=== PATIENT | female | born 1940 | race Caucasian/White ===

== ENCOUNTER → 2018-06-12 12:51 | Outpatient (CLI) | payer MEDICARE, OTHER, SELFPAY ==
--- NOTE | 2018-06-12 12:54 | DI.RAD.S_ITS ---
PROCEDURE: XR KNEE RT 3V INDICATIONS: Knee pain (medial); suspect OA- do 1 weight bearing view TECHNIQUE: 3 views of the knee were acquired. COMPARISON: None. FINDINGS: Bones: No fractures or dislocations. No suspicious bony lesions. Scattered degenerative subchondral sclerosis and spurring. Soft tissues: Small joint effusion. No suspicious soft tissue calcifications. IMPRESSION: Mild right knee joint degeneration. Small joint effusion. Dictated by: Jeyson Mehta M.D. on 06/12/2018 at 15:18 Approved by: Jeyson Mehta M.D. on 06/12/2018 at 15:27
== END ==
PROVIDERS: Family Provider Physician Assistant; PCP Physician Assistant; Visit Provider Physician Assistant
DX: M25.561 Pain in right knee (principal); M17.11 Unilateral primary osteoarthritis, right knee; M25.461 Effusion, right knee
CPT/HCPCS: 73562

== ENCOUNTER → 2019-08-04 15:31 | Outpatient (CLI) | payer MEDICARE, OTHER, SELFPAY ==
[2019-08-06 09:08] LABS: COVID19 Sendout Not Detected (Not Detected)
== END ==
PROVIDERS: Family Provider Physician Assistant; PCP Physician Assistant; Visit Provider Physician Assistant
DX: R53.83 Other fatigue (principal)
CPT/HCPCS: 87635

== ENCOUNTER → 2020-03-05 15:19 | Outpatient (CLI) | payer MEDICARE, SELFPAY ==
[2020-03-05] MEDS: COVID-19 VACC #1, MRNA(MOD) 100 MCG/0.5 ML VIAL IM (15:34)
== END ==
PROVIDERS: Family Provider Physician Assistant; PCP Physician Assistant; Visit Provider Internal Medicine
DX: Z23 Encounter for immunization (principal)
CPT/HCPCS: 0011A; 91301

== ENCOUNTER → 2020-04-02 14:34 | Outpatient (CLI) | payer MEDICARE, SELFPAY ==
[2020-04-02] MEDS: COVID-19 VACC #2, MRNA(MOD) 100 MCG/0.5 ML VIAL IM (14:41)
== END ==
PROVIDERS: Family Provider Physician Assistant; PCP Physician Assistant; Visit Provider Internal Medicine
DX: Z23 Encounter for immunization (principal)
CPT/HCPCS: 0012A; 91301

== ENCOUNTER → 2021-01-04 09:05 | Outpatient (CLI) | payer MEDICARE, OTHER, SELFPAY ==
[2021-01-04 10:27] LABS: Add Manual Diff / Slide Review NO; Basophils Absolute Auto 100 /uL (0-100); Basophils Percent Auto 0.8 % (0-2); Eosinophils Absolute Auto 400 /uL (0-450); Eosinophils Percent Auto 4.6 % (2-4); Hemoglobin 13.6 g/dL (12.0-16.0); Lymphocytes Absolute Auto 2200 /uL (1100-4500); Lymphocytes Percent Auto 27.6 % (25-40); Mean Corpuscular HGB Conc 33.1 % (30-36); Mean Corpuscular Hemoglobin 29.3 PG (26-34); Mean Corpuscular Volume 88.4 fL (80-100); Monocytes Absolute Auto 600 /uL (0-900); Monocytes Percent Auto 7.2 % (3-14); Neutrophils Absolute Auto 4700 /uL (1500-7000); Neutrophils Percent Auto 59.8 % (50-75); Platelet Count 261 X10^3/uL (150-400); Red Blood Cell Count 4.63 X10^6/uL (4.0-5.2); Red Cell Distribution Width 14.5 % (11.6-14.8); White Blood Cell Count 7.9 X10^3/uL (4.5-11.0)
[2021-01-04 10:53] LABS: Alanine Aminotransferase 15 IU/L (<35); Albumin 4.3 g/dL (3.5-5.0); Albumin Globulin Ratio 1.3 (1.0-2.8); Alkaline Phosphatase 58 U/L (38-126); Aspartate Aminotransferase 27 IU/L (14-36); BUN Creatinine Ratio 14.9 (6-22); Bilirubin Total 0.9 mg/dL (0.2-1.3); Blood Urea Nitrogen 10 mg/dL (7-17); Calcium 9.9 mg/dL (8.4-10.2); Carbon Dioxide 33 mmol/L (22-32); Chloride 103 mmol/L (98-107); Cholesterol 187 mg/dL (140-199); Estimated Glomerular Filt Rate > 60.0 mL/min (>60); Globulin 3.2 g/dL (1.7-4.1); Glucose 110 mg/dL (80-110); HDL Cholesterol 44 mg/dL (40-60); HEMOLYSIS < 15 (0-50); LDL Cholesterol Calculated 113 mg/dL (<100); Potassium 5.1 mmol/L (3.4-5.1); Sodium 142 mmol/L (137-145); Total Protein 7.5 g/dL (6.3-8.2); Triglycerides 150 mg/dL (35-150)
[2021-01-04 11:11] LABS: TSH w/ Reflex to FT4 1.78 uIU/mL (0.47-4.68)
== END ==
PROVIDERS: Family Provider Physician Assistant; PCP Family Medicine; Referring Provider Family Medicine; Visit Provider Family Medicine
DX: E78.2 Mixed hyperlipidemia (principal); J45.909 Unspecified asthma, uncomplicated; R00.2 Palpitations
CPT/HCPCS: 36415; 80053; 80061; 84443; 85025

== ENCOUNTER → 2021-01-13 12:55 | Outpatient (CLI) | payer MEDICARE, OTHER, SELFPAY ==
--- NOTE | 2021-02-07 09:04 | P.HOLT.S_ITS ---
Coke Inspector Report Referral & Results Date Patient Seen: 01/13/21 Requesting provider: Rm Love Indication: Palpitations Duration of monitoring (days): 7 Diary information: There were 2 patient triggered events and 2 patient diary entries Both of these patient events were associated with sinus rhythm only Data: Minimum heart rate identified was 54 beats per minute at 04:29 on 01/16/2021 Maximum sinus heart rate was 130 beats per minute at 16:53 on 01/15/2021 Maximum overall heart rate was 190 beats per minute at 11:54 on 01/15/2021 during a run of SVT Approximately 2.4% of identified beats were supraventricular ectopic in origin which would classify them asonal Less than 1% of identified beats were ventricular ectopic in origin which would classify them as rare There were 4604 runs of SVT identified by the computer, the fastest being a 12 beat run at 190 beats per minute with the longest lasting 20.6 seconds at a rate of 101 beats per minute which would suggest possible atrial tachycardia as well Impression: 7 day clinical research monitor demonstrating occasional supraventricular ectopy including runs of SVT as above. None of the runs of SVT were extended induration. Patient events were associated with sinus rhythm only however which makes it difficult to determine whether not the supraventricular ectopy is symptomatic or not in this particular patient Clinical correlation suggested
== END ==
PROVIDERS: Family Provider Physician Assistant; PCP Family Medicine; Referring Provider Family Medicine; Visit Provider Family Medicine
DX: R00.2 Palpitations (principal)
CPT/HCPCS: 93242; 93244

== ENCOUNTER → 2021-03-01 11:11 | Outpatient (CLI) | payer MEDICARE, OTHER, SELFPAY ==
--- NOTE | 2021-03-01 11:13 | DI.RAD.S_ITS ---
PROCEDURE: XR DEXA AXIAL SKELETON INDICATIONS: mammogram screening, bone density screening COMPARISON: None. FINDINGS: This blank DEXA report has been sent in error by the PACS system. The correct and complete report will be forthcoming in 1-2 days. Thank you for your patience and understanding. Dictated by: Nakia Munoz MD, PhD on 03/01/2021 at 16:56 Approved by: Nakia Munoz MD, PhD on 03/01/2021 at 16:57
== END ==
PROVIDERS: Family Provider Physician Assistant; PCP Family Medicine; Referring Provider Family Medicine; Visit Provider Family Medicine
DX: Z78.0 Asymptomatic menopausal state; Z13.820 Encounter for screening for osteoporosis
CPT/HCPCS: 77080

== ENCOUNTER → 2021-03-02 15:27 | Outpatient (CLI) | payer MEDICARE, OTHER, SELFPAY ==
--- NOTE | 2021-03-02 15:28 | DI.MG.S_ITS ---
BILATERAL DIGITAL SCREENING MAMMOGRAM 3D/2D WITH CAD: 03/02/2021 CLINICAL: Routine screening. Family history of breast cancer. Comparison is made to exams dated: 05/26/2015 mammogram and 12/03/2009 mammogram - [facility]. There are scattered fibroglandular elements in both breasts. Current study was also evaluated with a Computer Aided Detection (CAD) system. No significant masses, calcifications, or other findings are seen in either breast. There has been no significant interval change. IMPRESSION: NEGATIVE There is no mammographic evidence of malignancy. A 1 year screening mammogram is recommended. This exam was interpreted at Station ID: [id number]. NOTE: For mammograms, a report in lay terms will be sent to the patient. Approximately 15% of breast malignancies will not be visualized mammographically. In the management of a palpable breast mass, a negative mammogram must not discourage biopsy of a clinically suspicious lesion. Electronically Signed By: Trevon moser/sb:03/03/2021 07:54:18 letter sent: Normal Exam ACR BI-RADS Category 1: Negative [id number]
== END ==
PROVIDERS: Family Provider Physician Assistant; PCP Family Medicine; Referring Provider Family Medicine; Visit Provider Family Medicine
DX: Z12.31 Encounter for screening mammogram for malignant neoplasm of breast (principal); Z80.3 Family history of malignant neoplasm of breast
CPT/HCPCS: 77063; 77067

== ENCOUNTER → 2021-03-03 11:17 | Outpatient (CLI) | payer MEDICARE, OTHER, SELFPAY ==
--- NOTE | 2021-03-03 11:20 | DI.RAD.S_ITS ---
PROCEDURE: XR SHOULDER RT MIN 2V INDICATIONS: right shoulder pain and decreased ROM TECHNIQUE: 3 views of the shoulder were acquired. COMPARISON: None. FINDINGS: Bones: No fractures or dislocations. No suspicious bony lesions. Visualized ribs appear intact. Glenohumeral joint degenerative change. Soft tissues: No suspicious soft tissue calcifications. IMPRESSION: Degenerative arthritis. No evidence acute bony abnormality of the right shoulder. If clinical suspicion and/or symptoms persist, further assessment with repeat plain films, or advanced imaging (e.g., CT, MRI, or bone scan) may be helpful for further assessment. Dictated by: Jose Stapleton M.D. on 03/03/2021 at 17:42 Approved by: Jose Stapleton M.D. on 03/03/2021 at 17:45
--- NOTE | 2021-03-03 11:20 | DI.RAD.S_ITS ---
PROCEDURE: XR HIP W PEL IF DONE LT 2V INDICATIONS: left hip pain TECHNIQUE: AP pelvis with lateral view(s) of the left hip(s). COMPARISON: None. FINDINGS: Bones: No acute fractures or dislocations. Pelvic ring appears intact. No suspicious bony lesions. Mild lower lumbar spondylosis. Soft tissues: The visualized bowel gas pattern is normal. No suspicious soft tissue calcifications. IMPRESSION: Left hip without acute radiographic abnormalities. Mild lower lumbar spondylosis. No significant degenerative changes of the left hip on radiographic evaluation. Dictated by: Juaquin Sargent M.D. on 03/03/2021 at 14:47 Approved by: Juqauin Sargent M.D. on 03/03/2021 at 14:49
== END ==
PROVIDERS: Family Provider Physician Assistant; PCP Family Medicine; Referring Provider Family Medicine; Visit Provider Family Medicine
DX: M19.011 Primary osteoarthritis, right shoulder (principal); M47.816 Spondylosis without myelopathy or radiculopathy, lumbar region; M25.511 Pain in right shoulder; M25.552 Pain in left hip
CPT/HCPCS: 73030; 73502

== ENCOUNTER 2021-05-02 16:40 | Emergency (ER) | payer MEDICARE, OTHER, SELFPAY ==
[2021-05-02] VITALS (12 sets, daily range): BP systolic 140–217; BP diastolic 74–100; PULSE 63–86; RESP 16–40; TEMP 36.9; O2SAT 94–98; BMI 23.8
--- NOTE | 2021-05-02 16:57 | DI.RAD.S_ITS ---
PROCEDURE: XR CHEST 2V INDICATIONS: cough TECHNIQUE: 2 views of the chest were acquired. COMPARISON: None. FINDINGS: Surgical changes and devices: None. Lungs and pleura: Lungs are clear. No pleural effusions or pneumothorax. Mediastinum: Mediastinal contours are normal. Heart size is normal. Bones and chest wall: No suspicious bony abnormalities. Soft tissues appear unremarkable. IMPRESSION: No acute finding. Dictated by: Jevon Zapata M.D. on 05/02/2021 at 17:36 Approved by: Jevon Zapata M.D. on 05/02/2021 at 17:36
--- NOTE | 2021-05-02 17:15 | ED_ITS ---
HPI - URI/Sore Throat <Sailaja Mckinney, [facility] - Last Filed: 05/02/21 20:01> General Chief Complaint: Upper Respiratory Symptoms Stated Complaint: Allergic Reaction, Trouble Breathing Time Seen by Provider: 05/02/21 16:52 Source: patient Mode of arrival: Ambulatory History of Present Illness HPI Narrative: This is a 80-year-old female who presents to the emergency department complaining of throat tightness for the last couple days, a productive cough, and feeling short of breath. Patient has a history of asthma, she states she has not used her inhaler at all this week, she was given a prescription of Augmentin 2 weeks ago for bronchitis, she states that she finished these antibiotics, it caused diarrhea but they did not have much of a change on her upper respiratory infection. She is vaccinated for COVID x3, denies any fever, runny nose, sinus tenderness, abdominal pain, vomiting, diarrhea, or dizziness. Patient states that she was recently switched from metoprolol to propanolol because she states metoprolol made her too sleepy, her quality of life was not optimal, she has been taking propanolol without adverse event. She states she finished her antibiotics 1 week ago, she has a productive cough with phlegm, and has been coughing frequently in the morning. Related Data Home Medications Medication Instructions Recorded Confirmed FOLIC ACID/VIT A/VIT B1/VIT 1 tab PO QDAY #0 08/15/10 04/22/21 (#MULTIVITAMIN) [CALCIUM] 1 cap PO QDAY #0 10/20/15 04/22/21 [PROBIOTIC FORMULA] 1 - 2 cap PO QDAY #0 10/20/15 04/22/21 ibuprofen 200 mg capsule 400 mg PO Q4-6H PRN 06/12/18 04/22/21 turmeric root extract 500 mg 500 mg PO DAILY 06/12/18 04/22/21 capsule Previous Rx's Medication Instructions Recorded amoxicillin 875 mg-potassium 1 tab PO BID #14 tab 04/22/21 clavulanate 125 mg tablet propranolol 10 mg tablet 10 mg PO BID #60 tab 04/22/21 albuterol sulfate 90 mcg/actuation 1 inh INHALATION QID PRN #6.7 g 05/02/21 aerosol inhaler dextromethorphan polistirex 30 10 ml PO Q12H PRN #89 ml 05/02/21 mg/5 mL oral susp ext.release 12hr (Robitussin ER) fluticasone propionate 50 1 spray INTRANASAL BID PRN #16 g 05/02/21 mcg/actuation nasal spray,suspension (Flonase Allergy Relief) methylprednisolone 4 mg tablets in See Rx Instructions .ROUTE 05/02/21 a dose pack (Medrol (Romario)) .COMPLEX #21 ea pantoprazole 20 mg tablet,delayed 20 mg PO DAILY 30 Days #30 tab 05/02/21 release (Protonix) Allergies Allergy/AdvReac Type Severity Reaction Status Date / Time No Known Drug Allergies Allergy Verified 05/02/21 16:59 Review of Systems <FADY Mendez - Last Filed: 05/02/21 20:01> Review of Systems Narrative: General: denies fever, chills, malaise, sweats, fatigue Head/Neck: denies headache, neck pain, dizziness Eyes: denies visual changes, eye pain Cardio: denies chest pain, palpitations, edema, endorses upper chest tightness Respiratory: denies dyspnea, endorses shortness of breath, productive cough, denies orthopnea GI: denies abdominal pain, nausea, vomiting, or diarrhea : denies dysuria, hematuria, urinary retention, frequency or incontinence MSK: denies joint pain, muscle weakness Skin: denies rash, itching, skin lesions or other Neuro: denies numbness, tingling Patient History <FADY Mendez - Last Filed: 05/02/21 20:01> Medical History Allergic rhinitis Hyperlipidemia SVT (supraventricular tachycardia) Surgical History Status post cholecystectomy Social History Smoking Status: Never smoker Smoking Status: Never smoker alcohol intake frequency: holidays/special occasions only Substance Use Type: does not use Exam <FADY Mendez - Last Filed: 05/02/21 20:01> Narrative Exam Narrative: Independently reviewed vitals signs and nursing notes. General: cooperative, comfortable, in no acute distress, well developed and well groomed Head: atraumatic, symmetrical facial expressions Neck: supple, atraumatic, without lymphadenopathy. Eyes: pupils equal round and reactive, EOMI, conjunctiva normal Nose: nares patent, no rhinorrhea Mouth/Throat: uvula midline, moist mucus membranes, tonsillar adenopathy Cardiovascular: regular rate and rhythm, no peripheral edema, warm extremities Respiratory: normal effort, able to speak in complete sentences, no audible wheezing, expiratory wheezes primarily on the right but also on the left, atelectasis auscultated on the lower left lobe, no stridor, or rales. No retractions or tachypnea. GI: abdomen soft, nontender to palpation, nondistended, no masses, no exquisite tenderness with exam, without guarding or rebound. MSK: moves all extremities, ambulatory w/steady gait, neurovascularly intact, no weakness Skin: brisk capillary refill, no rash, no erythema Neuro: normal speech and cognition, A&O x3, normal tone Psych: mental status is grossly normal, congruent mood, normal affect, pleasant and cooperative Initial Vital Signs Initial Vital Signs: Vital Signs Temperature 98.4 F 05/02/21 16:45 Pulse Rate 86 05/02/21 16:45 Respiratory Rate 19 05/02/21 16:45 Blood Pressure 140/85 05/02/21 16:45 Pulse Oximetry 95 05/02/21 16:45 <Leon Llanos DO - Last Filed: 05/03/21 07:10> Initial Vital Signs Initial Vital Signs: Vital Signs Temperature 98.4 F 05/02/21 16:45 Pulse Rate 86 05/02/21 16:45 Respiratory Rate 19 05/02/21 16:45 Blood Pressure 140/85 05/02/21 16:45 Pulse Oximetry 95 05/02/21 16:45 Course <FADY Mendez - Last Filed: 05/02/21 20:01> Orders Ordered: Discontinued Medications Albuterol (Albuterol 2.5 Mg/3 Ml Neb (Adult)) 2.5 mg INH NOW ONE Stop: 05/02/21 18:21 Last Admin: 05/02/21 18:35 Dose: 2.5 mg Documented by: PETRA Albuterol/Ipratropium (Albuterol/Ipratropium 3 Ml Ampul) 3 ml INH NOW ONE Stop: 05/02/21 17:15 Last Admin: 05/02/21 17:28 Dose: 3 ml Documented by: JFDILIP Dexamethasone (Dexamethasone 10 Mg/Ml Vial) 10 mg PO NOW ONE Stop: 05/02/21 17:15 Last Admin: 05/02/21 17:23 Dose: 10 mg Documented by: PEDRO Ketorolac Tromethamine (Ketorolac 10 Mg Tablet) 10 mg PO NOW ONE Stop: 05/02/21 18:00 Last Admin: 05/02/21 18:22 Dose: 10 mg Documented by: PEDRO Magnesium Oxide (Magnesium Oxide 400 Mg Tablet) 400 mg PO NOW ONE Stop: 05/02/21 18:01 Last Admin: 05/02/21 18:23 Dose: Not Given Documented by: PEDRO Pantoprazole Sodium (Pantoprazole Dr 20 Mg Tablet) 20 mg PO NOW ONE Stop: 05/02/21 18:00 Last Admin: 05/02/21 18:22 Dose: 20 mg Documented by: PEDRO Vital Signs Vital signs: Vital Signs - 8 hr 05/02/21 16:45 05/02/21 16:54 05/02/21 16:55 Temperature 98.4 F Pulse Rate 86 68 Respiratory Rate 19 23 Blood Pressure 140/85 217/100 H Pulse Oximetry 95 95 05/02/21 17:00 05/02/21 17:28 05/02/21 17:30 Temperature Pulse Rate 80 69 66 Respiratory Rate 30 H 16 40 H Blood Pressure 195/88 H Pulse Oximetry 94 98 97 05/02/21 18:00 05/02/21 18:30 05/02/21 18:36 Temperature Pulse Rate 63 65 69 Respiratory Rate 35 H 23 16 Blood Pressure Pulse Oximetry 97 95 96 05/02/21 19:00 05/02/21 19:08 05/02/21 19:15 Temperature Pulse Rate 63 68 66 Respiratory Rate 18 20 17 Blood Pressure 174/74 H 174/74 H Pulse Oximetry 95 96 96 <Leon Llanos DO - Last Filed: 05/03/21 07:10> Orders Ordered: Discontinued Medications Albuterol (Albuterol 2.5 Mg/3 Ml Neb (Adult)) 2.5 mg INH NOW ONE Stop: 05/02/21 18:21 Last Admin: 05/02/21 18:35 Dose: 2.5 mg Documented by: PETRA Albuterol/Ipratropium (Albuterol/Ipratropium 3 Ml Ampul) 3 ml INH NOW ONE Stop: 05/02/21 17:15 Last Admin: 05/02/21 17:28 Dose: 3 ml Documented by: PETRA Dexamethasone (Dexamethasone 10 Mg/Ml Vial) 10 mg PO NOW ONE Stop: 05/02/21 17:15 Last Admin: 05/02/21 17:23 Dose: 10 mg Documented by: PEDRO Ketorolac Tromethamine (Ketorolac 10 Mg Tablet) 10 mg PO NOW ONE Stop: 05/02/21 18:00 Last Admin: 05/02/21 18:22 Dose: 10 mg Documented by: PEDRO Magnesium Oxide (Magnesium Oxide 400 Mg Tablet) 400 mg PO NOW ONE Stop: 05/02/21 18:01 Last Admin: 05/02/21 18:23 Dose: Not Given Documented by: PEDRO Pantoprazole Sodium (Pantoprazole Dr 20 Mg Tablet) 20 mg PO NOW ONE Stop: 05/02/21 18:00 Last Admin: 05/02/21 18:22 Dose: 20 mg Documented by: PEDRO Vital Signs Vital signs: Vital Signs - 8 hr 05/02/21 16:45 05/02/21 16:54 05/02/21 16:55 Temperature 98.4 F Pulse Rate 86 68 Respiratory Rate 19 23 Blood Pressure 140/85 217/100 H Pulse Oximetry 95 95 05/02/21 17:00 05/02/21 17:28 05/02/21 17:30 Temperature Pulse Rate 80 69 66 Respiratory Rate 30 H 16 40 H Blood Pressure 195/88 H Pulse Oximetry 94 98 97 05/02/21 18:00 05/02/21 18:30 05/02/21 18:36 Temperature Pulse Rate 63 65 69 Respiratory Rate 35 H 23 16 Blood Pressure Pulse Oximetry 97 95 96 05/02/21 19:00 05/02/21 19:08 05/02/21 19:15 Temperature Pulse Rate 63 68 66 Respiratory Rate 18 20 17 Blood Pressure 174/74 H 174/74 H Pulse Oximetry 95 96 96 MDM - URI/Sore Throat <FADY Mendez - Last Filed: 05/02/21 20:01> Lab Data Labs: Lab Results 05/02/21 Range/Units 16:55 SARS-CoV-2 (PCR) Negative (Negative) Imaging Data Chest x-ray: Radiologist's Impression: PROCEDURE:? XR CHEST 2V ? INDICATIONS:? cough ? TECHNIQUE:? 2 views of the chest were acquired.? ? COMPARISON:? None. ? FINDINGS:? ? Surgical changes and devices:? None.? ? Lungs and pleura:? Lungs are clear.? No pleural effusions or pneumothorax.? ? Mediastinum:? Mediastinal contours are normal.? Heart size is normal.? ? Bones and chest wall:? No suspicious bony abnormalities.? Soft tissues appear unremarkable.? ? IMPRESSION:? No acute finding. ? ? Dictated by: Jevon Zapata M.D. on 05/02/2021 at 17:36 ? ? Approved by: Jevon Zapata M.D. on 05/02/2021 at 17:36 ? ECG Data Interpretation: EKG was reviewed by myself and Dr. Llanos which reveals normal sinus rhythm at [68] bpm with regular axis and intervals. No STEMI, ST segment changes, arrhythmia, or acute ischemic changes. MDM Narrative Medical decision making narrative: This 80-year-old female presents to the emergency department with a feeling of throat and upper chest tightness. She states she has at her history of hiatal hernia and heartburn, she is not currently taking any PPI or GI prophylaxis for this. She also has a history of asthma but has not been using her inhaler. She was given a prescription of Augmentin 2 weeks ago for bronchitis from Dr. Love her primary care provider. She completed these antibiotics, states that she had diarrhea while on them, but this has resolved. She states that her cough, congestion, and throat tightness has not improved and the symptoms came on later. She was recently switched from metoprolol to propanolol for quality of life symptoms. She states the metoprolol made her too tired, and the propanolol has been tolerable thus far. Patient denies any new medications over the last few days. On exam, patient had extra Niecy wheezes on the right upper and lower lobes, mild atelectasis auscultated in her lower left lobe. Chest x- ray does not show any patchy infiltrates or patchy opacities. Chest x-ray was read without any acute cardiopulmonary process. Patient is without stridor, her wheezes improved after a DuoNeb, she was given 10 mg of Decadron, she was given a 2nd nebulizer of albuterol for ongoing extra Arona wheezes on the left and right. This improved after her 2nd nebulizer enough for patient felt comfortable enough to go home. She states that she feels much better now. Patient was given a prescription for Protonix for GI prophylaxis as this could be a cause for her symptoms, a Medrol Dosepak, encouraged to use her propanolol as schedule, she was hypertensive during her exam today but was normotensive prior to her elevated blood pressures while I was talking with her. Patient is without orthostatic hypotension. She is tolerating p.o. without difficulty. No swallowing difficulty, no dysphagia or aphasia at this time. Recommend close follow-up with your nose and throat for her throat tightness sensation. Encourage close follow-up with her primary care provider for any outpatient testing or referrals. I have referred her to your nose and throat. She states understanding and will follow-up with her providers accordingly. Patient was given strict return precautions for any worsening shortness of breath, worsening tightness in her throat, or any other symptoms which are concerning. Patient is appropriate and amenable to discharge home. Vital signs are stable on repeat examination is unremarkable. Patient has been informed of results. Patient has been given strict return to ER precautions for any new or worsening symptoms. Patient understands to follow up closely with outpatient providers as instructed. Patient understands plan and agrees to discharge home. All questions and concerns answered at this time. <Leon Llanos, DO - Last Filed: 05/03/21 07:10> Lab Data Labs: Lab Results 05/02/21 Range/Units 16:55 SARS-CoV-2 (PCR) Negative (Negative) Discharge Plan Departure Patient Disposition: Home Clinical Impression: Asthma exacerbation Qualifiers: Asthma severity: mild Asthma persistence: intermittent Qualified Code(s): J45.21 - Mild intermittent asthma with (acute) exacerbation Upper respiratory infection Qualifiers: URI type: unspecified viral URI Qualified Code(s): J06.9 - Acute upper respiratory infection, unspecified Instructions: Asthma -- Adult Activity Restrictions/Additional Instructions: *You have been diagnosed with an upper respiratory infection with an asthma exacerbation. Please use your inhaler every 4 hours as needed, if you need to use it more often for shortness of breath, please come back to the emergency department. Please follow-up with Dr. Singh from [facility], please call make an appointment with him tomorrow. If he is unavailable this week, then call to make an appoint with Dr. Valenzuela with ear nose and throat, he is over in [place]. Please call Dr. Jiménez office and make an appointment for a follow-up from the emergency department to address your tightness in her throat, asthma exacerbation, and any other symptoms that you are having at that time. I have called in Flonase for use well, please use Flonase morning and night to help with any congestion he may have, you may use the Robitussin cough syrup for cough. Please use your albuterol inhaler for any shortness of breath CC abdominal pain *What to do: *Please continue to take your regular medications as directed. [x ] New medication prescriptions sent to your pharmacy: [ [facility]] [ ] New medication written as a paper prescription [ ] No new medications given *Please follow up with your primary care provider in 2-3 days, call for an appointment. Let them know you were seen in the Emergency Department and that we asked that you be seen for follow-up. We will electronically transmit a record of today's note if your PCP is in our system *If you do not have a primary care provider please contact [phone] to establish care with one of the [facility] primary care providers. *Return to Emergency Department if you should have any new, worsening or concerning symptoms, such as [fever greater than 101F, chills, worsening pain, persistent vomiting or other bothersome symptoms] Prescriptions: New methylprednisolone [Medrol (Romario)] 4 mg tablets,dose pack See Rx Instructions .ROUTE .COMPLEX Qty: 21 0RF Rx Instructions: orally per package directions albuterol sulfate 90 mcg/actuation HFA aerosol inhaler 1 inh inhalation QID PRN (Reason: shortness of breath or wheezing) Qty: 6.7 0RF pantoprazole [Protonix] 20 mg tablet,delayed release (DR/EC) 20 mg PO DAILY 30 Days Qty: 30 0RF dextromethorphan polistirex [Robitussin ER] 30 mg/5 mL suspension,extended rel 12 hr 10 ml PO Q12H PRN (Reason: cough) Qty: 89 0RF fluticasone propionate [Flonase Allergy Relief] 50 mcg/actuation spray,suspension 1 spray intranasal BID PRN (Reason: nasal congestion) Qty: 16 0RF Rx Instructions: administer into each nostril No Action FOLIC ACID/VIT A/VIT B1/VIT (#MULTIVITAMIN) 1 tab PO QDAY Qty: 0 0RF [CALCIUM] 1 cap PO QDAY Qty: 0 0RF [PROBIOTIC FORMULA] 1 - 2 cap PO QDAY Qty: 0 0RF ibuprofen 200 mg capsule 400 mg PO Q4-6H PRN0RF turmeric root extract 500 mg capsule 500 mg PO DAILY 0RF propranolol 10 mg tablet 10 mg PO BID Qty: 60 0RF amoxicillin-pot clavulanate 875-125 mg tablet 1 tab PO BID Qty: 14 0RF Referrals: Mika Valenzuela MD [Physician] - Alexandre Singh MD [Physician] - As soon as possible Rm Love MD [Primary Care Provider] - <Leon Llanos DO - Last Filed: 05/03/21 07:10> Cosign ED Attending Cosignature Attestation: Dr Llanos Co-Sign Statement: I was available for consultation during this patient's emergency department visit. This chart is signed by myself for administrative purposes only. I did not have direct contact with this patient during this visit. They were seen independently by the APC.
[2021-05-02 17:19] LABS: COVID19 -Nasal RAPID Negative (Negative)
[2021-05-02] MEDS: DEXAMETHASONE 10 MG/ML VIAL PO (17:23)
[2021-05-02] MEDS: ALBUTEROL/IPRATROPIUM 3 ML AMPUL INH (17:28)
[2021-05-02] MEDS: PANTOPRAZOLE DR 20 MG TABLET PO (18:22)
[2021-05-02] MEDS: KETOROLAC 10 MG TABLET PO (18:22)
[2021-05-02] MEDS: ALBUTEROL 2.5 MG/3 ML NEB (ADULT) INH (18:35)
== END 2021-05-02 19:16 | disposition home or self-care (01) ==
PROVIDERS: Emergency Provider Nurse Practitioner Critical Care Medicine; Family Provider Physician Assistant; PCP Family Medicine
DX: J45.21 Mild intermittent asthma with (acute) exacerbation (principal); J06.9 Acute upper respiratory infection, unspecified
CPT/HCPCS: 71046; 87635; 93005; 94640; 99284; C9803; J1100; J7613

== ENCOUNTER 2021-05-03 16:39 | Inpatient (IN) | payer MEDICARE, OTHER, SELFPAY ==
[2021-05-03] VITALS (7 sets, daily range): BP systolic 145–204; BP diastolic 65–94; PULSE 65–92; RESP 18–26; TEMP 37.2; O2SAT 96–97; BMI 23.9
--- NOTE | 2021-05-03 17:08 | DI.CT.S_ITS ---
PROCEDURE: CT SOFT TISSUE NECK W CON INDICATIONS: Muffled voice, sore throat TECHNIQUE: After the administration of intravenous contrast, 3.0 mm axial sections acquired from the sella to the aortic arch. Additional oblique axial 3.0 mm sections acquired through the pharynx. 3 mm thick coronal and sagittal reformats were generated. For radiation dose reduction, the following was used: automated exposure control. COMPARISON: None. FINDINGS: Image quality: Excellent. Lymph nodes: No enlarged lymph nodes seen throughout the neck. Vessels: Visualized vasculature appears patent. Neck spaces: There is irregularity with thickening along the left aspect of the epiglottis, as on series 7, image 19. No additional mucosal masses are seen. Fullness can be seen within the tongue base on both sides, which may be related to prominent lymphoid tissue. Extramucosal spaces appear unremarkable. Glands: The parotid and submandibular glands appear normal. Thyroid gland demonstrates irregularity. Calcification can be seen within the left thyroid. Miscellaneous: Visualized brain and orbits appear normal. Lung apices appear clear. Superficial soft tissues appear normal. Bones: No suspicious bony lesions. Visualized sinuses and mastoids appear unremarkable. Cervical spine degenerative changes are seen, with at least moderate disc space narrowing at C4-C5 and C5-C6. IMPRESSION: Irregularity with thickening can be seen along the left aspect of the epiglottis. If clinically appropriate, please consider ENT consultation. No enlarged lymph nodes are seen. There is fullness seen within both sides of the tongue base, which may simply be related to prominent lymphoid tissue. Incidental note is made of: Irregular thyroid Cervical spine degenerative change Dictated by: Sancho La M.D. on 05/03/2021 at 17:11 Approved by: Sancho La M.D. on 05/03/2021 at 17:15
--- NOTE | 2021-05-03 17:09 | ED.NEUROSD ---
HPI - Neuro Symptoms/Deficit General Chief Complaint: Neuro Symptoms/Deficit Stated Complaint: HARD TIME TALKING Time Seen by Provider: 05/03/21 16:55 Source: patient Mode of arrival: Ambulatory Limitations: no limitations History of Present Illness HPI Narrative: Patient is a 80-year-old female. She arrives to the emergency department for what she describes as a muffled voice. Symptoms have been going on since this morning. She was seen here in the emergency department yesterday for an upper respiratory infection/asthma exacerbation. She also recently completed a course of amoxicillin for an upper respiratory infection as well. She states that this morning she feels like that her throat is full in the back of her tongue is full in that she has a muffled voice. She is not having any problems breathing. Is still tolerating secretions. Reports no headache or vision changes or extremity weakness or numbness or tingling. Her states that how she is speaking now is not normal for her. Denies chest pain. No shortness of breath. No nausea or vomiting. No skin rashes. Has not tried anything for symptoms prior to arrival. She does states she is having sinus congestion and ear fullness. On Anticoagulants: No Related Data Home Medications Medication Instructions Recorded Confirmed FOLIC ACID/VIT A/VIT B1/VIT 1 tab PO QDAY #0 08/15/10 04/22/21 (#MULTIVITAMIN) [CALCIUM] 1 cap PO QDAY #0 10/20/15 04/22/21 [PROBIOTIC FORMULA] 1 - 2 cap PO QDAY #0 10/20/15 04/22/21 ibuprofen 200 mg capsule 400 mg PO Q4-6H PRN 06/12/18 04/22/21 turmeric root extract 500 mg 500 mg PO DAILY 06/12/18 04/22/21 capsule Previous Rx's Medication Instructions Recorded amoxicillin 875 mg-potassium 1 tab PO BID #14 tab 04/22/21 clavulanate 125 mg tablet propranolol 10 mg tablet 10 mg PO BID #60 tab 04/22/21 albuterol sulfate 90 mcg/actuation 1 inh INHALATION QID PRN #6.7 g 05/02/21 aerosol inhaler dextromethorphan polistirex 30 10 ml PO Q12H PRN #89 ml 05/02/21 mg/5 mL oral susp ext.release 12hr (Robitussin ER) fluticasone propionate 50 1 spray INTRANASAL BID PRN #16 g 05/02/21 mcg/actuation nasal spray,suspension (Flonase Allergy Relief) methylprednisolone 4 mg tablets in See Rx Instructions .ROUTE 05/02/21 a dose pack (Medrol (Romario)) .COMPLEX #21 ea pantoprazole 20 mg tablet,delayed 20 mg PO DAILY 30 Days #30 tab 05/02/21 release (Protonix) verapamil 80 mg tablet 80 mg PO BID #60 tab 05/03/21 Allergies Allergy/AdvReac Type Severity Reaction Status Date / Time No Known Drug Allergies Allergy Verified 05/02/21 16:59 Review of Systems Review of Systems ROS Unobtainable: All systems reviewed & are unremarkable except as noted in HPI and below Hematologic/Lymphatic On Anticoagulants: No Patient History Medical History Allergic rhinitis Hyperlipidemia SVT (supraventricular tachycardia) Surgical History Status post cholecystectomy Social History Smoking Status: Never smoker Smoking Status: Never smoker alcohol intake frequency: holidays/special occasions only Substance Use Type: does not use Exam Initial Vital Signs Initial Vital Signs: Vital Signs Temperature 99.0 F 05/03/21 16:44 Pulse Rate 92 H 05/03/21 16:44 Respiratory Rate 20 05/03/21 16:44 Blood Pressure 204/93 H 05/03/21 16:44 Pulse Oximetry 96 05/03/21 16:44 Const General: cooperative, comfortable and well developed [facility] Ears: hearing grossly normal bilaterally and TM's normal bilaterally Face and sinus: normal facial exam Mouth: oral mucosae normal, lip normal and moist mucous membranes Teeth and gingiva: dentition normal Throat: posterior oropharynx normal, uvula midline and no peritonsillar masses Eyes General: appearance normal, both eyes and all related structures Neck Lymphatic: No lymphadenopathy Chest Chest: normal inspection of the chest Resp Effort & Inspection: normal respiratory effort Auscultation: clear to auscultation bilaterally Cardio Rate: regular rate Rhythm: regular rhythm GI Inspection: normal to inspection Palpation: soft, No firm and No tender Skin General: no rashes or lesions noted Neuro General: patient alert, patient awake, patient oriented x3 and moves all extremities Cognition: normal cognition Speech: abnormal speech (Muffled speech) Motor: muscle tone normal throughout Sensory Exam: no sensory deficits noted Extrem General: normal to inspection and capillary refill normal Psych Appearance: grossly normal and well kempt Scores GCS Sammie coma scale eye opening: Spontaneous Sammie coma scale verbal response: Orientated Butler coma scale motor response: Obey commands Sammie coma scale total score: 15 Course Orders Ordered: ED Orders 05/03/21 17:00 CMP [Comprehensive Metabolic Panel] Stat Complete Blood Count AUTO DIFF Stat Partial Thromboplastin Time Stat Prothrombin Time INR Stat 05/03/21 17:08 CT soft tissue neck w con Stat 05/03/21 18:30 Consult to Physician Stat 05/03/21 18:31 Blood Culture Stat Vancomycin HCl (Vancomycin) 1,000 mg in 200 mls @ 200 mls/hr IV NOW ONE Stop: 05/03/21 19:28 Discontinued Medications Ceftriaxone Sodium 1,000 mg/ (Sodium Chloride) 100 mls @ 200 mls/hr IV NOW ONE Stop: 05/03/21 18:30 Methylprednisolone (Methylprednisolone 125 Mg/2 Ml Vial) 125 mg IV NOW ONE Stop: 05/03/21 18:30 Vital Signs Vital signs: Vital Signs - 8 hr 05/03/21 16:44 Temperature 99.0 F Pulse Rate 92 H Respiratory Rate 20 Blood Pressure 204/93 H Pulse Oximetry 96 MDM - Neuro Symptoms/Deficit Lab Data Attestation: I reviewed the patient's lab results. Result diagrams: 05/03/21 17:00 05/03/21 17:00 Labs: Lab Results 05/03/21 05/03/21 05/03/21 Range/Units 17:00 17:00 17:00 WBC 16.2 H (4.5-11.0) X10^3/uL RBC 4.60 (4.0-5.2) X10^6/uL Hgb 13.5 (12.0-16.0) g/dL Hct 40.4 (36-46) % MCV 87.7 (80-100) fL MCH 29.3 (26-34) PG MCHC 33.4 (30-36) % RDW 15.3 H (11.6-14.8) % Plt Count 266 (150-400) X10^3/uL Neut % (Auto) 84.4 H (50-75) % Lymph % (Auto) 10.1 L (25-40) % [place] % (Auto) 5.3 (3-14) % Eos % (Auto) 0.0 L (2-4) % Baso % (Auto) 0.2 (0-2) % Neut # (Auto) 50258 H (2532-6610) /uL Lymph # (Auto) 1600 (1216-8751) /uL [place] # (Auto) 900 (0-900) /uL Eos # (Auto) 0 (0-450) /uL Baso # (Auto) 0 (0-100) /uL PT 11.8 (10.1-12.7) SECONDS INR 1.0 (0.9-1.3) APTT 30 (26.4-36.2) SECONDS Sodium 139 (137-145) mmol/L Potassium 4.2 (3.4-5.1) mmol/L Chloride 105 (98-107) mmol/L Carbon Dioxide 22 (22-32) mmol/L BUN 13 (7-17) mg/dL Creatinine 0.57 (0.52-1.04) mg/dL Estimated GFR > 60.0 (>60) mL/min BUN/Creatinine Ratio 22.8 H (6-22) Glucose 167 H (80-110) mg/dL Calcium 9.7 (8.4-10.2) mg/dL Total Bilirubin 0.7 (0.2-1.3) mg/dL AST 36 (14-36) IU/L ALT 24 (<35) IU/L Alkaline Phosphatase 48 (38-126) U/L Total Protein 8.0 (6.3-8.2) g/dL Albumin 4.7 (3.5-5.0) g/dL Globulin 3.3 (1.7-4.1) g/dL Albumin/Globulin Ratio 1.4 (1.0-2.8) Imaging Data CT soft tissue neck: Radiologist's Impression: [address] [address] [address] Scan Report Signed Patient: Beena Vazquez MR#: [id number] : 1940 Acct:[id number] Age/Sex: 80 / F Date of Service: 05/03/21 Loc: ED Accession Number: [id number] ?? Procedure: CT soft tissue neck w con Ordering Provider: Leon Llanos D.O. PROCEDURE:? CT SOFT TISSUE NECK W CON ? INDICATIONS:? Muffled voice, sore throat ? TECHNIQUE:? After the administration of intravenous contrast, 3.0 mm axial sections acquired from the sella to the aortic arch.? Additional oblique axial 3.0 mm sections acquired through the pharynx.? 3 mm thick coronal and sagittal reformats were generated.? For radiation dose reduction, the following was used:? automated exposure control.? ? COMPARISON:? None. ? FINDINGS:? Image quality:? Excellent.? ? Lymph nodes:? No enlarged lymph nodes seen throughout the neck.? ? Vessels:? Visualized vasculature appears patent.? ? Neck spaces:? There is irregularity with thickening along the left aspect of the epiglottis, as on series 7, image 19. ? No additional mucosal masses are seen. ? Fullness can be seen within the tongue base on both sides, which may be related to prominent lymphoid tissue. ? Extramucosal spaces appear unremarkable.? ? Glands:? The parotid and submandibular glands appear normal.? Thyroid gland demonstrates irregularity.? Calcification can be seen within the left thyroid.? ? Miscellaneous:? Visualized brain and orbits appear normal.? Lung apices appear clear.? Superficial soft tissues appear normal. ? Bones:? No suspicious bony lesions.? Visualized sinuses and mastoids appear unremarkable. ?Cervical spine degenerative changes are seen, with at least moderate disc space narrowing at C4-C5 and C5-C6. ? ? IMPRESSION:? Irregularity with thickening can be seen along the left aspect of the epiglottis.? If clinically appropriate, please consider ENT consultation. ? No enlarged lymph nodes are seen. ? There is fullness seen within both sides of the tongue base, which may simply be related to prominent lymphoid tissue. ? ? ? Incidental note is made of: Irregular thyroid Cervical spine degenerative change ? ? ? Dictated by: Sancho La M.D. on 05/03/2021 at 17:11 ? ? Approved by: Sancho La M.D. on 05/03/2021 at 17:15?? MDM Narrative Medical decision making narrative: Patient does have a muffled voice however is tolerating secretions. No other neurologic symptoms noted. Is afebrile. Has a leukocytosis. CT scan concerning for epiglottitis. Discussed case with Dr. Aviles on-call for Ear Nose and Throat. Will start patient on antibiotics. Also given steroids. Blood cultures obtained. Patient does require admission to the hospital for further evaluation and treatment. Discussed the case with Dr Sutton with Internal Medicine who will admit for further evaluation. I did discuss the findings of the CT scan with the patient the need for admission. Both her and her expressed understanding and agreement. Discharge Plan Departure Patient Disposition: Admitted As Inpatient Clinical Impression: Acute epiglottitis
[2021-05-03 17:20] LABS: Add Manual Diff / Slide Review NO; Basophils Absolute Auto 0 /uL (0-100); Basophils Percent Auto 0.2 % (0-2); Eosinophils Absolute Auto 0 /uL (0-450); Hematocrit 40.4 % (36-46); Hemoglobin 13.5 g/dL (12.0-16.0); Lymphocytes Absolute Auto 1600 /uL (1100-4500); Lymphocytes Percent Auto 10.1 % (25-40); Mean Corpuscular HGB Conc 33.4 % (30-36); Mean Corpuscular Hemoglobin 29.3 PG (26-34); Mean Corpuscular Volume 87.7 fL (80-100); Monocytes Absolute Auto 900 /uL (0-900); Monocytes Percent Auto 5.3 % (3-14); Neutrophils Absolute Auto 13700 /uL (1500-7000); Neutrophils Percent Auto 84.4 % (50-75); Platelet Count 266 X10^3/uL (150-400); Red Cell Distribution Width 15.3 % (11.6-14.8); White Blood Cell Count 16.2 X10^3/uL (4.5-11.0)
[2021-05-03 17:33] LABS: Prothrombin Time 11.8 SECONDS (10.1-12.7)
[2021-05-03 17:36] LABS: PTT Partial Thromboplastin Tim 30 SECONDS (26.4-36.2)
[2021-05-03 17:50] LABS: Alanine Aminotransferase 24 IU/L (<35); Albumin 4.7 g/dL (3.5-5.0); Albumin Globulin Ratio 1.4 (1.0-2.8); Alkaline Phosphatase 48 U/L (38-126); Aspartate Aminotransferase 36 IU/L (14-36); BUN Creatinine Ratio 22.8 (6-22); Bilirubin Total 0.7 mg/dL (0.2-1.3); Blood Urea Nitrogen 13 mg/dL (7-17); Calcium 9.7 mg/dL (8.4-10.2); Carbon Dioxide 22 mmol/L (22-32); Chloride 105 mmol/L (98-107); Estimated Glomerular Filt Rate > 60.0 mL/min (>60); Globulin 3.3 g/dL (1.7-4.1); Glucose 167 mg/dL (80-110); HEMOLYSIS < 15 (0-50); Potassium 4.2 mmol/L (3.4-5.1); Sodium 139 mmol/L (137-145)
[2021-05-03] MEDS: methylPREDNISolone 125 MG/2 ML VIAL IV (18:59)
[2021-05-03] MEDS: cefTRIAXone 1,000 MG in SODIUM CHLORIDE 0.9% 100 ML 200 ML IV (19:05)
[2021-05-03] MEDS: VANCOMYCIN 1,000 MG/200 ML PIGGYBACK 200 MG IV (19:10)
--- NOTE | 2021-05-03 19:50 | PC.NURSE ---
resting quietly on stretcher waiting bed assignment
--- NOTE | 2021-05-03 20:19 | PC.NURSE ---
pt ambulatory to bathroom without assistance, MARINA noted when pt returned to room, pt's O2 sat @ 86% O2 placed back on pt, with o2 sat elevating to 98%, pt resp easier, with some intermittent tripoding
--- NOTE | 2021-05-03 21:55 | P.HP_ITS ---
History of Present Illness History of Present Illness Date Patient Seen: 05/03/21 Chief complaint: HARD TIME TALKING Narrative: The patient is a 80-year-old female with a history of hypertension, SVT , hyperlipidemia, allergic rhinitis, and asthma, who reports she was in her usual state of health until about a week ago. At that time she developed some swelling of her throat. She had associated tightness of her throat for the past few days, productive cough, and shortness of breath. The patient does have a known history of asthma and had not used her inhaler. She was given a pres cription 2 weeks prior to admission for bronchitis. She received those 2 weeks prior to this evaluation. She did develop diarrhea associated with that. She did not have any improvement of her upper respiratory symptoms. Patient has been vaccinated and received her booster for COVID. She had no fever or chills. She denies any nausea or vomiting. Diarrhea had subsided after discontinuation of the Augmentin. The patient is known to be hypertensive. He was switched to med from metoprolol to propanolol because it made her sleepy. She also was started on verapamil for both SVT and hypertension. The patient also had a productive cough with phlegm. She was discharged from the emergency room with what was felt to be upper respiratory infection. She did have a follow-up appointment with her primary care provider. They recommended that if she had progression of her symptoms that she return to the emergency department for further evaluation. She presented to the ED with complaints of a muffled voice. They seemed to be progressive. She also noted that she felt her throat was swollen better tongue was swollen and she had difficulty swallowing. In the emergency department [place] [address]. She underwent a CT of her neck which revealed the following: ?Irregularity with thickening can be seen along the left aspect of the epiglottis.? If clinically appropriate, please consider ENT consultation. ? No enlarged lymph nodes are seen. ? There is fullness seen within both sides of the tongue base, which may simply be related to prominent lymphoid tissue. ? The emergency department obtain consultation from Dr. Aviles with ENT. He recommended treatment with steroids, antibiotics to include ceftriaxone and vancomycin, patient to be admitted to the hospital for further observation. Currently she continues to note difficulty in speaking. Her voice is muscle. She feels like her tongue is thickened. She is on oxygen with her airway protected, patient is admitted to the hospital for treatment of acute epiglottit is Patient History Medical History Allergic rhinitis Hyperlipidemia SVT (supraventricular tachycardia) Surgical History Status post cholecystectomy Family & Social History Family History (Updated 05/03/21 @ 22:01 by Adilia Sutton MD) Brother Obstructive sleep apnea Brother Shellfish allergy Tobacco & Substance use: Smoking Status Never smoker alcohol intake frequency holiday/special occasion Substance Use Type does not use Meds Home Medications and Allergies Home Medications Medication Instructions Recorded Confirmed Type FOLIC ACID/VIT A/VIT B1/VIT 1 tab PO QDAY #0 08/15/10 04/22/21 History (#MULTIVITAMIN) [CALCIUM] 1 cap PO QDAY #0 10/20/15 05/03/21 History [PROBIOTIC FORMULA] 1 - 2 cap PO QDAY #0 10/20/15 05/03/21 History ibuprofen 200 mg capsule 400 mg PO Q4-6H PRN 06/12/18 04/22/21 History albuterol sulfate 90 mcg/actuation 1 inh INHALATION QID PRN #6.7 g 05/02/21 05/03/21 Rx aerosol inhaler fluticasone propionate 50 1 spray INTRANASAL BID PRN #16 g 05/02/21 Rx mcg/actuation nasal spray,suspension (Flonase Allergy Relief) pantoprazole 20 mg tablet,delayed 20 mg PO DAILY 30 Days #30 tab 05/02/21 05/03/21 Rx release (Protonix) verapamil 80 mg tablet 80 mg PO BID #60 tab 05/03/21 05/03/21 Rx Allergies Allergy/AdvReac Type Severity Reaction Status Date / Time No Known Drug Allergies Allergy Verified 05/02/21 16:59 Review of Systems Review of Systems Narrative: 10 point review of systems is negative except as above Exam Vital Signs (past 8 hours): - 05/03/21 16:44 05/03/21 19:50 05/03/21 20:51 Temperature 99.0 F Pulse Rate 92 H 68 71 Respiratory Rate 20 18 18 Blood Pressure 204/93 H 145/94 H 165/85 H Pulse Oximetry 96 97 97 Oxygen Delivery Method Nasal Cannula Oxygen Flow Rate 3 Narrative Exam Narrative: Pleasant female lying in bed somewhat anxious [facility] Other: HEENT: Normocephalic atraumatic, extraocular muscles are intact, oropharynx reveals moist mucous membranes, no evidence of airway obstruction in the oropharynx Neck: Supple, no adenopathy, no appreciable thyromegaly, no palpable masses are noted Resp Other: Lungs: Decreased breath sounds with scattered rhonchi bilaterally Cardio Other: Cardiac exam: Regular rate and rhythm normal S1-S2 GI Other: Abdomen: Soft nontender nondistended no appreciable hepatosplenomegaly Skin Other: No lesions noted Neuro Other: Neuro exam is nonfocal Extrem Other: Extremities no edema Psych Other: She has normal appearance, normal speech and movement, mood affect and attitude are appropriate, normal thought process and thought content. No hallucinations, no delusions Objective Labs Result Diagrams: 05/03/21 17:00 05/03/21 17:00 Labs: Laboratory Results - last 24 hr 05/03/21 05/03/21 05/03/21 17:00 17:00 17:00 WBC 16.2 H RBC 4.60 Hgb 13.5 Hct 40.4 MCV 87.7 MCH 29.3 MCHC 33.4 RDW 15.3 H Plt Count 266 Neut % (Auto) 84.4 H Lymph % (Auto) 10.1 L [place] % (Auto) 5.3 Eos % (Auto) 0.0 L Baso % (Auto) 0.2 Neut # (Auto) 88861 H Lymph # (Auto) 1600 [place] # (Auto) 900 Eos # (Auto) 0 Baso # (Auto) 0 PT 11.8 INR 1.0 APTT 30 Sodium 139 Potassium 4.2 Chloride 105 Carbon Dioxide 22 BUN 13 Creatinine 0.57 Estimated GFR > 60.0 BUN/Creatinine Ratio 22.8 H Glucose 167 H Calcium 9.7 Total Bilirubin 0.7 AST 36 ALT 24 Alkaline Phosphatase 48 Total Protein 8.0 Albumin 4.7 Globulin 3.3 Albumin/Globulin Ratio 1.4 Assessment & Plan Assessment & Plan narrative: 80-year-old female with a history of asthma, hypertension, SVT, GERD admitted to the hospital for acute epiglottitis * Patient progress since with several weeks of upper respiratory symptoms, most recently difficulty speaking, tongue swelling, and neck tightness * CT scan of the neck reveals irregularity and thickening of the left aspect of the epiglottitis, there are no enlarged lymph nodes, there is fullness seen on both sides of the tongue base * Patient started on IV antibiotics to include ceftriaxone 2 g a day, vancomycin 1 g, in addition to dexamethasone 4 mg IV q.6 hours * She will be kept NPO * Will start IV hydration., will check MRSA nasal swab, Procalcitonin * ENT consultation obtained from the emergency department, Dr. Aviles is aware, anesthesia is in house is also aware, and general surgery consultation with Dr. Abreu is been obtained from the emergency department in the event emergent airway is needed Hypertension * Patient was switch from metoprolol to propanolol * She is also supposed verapamil 80 mg twice daily * She has been unable to take any of her medications today * Will start IV labetalol, 10 mg q.4 hours for systolic blood pressure greater than 180 * Once the patient is able to swallow will resume her usual home medications * Will obtain speech evaluation in the morning Supraventricular tachycardia * Verapamil currently being held, will use IV labetalol for blood pressure, this should assist with heart rate control as well GERD * Start IV Protonix 40 mg daily Asthma * No acute exacerbation at this time * Will continue IV Decadron * Continue albuterol inhaler DVT prophylaxis * Lovenox 40 mg sq daily Patient will be admitted as an inpatient, to the ICU given concerns regarding airway protection and the need for close monitor I have utilized all available methods to review update confirm the patient's current medication She indicates her is her DPOA, she requests to be a full code and this will be noted in her record Time Spent With Patient Critical Care time: I spent a total of [] minutes of critical care time on this patient's care today; this time is exclusive of procedural time.
[2021-05-03] MEDS: LACTATED RINGERS 1,000 ML 100 ML IV (22:11)
[2021-05-03] MEDS: LABETALOL 20 MG/4 ML SYRINGE 10 MG IV (22:20)
--- NOTE | 2021-05-03 22:30 | PM.CN.EICU ---
History of Present Illness Consult details Chief complaint: HARD TIME TALKING :: This patient was seen via real time interactive two-way audiovisual telecommunication. Narrative: Patient is a 80F with a PMH of HTN, SVT, HLD, and mild asthma who presented to the ER today with 1 week of sore throat, mild cough and shortness of breath. Noted voice changes, painful/difficult swallowing over the past day or so. She was seen recently and prescribed antibiotics for bronchitis, after which she developed diarrhea. Seen in the ER yesterday and thought to have an URI. However, due to worsening voice changes and sense of swelling of her throat, tongue patient returned to the ER. Denies rash, itching elsewhere. No neck pain. Able to tolerate secretions. No fevers. No chest pain. Vaccinated/boosted for COVID. In the ER, underwent CT of neck which was notable for thickening along epiglottis and fullness within tongue base. ENT was consulted by the ER. Patient was given Vanc/Ceftriaxone and a dose of Methylpred. She was admitted to the ICU for airway monitoring. [facility] Medical History Allergic rhinitis Hyperlipidemia SVT (supraventricular tachycardia) Surgical History Status post cholecystectomy Family History (Updated 05/03/21 @ 22:01 by Adilia Sutton MD) Brother Obstructive sleep apnea Brother Shellfish allergy Social History household members: spouse Smoking Status: Never smoker alcohol intake: former Current Medications Current Medications Medications: Home Medications FOLIC ACID/VIT A/VIT B1/VIT (#MULTIVITAMIN) 1 tab PO QDAY #0 08/15/10 [History Confirmed 04/22/21] [CALCIUM] 1 cap PO QDAY #0 10/20/15 [History Confirmed 05/03/21] [PROBIOTIC FORMULA] 1 - 2 cap PO QDAY #0 10/20/15 [History Confirmed 05/03/21] ibuprofen 200 mg capsule 400 mg PO Q4-6H PRN 06/12/18 [History Confirmed 04/22/21] albuterol sulfate 90 mcg/actuation aerosol inhaler 1 inh INHALATION QID PRN #6.7 g 05/02/21 [Rx Confirmed 05/03/21] fluticasone propionate 50 mcg/actuation nasal spray,suspension (Flonase Allergy Relief) 1 spray INTRANASAL BID PRN #16 g 05/02/21 [Rx] pantoprazole 20 mg tablet,delayed release (Protonix) 20 mg PO DAILY 30 Days #30 tab 05/02/21 [Rx Confirmed 05/03/21] verapamil 80 mg tablet 80 mg PO BID #60 tab 05/03/21 [Rx Confirmed 05/03/21] Visit Medications (administered) Generic Name Dose Route Start Last Admin Trade Name Freq PRN Reason Stop Dose Admin Lactated Ringer's 1,000 mls @ 100 mls/hr 05/03/21 21:45 05/03/21 22:11 Lactated Ringers IV 100 mls/hr CONT BENJAMIN Administration Labetalol HCl 10 mg 05/03/21 21:50 05/03/21 22:20 Labetalol 20 Mg/4 Ml Syringe IV 10 mg Q4HR PRN Administration blood pressure over 180 systol Exam Vital Signs (past 8 hours): - 05/03/21 16:44 05/03/21 19:50 05/03/21 20:51 Temperature 99.0 F Pulse Rate 92 H 68 71 Respiratory Rate 20 18 18 Blood Pressure 204/93 H 145/94 H 165/85 H Pulse Oximetry 96 97 97 05/03/21 22:20 Temperature Pulse Rate 67 Respiratory Rate Blood Pressure 180/80 H Pulse Oximetry Oxygen Delivery Method Nasal Cannula Oxygen Flow Rate 3 Const Other: Awake, alert. Sitting in bed HENHI Other: Slight muffled voice, no stridor. Not drooling. Unable to perform further exam due to Tele-eval Neck Other: Supple Resp Other: Mild tachypnea when speaking but comfortable at rest. No stridor. Per RN, lungs are CTAB Cardio Other: RRR. No extremity edema. GI Other: Not distended Neuro Other: A&O x 4. Moves all extremities. Objective Labs Result Diagrams: 05/03/21 17:00 05/03/21 17:00 Labs: Laboratory Results - last 24 hr 05/03/21 05/03/21 05/03/21 17:00 17:00 17:00 WBC 16.2 H RBC 4.60 Hgb 13.5 Hct 40.4 MCV 87.7 MCH 29.3 MCHC 33.4 RDW 15.3 H Plt Count 266 Neut % (Auto) 84.4 H Lymph % (Auto) 10.1 L Sac % (Auto) 5.3 Eos % (Auto) 0.0 L Baso % (Auto) 0.2 Neut # (Auto) 02519 H Lymph # (Auto) 1600 Sac # (Auto) 900 Eos # (Auto) 0 Baso # (Auto) 0 PT 11.8 INR 1.0 APTT 30 Sodium 139 Potassium 4.2 Chloride 105 Carbon Dioxide 22 BUN 13 Creatinine 0.57 Estimated GFR > 60.0 BUN/Creatinine Ratio 22.8 H Glucose 167 H Calcium 9.7 Total Bilirubin 0.7 AST 36 ALT 24 Alkaline Phosphatase 48 Total Protein 8.0 Albumin 4.7 Globulin 3.3 Albumin/Globulin Ratio 1.4 Assessment & Plan Assessment & Plan narrative: 80F with a PMH of HLD, HTN, SVT admitted to ICU for airway monitoring in the setting of epiglottitis 1. Epiglottitis based on clinical picture, imaging. No e/o abscess on CT. - Vanc, Ceftriaxone (2g) - Follow up MRSA, blood cultures - narrow abx as able - Dexamethasone IV 4mg Q6H - Airway watch. Recommended that RT have airway equipment, including cric kit, bougie in room; Anesthesia, Surgery aware of patient and need for possible emergent airway - ENT consulted - NPO. Continue mIVF - Given cough, consider CXR to eval for pneumonia as this may change antibiotic course 2. HTN, History of SVT - PRN Labetalol, goal SBP < 180. Avoid hypotension. - Restart home meds when tolerating PO. - Cautious with nebulizers in the setting of SVT history. Unlikely that nebs will benefit epiglottitis - If SVT occurs, for acute reversal can attempt adenosine. If this fails, may need Metop v Dilt if hemodynamically stable Time Spent With Patient Critical Care time: I spent a total of [] minutes of critical care time on this patient's care today; this time is exclusive of procedural time.
[2021-05-03 23:07] LABS: Procalcitonin 0.04 ng/mL (<0.5)
[2021-05-04] VITALS (19 sets, daily range): BP systolic 117–171; BP diastolic 58–72; PULSE 60–91; RESP 15–32; TEMP 36.4–37.2; O2SAT 94–97
--- NOTE | 2021-05-04 02:40 | PC.NURSE ---
2100: Pt admitted from ED per stretcher for epiglottitis. Alert and oriented, Lungs clear and breathing regular and unlaboured, without wheezing or stridor. Monitor shows NSR, BP elevated at 216/90, MD aware and med ordered. Teleintensivist on video call observed the patient and explained the need for ICU care. Pt appears calm and relaxed, cooperative with care. Pt instructed to remain NPO and IV started - LR @ 100/hr. She denies pain at this time.
[2021-05-04 04:31] LABS: Add Manual Diff / Slide Review NO; Basophils Absolute Auto 0 /uL (0-100); Basophils Percent Auto 0.2 % (0-2); Eosinophils Absolute Auto 0 /uL (0-450); Hematocrit 36.7 % (36-46); Hemoglobin 12.3 g/dL (12.0-16.0); Lymphocytes Absolute Auto 1100 /uL (1100-4500); Lymphocytes Percent Auto 7.5 % (25-40); Mean Corpuscular HGB Conc 33.5 % (30-36); Mean Corpuscular Hemoglobin 29.2 PG (26-34); Mean Corpuscular Volume 87.3 fL (80-100); Monocytes Absolute Auto 200 /uL (0-900); Monocytes Percent Auto 1.6 % (3-14); Neutrophils Absolute Auto 13100 /uL (1500-7000); Neutrophils Percent Auto 90.7 % (50-75); Platelet Count 212 X10^3/uL (150-400); Red Cell Distribution Width 15.6 % (11.6-14.8); White Blood Cell Count 14.4 X10^3/uL (4.5-11.0)
[2021-05-04 04:37] LABS: BUN Creatinine Ratio 22.9 (6-22); Blood Urea Nitrogen 11 mg/dL (7-17); Calcium 8.9 mg/dL (8.4-10.2); Carbon Dioxide 26 mmol/L (22-32); Chloride 109 mmol/L (98-107); Estimated Glomerular Filt Rate > 60.0 mL/min (>60); Glucose 171 mg/dL (80-110); HEMOLYSIS < 15 (0-50); Potassium 4.2 mmol/L (3.4-5.1); Sodium 139 mmol/L (137-145)
[2021-05-04] MEDS: DEXAMETHASONE 4 MG/ML VIAL IV ×4 (05:50→17:35)
[2021-05-04] MEDS: VANCOMYCIN 1,000 MG/200 ML PIGGYBACK 200 MG IV ×2 (06:13→18:17)
[2021-05-04] MEDS: LACTATED RINGERS 1,000 ML 100 ML IV ×2 (08:36→19:47)
[2021-05-04] MEDS: PANTOPRAZOLE 40 MG VIAL IV (08:36)
[2021-05-04] MEDS: ENOXAPARIN 40 MG/0.4 ML SYRINGE SUBCUT (08:36)
--- NOTE | 2021-05-04 09:41 | PM.PN.EICU ---
Subjective Subjective :: This patient was seen via real time interactive two-way audiovisual telecommunication. patient imrpoved today, stated she still has difficulty speking, but is tolerating PO and is awake, and in o distress. Current Medications Current Medications Medications: Home Medications FOLIC ACID/VIT A/VIT B1/VIT (#MULTIVITAMIN) 1 tab PO QDAY #0 08/15/10 [History Confirmed 05/03/21] [CALCIUM] 1 cap PO QDAY #0 10/20/15 [History Confirmed 05/03/21] [PROBIOTIC FORMULA] 1 - 2 cap PO QDAY #0 10/20/15 [History Confirmed 05/03/21] ibuprofen 200 mg capsule 400 mg PO Q4-6H PRN 06/12/18 [History Confirmed 05/03/21] albuterol sulfate 90 mcg/actuation aerosol inhaler 1 inh INHALATION QID PRN #6.7 g 05/02/21 [Rx Confirmed 05/03/21] fluticasone propionate 50 mcg/actuation nasal spray,suspension (Flonase Allergy Relief) 1 spray INTRANASAL BID PRN #16 g 05/02/21 [Rx Confirmed 05/03/21] pantoprazole 20 mg tablet,delayed release (Protonix) 20 mg PO DAILY 30 Days #30 tab 05/02/21 [Rx Confirmed 05/03/21] verapamil 80 mg tablet 80 mg PO BID #60 tab 05/03/21 [Rx Confirmed 05/03/21] Visit Medications (administered) Generic Name Dose Route Start Last Admin Trade Name Freq PRN Reason Stop Dose Admin Dexamethasone 4 mg 05/04/21 00:00 05/04/21 05:50 Dexamethasone 4 Mg/Ml Vial IV 4 mg Q6HR BENJAMIN Administration Enoxaparin Sodium 40 mg 05/04/21 09:00 05/04/21 08:36 Enoxaparin 40 Mg/0.4 Ml Syringe SUBCUT 40 mg DAILY BENJAMIN Administration Lactated Ringer's 1,000 mls @ 100 mls/hr 05/03/21 21:45 05/04/21 08:36 Lactated Ringers IV 100 mls/hr CONT BENJAMIN Administration Vancomycin HCl 1,000 mg in 200 mls @ 200 mls/hr 05/04/21 07:00 05/04/21 08:45 Vancomycin IV Infused Q12H BENJAMIN Infusion Labetalol HCl 10 mg 05/03/21 21:50 05/03/21 22:20 Labetalol 20 Mg/4 Ml Syringe IV 10 mg Q4HR PRN Administration blood pressure over 180 systol Pantoprazole Sodium 40 mg 05/04/21 09:00 05/04/21 08:36 Pantoprazole 40 Mg Vial IV 40 mg DAILY BENJAMIN Administration Objective Labs Result Diagrams: 05/04/21 04:19 05/04/21 04:19 Labs: Laboratory Results - last 24 hr 05/03/21 05/03/21 05/03/21 17:00 17:00 17:00 WBC 16.2 H RBC 4.60 Hgb 13.5 Hct 40.4 MCV 87.7 MCH 29.3 MCHC 33.4 RDW 15.3 H Plt Count 266 Neut % (Auto) 84.4 H Lymph % (Auto) 10.1 L [place] % (Auto) 5.3 Eos % (Auto) 0.0 L Baso % (Auto) 0.2 Neut # (Auto) 47375 H Lymph # (Auto) 1600 [place] # (Auto) 900 Eos # (Auto) 0 Baso # (Auto) 0 PT 11.8 INR 1.0 APTT 30 Sodium 139 Potassium 4.2 Chloride 105 Carbon Dioxide 22 BUN 13 Creatinine 0.57 Estimated GFR > 60.0 BUN/Creatinine Ratio 22.8 H Glucose 167 H Calcium 9.7 Total Bilirubin 0.7 AST 36 ALT 24 Alkaline Phosphatase 48 Total Protein 8.0 Albumin 4.7 Globulin 3.3 Albumin/Globulin Ratio 1.4 Procalcitonin Nasal Screen MRSA (PCR) 05/03/21 05/03/21 05/04/21 17:00 21:20 04:19 WBC 14.4 H RBC 4.20 Hgb 12.3 Hct 36.7 MCV 87.3 MCH 29.2 MCHC 33.5 RDW 15.6 H Plt Count 212 Neut % (Auto) 90.7 H Lymph % (Auto) 7.5 L [place] % (Auto) 1.6 L Eos % (Auto) 0.0 L Baso % (Auto) 0.2 Neut # (Auto) 72384 H Lymph # (Auto) 1100 [place] # (Auto) 200 Eos # (Auto) 0 Baso # (Auto) 0 PT INR APTT Sodium Potassium Chloride Carbon Dioxide BUN Creatinine Estimated GFR BUN/Creatinine Ratio Glucose Calcium Total Bilirubin AST ALT Alkaline Phosphatase Total Protein Albumin Globulin Albumin/Globulin Ratio Procalcitonin 0.04 Nasal Screen MRSA (PCR) Negative for mrsa 05/04/21 04:19 WBC RBC Hgb Hct MCV MCH MCHC RDW Plt Count Neut % (Auto) Lymph % (Auto) [place] % (Auto) Eos % (Auto) Baso % (Auto) Neut # (Auto) Lymph # (Auto) [place] # (Auto) Eos # (Auto) Baso # (Auto) PT INR APTT Sodium 139 Potassium 4.2 Chloride 109 H Carbon Dioxide 26 BUN 11 Creatinine 0.48 L Estimated GFR > 60.0 BUN/Creatinine Ratio 22.9 H Glucose 171 H Calcium 8.9 Total Bilirubin AST ALT Alkaline Phosphatase Total Protein Albumin Globulin Albumin/Globulin Ratio Procalcitonin Nasal Screen MRSA (PCR) Exam Vital Signs (past 8 hours): - 05/04/21 02:00 05/04/21 02:59 05/04/21 03:00 Temperature Pulse Rate 70 71 68 Respiratory Rate 25 H 27 H 18 Blood Pressure 135/64 129/60 Pulse Oximetry 96 95 95 05/04/21 04:00 05/04/21 04:09 05/04/21 05:00 Temperature 97.6 F Pulse Rate 66 68 76 Respiratory Rate 24 21 32 H Blood Pressure 117/58 L 136/62 Pulse Oximetry 94 96 95 05/04/21 06:00 05/04/21 07:00 05/04/21 08:00 Temperature 98.4 F Pulse Rate 70 84 77 Respiratory Rate 18 17 31 H Blood Pressure 143/63 H 158/72 H 171/70 H Pulse Oximetry 96 96 95 05/04/21 09:00 Temperature Pulse Rate 72 Respiratory Rate 19 Blood Pressure 166/70 H Pulse Oximetry 96 Oxygen Delivery Method Nasal Cannula Oxygen Flow Rate 3 Narrative Exam Narrative: surrogate for exam is primary team Quality TeleICU VTE Deep Vein Thrombosis/Pulmonary Embolism Present on Admission: No Assessment & Plan Assessment & Plan narrative: 80F with a PMH of HLD, HTN, SVT admitted to ICU for airway monitoring in the setting of epiglottitis 1. Epiglottitis based on clinical picture, imaging. No e/o abscess on CT. - contie vancomycin and ceftriaxone. can consider switrhcing ot augmenting if MRSA negative for dc planning - Follow up MRSA swab , blood cultures - narrow abx as able - continue dexamethasone, can begin to taper as she improves - Airway watch - though with her clinial imrpovmeent, i beleive emergent intubation may be less likely. would keep quipement in room regardless - ENT consulted - cntinue clear liquid diewt, can advance as ysmptoms improve 2. HTN, History of SVT - restart po home meds - Cautious with nebulizers in the setting of SVT history. Unlikely that nebs will benefit epiglottitis - If SVT occurs, for acute reversal can attempt adenosine. If this fails, may need Metop v Dilt if hemodynamically stable CCT 35 min Time Spent With Patient Critical Care time: I spent a total of [] minutes of critical care time on this patient's care today; this time is exclusive of procedural time.
--- NOTE | 2021-05-04 11:47 | ST.IPSCREEN ---
Pt was up in her bed. Introduced self and reason for visit. Swallow screened. Pt stated that she is experiencing no difficulty with her swallow. She was observed drinking water. Nursing reported that pt ate her breakfast clear liquids diet without difficulty. No choke/cough during observed. No ST indicated at this time. Will check with pt tomorrow re: any change in swallowing.
--- NOTE | 2021-05-04 14:27 | P.PN_ITS ---
Subjective Subjective Interval history: The patient reports improvement in the hoarseness of her voice. She also denies any respiratory complaints overnight. She reports feeling overall better. Exam Vital Signs (past 8 hours): - 05/04/21 07:00 05/04/21 08:00 05/04/21 09:00 Temperature 98.4 F Pulse Rate 84 77 74 Respiratory Rate 17 31 H 15 Blood Pressure 158/72 H 171/70 H 166/70 H Pulse Oximetry 96 95 96 05/04/21 10:00 05/04/21 11:00 05/04/21 12:00 Temperature 98.9 F Pulse Rate 75 91 H 81 Respiratory Rate 26 H 31 H 21 Blood Pressure 156/70 H 164/72 H 162/68 H Pulse Oximetry 96 95 95 Oxygen Delivery Method Nasal Cannula Oxygen Flow Rate 3 Const Other: Patient sitting up in bed comfortably upon my entering the room, in no apparent acute distress HENMT Other: Oropharyngeal injection appreciated, without exudates noted, nor oropharyngeal swelling Eyes Other: No scleral icterus appreciated Neck Other: No carotid bruits noted Resp Other: Lungs clear to auscultation bilaterally Cardio Other: RRR, S1 and S2 heart sounds normal, without extra heart sounds or murmurs GI Other: Soft, non-tender, non-distended, bowel sounds present Skin Other: No grossly abnormal skin changes noted Extrem Other: Palpable dorsalis pedis pulses bilaterally Objective Labs Result Diagrams: 05/04/21 04:19 05/04/21 04:19 Labs: Laboratory Results - last 24 hr 05/03/21 05/03/21 05/03/21 17:00 17:00 17:00 WBC 16.2 H RBC 4.60 Hgb 13.5 Hct 40.4 MCV 87.7 MCH 29.3 MCHC 33.4 RDW 15.3 H Plt Count 266 Neut % (Auto) 84.4 H Lymph % (Auto) 10.1 L [place] % (Auto) 5.3 Eos % (Auto) 0.0 L Baso % (Auto) 0.2 Neut # (Auto) 81006 H Lymph # (Auto) 1600 [place] # (Auto) 900 Eos # (Auto) 0 Baso # (Auto) 0 PT 11.8 INR 1.0 APTT 30 Sodium 139 Potassium 4.2 Chloride 105 Carbon Dioxide 22 BUN 13 Creatinine 0.57 Estimated GFR > 60.0 BUN/Creatinine Ratio 22.8 H Glucose 167 H Calcium 9.7 Total Bilirubin 0.7 AST 36 ALT 24 Alkaline Phosphatase 48 Total Protein 8.0 Albumin 4.7 Globulin 3.3 Albumin/Globulin Ratio 1.4 Procalcitonin Nasal Screen MRSA (PCR) 05/03/21 05/03/21 05/04/21 17:00 21:20 04:19 WBC 14.4 H RBC 4.20 Hgb 12.3 Hct 36.7 MCV 87.3 MCH 29.2 MCHC 33.5 RDW 15.6 H Plt Count 212 Neut % (Auto) 90.7 H Lymph % (Auto) 7.5 L [place] % (Auto) 1.6 L Eos % (Auto) 0.0 L Baso % (Auto) 0.2 Neut # (Auto) 26292 H Lymph # (Auto) 1100 [place] # (Auto) 200 Eos # (Auto) 0 Baso # (Auto) 0 PT INR APTT Sodium Potassium Chloride Carbon Dioxide BUN Creatinine Estimated GFR BUN/Creatinine Ratio Glucose Calcium Total Bilirubin AST ALT Alkaline Phosphatase Total Protein Albumin Globulin Albumin/Globulin Ratio Procalcitonin 0.04 Nasal Screen MRSA (PCR) Negative for mrsa 05/04/21 04:19 WBC RBC Hgb Hct MCV MCH MCHC RDW Plt Count Neut % (Auto) Lymph % (Auto) [place] % (Auto) Eos % (Auto) Baso % (Auto) Neut # (Auto) Lymph # (Auto) [place] # (Auto) Eos # (Auto) Baso # (Auto) PT INR APTT Sodium 139 Potassium 4.2 Chloride 109 H Carbon Dioxide 26 BUN 11 Creatinine 0.48 L Estimated GFR > 60.0 BUN/Creatinine Ratio 22.9 H Glucose 171 H Calcium 8.9 Total Bilirubin AST ALT Alkaline Phosphatase Total Protein Albumin Globulin Albumin/Globulin Ratio Procalcitonin Nasal Screen MRSA (PCR) [facility] Medical History Allergic rhinitis Hyperlipidemia SVT (supraventricular tachycardia) Surgical History Status post cholecystectomy Family History (Updated 05/03/21 @ 22:01 by Adilia Sutton MD) Brother Obstructive sleep apnea Brother Shellfish allergy Social History household members: spouse Smoking Status: Never smoker alcohol intake: former Assessment & Plan Assessment & Plan narrative: 80-year-old female with a history of asthma, hypertension, SVT, GERD admitted to the hospital for acute epiglottitis. 1. Acute epiglottitis * Patient progress since with several weeks of upper respiratory symptoms, most recently difficulty speaking, tongue swelling, and neck tightness * CT scan of the neck reveals irregularity and thickening of the left aspect of the epiglottitis, there are no enlarged lymph nodes, there is fullness seen on both sides of the tongue base * Patient started on IV ceftriaxone 2 g daily, IV vancomycin 1 g daily, in addition to dexamethasone 4 mg IV every 6 hours * ENT consultation obtained from the emergency department, Dr. Aviles is aware,?anesthesia is in house is also?aware, and general surgery consultation with Dr. Abreu has been obtained from the emergency department in the event emergent airway is needed 2. Hypertension * Patient was switch from metoprolol to propanolol * She is also supposed verapamil 80 mg twice daily * Will start IV labetalol, 10 mg q.4 hours for systolic blood pressure greater than 180 * Will resume home meds when the patient is able to swallow * Will obtain speech evaluation in the morning 3. Supraventricular tachycardia * Verapamil currently being held, will use IV labetalol for blood pressure, this should assist with heart rate control as well 4. GERD * Start IV Protonix 40 mg daily 5. Asthma * No acute exacerbation at this time VTE prophylaxis: Lovenox 40 mg daily Code: Full code Proxy: , DPOA I have utilized all available immediate methods to review, update, or confirm the patient's current medications. Time Spent With Patient Critical Care time: I spent a total of [] minutes of critical care time on this patient's care today; this time is exclusive of procedural time. Quality VTE Deep Vein Thrombosis/Pulmonary Embolism Present on Admission: No MIPS - Admit I confirm the patient?s Advance Care Plan is present, Code status is documented, Surrogate decision maker is in patient?s record [If Yes, STOP here]: Yes
[2021-05-04] MEDS: cefTRIAXone 2,000 MG in SODIUM CHLORIDE 0.9% 100 ML 200 ML IV (17:31)
[2021-05-04] MEDS: CALCIUM CARBONATE 600 MG TABLET PO (21:47)
[2021-05-05] VITALS (14 sets, daily range): BP systolic 149–182; BP diastolic 70–88; PULSE 55–78; RESP 16–24; TEMP 36.6–37.2; O2SAT 92–99
[2021-05-05] MEDS: DEXAMETHASONE 4 MG/ML VIAL IV ×3 (00:35→21:07)
--- NOTE | 2021-05-05 05:23 | PC.NURSE ---
Pt. is a&o, afebrile and denies pain. Pt. remains on 02 3L NC with sats bet. 94-97%, lungs CTA. Pt. states she is unable to lay down flat as she becomes short of breath so pt. remains mostly on high fowlers position. Pt. also gets winded even just using the BSC. Cont. to monitor.
[2021-05-05 06:07] LABS: Add Manual Diff / Slide Review NO; Basophils Absolute Auto 0 /uL (0-100); Basophils Percent Auto 0.1 % (0-2); Eosinophils Absolute Auto 0 /uL (0-450); Hematocrit 36.2 % (36-46); Lymphocytes Absolute Auto 1100 /uL (1100-4500); Lymphocytes Percent Auto 8.8 % (25-40); Mean Corpuscular HGB Conc 33.1 % (30-36); Mean Corpuscular Hemoglobin 29.2 PG (26-34); Monocytes Absolute Auto 400 /uL (0-900); Monocytes Percent Auto 2.9 % (3-14); Neutrophils Absolute Auto 11100 /uL (1500-7000); Neutrophils Percent Auto 88.2 % (50-75); Platelet Count 207 X10^3/uL (150-400); Red Blood Cell Count 4.12 X10^6/uL (4.0-5.2); Red Cell Distribution Width 15.9 % (11.6-14.8); White Blood Cell Count 12.6 X10^3/uL (4.5-11.0)
[2021-05-05] MEDS: LACTATED RINGERS 1,000 ML 100 ML IV (06:09)
[2021-05-05 06:16] LABS: BUN Creatinine Ratio 23.2 (6-22); Blood Urea Nitrogen 13 mg/dL (7-17); Calcium 8.9 mg/dL (8.4-10.2); Carbon Dioxide 28 mmol/L (22-32); Chloride 106 mmol/L (98-107); Estimated Glomerular Filt Rate > 60.0 mL/min (>60); Glucose 148 mg/dL (80-110); HEMOLYSIS < 15 (0-50); Potassium 4.6 mmol/L (3.4-5.1); Sodium 137 mmol/L (137-145)
[2021-05-05 06:36] LABS: Vancomycin Trough 10.1 ug/mL (10-20)
[2021-05-05] MEDS: VANCOMYCIN 1,000 MG/200 ML PIGGYBACK 200 MG IV ×2 (06:40→18:34)
[2021-05-05] MEDS: VANCOMYCIN TROUGH 1 REQUEST MISC (06:41)
[2021-05-05] MEDS: ENOXAPARIN 40 MG/0.4 ML SYRINGE SUBCUT (08:48)
[2021-05-05] MEDS: CALCIUM CARBONATE 600 MG TABLET PO (08:48)
[2021-05-05] MEDS: VERAPAMIL 80 MG TABLET PO ×2 (08:48→21:07)
[2021-05-05] MEDS: PANTOPRAZOLE 40 MG VIAL IV (08:49)
--- NOTE | 2021-05-05 09:15 | DI.RAD.S_ITS ---
PROCEDURE: XR CHEST 1V INDICATIONS: SOB, concern for fluid overload TECHNIQUE: One view of the chest was acquired. COMPARISON: [facility], CR, XR CHEST 2V, 05/02/2021, 17:06. FINDINGS: Surgical changes and devices: None. Lungs and pleura: Consolidative airspace opacities are present at the left lung base in addition to a small left effusion. No pneumothorax. Mediastinum: Mediastinal contours appear normal. Heart size is normal. Bones and chest wall: No suspicious bony lesions. Overlying soft tissues appear unremarkable. IMPRESSION: Left basilar consolidation and pleural effusion suspicious for aspiration/pneumonia. Short interval followup is recommended with resolution of the patient's symptoms to ensure there is no underlying pulmonary pathology. Dictated by: Chelle Cui M.D. on 05/05/2021 at 10:11 Approved by: Chelle Cui M.D. on 05/05/2021 at 10:13
[2021-05-05 10:02] LABS: Vancomycin Peak 26.1 ug/mL (20-40)
--- NOTE | 2021-05-05 13:14 | ST.IPIE ---
Visit Care Team Role Provider Type Rm Love MD Primary Care Provider Physician Specialty: Family Practice Address: [address] [place] [address], [address] Email: [email or web address] Diana Varghese MD Other Providers Physician Specialty: Medical Address: Phone: Fax: Email: Dilcia Christianson MD Other Providers Physician Specialty: Medical Address: Phone: Fax: Email: Rosario Castro MD Other Providers Physician Specialty: Medical Address: Phone: Fax: Email: Nick Woodson MD Other Providers Physician Specialty: Medical Address: Phone: Fax: Email: Diana Toledo MD Other Providers Physician Specialty: Internal Medicine Address: Phone: Fax: Email: Leon Dawkins MD Other Providers Physician Specialty: Medical Address: Phone: Fax: Email: Derrick Ca MD Other Providers Physician Specialty: Internal Medicine Address: Phone: Fax: Email: Baldomero Tejada MD Other Providers Physician Specialty: Medical Address: Phone: Fax: Email: Ollie Castro MD Other Providers Physician Specialty: Medical Address: Phone: Fax: Email: Jorge Aviles MD Other Providers Physician Specialty: Ear, Nose, Throat Address: [address] [place] [address], [address] Email: [email or web address] Nalini Koroma MD Other Providers Physician Specialty: Medical Address: Phone: Fax: Email: Ilana Peña Other Providers Physician Specialty: Medical Address: Phone: Fax: Email: Bhargav Goyal MD Other Providers Physician Specialty: Medical Address: Phone: Fax: Email: Kae Bejarano PA-C Family Provider Advanced Guard Lieutenant Specialty: Medical Address: [address], [address] Email: [email or web address] Leon Llanos DO Emergency Provider Physician Referring Provider Specialty: Emergency Medicine Address: [address] [place] [address], [address] Email: [email or web address] Adilia Sutton MD Admit Provider Physician Attending Provider Specialty: Internal Medicine Address: [address] [place] [address], [id number] Email: [email or web address] Current Diagnoses Acute epiglottitis without obstruction (05/03/21) Past Medical History (Last Reviewed 05/03/21 @ 22:35 by Ilana Peña) Allergic rhinitis (Medical) Hyperlipidemia (Medical) SVT (supraventricular tachycardia) (Medical) ST IP Initial Evaluation Report SUPERVISOR GRAPHITE Motor Speech Evaluation Start: 05/05/21 12:31 Freq: Status: Active Protocol: Document 05/05/21 12:33 LNK (Rec: 05/05/21 13:13 LNK [id number]) Motor Speech Evaluation Session Time Visit Start Time 10:50 Visit Stop Time 11:30 Total Visit Minutes 40 Setting Setting Acute Care Next Note Type Next Note Type Re-Evaluation Patient History Source: [employer] ([employer]). Patient History PER H&P: The patient is a 80- year-old female with a history of hypertension, SVT , hyperlipidemia, allergic rhinitis, and asthma, who reports she was in her usual state of health until about a week ago. At that time she developed some swelling of her throat. She had associated tightness of her throat for the past few days, productive cough, and shortness of breath . The patient does have a known history of asthma and had not used her inhaler. She was given a prescription 2 weeks prior to admission for bronchitis. After follow up with her PCP,she rwas encouraged to return to the emergency department for further evaluation. She presented to the ED with complaints of a muffled voice. They seemed to be progressive. She also noted that she felt her throat was swollen, tongue was swollen and she had difficulty swallowing. In the emergency department [place] [id number]. She underwent a CT of her neck which revealed the following: ?Irregularity with thickening can be seen along the left aspect of the epiglottis.? If clinically appropriate, please consider ENT consultation. No enlarged lymph nodes are seen. There is fullness seen within both sides of the tongue base, which may simply be related to prominent lymphoid tissue. Mental Status Mental Status Alert,Responsive,Cooperative Subjective Observations Subjective Pt was sitting up in bedside chair. Her voice was hoarse. She reported that her upper lip felt like it was a little numb like coming out of a dentist's office. She denied any similar feeling in her tongue, palate, cheeks, tongue . She noted that this sensation was present when she first arrived at the hospital , was gone all day yesterday and returned during the night when she observed right side weakness while adjusting her bed Oral Motor Lips Function Mild Impairment Observation at rest WNL Pucker Right side asymmetry Retraction Right side asymmetry Alternating pucker/retraction Could not puff cheeks; lips could not retain air in mouth, Tongue Function Mild Impairment Observations at rest WNL Protrusion slight deviation to the left Retraction Was unable to elevate tongue to stroke the hard palate A-P Lateralization WNL Jaw Function WNL Observations at rest WNL Opening WNL Closing WNL Lateralization WNL Soft Palate Function WNL Symmetry WNL Elevation WNL Sustained Elevation WNL Alternating elevation/relaxation WNL Respiration/Phonation Tools Observations WNL Phonation Quality Breathy,Hoarse Function Moderately Impaired Loudness Reduced Loudness Conversation Quality WNL Loudness Reduced Loudness Diadochokinetic Rates P^ Quality WNL T^ Quality WNL K^ Quality WNL P^T^K^ Quality WNL Speech Intelligibility Awareness/Strategy Use Description Type of awareness/use Uses consistently Findings Details Motor Speech Function Mild Impairment Type of Impairment sensory change in pt's upper lip Assessment Details Assessment Pt presented with diminished sensation and motor control of her full upper lip. She had difficulty pressing lips together for production of /b, p/. She described using exaggerated lip closure in order to say words with /b,p/. She was unable to puff cheeks and keeping air in her mouth. With a pucker, there was slight asymmetry of the right side. Pt reported it felt like there was a gap in her pucker. The tongue was slightly deviated to the left with difficculty raising tonue to hard palate and moving it A-P. Oral Motor strength, ROM, speed and accuracy were observed to be WFL. A slight reduction of speed for pu-tu- ku repetitions was noted. The results described may be related to residual swelling from initial epiglottitis and tongue base. It is unknown why , according wilma pt, these symptoms have changed daily. Recommendations Treatment Recommended Yes Frequency 1x/day Duration while inpatient Therapy Recommendations Oral motor exercises Short Term Goals Monitor OM skills, especially bilabial pressure /strength Bilabial exercises for increase strength of bilabial closure/pucker Referrals Suggested ENT,Neurology Patient/Family Education Education Described results of evaluation,Patient Understanding,Patient Demonstration
--- NOTE | 2021-05-05 14:03 | P.PN_ITS ---
Subjective Subjective Interval history: The patient reports feeling overall well this morning. She denies any res piratory difficulties overnight. She reports eating and drinking OK. Exam Vital Signs (past 8 hours): - 05/05/21 09:00 05/05/21 10:02 05/05/21 11:00 Temperature 97.8 F 98.6 F Pulse Rate 68 78 Respiratory Rate 18 24 Blood Pressure 175/82 H 162/72 H Pulse Oximetry 96 95 96 05/05/21 12:27 05/05/21 13:58 Temperature Pulse Rate Respiratory Rate Blood Pressure Pulse Oximetry 92 95 Oxygen Delivery Method Room Air Oxygen Flow Rate 0 Narrative Exam Narrative: Const Other: Patient sitting up in bed comfortably upon my entering the room, in no apparent acute distress HENMT Other: Oropharyngeal injection appreciated, without exudates noted, nor oropharyngeal swelling Eyes Other: No scleral icterus appreciated Neck Other: No carotid bruits noted Resp Other: Lungs clear to auscultation bilaterally Cardio Other: RRR, S1 and S2 heart sounds normal, without extra heart sounds or murmurs GI Other: Soft, non-tender, non-distended, bowel sounds present Skin Other: No grossly abnormal skin changes noted Extrem Other: Palpable dorsalis pedis pulses bilaterally Objective Labs Result Diagrams: 05/05/21 06:00 05/05/21 06:00 Labs: Laboratory Results - last 24 hr 05/05/21 05/05/21 05/05/21 06:00 06:00 06:00 WBC 12.6 H RBC 4.12 Hgb 12.0 Hct 36.2 MCV 88.0 MCH 29.2 MCHC 33.1 RDW 15.9 H Plt Count 207 Neut % (Auto) 88.2 H Lymph % (Auto) 8.8 L [place] % (Auto) 2.9 L Eos % (Auto) 0.0 L Baso % (Auto) 0.1 Neut # (Auto) 9[address] H Lymph # (Auto) 1100 [place] # (Auto) 400 Eos # (Auto) 0 Baso # (Auto) 0 Sodium 137 Potassium 4.6 Chloride 106 Carbon Dioxide 28 BUN 13 Creatinine 0.56 Estimated GFR > 60.0 BUN/Creatinine Ratio 23.2 H Glucose 148 H Calcium 8.9 Vancomycin Peak Cancelled Vancomycin Trough 10.1 05/05/21 09:12 WBC RBC Hgb Hct MCV MCH MCHC RDW Plt Count Neut % (Auto) Lymph % (Auto) [place] % (Auto) Eos % (Auto) Baso % (Auto) Neut # (Auto) Lymph # (Auto) [place] # (Auto) Eos # (Auto) Baso # (Auto) Sodium Potassium Chloride Carbon Dioxide BUN Creatinine Estimated GFR BUN/Creatinine Ratio Glucose Calcium Vancomycin Peak 26.1 Vancomycin Trough [facility] Medical History Allergic rhinitis Hyperlipidemia SVT (supraventricular tachycardia) Surgical History Status post cholecystectomy Family History (Updated 05/03/21 @ 22:01 by Adilia Sutton MD) Brother Obstructive sleep apnea Brother Shellfish allergy Social History household members: spouse Smoking Status: Never smoker alcohol intake: former Assessment & Plan Assessment & Plan narrative: 80-year-old female with a history of asthma, hypertension, SVT, GERD admitted to the hospital for acute epiglottitis. 1. Acute epiglottitis * Patient progress since with several weeks of upper respiratory symptoms, most recently difficulty speaking, tongue swelling, and neck tightness * CT scan of the neck reveals irregularity and thickening of the left aspect of the epiglottitis, there are no enlarged lymph nodes, there is fullness seen on both sides of the tongue base * Patient started on IV ceftriaxone 2 g daily, IV vancomycin 1 g daily, in addition to dexamethasone 4 mg IV every 6 hours * ENT consultation obtained from the emergency department, Dr. Aviles is aware,?anesthesia is in house is also?aware, and general surgery consultation with Dr. Abreu has been obtained from the emergency department in the event emergent airway is needed 2. Hypertension * Patient was switch from metoprolol to propanolol * She is also supposed verapamil 80 mg twice daily * Will start IV labetalol, 10 mg q.4 hours for systolic blood pressure greater than 180 3. Supraventricular tachycardia * Verapamil currently being held, will use IV labetalol for blood pressure, this should assist with heart rate control as well 4. GERD * Start IV Protonix 40 mg daily 5. Asthma * No acute exacerbation at this time VTE prophylaxis: Lovenox 40 mg daily Time Spent With Patient Critical Care time: I spent a total of [] minutes of critical care time on this patient's care today; this time is exclusive of procedural time. Quality VTE Deep Vein Thrombosis/Pulmonary Embolism Present on Admission: No
--- NOTE | 2021-05-05 15:49 | CM.IDA ---
Initial DCP Assessment Note Pt is a 80 yo female, resident of [place], arrives w/ complaint that she cannot talk, muffled voice, recently seen in the ED for upper respiratory infection and asthma exacerbation. Admitted inpatient for Acute epiglottitis, and currently being treated with IV abx and IV steroids. PCP: Rm Love Payer: BRENNEN/RANDALL Reviewed chart, pt discussed in multidisciplinary rounds this morning. Patient indp at baseline, ambulating in room upon arrival. Currently requiring O2 for symptom management w/ poor activity tolerance at this time. No needs expected from DC planning team although will remain available in case this changes before DC. Medical management continues DAKOTAH Stevenson Discharge Planning/Care Management CM Discharge Assessment Start: 05/05/21 15:48 Freq: Status: Active Protocol: Document 05/05/21 15:48 PRABHAKAR (Rec: 05/05/21 15:49 PRABHAKAR [id number]) Discharge Planning Assessment Assigned Graphic Editor DAKOTAH Herrera DPOA/Assigned Designee Name Apolinar Vazquez, spouse Contact Information [phone] Advance Directives? Yes Advance Directives on File No History Provided By Patient,Medical Record Prior Living Arrangements House Household Members spouse Type of transporation used prior to Drives own vehicle admit Independent with ADL's Yes Is patient alert and oriented? Yes Barriers to Discharge No Discharge Plan Home Transportation Arrangement Spouse Referrals Initiated None needed
[2021-05-05] MEDS: cefTRIAXone 2,000 MG in SODIUM CHLORIDE 0.9% 100 ML 200 ML IV (17:51)
--- NOTE | 2021-05-05 19:15 | PC.NURSE ---
Pt is reporting increasing difficulty with speech and swallowing over the course of the day. Hospitalist is aware of pt's concerns and has rounded at bedside three times for f/u assessments. Pt placed call light on at 1900 and c/o inability to swallow thin water. Pt is tearful and anxious. RA sats 93-94% RR 32. Pt states she feels about the same at this point as when she initially came in to the ED. Notified hospitalist immediately and hospitalist rounded at bedside at 1915. Report given to QUYEN PATEL.
[2021-05-05] MEDS: SODIUM CHLORIDE 0.9% FLUSH 10 ML IV (21:07)
[2021-05-06] VITALS (37 sets, daily range): BP systolic 152–201; BP diastolic 69–89; PULSE 50–79; RESP 15–26; TEMP 36.2–37.4; O2SAT 90–96
[2021-05-06] MEDS: LABETALOL 20 MG/4 ML SYRINGE 10 MG IV ×2 (04:12→21:41)
[2021-05-06 05:09] LABS: Add Manual Diff / Slide Review NO; Basophils Absolute Auto 0 /uL (0-100); Basophils Percent Auto 0.4 % (0-2); Eosinophils Absolute Auto 0 /uL (0-450); Eosinophils Percent Auto 0.1 % (2-4); Hematocrit 40.2 % (36-46); Hemoglobin 13.4 g/dL (12.0-16.0); Lymphocytes Absolute Auto 1100 /uL (1100-4500); Lymphocytes Percent Auto 9.6 % (25-40); Mean Corpuscular HGB Conc 33.4 % (30-36); Mean Corpuscular Hemoglobin 29.4 PG (26-34); Mean Corpuscular Volume 88.2 fL (80-100); Monocytes Absolute Auto 500 /uL (0-900); Monocytes Percent Auto 3.9 % (3-14); Neutrophils Absolute Auto 10000 /uL (1500-7000); Platelet Count 207 X10^3/uL (150-400); Red Blood Cell Count 4.55 X10^6/uL (4.0-5.2); Red Cell Distribution Width 16.1 % (11.6-14.8); White Blood Cell Count 11.6 X10^3/uL (4.5-11.0)
[2021-05-06 05:20] LABS: BUN Creatinine Ratio 26.6 (6-22); Blood Urea Nitrogen 17 mg/dL (7-17); Carbon Dioxide 31 mmol/L (22-32); Chloride 104 mmol/L (98-107); Estimated Glomerular Filt Rate > 60.0 mL/min (>60); Glucose 138 mg/dL (80-110); HEMOLYSIS < 15 (0-50); Magnesium 2.3 mg/dL (1.6-2.3); Potassium 4.4 mmol/L (3.4-5.1); Sodium 139 mmol/L (137-145)
[2021-05-06] MEDS: PANTOPRAZOLE DR 40 MG TABLET PO (06:20)
[2021-05-06] MEDS: DEXAMETHASONE 4 MG/ML VIAL IV ×2 (06:20→14:50)
[2021-05-06] MEDS: VANCOMYCIN 1,000 MG/200 ML PIGGYBACK 200 MG IV ×2 (06:20→19:24)
--- NOTE | 2021-05-06 06:33 | PC.NURSE ---
Shift Note-IV Decadron restarted, patient states the swelling and discomfort in her throat has gone down, able to drink water and take pills without difficulty. Sleeps with HOB elevated. IV labetalol given per prn for BP 183/83, SB 50s while asleep.
[2021-05-06] MEDS: CALCIUM CARBONATE 600 MG TABLET PO (08:56)
[2021-05-06] MEDS: ENOXAPARIN 40 MG/0.4 ML SYRINGE SUBCUT (08:57)
[2021-05-06] MEDS: VERAPAMIL 80 MG TABLET PO (08:57)
[2021-05-06] MEDS: SODIUM CHLORIDE 0.9% FLUSH 10 ML IV ×2 (10:14→21:42)
--- NOTE | 2021-05-06 10:16 | ST.IPTN ---
Visit Care Team Role Provider Type Rm Love MD Primary Care Provider Physician Address: [address] [place] [address], [id number] Diana Varghese MD Other Providers Physician Address: Phone: Fax: Dilcia Christianson MD Other Providers Physician Address: Phone: Fax: Rosario Castro MD Other Providers Physician Address: Phone: Fax: Nick Woodson MD Other Providers Physician Address: Phone: Fax: Diana Toledo MD Other Providers Physician Address: Phone: Fax: Leon Dawkins MD Other Providers Physician Address: Phone: Fax: Derrick Ca MD Other Providers Physician Address: Phone: Fax: Baldomero Tejada MD Other Providers Physician Address: Phone: Fax: Ollie Castro MD Other Providers Physician Address: Phone: Fax: Jorge Aviles MD Other Providers Physician Address: [address] [place] [address], [address] Nalini Koroma MD Other Providers Physician Address: Phone: Fax: Ilana Peña Other Providers Physician Address: Phone: Fax: Bhargav Goyal MD Other Providers Physician Address: Phone: Fax: Kae Bejarano PA-C Family Provider Advanced Assessment Nurse Practitioner Address: [address], [address] Leon Llanos DO Emergency Provider Physician Referring Provider Address: [address] [place] [address], [address] Adilia Sutton MD Admit Provider Physician Attending Provider Address: [address] [place] [address], [address] ORDER PACKER OR PACKAGER Treatment Note ORDER PACKER OR PACKAGER Treatment Note Start: 05/05/21 12:31 Freq: Status: Active Protocol: Document 05/06/21 10:08 SEB (Rec: 05/06/21 10:16 ZS [id number]) Speech Pathology Treatment Note Session Time Visit Start Time 09:30 Visit Stop Time 09:50 Total Visit Minutes 20 Setting Treatment Setting Acute Care Visit Type Note Type Treatment Note Next Note Type Next Note Type Treatment Note General Information Patient History PER H&P: The patient is a 80- year-old female with a history of hypertension, SVT , hyperlipidemia, allergic rhinitis, and asthma, who reports she was in her usual state of health until about a week ago. At that time she developed some swelling of her throat. She had associated tightness of her throat for the past few days, productive cough, and shortness of breath . The patient does have a known history of asthma and had not used her inhaler. She was given a prescription 2 weeks prior to admission for bronchitis. After follow up with her PCP,she rwas encoraged to return to the emergency department for further evaluation. She presented to the ED with complaints of a muffled voice. They seemed to be progressive. She also noted that she felt her throat was swollen, tongue was swollen and she had difficulty swallowing. In the emergency department she [place] [address]. She underwent a CT of her neck which revealed the following: Irregularity with thickening can be seen along the left aspect of the epiglottis. If clinically appropriate, please consider ENT consultation. No enlarged lymph nodes are seen. There is fullness seen within both sides of the tongue base, which may simply be related to prominent lymphoid tissue. Subjective Identification Type Name,ID Wristband Identification Reconciled With Medical Record Observations/Patient Presentation Pt was sitting upright in bed with breakfast tray in front of her when ORDER PACKER OR PACKAGER arrived. She had eaten her applesauce and about 1/3 or her yogurt, but the remainder of her breakfast was untouched. She reported increased swelling in her epiglottis and throat as well as increased upper lip numbness, which negatively impacted her ability to swallow. She added last night the swelling occluded her airway. Chief Complaint(s) Speech,Swallowing Patient/Caregiver Compliance with Home Excellent Exercise Program Objective Nursing Home Goals Monitor OM skills, especially bilabial pressure /strength Bilabial exercises for increase strength of bilabial closure/pucker Treatment Activities Reviewed exercises for OM strength and ROM. Discussed difficulty swallowing. Assessment Patient Response to Treatment Good Rehab Potential Good Impairments Identified Articulation,Dysphagia Assessment of Improvement The pt reported increased difficulty with eating today due to increased swelling of her epiglottis and throat. Discussed diet options given fluctuating status of swelling , and pt agreed to stay with current diet and speak to NSG if she is unable to eat provided food but is still hungry. Pt listed and demonstrated all OM exercises provided and reported practicing them yesterday. Continue to monitor due to fluctuating status with swelling that negatively impacts swallow. Reviewed with Patient Goals,Progress Being Made,Home Exercise Program Patient/Caregiver Understanding Excellent Plan Therapeutic Contents Home Exercise Program,Oral Motor Training,Swallowing/ Feeding Provided Patient/Caregiver Instruction Home Exercise Program,Plan of Care,Questions/Concerns Therapy Recommendations Continue with Current Program
--- NOTE | 2021-05-06 14:33 | P.PN_ITS ---
Subjective Subjective Date Patient Seen: 05/06/21 Interval history: Patient is still having mild articulation difficulty with speech and perioral numbness. Swallowing appears intact. Exam Vital Signs (past 8 hours): - 05/06/21 08:55 05/06/21 08:57 05/06/21 11:12 Temperature 99.4 F Pulse Rate 79 73 74 Respiratory Rate 22 Blood Pressure 201/89 H 201/89 H 152/69 H Pulse Oximetry 90 L 92 05/06/21 11:30 05/06/21 11:36 Temperature Pulse Rate Respiratory Rate 26 H Blood Pressure Pulse Oximetry 90 L Oxygen Delivery Method Nasal Cannula Oxygen Flow Rate 2 Narrative Exam Narrative: General: Alert pleasant in no acute distress Oropharynx: Tongue and posterior pharynx without swelling or exudate Neck: No swelling Lungs: Clear Heart: Regular rhythm Extremities: No edema Neurological: Slightly impaired speech otherwise normal Objective Labs Result Diagrams: 05/06/21 04:50 05/06/21 04:50 Labs: Laboratory Results - last 24 hr 05/06/21 05/06/21 04:50 04:50 WBC 11.6 H RBC 4.55 Hgb 13.4 Hct 40.2 MCV 88.2 MCH 29.4 MCHC 33.4 RDW 16.1 H Plt Count 207 Neut % (Auto) 86.0 H Lymph % (Auto) 9.6 L [place] % (Auto) 3.9 Eos % (Auto) 0.1 L Baso % (Auto) 0.4 Neut # (Auto) [address] H Lymph # (Auto) 1100 [place] # (Auto) 500 Eos # (Auto) 0 Baso # (Auto) 0 Sodium 139 Potassium 4.4 Chloride 104 Carbon Dioxide 31 BUN 17 Creatinine 0.64 Estimated GFR > 60.0 BUN/Creatinine Ratio 26.6 H Glucose 138 H Calcium 9.0 Magnesium 2.3 PFSH Medical History Allergic rhinitis Hyperlipidemia SVT (supraventricular tachycardia) Surgical History Status post cholecystectomy Family History (Updated 05/03/21 @ 22:01 by Adilia Sutton MD) Brother Obstructive sleep apnea Brother Shellfish allergy Social History household members: spouse Smoking Status: Never smoker alcohol intake: former Assessment & Plan Assessment & Plan narrative: 80-year-old female with a history of asthma, hypertension, SVT, GERD admitted to the hospital for acute epiglottitis. 1. Acute epiglottitis, improving * Patient progress since with several weeks of upper respiratory symptoms, most recently difficulty speaking, tongue swelling, and neck tightness * CT scan of the neck reveals irregularity and thickening of the left aspect of the epiglottitis, there are no enlarged lymph nodes, there is fullness seen on both sides of the tongue base * Patient started on IV ceftriaxone 2 g daily, IV vancomycin 1 g daily, in addition to dexamethasone 4 mg IV every 6 hours * ENT consultation obtained from the emergency department, Dr. Aviles is aware,?anesthesia is in house is also?aware, and general surgery consultation with Dr. Abreu has been obtained from the emergency department in the event emergent airway is needed * Continue IV antibiotics and steroid for 1 more day 2. Hypertension * Patient was recently switched from metoprolol to low-dose propranolol presumably for SVT * She is also on verapamil 80 mg twice daily * Continue IV labetalol, 10 mg q.4 hours for systolic blood pressure greater th an 180 3. Supraventricular tachycardia * Continue verapamil and propranolol per home routine 4. GERD * Continue Protonix 40 mg daily 5. Asthma * No acute exacerbation at this time VTE prophylaxis: Lovenox 40 mg daily Time Spent With Patient Critical Care time: I spent a total of [] minutes of critical care time on this patient's care today; this time is exclusive of procedural time. Quality VTE Deep Vein Thrombosis/Pulmonary Embolism Present on Admission: No
--- NOTE | 2021-05-06 15:06 | CM.DPNOTE ---
Faxed referral packet to [facility] per Sarita and received fax conf. Haven Connelly CM Assist.
--- NOTE | 2021-05-06 15:54 | CM.DPNOTE ---
DCP Note Met w/patient this morning to review DCP; patient appreciative for the visit, says she thinks HH services would be helpful and asks for a referral to [facility] Patient denies additional needs, says she will DC home w/her spouse and family and close outpatient f/u VIVI Orourke, kindly faxed new HH referral to [facility]; completed and signed F2F, HH order, face sheet etc Plan: DC home w/family expected, w/[facility] services and close outpatient f/u recommended JW
--- NOTE | 2021-05-06 16:21 | PC.NURSE ---
Addendum entered by Jeyson Schneider R.N. 05/06/21 18:05: Pt sitting up to chair for dinner. Pt ordered pureed food items. Pt began coughing after swallowing small amount of food. Pt is able to expectorate small amounts of food particles as well as large amounts of clear sputum. Pt declined suctioning to assist with removing food debris. Notified Dr. Campo regarding pt's continued difficulty with swallowing. Reported that pt has been maintaining sats 90-94% on RA. Dr. Campo rounded again and assessed pt at bedside. No new orders at this time. Original Note: Notified Dr. Campo of elevated blood pressure. Reviewed current medications. Pt is asymptomatic sitting up to chair in no apparent distress aside from having concerns regarding her BP. Dr. Campo states he will enter orders.
[2021-05-06] MEDS: cefTRIAXone 2,000 MG in SODIUM CHLORIDE 0.9% 100 ML 200 ML IV (17:20)
[2021-05-06] MEDS: LOSARTAN 50 MG TABLET PO (17:20)
--- NOTE | 2021-05-06 22:34 | PC.NURSE ---
Addendum entered by Eunice Wiseman R.N. 05/07/21 04:13: Patient states she slept well until she had to go to the bathroom. Voice stronger this morning, but still some mild difficulty with articulation. Patient denies numbness to tongue and around mouth. BP 199/93, HR 86. Labetolol IV given per EMAR. O2 @ 2L initiated for O@ de-saturation to 88%. O2 saturations improved to 94%. Original Note: Patient expressing concerns about length of time it is taking to get crushed pill in applesauce consumed. Patient clearing her throat frequently and expectorating thin, clear secretions. FADY Mehta notified regarding patient's continued difficulty with swallowing, and patient's wish to try an IV alternative, Blood pressure 181/81 HR 68. Labetolol ordered and given with BP recheck 157/69, HR 57. O2 sats 91-95% on RA.
[2021-05-07] VITALS (28 sets, daily range): BP systolic 158–199; BP diastolic 70–95; PULSE 48–95; RESP 16–20; TEMP 36.6–37.2; O2SAT 90–96
[2021-05-07] MEDS: LABETALOL 20 MG/4 ML SYRINGE 10 MG IV (04:07)
[2021-05-07] MEDS: SODIUM CHLORIDE 0.9% FLUSH 10 ML IV ×3 (04:08→20:39)
[2021-05-07 05:33] LABS: Add Manual Diff / Slide Review NO; Basophils Absolute Auto 0 /uL (0-100); Basophils Percent Auto 0.2 % (0-2); Eosinophils Absolute Auto 0 /uL (0-450); Hematocrit 37.5 % (36-46); Hemoglobin 12.7 g/dL (12.0-16.0); Lymphocytes Absolute Auto 1200 /uL (1100-4500); Lymphocytes Percent Auto 13.9 % (25-40); Mean Corpuscular HGB Conc 33.9 % (30-36); Mean Corpuscular Hemoglobin 29.8 PG (26-34); Monocytes Absolute Auto 700 /uL (0-900); Monocytes Percent Auto 8.5 % (3-14); Neutrophils Absolute Auto 6600 /uL (1500-7000); Neutrophils Percent Auto 77.4 % (50-75); Platelet Count 205 X10^3/uL (150-400); Red Blood Cell Count 4.26 X10^6/uL (4.0-5.2); Red Cell Distribution Width 15.5 % (11.6-14.8); White Blood Cell Count 8.5 X10^3/uL (4.5-11.0)
[2021-05-07 05:39] LABS: Alanine Aminotransferase 50 IU/L (<35); Albumin 3.6 g/dL (3.5-5.0); Albumin Globulin Ratio 1.3 (1.0-2.8); Alkaline Phosphatase 40 U/L (38-126); Aspartate Aminotransferase 41 IU/L (14-36); BUN Creatinine Ratio 28.8 (6-22); Bilirubin Total 0.6 mg/dL (0.2-1.3); Bilirubin Unconjugated 0.7 mg/dL (0.0-1.1); Blood Urea Nitrogen 17 mg/dL (7-17); Calcium 8.7 mg/dL (8.4-10.2); Carbon Dioxide 31 mmol/L (22-32); Chloride 103 mmol/L (98-107); Estimated Glomerular Filt Rate > 60.0 mL/min (>60); Globulin 2.7 g/dL (1.7-4.1); Glucose 129 mg/dL (80-110); HEMOLYSIS < 15 (0-50); Magnesium 2.4 mg/dL (1.6-2.3); Potassium 4.2 mmol/L (3.4-5.1); Sodium 139 mmol/L (137-145); Total Protein 6.3 g/dL (6.3-8.2)
[2021-05-07] MEDS: VANCOMYCIN 1,000 MG/200 ML PIGGYBACK 200 MG IV ×2 (06:17→19:29)
[2021-05-07] MEDS: DEXAMETHASONE 10 MG/ML VIAL IV (08:11)
[2021-05-07] MEDS: PANTOPRAZOLE 40 MG VIAL IV (08:13)
[2021-05-07] MEDS: ENOXAPARIN 40 MG/0.4 ML SYRINGE SUBCUT (08:15)
[2021-05-07] MEDS: LOSARTAN 50 MG TABLET 100 MG PO (08:47)
[2021-05-07] MEDS: CHLORTHALIDONE 25 MG TABLET 12.5 MG PO (08:48)
[2021-05-07] MEDS: carvediloL 12.5 MG TABLET PO ×2 (08:48→20:37)
--- NOTE | 2021-05-07 11:20 | PM.PN.1 ---
Subjective Subjective Date Patient Seen: 05/07/21 Interval history: Patient admitted for acute epiglottitis. On day for IV antibiotic and steroids. She is still having difficulty clearly pronouncing words and significant difficulty swallowing. No trouble with vision or keeping eyes open. Her WBC count has been coming down and now normal. I was able to speak with on-call ENT, Dr. Mika Mercado, yesterday evening regarding my concern that patient is still having significant problems 3 days into her treatment course. Dr. Mercado recommends to maintain current treatment course through the weekend and consult ENT Sunday if patient is not substantially improved. Exam Vital Signs (past 8 hours): - 05/07/21 03:58 05/07/21 04:00 05/07/21 04:02 Temperature 97.8 F Pulse Rate 68 73 74 Respiratory Rate 18 Blood Pressure 197/95 H 195/86 H 199/93 H Pulse Oximetry 91 91 90 L 05/07/21 04:07 05/07/21 05:00 05/07/21 05:32 Temperature Pulse Rate 86 61 69 Respiratory Rate Blood Pressure 199/93 H 183/79 H Pulse Oximetry 95 05/07/21 06:00 05/07/21 06:30 05/07/21 07:00 Temperature Pulse Rate 54 L 67 66 Respiratory Rate Blood Pressure 183/79 H Pulse Oximetry 96 96 93 05/07/21 07:51 05/07/21 08:00 05/07/21 08:47 Temperature 98.7 F Pulse Rate 69 69 67 Respiratory Rate 16 Blood Pressure 195/91 H 195/91 H 193/91 H Pulse Oximetry 94 94 05/07/21 08:48 05/07/21 10:13 Temperature Pulse Rate 67 74 Respiratory Rate Blood Pressure 193/91 H 180/79 H Pulse Oximetry 94 Oxygen Delivery Method Nasal Cannula Oxygen Flow Rate 2 Narrative Exam Narrative: General: Alert female in no acute distress HEENT: No exudate, tongue not swollen, jaw not swollen, EOMI, face symmetric and able to move tongue [id number], able to open and close eyes and wrinkle forehead all without difficulty, however speech is definitely abnormal with difficulty clearly pronouncing some words Objective Labs Result Diagrams: 05/07/21 04:55 05/07/21 04:55 Labs: Laboratory Results - last 24 hr 05/07/21 05/07/21 04:55 04:55 WBC 8.5 RBC 4.26 Hgb 12.7 Hct 37.5 MCV 88.0 MCH 29.8 MCHC 33.9 RDW 15.5 H Plt Count 205 Neut % (Auto) 77.4 H Lymph % (Auto) 13.9 L [place] % (Auto) 8.5 Eos % (Auto) 0.0 L Baso % (Auto) 0.2 Neut # (Auto) 6600 Lymph # (Auto) 1200 [place] # (Auto) 700 Eos # (Auto) 0 Baso # (Auto) 0 Sodium 139 Potassium 4.2 Chloride 103 Carbon Dioxide 31 BUN 17 Creatinine 0.59 Estimated GFR > 60.0 BUN/Creatinine Ratio 28.8 H Glucose 129 H Calcium 8.7 Magnesium 2.4 H Total Bilirubin 0.6 Conjugated Bilirubin 0.0 Unconjugated Bilirubin 0.7 AST 41 H ALT 50 H Alkaline Phosphatase 40 Total Protein 6.3 Albumin 3.6 Globulin 2.7 Albumin/Globulin Ratio 1.3 PFSH Medical History Allergic rhinitis Hyperlipidemia SVT (supraventricular tachycardia) Surgical History Status post cholecystectomy Family History (Updated 05/03/21 @ 22:01 by Adilia Sutton MD) Brother Obstructive sleep apnea Brother Shellfish allergy Social History household members: spouse Smoking Status: Never smoker alcohol intake: former Assessment & Plan Assessment & Plan narrative: 80-year-old female with a history of asthma, hypertension, SVT, GERD admitted to the hospital for acute epiglottitis. 1. Acute epiglottitis -history 2 weeks source throat, outpatient amoxicillin x1 week, then developed trouble with speaking and swallowing -CT scan of the neck reveals irregularity and thickening of the left aspect of the epiglottitis, there are no enlarged lymph nodes, there is fullness seen on both sides of the tongue base -continue IV ceftriaxone 2 g daily, IV vancomycin 1 g daily -dexamethasone 10 mg IV daily -ENT consultation obtained from the emergency department, Dr. Aviles is aware,?anesthesia is in house is also?aware, and general surgery consultation with Dr. Abreu has been obtained from the emergency department in the event emergent airway is needed -discussed hospital course with Dr. Mika Mercado on with recommendations to continue IV treatments -repeat neck CT since patient is not having definite improvement -may need to have laryngoscopy on Sunday or sooner if needed 2. Hypertension, severe, uncontrolled -patient was recently started by PCP on verapamil and propranolol presumably also for SVT, not clearly documented -BP remains quite high on current regimen -discontinued for appy male and propranolol -started carvedilol 12.5 mg b.i.d. -started losartan 100 mg daily and chlorthalidone 12.5 mg daily -consider adding amlodipine if blood pressure not improving over next few days -avoid rapid lowering with IV medication as this is likely very chronic untreated hypertension 3. GERD -continue Protonix 20 mg daily 4. Asthma -stable without acute exacerbation -albuterol in healer as needed 5. Generalized anxiety -patient endorses anxiety in hospital -ordered lorazepam 0.5 mg b.i.d. as needed DVT prophylaxis: Lovenox Time Spent With Patient Critical Care time: I spent a total of [] minutes of critical care time on this patient's care today; this time is exclusive of procedural time. Quality VTE Deep Vein Thrombosis/Pulmonary Embolism Present on Admission: No
--- NOTE | 2021-05-07 11:44 | DI.CT.S_ITS ---
PROCEDURE: CT SOFT TISSUE NECK W CON INDICATIONS: epiglotittis, r/o abscess TECHNIQUE: Helical axial CT of the neck was obtained after intravenous contrast injection and reformatted in multiple planes. Radiation dose reduction was achieved utilizing automated exposure control and/or adjustment of the dose parameters according to patient's size. Study is limited by patient positioning and obliquity COMPARISON: [facility], CT, CT SOFT TISSUE NECK W CON, 05/03/2021, 17:59. FINDINGS: Image quality: Excellent. Lymph nodes: No enlarged lymph nodes seen throughout the neck. Vessels: Visualized vasculature appears patent. Neck spaces: Lymphoid hypertrophy noted at the base of the tongue. The epiglottis is thin, although there is mucosal debris resting on the pharyngeal surface of the epiglottis. Vallecular sinuses are collapsed by positioning. No evidence of abscess Otherwise, the oropharynx, nasopharynx, and pharynx demonstrate no mucosal lesions. The vocal cords, false vocal cords, pyriform sinuses, and tongue base all appear normal. Extramucosal spaces appear unremarkable. Glands: The parotid and submandibular glands appear normal. Thyroid gland unremarkable. Miscellaneous: Visualized brain and orbits appear normal. Lung apices appear clear. Superficial soft tissues appear normal. Bones: No suspicious bony lesions. Visualized sinuses and mastoids appear unremarkable. Multilevel degenerative disc disease in the mid cervical spine results in reversal the normal cervical lordosis. IMPRESSION: 1. Stable CT of the neck without evidence of abscess. 2. Lymphoid hypertrophy noted at the base of the tongue with mucosal debris in the compressed vallecular sinuses. Evaluation is limited by patient positioning. 3. Cervical degenerative disc disease and arthropathy Approved by: Kishor Abdullahi M.D. on 05/07/2021 at 12:25
[2021-05-07] MEDS: LORazepam 0.5 MG TABLET PO (11:58)
--- NOTE | 2021-05-07 13:43 | DI.MRI.S_ITS ---
PROCEDURE: MR HEAD/BRAIN WO CON INDICATIONS: dysarthria,dysphagia r/o acute CVA, space occupying lesion TECHNIQUE: Noncontrast axial T1 spin echo, axial T2 fast spin echo, sagittal and axial FLAIR, coronal T2 fast spin echo, axial gradient echo, axial diffusion and ADC through the brain. COMPARISON: [facility], MR, BRAIN WITHOUT CONTRAST, 01/10/2016, 7:41. FINDINGS: Image quality: Excellent. CSF Spaces: Basal cisterns are patent. No extra-axial fluid collections. Ventricles are normal in size and shape. Brain: No intracranial masses or hemorrhage. Rocha/white matter interface is normal. Brainstem appears normal. Diffusion-weighted images demonstrate no acute ischemic insult. No chronic ischemic insults. Normal intravascular flow voids are present. Moderate atrophy and multifocal white matter chronic ischemic change Skull and face: Calvarium has normal marrow signal. Orbits appear normal. Bilateral intraocular lens replacements noted. Sinuses: Sinuses and mastoids are clear. IMPRESSION: Atrophy and chronic ischemic change without acute hemorrhage or mass effect Approved by: Kishor Abdullahi M.D. on 05/07/2021 at 15:17
[2021-05-07] MEDS: LORazepam 2 MG/ML INJ 0.5 MG IV (13:56)
[2021-05-07 16:54] LABS: TSH w/ Reflex to FT4 0.08 uIU/mL (0.47-4.68)
[2021-05-07 18:27] LABS: Free T4, Direct Thyroxine 1.55 ng/dL (0.78-2.19)
[2021-05-07] MEDS: cefTRIAXone 2,000 MG in SODIUM CHLORIDE 0.9% 100 ML 200 ML IV (18:34)
--- NOTE | 2021-05-07 21:10 | PC.NURSE ---
Addendum entered by Eunice Wiseman R.N. 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 Patient boosted up to top of bed. O2 sats 82% on RA. O2 initiated at 6L. O2 sats recovering to 100% with two minutes. O2 titrated back down to 2L and sats 97-98% Patient feeling much improvement with a few minutes. Blood Pressure remains stable at 149/66. Original Note: Patient states that she is feeling better and able to consume more of a clear liquid diet with ensure. Blood pressure improving 158/70 HR 80-95, SR. Patient denies pain, but continues to clear throat frequently.
[2021-05-08] VITALS (11 sets, daily range): BP systolic 139–204; BP diastolic 65–91; PULSE 54–84; RESP 16–27; TEMP 36.2–37.1; O2SAT 94–98
[2021-05-08] MEDS: VANCOMYCIN 1,000 MG/200 ML PIGGYBACK 200 MG IV ×2 (06:15→18:32)
[2021-05-08] MEDS: VANCOMYCIN TROUGH 1 REQUEST MISC (06:16)
[2021-05-08 06:29] LABS: Add Manual Diff / Slide Review NO; Basophils Absolute Auto 0 /uL (0-100); Basophils Percent Auto 0.2 % (0-2); Eosinophils Absolute Auto 0 /uL (0-450); Hematocrit 41.4 % (36-46); Hemoglobin 13.9 g/dL (12.0-16.0); Lymphocytes Absolute Auto 1400 /uL (1100-4500); Lymphocytes Percent Auto 13.2 % (25-40); Mean Corpuscular HGB Conc 33.5 % (30-36); Mean Corpuscular Hemoglobin 29.5 PG (26-34); Mean Corpuscular Volume 88.1 fL (80-100); Monocytes Absolute Auto 900 /uL (0-900); Monocytes Percent Auto 8.2 % (3-14); Neutrophils Absolute Auto 8300 /uL (1500-7000); Neutrophils Percent Auto 78.4 % (50-75); Platelet Count 219 X10^3/uL (150-400); Red Cell Distribution Width 15.4 % (11.6-14.8); White Blood Cell Count 10.6 X10^3/uL (4.5-11.0)
[2021-05-08 06:38] LABS: Alanine Aminotransferase 228 IU/L (<35); Albumin 3.6 g/dL (3.5-5.0); Albumin Globulin Ratio 1.2 (1.0-2.8); Alkaline Phosphatase 39 U/L (38-126); Aspartate Aminotransferase 197 IU/L (14-36); Bilirubin Total 0.8 mg/dL (0.2-1.3); Bilirubin Unconjugated 0.9 mg/dL (0.0-1.1); Blood Urea Nitrogen 18 mg/dL (7-17); Calcium 8.5 mg/dL (8.4-10.2); Carbon Dioxide 31 mmol/L (22-32); Chloride 102 mmol/L (98-107); Estimated Glomerular Filt Rate > 60.0 mL/min (>60); Globulin 2.9 g/dL (1.7-4.1); Glucose 112 mg/dL (80-110); HEMOLYSIS < 15 (0-50); Magnesium 2.3 mg/dL (1.6-2.3); Potassium 3.8 mmol/L (3.4-5.1); Sodium 137 mmol/L (137-145); Total Protein 6.5 g/dL (6.3-8.2)
[2021-05-08 06:40] LABS: Vancomycin Trough 14.1 ug/mL (10-20)
[2021-05-08] MEDS: LOSARTAN 50 MG TABLET 100 MG PO (08:57)
[2021-05-08] MEDS: carvediloL 12.5 MG TABLET PO ×2 (08:57→20:13)
[2021-05-08] MEDS: PANTOPRAZOLE 40 MG VIAL 20 MG IV (08:57)
[2021-05-08] MEDS: ENOXAPARIN 40 MG/0.4 ML SYRINGE SUBCUT (08:57)
[2021-05-08] MEDS: CHLORTHALIDONE 25 MG TABLET 12.5 MG PO (08:58)
[2021-05-08] MEDS: VANCOMYCIN PEAK 1 REQUEST MISC (09:14)
[2021-05-08 09:44] LABS: Vancomycin Peak 31.2 ug/mL (20-40)
[2021-05-08] MEDS: ALBUTEROL 2.5 MG/3 ML NEB (ADULT) INH (09:44)
--- NOTE | 2021-05-08 11:26 | PM.PN.1 ---
Subjective Subjective Date Patient Seen: 05/08/21 Interval history: Patient presented with muffled speech, subjective tongue swelling and sensation of difficulty moving tongue, trouble swallowing of recent sore throat and antibiotic course. Next CT seemed to suggest acute epiglottitis with appearance of epiglottis swelling on the left side. She was started on IV antibiotics and high-dose dexamethasone. However, she has not had substantial improvement in presenting complaints after now 5 days of therapy. Additionally she has required O2 support off and on with x-ray finding of likely aspiration or pneumonia. Repeat neck CT was unremarkable. Brain MR was negative for bleed or stroke or space-occupying lesion. It remains unclear why patient is still having difficulty with speech and swallowing. Patient endorses difficulty swallowing anything but clear liquids including pills. Denies difficulty keeping eyes open or double vision. Also has been persistently severely hypertensive with blood pressure is finally coming under control in last 24 hours. Exam Vital Signs (past 8 hours): - 05/08/21 04:00 05/08/21 08:00 05/08/21 08:16 Temperature 97.7 F 97.6 F Pulse Rate 58 L 67 Respiratory Rate 18 17 Blood Pressure 149/66 H 161/73 H Pulse Oximetry 95 95 96 05/08/21 08:57 05/08/21 09:44 Temperature Pulse Rate 84 Respiratory Rate 27 H Blood Pressure 161/73 H Pulse Oximetry 97 Oxygen Delivery Method Nasal Cannula Oxygen Flow Rate 2 Narrative Exam Narrative: General: Alert, pleasant and cooperative female sitting in chair HEENT:No exudate, tongue not swollen, jaw not swollen, EOMI, face symmetric and able to move tongue [id number], able to open and close eyes and wrinkle forehead all without difficulty, however speech is definitely abnormal with difficulty enunciating words Lungs: Clear to auscultation Heart: Regular rhythm Extremities: No edema Neurological: Well-oriented, difficulty with speech noted, affect normal Objective Labs Result Diagrams: 05/08/21 06:10 05/08/21 06:10 Labs: Laboratory Results - last 24 hr 05/07/21 05/08/21 05/08/21 04:45 06:10 06:10 WBC 10.6 RBC 4.70 Hgb 13.9 Hct 41.4 MCV 88.1 MCH 29.5 MCHC 33.5 RDW 15.4 H Plt Count 219 Neut % (Auto) 78.4 H Lymph % (Auto) 13.2 L [place] % (Auto) 8.2 Eos % (Auto) 0.0 L Baso % (Auto) 0.2 Neut # (Auto) 8300 H Lymph # (Auto) 1400 [place] # (Auto) 900 Eos # (Auto) 0 Baso # (Auto) 0 Sodium Potassium Chloride Carbon Dioxide BUN Creatinine Estimated GFR BUN/Creatinine Ratio Glucose Calcium Magnesium Total Bilirubin Conjugated Bilirubin Unconjugated Bilirubin AST ALT Alkaline Phosphatase Total Protein Albumin Globulin Albumin/Globulin Ratio TSH 0.08 L Free T4 1.55 Vancomycin Peak Vancomycin Trough 14.1 05/08/21 05/08/21 06:10 09:05 WBC RBC Hgb Hct MCV MCH MCHC RDW Plt Count Neut % (Auto) Lymph % (Auto) [place] % (Auto) Eos % (Auto) Baso % (Auto) Neut # (Auto) Lymph # (Auto) [place] # (Auto) Eos # (Auto) Baso # (Auto) Sodium 137 Potassium 3.8 Chloride 102 Carbon Dioxide 31 BUN 18 H Creatinine 0.60 Estimated GFR > 60.0 BUN/Creatinine Ratio 30.0 H Glucose 112 H Calcium 8.5 Magnesium 2.3 Total Bilirubin 0.8 Conjugated Bilirubin 0.0 Unconjugated Bilirubin 0.9 AST 197 H ALT 228 H Alkaline Phosphatase 39 Total Protein 6.5 Albumin 3.6 Globulin 2.9 Albumin/Globulin Ratio 1.2 TSH Free T4 Vancomycin Peak 31.2 Vancomycin Trough PFSH Medical History Allergic rhinitis Hyperlipidemia SVT (supraventricular tachycardia) Surgical History Status post cholecystectomy Family History (Updated 05/03/21 @ 22:01 by Adilia Sutton MD) Brother Obstructive sleep apnea Brother Shellfish allergy Social History household members: spouse Smoking Status: Never smoker alcohol intake: former Assessment & Plan Assessment & Plan narrative: 1. Acute dysarthria and dysphasia, present on admission -history 2 weeks source throat, outpatient amoxicillin x1 week, then developed trouble with speaking and swallowing -patient has been on antibiotics for acute epiglottitis although diagnosis is now in question with lack on of improvement on IV antibiotics and high-dose steroids -differential diagnosis includes allergic reaction to amoxicillin, atypical angioedema, vocal cord lesion, primary neurological (myasthenia gravis presenting atypically without ptosis) -acute cerebral event ruled out with negative MRI -initial CT scan of the neck revealed irregularity and thickening of the left aspect of the epiglottitis, there are no enlarged lymph nodes, there is fullness seen on both sides of the tongue base -ENT consultation obtained from the emergency department, Dr. Aviles is aware,?anesthesia is in house is also?aware, and general surgery consultation with Dr. Abreu has been obtained from the emergency department in the event emergent airway is needed -discussed hospital course with Dr. Mika Mercado on 05/06/21 with recommendations to continue IV treatments -repeat neck CT 0 05/07/21 showed no significant abnormality -dexamethasone was discontinued after a.m. dose 05/07 due to patient developing anxiety and repeat CT not showing any mucosal swelling -continue IV ceftriaxone 2 g daily, IV vancomycin 1 g daily for now -ENT consult for Sunday to hopefully do laryngoscopy if patient is not substantially better -acetylcholine receptor antibody 2. Acute hypoxic respiratory failure due to aspiration pneumonia -patient with drops in O2 sat to 88% room air, chest x-ray with left basilar infiltrate and effusion -WBC 16.2 on admit and now normal -continue IV antibiotics as for epiglottitis although can probably drop the vancomycin if laryngoscopy shows no infection -patient currently on 2 L O2 with sat 97% -continue speech therapy swallow evaluations 3. Severe hypertension -currently on carvedilol 12.5 mg b.i.d., losartan 100 mg q.d., chlorthalidone 12.5 mg q.d. with improved control -consider increase carvedilol if needed 4. Abnormal low TSH, likely euthyroid sick syndrome due to high-dose steroid and acute illness -TSH 0.08, free T4 1.55 normal, T3 pending. Patient had normal TSH in recent past on January 04, 2022. -patient does not have signs of overt thyrotoxicosis such as tachycardia although BP is elevated but more likely this is TSH abnormality due to high-dose steroid and illness -recommend to repeat TFTs when patient has recovered from illness 5. Acute transaminitis likely secondary to high-dose steroid (discontinued) -on 05/08 LFTs significantly increased with AST 197 and ALT 228 -trend liver enzymes with a.m. labs 6. GERD -continue Protonix 20 mg daily 6.? Asthma -stable without acute exacerbation -albuterol in healer as needed 7. Acute anxiety, mild -this is likely related to high-dose steroids and situational in hospital -lorazepam 0.5 mg b.i.d. as needed DVT prophylaxis: Enoxaparin Time Spent With Patient Critical Care time: I spent a total of [] minutes of critical care time on this patient's care today; this time is exclusive of procedural time. Quality VTE Deep Vein Thrombosis/Pulmonary Embolism Present on Admission: No
[2021-05-08] MEDS: cefTRIAXone 2,000 MG in SODIUM CHLORIDE 0.9% 100 ML 200 ML IV (17:55)
[2021-05-08] MEDS: SODIUM CHLORIDE 0.9% FLUSH 10 ML IV (20:13)
[2021-05-09] VITALS (8 sets, daily range): BP systolic 95–172; BP diastolic 53–79; PULSE 56–107; RESP 16–17; TEMP 36.6–37.2; O2SAT 94–97
[2021-05-09 05:34] LABS: Alanine Aminotransferase 152 IU/L (<35); Albumin 3.4 g/dL (3.5-5.0); Albumin Globulin Ratio 1.2 (1.0-2.8); Alkaline Phosphatase 42 U/L (38-126); Aspartate Aminotransferase 46 IU/L (14-36); BUN Creatinine Ratio 26.6 (6-22); Bilirubin Total 1.1 mg/dL (0.2-1.3); Blood Urea Nitrogen 17 mg/dL (7-17); Calcium 8.3 mg/dL (8.4-10.2); Carbon Dioxide 34 mmol/L (22-32); Chloride 98 mmol/L (98-107); Estimated Glomerular Filt Rate > 60.0 mL/min (>60); Globulin 2.9 g/dL (1.7-4.1); Glucose 95 mg/dL (80-110); HEMOLYSIS < 15 (0-50); Potassium 3.3 mmol/L (3.4-5.1); Sodium 135 mmol/L (137-145); Total Protein 6.3 g/dL (6.3-8.2)
[2021-05-09] MEDS: VANCOMYCIN 1,000 MG/200 ML PIGGYBACK 200 MG IV ×2 (06:20→20:33)
[2021-05-09] MEDS: ENOXAPARIN 40 MG/0.4 ML SYRINGE SUBCUT (08:42)
[2021-05-09] MEDS: PANTOPRAZOLE 40 MG VIAL 20 MG IV (08:42)
[2021-05-09] MEDS: CHLORTHALIDONE 25 MG TABLET 12.5 MG PO (08:43)
[2021-05-09] MEDS: LOSARTAN 50 MG TABLET 100 MG PO (08:44)
[2021-05-09] MEDS: carvediloL 12.5 MG TABLET PO (08:44)
[2021-05-09] MEDS: SODIUM CHLORIDE 0.9% FLUSH 10 ML IV ×2 (08:52→22:34)
[2021-05-09 09:50] LABS: Erythrocyte Sedimentation Rate 1 MM/HR (0-20)
[2021-05-09] MEDS: ALBUTEROL 2.5 MG/3 ML NEB (ADULT) INH (10:06)
[2021-05-09] MEDS: POTASSIUM CHLORIDE 20 MEQ/15 ML UDC 40 MEQ PO ×2 (11:09→17:37)
--- NOTE | 2021-05-09 11:25 | PM.PN.1 ---
Subjective Subjective Date Patient Seen: 05/09/21 Time Patient Seen: 08:00 Interval history: She is quite anxious. She had shorntess of breath earlier, which has improved. She still feels she is choking when trying to swallow solids. Exam Vital Signs (past 8 hours): - 05/09/21 05:00 05/09/21 10:12 Temperature 97.8 F Pulse Rate 89 Respiratory Rate 16 Blood Pressure 172/79 H Pulse Oximetry 94 95 Oxygen Delivery Method Nasal Cannula Oxygen Flow Rate 0.5 Narrative Exam Narrative: General:? no acute distress HEENT:No exudate, tongue not swollen, jaw not swollen, EOMI, face symmetric and able to move tongue [id number], able to open and close eyes and wrinkle forehead all without difficulty, however speech is definitely abnormal with difficulty enunciating words Lungs:? Clear to auscultation Heart:? Regular rhythm Extremities:? No edema Neurological: Well-oriented, difficulty with speech is slight but notable Objective Labs Result Diagrams: 05/08/21 06:10 05/09/21 04:53 Labs: Laboratory Results - last 24 hr 05/09/21 05/09/21 04:53 08:44 ESR 1 Sodium 135 L Potassium 3.3 L Chloride 98 Carbon Dioxide 34 H BUN 17 Creatinine 0.64 Estimated GFR > 60.0 BUN/Creatinine Ratio 26.6 H Glucose 95 Calcium 8.3 L Total Bilirubin 1.1 AST 46 H ALT 152 H Alkaline Phosphatase 42 Total Protein 6.3 Albumin 3.4 L Globulin 2.9 Albumin/Globulin Ratio 1.2 [facility], [facility] Medical History Allergic rhinitis Hyperlipidemia SVT (supraventricular tachycardia) Surgical History Status post cholecystectomy Family History (Updated 05/03/21 @ 22:01 by Adilia Sutton MD) Brother Obstructive sleep apnea Brother Shellfish allergy Social History household members: spouse Smoking Status: Never smoker alcohol intake: former Assessment & Plan Assessment & Plan narrative: 1. Acute dysarthria and dysphasia, present on admission -history 2 weeks sore throat, outpatient amoxicillin x1 week, then developed trouble with speaking and swallowing -patient has been on antibiotics for acute epiglotitis although diagnosis is now in question with lack on of improvement on IV antibiotics and steroids -differential diagnosis includes allergic reaction to amoxicillin, atypical angioedema, vocal cord lesion, primary neurological (myasthenia gravis presenting atypically without ptosis) -acute cerebral event ruled out with negative MRI -initial CT scan of the neck revealed irregularity and thickening of the left aspect of the epiglottitis, there are no enlarged lymph nodes, there is fullness seen on both sides of the tongue base -ENT consultation appreciated to consider visualization -repeat neck CT 0 05/07/21 showed no significant abnormality -dexamethasone was discontinued after a.m. dose 05/07 due to patient developing anxiety and repeat CT not showing any mucosal swelling -continue IV ceftriaxone 2 g daily, IV vancomycin 1 g daily for now -acetylcholine receptor antibody pending 2. Acute hypoxic respiratory failure due to aspiration pneumonia -patient with drops in O2 sat to 88% room air, chest x-ray with left basilar infiltrate and effusion -WBC 16.2 on admit and now normal -continue IV antibiotics as for epiglottitis although can probably drop the vancomycin if laryngoscopy shows no infection -patient currently on 2 L O2 with sat 97% -continue speech therapy swallow evaluations 3. Severe hypertension -currently on carvedilol 12.5 mg b.i.d., losartan 100 mg q.d., chlorthalidone 12.5 mg q.d. with improved control -consider increase carvedilol if needed 4. Abnormal low TSH, likely euthyroid sick syndrome due to high-dose steroid and acute illness -TSH 0.08, free T4 1.55 normal, T3 pending.? Patient had normal TSH in recent past on January 04, 2022. -patient does not have signs of overt thyrotoxicosis such as tachycardia although BP is elevated but more likely this is TSH abnormality due to high-dose steroid and illness -recommend to repeat TFTs when patient has recovered from illness 5.? Acute transaminitis likely secondary to high-dose steroid -on 05/08 LFTs significantly increased with AST 197 and ALT 228, but not improved 6. GERD -continue Protonix 20 mg daily 6.? Asthma -stable without acute exacerbation -albuterol in healer as needed 7. Acute anxiety, mild -lorazepam 0.5 mg b.i.d. as needed Time Spent With Patient Critical Care time: I spent a total of [] minutes of critical care time on this patient's care today; this time is exclusive of procedural time. Quality VTE Deep Vein Thrombosis/Pulmonary Embolism Present on Admission: No
--- NOTE | 2021-05-09 11:29 | DI.RAD.S_ITS ---
PROCEDURE: FL BARIUM SWALLOW W SPEECH INDICATIONS: dysphagia COMPARISON: None. TECHNIQUE: Examination was conducted in conjunction with speech pathology per standard protocol. In the lateral projection, filming was performed of the patient swallowing. AP projection filming may also be performed with patient swallowing. COMPARISON: FINDINGS: Function: The oral preparatory phase appears normal, with proper containment. The subsequent oral propulsive phase, pharyngeal phase, and esophageal phase of swallowing also appear normal with all proffered substances. No laryngotracheal penetration or aspiration. Vallecular pooling was noted which was most pronounced with thicker viscosity substances. Morphology: No cricopharyngeal bar is identified. No cervical esophageal webs. No Zenker's diverticulum. No strictures. IMPRESSION: 1. Vallecular pooling. 2. No laryngotracheal penetration or aspiration. Please see detailed speech pathology report for additional study interpretation. Dictated by: Nakia Munoz MD, PhD on 05/09/2021 at 13:58 Approved by: Nakia Munoz MD, PhD on 05/09/2021 at 14:00
--- NOTE | 2021-05-09 12:16 | PM.OP.1 ---
Operative Date/Time/Diagnoses Date of procedure: 05/09/21 Time of procedure: 12:16 Pre-op diagnosis: Epiglottitis, throat pain, dysphagia Post-op diagnosis: other (No evidence of epiglottitis) Procedure & Clinicians Procedure: Flexible laryngoscopy Same procedure as scheduled: Yes Indications: 72-year-old female with the above diagnoses incompletely managed with medical therapy presents for the above procedure. Following discussion of the material risks benefits complications and alternatives, she elected to proceed. Surgeon: Alexandre Singh Click Yes if Unassisted: Yes Anesthesia Type: None Operative Notes Findings: Normal right nasal cavity, nasopharynx, base of tongue, vallecular, epiglottis, piriform sinuses, and normally mobile to vocal cords without lesion. Procedure in detail: Following verbal consent, the lubricated flexible fiberoptic laryngoscope was passed atraumatically through the right nostril with the above findings noted. Tolerated well without known complication. Complications: none Post-operative Condition: stable Plan for aftercare: See separately dictated consult note, agree with swallow study with speech therapy present as a next step.
--- NOTE | 2021-05-09 12:18 | PM.CN ---
History of Present Illness Consult details Date Patient Seen: 05/09/21 Time Patient Seen: 12:19 Chief complaint: Throat pain, dysphagia, possible epiglottitis Requesting provider: Nj Dawson Narrative: 80-year-old female admitted 6 days ago for possible diagnosis of epiglottitis based on imaging and throat pain, has been treated with antibiotics and steroids with some improvement but not complete although pain is resolve. Laryngoscopy requested to help direct further management, evidently being treated for pneumonia concurrently. At this point she denies pain, describes some swallowing issues pointing to her lower neck, some shortness of breath for which she points to her chest. No other ENT complaints. Meds Home Medications and Allergies Home Medications Medication Instructions Recorded Confirmed Type FOLIC ACID/VIT A/VIT B1/VIT 1 tab PO QDAY #0 08/15/10 05/03/21 History (#MULTIVITAMIN) [CALCIUM] 1 cap PO QDAY #0 10/20/15 05/03/21 History [PROBIOTIC FORMULA] 1 - 2 cap PO QDAY #0 10/20/15 05/03/21 History ibuprofen 200 mg capsule 400 mg PO Q4-6H PRN 06/12/18 05/03/21 History albuterol sulfate 90 mcg/actuation 1 inh INHALATION QID PRN #6.7 g 05/02/21 05/03/21 Rx aerosol inhaler fluticasone propionate 50 1 spray INTRANASAL BID PRN #16 g 05/02/21 05/03/21 Rx mcg/actuation nasal spray,suspension (Flonase Allergy Relief) pantoprazole 20 mg tablet,delayed 20 mg PO DAILY 30 Days #30 tab 05/02/21 05/03/21 Rx release (Protonix) verapamil 80 mg tablet 80 mg PO BID #60 tab 05/03/21 05/03/21 Rx propranolol 10 mg tablet 10 mg PO BID 05/06/21 05/06/21 History Allergies Allergy/AdvReac Type Severity Reaction Status Date / Time No Known Drug Allergies Allergy Verified 05/02/21 16:59 Review of Systems Review of Systems Narrative: Negative except as listed in the HPI Exam Vital Signs (past 8 hours): - 05/09/21 05:00 05/09/21 10:12 Temperature 97.8 F Pulse Rate 89 Respiratory Rate 16 Blood Pressure 172/79 H Pulse Oximetry 94 95 Oxygen Delivery Method Nasal Cannula Oxygen Flow Rate 0.5 Narrative Exam Narrative: Well-developed well-nourished female in no acute distress, sitting up with nasal oxygen in place. Slightly breathy voice but no stridor. She is alert and grossly oriented. Head is normocephalic atraumatic external ears are normal external nose normal. Oral cavity clear, normal mucosa, normal tongue mobility normal palate and posterior pharynx, no masses. Neck is soft and nontender no masses Objective Labs Result Diagrams: 05/08/21 06:10 05/09/21 04:53 Labs: Laboratory Results - last 24 hr 05/09/21 05/09/21 04:53 08:44 ESR 1 Sodium 135 L Potassium 3.3 L Chloride 98 Carbon Dioxide 34 H BUN 17 Creatinine 0.64 Estimated GFR > 60.0 BUN/Creatinine Ratio 26.6 H Glucose 95 Calcium 8.3 L Total Bilirubin 1.1 AST 46 H ALT 152 H Alkaline Phosphatase 42 Total Protein 6.3 Albumin 3.4 L Globulin 2.9 Albumin/Globulin Ratio 1.2 PFSH Medical History Allergic rhinitis Hyperlipidemia SVT (supraventricular tachycardia) Surgical History Status post cholecystectomy Family History Brother Obstructive sleep apnea Brother Shellfish allergy Social History household members: spouse Tobacco & Substance Use Smoking Status: Never smoker alcohol intake: former Assessment & Plan Assessment & Plan narrative: Assessment: Initial admit diagnosis of possible epiglottitis, no evidence of same currently, no mass or inflammation seen. 2. Dysphagia, persistent, agree with swallow study with speech therapy present Plan: As discussed with the patient and the hospitalist, no evidence of current laryngeal or supraglottic mass or inflammation, agree with swallow study with speech therapy present, cannot explain her feeling of tongue fullness, cannot rule out neurologic changes. Time Spent With Patient Critical Care time: I spent a total of [] minutes of critical care time on this patient's care today; this time is exclusive of procedural time.
--- NOTE | 2021-05-09 12:33 | ST.IPTN ---
Visit Care Team Role Provider Type Rm Love MD Primary Care Provider Physician Address: [address] [place] [address], [address] Diana Varghese MD Other Providers Physician Address: Phone: Fax: Dilcia Christianson MD Other Providers Physician Address: Phone: Fax: Rosario Castro MD Other Providers Physician Address: Phone: Fax: Nick Woodson MD Other Providers Physician Address: Phone: Fax: Diana Toledo MD Other Providers Physician Address: Phone: Fax: Leon Dawkins MD Other Providers Physician Address: Phone: Fax: Derrick Ca MD Other Providers Physician Address: Phone: Fax: Bladomero Tejada MD Other Providers Physician Address: Phone: Fax: Ollie Castro MD Other Providers Physician Address: Phone: Fax: Jorge Aviles MD Other Providers Physician Address: [address] [place] [address], [address] Nalini Koroma MD Other Providers Physician Address: Phone: Fax: Ilana Peña Other Providers Physician Address: Phone: Fax: Bhargav Goyal MD Other Providers Physician Address: Phone: Fax: Kae Bejarano PA-C Family Provider Advanced [employer] Address: [address], [address] Leon Llanos DO Emergency Provider Physician Referring Provider Address: [address] [place] [address], [address] Adilia Sutton MD Admit Provider Physician Attending Provider Address: [address] [place] [address], [id number] ELECTRICAL TRANSMISSION ENGINEER Treatment Note ELECTRICAL TRANSMISSION ENGINEER Treatment Note Start: 05/05/21 12:31 Freq: Status: Active Protocol: Document 05/09/21 11:50 EUFEMIA (Rec: 05/09/21 12:33 EUFEMIA [email or web address]) Speech Pathology Treatment Note Session Time Visit Start Time 08:45 Visit Stop Time 09:30 Total Visit Minutes 45 Setting Treatment Setting Acute Care Visit Type Note Type Treatment Note Next Note Type Next Note Type Treatment Note General Information Patient History Per MD report 05/08/21: Patient presented with muffled speech, subjective tongue swelling and sensation of difficulty moving tongue, trouble swallowing of recent sore throat and antibiotic course. Next CT seemed to suggest acute epiglottitis with appearance of epiglottis swelling on the left side. She was started on IV antibiotics and high-dose dexamethasone. However, she has not had substantial improvement in presenting complaints after now 5 days of therapy. Additionally she has required O2 support off and on with x-ray finding of likely aspiration or pneumonia . Repeat neck CT was unremarkable. Brain MR was negative for bleed or stroke or space-occupying lesion. It remains unclear why patient is still having difficulty with speech and swallowing. Patient endorses difficulty swallowing anything but clear liquids including pills. Denies difficulty keeping eyes open or double vision. Subjective Identification Type Name,ID Card Observations/Patient Presentation This pt is familiar to this clinician from outpatient therapy with a family member. She recognized ELECTRICAL TRANSMISSION ENGINEER upon arrival. Pt was sitting up in chair with breakfast plate but had not consumed any of it yet. She reported being nervous about swallowing, stating NSG had advised her to tuck her chin with swallow, which helped. She reported feeling weak, my head feels heavy like a bowling ball. Prior to all swallows during today's assessment, the pt expressed and exhibited anxiety around swallowing; however, she did participate. Pt was receiving 1L O2 via NC, maintaining 94-96% O2 levels with oral intake. Chief Complaint(s) Speech,Swallowing Rehab Expectation/Goals: Patient Goals Improve swallow and ability to breathe. Patient Knowledge/Awareness of ELECTRICAL TRANSMISSION ENGINEER Role Excellent in Treatment Objective Short Term Goals Monitor OM skills, especially bilabial pressure /strength Bilabial exercises for increase strength of bilabial closure/pucker Managed Care Director Goals Pt will demonstrate swallow function and safety WNL and tolerate regular texture and thin liquids without overt s/ sx of aspiration or discomfort . Treatment Activities Palpation of hyolaryngeal mechanism during dry swallow and swallow of thin liquids revealed minimal superior and anterior displacement, indicating likely reduced airway closure, which increases her risk of aspiration. Assessed pt's safety with consumption of meds crushed in water and in Jell-O, thin, nectar-thick and honey-thick liquids. Pt used chin tuck with all swallows. She refused intake of solids for fear of sticking and/or choking. Pt exhibited occ mild throat clearing and need for multiple swallows with meds crushed in water and with thin liquid. Residual medication remained in dispenser after the pt's consumption. ELECTRICAL TRANSMISSION ENGINEER blended this residual with Jell-O, and the pt consumed it with increased ease and in one swallow. The pt consumed nectar- and honey-thick liquids from cup and straw with no overt s/sx of aspiration. She reported increased ease of swallow, as compared to thin liquid, but had difficulty sealing her lips around the cup, resulting in mild anterior spillage. She did better drinking from a straw. No significant benefit was noted with honey-thick over nectar-thick. Recommend pt consume NTL with straw. She was agreeable to this. Trained pt in tarah breathing (2:4 in through nose ; out through pursed lips), which she performed with occ difficulty maintaining a slow pace. Advised her to practice breathing whenever she felt anxious to reduce anxiety and promote relaxed larynx necessary to maintaining an open airway. Discussed possible assessments via ENT laryngoscopy and/or MBS. The pt expressed hesitation toward both. ELECTRICAL TRANSMISSION ENGINEER discussed options with MD and agreed that MBS may be able to provide a helpful assessment of swallow mechanics to assist in determining etiology of pt 's symptoms. Assessment Patient Response to Treatment Good Rehab Potential Good Impairments Identified Dysphagia,Oral Motor Progress Towards Goals Slow Progress Assessment of Improvement Pt's swallow safety and comfort appear to be mildly improved with NTL vs thin liquid, meds crushed in Jell-O , and use of chin tuck with swallowing. Reduced airway closure is suspected and epiglottic inversion is questioned. This would best be assessed by MBS, which is scheduled for 1:30 today. Reviewed with Patient Goals,Progress Being Made,Home Exercise Program Patient/Caregiver Understanding Good Plan Therapeutic Contents Oral Motor Training,Swallowing /Feeding Provided Patient/Caregiver Instruction Plan of Care,Questions/ Concerns Therapy Recommendations Continue with Current Program Other Referrals [facility]
[2021-05-09 13:24] LABS: C-Reactive Protein Quant 1.4 mg/dL (<1.0); Creatine Kinase 43 U/L (30-135)
--- NOTE | 2021-05-09 16:42 | ST.SWALLOW ---
Visit Care Team Role Provider Type Rm Love MD Primary Care Provider Physician Specialty: Family Practice Address: [address] [place] [address], [id number] Email: [email or web address] Diana Varghese MD Other Providers Physician Specialty: Medical Address: Phone: Fax: Email: Dilcia Christianson MD Other Providers Physician Specialty: Medical Address: Phone: Fax: Email: Rosario Castro MD Other Providers Physician Specialty: Medical Address: Phone: Fax: Email: Nick Woodson MD Other Providers Physician Specialty: Medical Address: Phone: Fax: Email: Diana Toledo MD Other Providers Physician Specialty: Internal Medicine Address: Phone: Fax: Email: Leon Dawkins MD Other Providers Physician Specialty: Medical Address: Phone: Fax: Email: Derrick Ca MD Other Providers Physician Specialty: Internal Medicine Address: Phone: Fax: Email: Baldomero Tejada MD Other Providers Physician Specialty: Medical Address: Phone: Fax: Email: Ollie Castro MD Other Providers Physician Specialty: Medical Address: Phone: Fax: Email: Jorge Aviles MD Other Providers Physician Specialty: Ear, Nose, Throat Address: [address] [place] [address], [address] Email: [email or web address] Nalini Koroma MD Other Providers Physician Specialty: Medical Address: Phone: Fax: Email: Ilana Peña Other Providers Physician Specialty: Medical Address: Phone: Fax: Email: Bhargav Goyal MD Other Providers Physician Specialty: Medical Address: Phone: Fax: Email: Kae Bejarano PA-C Family Provider Advanced [employer] Printing Machine Operator Specialty: Medical Address: [address], [address] Email: [email or web address] Leon Llanos DO Emergency Provider Physician Referring Provider Specialty: Emergency Medicine Address: [address] [place] [address], [address] Email: [email or web address] Adilia Sutton MD Admit Provider Physician Attending Provider Specialty: Internal Medicine Address: [address] [place] [address], [id number] Email: [email or web address] Modified Barium Swallow Study PALLET SORTER Modified Barium Swallow Study Start: 05/09/21 14:13 Freq: Status: Active Protocol: Document 05/09/21 14:26 LNK (Rec: 05/09/21 14:37 LNK [id number]) Modified Barium Swallow Study Total Time Visit Start Time 13:30 Visit Stop Time 14:10 Total Visit Minutes 40 Setting Setting Acute Care Patient Information Identification Type Name,Date of Patient History In the emergency department she [place] [id number]. She underwent a CT of her neck which revealed the following: Irregularity with thickening can be seen along the left aspect of the epiglottis. If clinically appropriate, please consider ENT consultation. ENT consult today indicated all structures to be WNL. Subjective Observations Pt was seated in the fluoroscopy chair with directions and instructions provided. She indicated she understood and agreed to proceed. Pt presented as very anxious about swallowing. Patient Positioning Position View Lateral Imaging Lateral View Textures Administered Trials Presented Thin Liquid via Spoon,Thin Liquid via Cup,Thin Liquid via Straw,[place] Liquid via Spoon ,[place] Liquid via Cup,Honey Liquid via Spoon,Pudding Thick Liquid via Spoon,Dysphagia Mechanical Textures Oral Phase Source: MBSIMP (TM) (C) Bolus Specific Scoring Grid Lip Closure WFL Tongue Control During Bolus Hold WFL Bolus Prep/Mastication WFL Bolus Transport/Lingual Motion WFL Oral Residue WFL Residue Clearing WFL Nasal Regurgitation No Pharyngeal Phase Source: MBSIMP (TM) (C) Bolus Specific Scoring Grid Delayed Initiation of Pharyngeal Swallow Yes: premature spillage to the valeculla Soft Palate Elevation No Impairment (WNL) Tongue Base Strength/Range of Motion Moderate Impairment Residue Along the Tongue Base Yes Clearance of Residue Along Tongue Base Mild Impairment Laryngeal Elevation Mild Impairment Anterior Hyoid Movement Moderate Impairment Epiglottic Range of Motion Minimal Impairment Vallecular Residue Yes Clearance of Vallecular Residue Moderate Impairment Laryngeal Vestibular Closure WFL Pharyngeal Stripping Wave Severe Impairment Posterior Pharyngeal Wall Residue Yes Clearance of Posterior Pharyngeal Wall Moderate Impairment Residue Upper Esophageal Sphincter Opening Mild Impairment Residue in the Pyriform Sinuses Yes Clearance of Residue in the Pyriform Minimal Impairment Sinuses Esophageal Clearance Upright Position Minimal Impairment Pharyngoesophageal Backflow Observed No Additional Pharyngeal Phase Observations Pharyngeal swallow response was delayed with premature spillage of the bolus to the valeculla before swallow initiated. Laryngeal elevation was mildly reduced; hyoid movement was moderately reduced affecting laryngopharyngeal closure. The seal of the laryngeal vestibule was good. Flash penetration was observed x1, which is considered normal for elderly pts. Epiglottis inversion was complete each swallow. The posterior wall stripping/contraction was minimal resulting in little bolus control to the UES. This also resulted in moderate pooling at the valeculla and pyriform sinuses. Pooling was also observed at the posterior pharygeal wall, on the tongue body and on the superior and inferior surfaces of the epiglottis. Subsequent swallows x3 cleared the pooling except for the high viscosity trials (honey thick, pudding thick and cookie with barium). Water swallows cleared most residue without penetration or aspiration. A/P View Clinical Impressions Dysphagia Type Swallowing was WFL Findings While her swallowing was functional, the ptt needed prompts for subsequent swallows. Additionally there was minimal bolus control to the esophagus pharyngealy, minimal hyoid movement observed. Tongue based exercises are recommended to increase hyiod movement forward, thereby improving airway protection and assist with UES extension/duration, reducing pooled residue within the pharynx. Reduced pharyngeal pooling would result in reduction of penetration and/or aspiration risk. Rehabilitation Potential Good Patient Appropriate for Therapy Yes Recommendations Diet Comments Continue current diet with trial texture/liquid advancement as pt's able Additional Dietary Needs Encourage to Self-Feed Aspiration Precautions Recommended Precautions Upright at 90 Degrees, Alternate Liquids/Solids,Small Bites/Sips,Double Swallow, Liquids from Cup Treatment Plan Therapy Recommendations Inpatient Speech Therapy, Outpatient Speech Therapy,Base of Tongue Exercises, Compensatory Strategy Education Additional Therapy Recommendations diet advancement as tolerated by pt comfort nd anxiety level Recommended Referrals Primary Care Physician Compensatory Strategies Recommendations Reclined Position,Sitting Upright (90 deg),Double Swallow,Liquids from Cup, Liquids from Straw,Small Bites and Sips,Alternate Liquids/ Solids Short Term Goals Trial diet advancement as tolerated by pt Assisted Goals Pt will safely tolerate the least restrictive diet without s/sx aspiration Placement Recommendation After Discharge Home,Home with Home Health
[2021-05-09] MEDS: cefTRIAXone 2,000 MG in SODIUM CHLORIDE 0.9% 100 ML 200 ML IV (17:37)
[2021-05-09 19:30] LABS: Triiodothyronine T3 Total 41 ng/dL (71-180)
[2021-05-10] VITALS: BP 117/57; PULSE 88; RESP 20; O2SAT 93
[2021-05-10 04:00] VITALS: PULSE 77; RESP 20; O2SAT 93
--- NOTE | 2021-05-10 05:23 | PC.NURSE ---
Patient states feels better overall after sleeping, Voice strength much improved, compared to 4/4 weight shifter when last observed by this RN. Patient slept well at long intervals. Blood pressure trending low; last dose held due to BP 95/63. HR 72.
[2021-05-10 06:00] VITALS: PULSE 81; RESP 18; O2SAT 93
[2021-05-10] MEDS: VANCOMYCIN 1,000 MG/200 ML PIGGYBACK 200 MG IV (06:37)
[2021-05-10] MEDS: carvediloL 12.5 MG TABLET PO (08:46)
[2021-05-10] MEDS: CHLORTHALIDONE 25 MG TABLET 12.5 MG PO (08:46)
[2021-05-10] MEDS: LOSARTAN 50 MG TABLET 100 MG PO (08:46)
[2021-05-10 09:34] VITALS: BP 121/56; PULSE 78; RESP 18; TEMP 36.7; O2SAT 95
--- NOTE | 2021-05-10 10:05 | ST.IPTN ---
Visit Care Team Role Provider Type Rm Love MD Primary Care Provider Physician Address: [address] [place] [address], [address] Diana Varghese MD Other Providers Physician Address: Phone: Fax: Dilcia Christianson MD Other Providers Physician Address: Phone: Fax: Rosario Castro MD Other Providers Physician Address: Phone: Fax: Nick Woodson MD Other Providers Physician Address: Phone: Fax: Diana Toledo MD Other Providers Physician Address: Phone: Fax: Leon Dawkins MD Other Providers Physician Address: Phone: Fax: Derrick Ca MD Other Providers Physician Address: Phone: Fax: Baldomero Tejada MD Other Providers Physician Address: Phone: Fax: Ollie Castro MD Other Providers Physician Address: Phone: Fax: Jorge Aviles MD Other Providers Physician Address: [address] [place] [address], [address] Nalini Koroma MD Other Providers Physician Address: Phone: Fax: Ilana Peña Other Providers Physician Address: Phone: Fax: Bhargav Goyal MD Other Providers Physician Address: Phone: Fax: Kae Bejarano PA-C Family Provider Advanced Adjunct Faculty Address: [address], [address] Leon Llanos DO Emergency Provider Physician Referring Provider Address: [address] [place] [address], [address] Adilia Sutton MD Admit Provider Physician Attending Provider Address: [address] [place] [address], [address] MEDIA ARTS PROFESSOR Treatment Note MEDIA ARTS PROFESSOR Treatment Note Start: 05/05/21 12:31 Freq: Status: Active Protocol: Document 05/10/21 09:34 EUFEMIA (Rec: 05/10/21 10:05 EUFEMIA [email or web address]) Speech Pathology Treatment Note Session Time Visit Start Time 08:45 Visit Stop Time 09:35 Total Visit Minutes 40 Setting Treatment Setting Acute Care Visit Type Note Type Treatment Note General Information Patient History 80-year-old female admitted 7 days ago for possible diagnosis of epiglottitis based on imaging and throat pain, has been treated with antibiotics and steroids. Pt underwent MBS with ST and laryngoscopy with ENT yesterday with no negative findings. Diet was cleared to advance as tolerated. Subjective Identification Type Name Observations/Patient Presentation The pt was sitting up in the chair with breakfast tray upon MEDIA ARTS PROFESSOR arrival. She reported having slept 9 hrs last night and feeling much better. Anticipated pt will be discharging home today. Chief Complaint(s) Swallowing Patient Knowledge/Awareness of MEDIA ARTS PROFESSOR Role Excellent in Treatment Objective Short Term Goals Monitor OM skills, especially bilabial pressure /strength Bilabial exercises for increase strength of bilabial closure/pucker Solar Business Developer Goals Pt will demonstrate swallow function and safety WNL and tolerate regular texture and thin liquids without overt s/ sx of aspiration or discomfort . Treatment Activities Pt's voice was perceived to be much stronger than yesterday with ongoing mild roughness. The pt herself appeared and reported feeling stronger. Feedback provided RE vocal quality. Suspect mild swelling of VFs may have resulted from frequent and hard coughing. This is anticipated to resolve spontaneously. Pt verbalized understanding. Educated pt on MBS findings and provided feedback RE ENT stroboscopy findings as related to swallow function and safety. The pt was agreeable to eating solids including yogurt and Urdu toast. She consumed Urdu toast and thin liquids with this MEDIA ARTS PROFESSOR present. No overt s/ sx of aspiration or dysphagia were observed. The pt reported being very happy to eat solids again. Discussed followup in outpatient clinic after hospital discharge to review the pt's MBS video, ensure no swallow problems recur, and for voice assessment if necessary. The pt was agreeable to this. MEDIA ARTS PROFESSOR discussed same with DAKOTAH Conde and Dr. Dawson. DC orders for HH vs OP are pending PT evaluation today. Assessment Patient Response to Treatment Good Rehab Potential Excellent Impairments Identified Dysphagia,Oral Motor,Vocal Quality Progress Towards Goals Excellent Progress Assessment of Overall Progress Improving Assessment of Improvement The pt has demonstrated significant progress since yesterday, likely contributed by a good night's sleep and reduced anxiety given positive results from yesterday's assessments. She consumed soft solids and thin liquids without difficulty. Recommend continuing diet advancement as tolerated. Outpatient speech therapy is recommended after hospital dc to ensure continued improvement in swallow safety, vocal quality, and pt confidence and understanding. Reviewed with Patient Goals,Progress Being Made,Home Exercise Program Patient/Caregiver Understanding Excellent Plan Therapeutic Contents Client Education,Swallowing/ Feeding Provided Patient/Caregiver Instruction Home Exercise Program,Plan of Care,Questions/Concerns Therapy Recommendations Continue with Current Program Other Referrals Outpatient Speech Therapy
--- NOTE | 2021-05-10 10:15 | PT.IIE ---
Current Diagnoses Acute epiglottitis without obstruction (05/03/21) Surgical History (Last Reviewed 05/09/21 @ 12:20 by Alexandre Singh MD) Status post cholecystectomy Medical History (Last Reviewed 05/09/21 @ 12:20 by Alexandre Singh MD) Allergic rhinitis Hyperlipidemia SVT (supraventricular tachycardia) Physical Therapy Inpatient Evaluation/Re-Eval M1 PT/OT-IP Prior Functional Status Start: 05/10/21 13:08 Freq: NEEDED Status: Discharge Protocol: Document 05/10/21 10:15 AB ([facility] Review Prior Functional Status Medical History Reviewed Yes Communication able to make needs known Mobility and Gait pt stated that she is independent with all mobilities and ambulation without AD Social History Household Members spouse Living Arrangements House Number of Floors (Floors) Two Floors Number of Stairs To Enter/Railing? pt stays on main level of the house 2 steps L side wall to enter the house Home Environment High Toilet,Walk in Shower Home Equipment Shower Seat with Backrest,Grab Bars In Shower Additional Social History Comment pt has an adjustable bed M2 PT-IP Current Condition Start: 05/10/21 13:08 Freq: NEEDED Status: Discharge Protocol: Document 05/10/21 10:15 AB (Rec: 05/10/21 13: [facility] Physical Therapy Current Condition Current Condition Evaluation Date 05/10/21 Treatment Diagnosis PNA; difficulty in walking Onset Date 05/03/21 M3 PT-IP Subjective Start: 05/10/21 13:08 Freq: NEEDED Status: Discharge Protocol: Document 05/10/21 10:15 AB (Rec: 05/10/21 13:22 [facility] Subjective Physical Therapy Visit Type Type Initial Evaluation Visit Start Time 10:15 Visit Stop Time 10:50 Total Visit Minutes 35 Number of ALUMNAE SECRETARY Visits 0 Physical Therapy Visit Comments Patient Comments agreeable to do PT M4 PT-IP Mobility and Gait Start: 05/10/21 13:08 Freq: NEEDED Status: Discharge Protocol: Document 05/10/21 10:15 AB (Rec: 05/10/21 13:22 AB [email or web address]) PT-Bed Mobility Assessment Supine to Sit Supine to Sit Standby Assistance Sit to Supine Sit to Supine Standby Assistance PT-Transfer Assessment Sit to and From Stand Sit to and from Stand Standby Assistance,Contact Guard Assistance,1 Person Assistance,Use of Upper Extremities Equipment Transfer Assistive Device None,Gait Belt,4 Wheeled Walker Orthotic/Prosthetic Devices or Brace: No Transfers Transfer Destination Chair Transfer Technique Stand Step Pivot Transfer Ability Level of Assist Standby Assistance,Contact Guard Assistance,1 Person Assistance,Use of Upper Extremities Comments Mobility Comments pt sitting on chair and agreed to do PT. c/o clogged ears. completed sit to stand from the chair SBA and ambulated in room without AD CGA. slow pace and increase upper trunk posterior lean with unsteady gait and decrease step stride. pt c/o increase heaviness of her head and has to sit down. educated pt on safety and agreed to use 4WW. educated pt on how to use 4WW. completed sit to stand SBA and ambulated with 4WW SBA to CGA ~ 20 ft. pt presents with steadier gait with increase LE elevation. pt agreed to use 4WW at home. completed up/down step FACILITIES CLERK mod A. educated pt on doing stair climbing using SPC and L side wall and completed min A and cues. pt sat back on chair and rested again. c/o increase head heaviness due to clogged ears. completed step transfer without AD chair to bed SBA and completed bed mobility SBA . agreed to sit up on chair again and completed transfer SBA without AD. positioned pt on chair. call light and table placed within reach. informed pt regarding recommendation of use of 4WW for ambulation and SPC for stair climbing and pt agreed. also informed regarding HHPT and agreed. informed nurse case management. Gait Assessment Gait Gait Assistance Required: Standby Assistance,Contact Guard Assist Distance (Feet) 20 Able to Maintain Weight Bearing Status Yes During Gait Assistive Devices Assistive Device None,Gait Belt,4 Wheeled Walker Orthotic/Prosthetic Devices or Brace: No Gait Deviations General Gait Pattern Decreased Stride Length, Decreased Feet Clearance Factors Limiting Gait Function Factors Limiting Gait Function Decreased Activity Tolerance, Decreased Strength,Pain,Poor Balance,Poor Safety Awareness Stair Climbing Assessment Evaluation Level of Assist On Stairs Contact Guard Assistance, Minimal Assistance,Moderate Assistance,1 Person Assistance Devices Stair Climbing Assistive Devices None,Straight Cane Technique/Endurance Stair Climbing Direction Ascend and Descend Stair Climbing Technique Step to Step Number of Steps Climbed 1 Query Text: Stair Climbing Set # Repetitions (reps) 4 PT-Balance Assessment Sitting Balance and Reactions Static Sitting Balance Ability Good Dynamic Sitting Balance Ability Good Standing Balance and Reactions Static Standing Balance Ability Fair Dynamic Standing Balance Ability Fair Device Used 4WW M5 PT-IP Objective Assessments Start: 05/10/21 13:08 Freq: NEEDED Status: Discharge Protocol: Document 05/10/21 10:15 AB (Rec: 05/10/21 13:22 AB [email or web address]) Orientation Orientation/Cognition Level of Alertness Alert Orientation Name,Place,Situation Safety Awareness Decreased Safety Awareness Memory Description No Deficits Noted Gross Range of Motion Lower Extremity ROM Assessment Within Functional Limits Strength Lower Extremity Strength Assessment Within Functional Limits Sensation Assessment Sensation Gross Sensation WNL Muscle Tone Muscle Tone WNL Yes M6 PT-IP Treatment Start: 05/10/21 13:08 Freq: NEEDED Status: Discharge Protocol: Document 05/10/21 10:15 AB (Rec: 05/10/21 13:22 AB [email or web address]) Physical Therapy Treatment Education Education Provided Safety M7 PT-IP Assessment and Plan Start: 05/10/21 13:08 Freq: NEEDED Status: Discharge Protocol: Document 05/10/21 10:15 AB (Rec: 05/10/21 13:22 AB [email or web address]) PT Summary Assessment and Plan Potential Rehabilitation Potential Fair Status of Condition at Evaluation Evolving Summary Impairments Pain,ROM,Strength,Balance, Coordination,Sensation,Tone, Cognition,Bed Mobility, Transfers,Gait,Activity Tolerance Assessment Summary pt requiring SBA to CGA with mobility using 4WW and min A with stair climbing using SPC. pt with decrease activity tolerance and only able to ambulate ~ 20 ft using 4WW and c/o increase heaviness of her head requiring to sit down. pt stated that she only has to walk ~ 5 ft to the stairs and she is inside her house. pt agreed to use 4WW for mobility at this time and stated that spouse will be able to assist her. pt will require HHPT. Goals Bed Mobility Goal Independent Transfer Goal Independent,Four Wheeled Walker Gait Goal Independent,Front Wheel Walker Gait Distance 100 Other Goals up/dpwn 2 steps SPC + L wall sBA Days to Meet Goals 10 Frequency of Treatment Frequency Of Treatment Once a Day Treatment Plan Physical Therapy Treatment Plan Bed Mobility Training,Transfer Training,Gait Training, Therapeutic Exercise,Balance Retraining,Discharge Planning, Hot or Cold Pack,Neuromuscular Re-ed,Coordination Retraining ,Manual Therapy Recommendations To Nursing Amount of Assist Needed 1 Person Assist Discharge Recommendations PT Discharge Recommendations Home with 28/08 Assist Available,Home Health Transportation Needs at Discharge Private Vehicle
--- NOTE | 2021-05-10 11:50 | CM.DPC ---
DCP/continued: Reviewed chart. Per provider patient is medically stable to d/c home today. Spoke with Denise from [facility] this AM. She reports that she can follow patient with ST in outpatient setting. Physical Therapy saw patient this AM and recommend that she does home health rather than outpatient. Met with patient to discuss both options. Patient would like to initially start with home health and transition to outpatient setting. Home Health has been arranged through [facility] (patient's request). DRY PLASTERER HELPER placed call to Allie at [facility] and she confirms that they have received everything that they need. Services expected to start within the next 24-48hrs. P: Home today with [facility]. RN updated and brochure for agency to be provided with d/c instructions. DAKOTAH Yu
--- NOTE | 2021-05-10 12:37 | PC.NURSE ---
1225: Pt discharging home. Discharge information reviewed, pt offers no questions or concerns. PIV and all monitoring equipment removed.
--- NOTE | 2021-05-10 14:41 | P.DS_ITS ---
History of Present Illness History of Present Illness Chief complaint: Throat pain, dysphagia, possible epiglottitis Narrative: Per admitting provider: The patient is a 80-year-old female with a history of hypertension, SVT , hyperlipidemia, allergic rhinitis, and asthma, who reports she was in her usual state of health until about a week ago.? At that time she developed some swelling of her throat.? She had associated tightness of her throat for the past few days, productive cough, and shortness of breath.? The patient does have a known history of asthma and had not used her inhaler.? She was given a pre scription 2 weeks prior to admission for bronchitis.? She received those 2 weeks prior to this evaluation.? She did develop diarrhea associated with that.? She did not have any improvement of her upper respiratory symptoms.? Patient has been vaccinated and received her booster for COVID.? She had no fever or chills.? She denies any nausea or vomiting.? Diarrhea had subsided after discontinuation of the Augmentin.? The patient is known to be hypertensive.? He was switched to med from metoprolol to propanolol because it made her sleepy.? She also was started on verapamil for both SVT and hypertension.? The patient also had a productive cough with phlegm.? She was discharged from the emergency room with what was felt to be upper respiratory infection. She did have a follow-up appointment with her primary care provider.? They recommended that if she had progression of her symptoms that she return to the emergency department for further evaluation.? She presented to the ED with complaints of a muffled voice.? They seemed to be progressive.? She also noted that she felt her throat was swollen better tongue was swollen and she had difficulty swallowing.? In the emergency department [place] [address].? She underwent a CT of her neck which revealed th e following:??Irregularity with thickening can be seen along the left aspect of the epiglottis.? If clinically appropriate, please consider ENT consultation. ? No enlarged lymph nodes are seen. ? There is fullness seen within both sides of the tongue base, which may simply be related to prominent lymphoid tissue. ? The emergency department obtain consultation from Dr. Aviles with ENT.? He recommended treatment with steroids, antibiotics to include ceftriaxone and vancomycin, patient to be admitted to the hospital for further observation. Currently she continues to note difficulty in speaking.? Her voice is muscle.? She feels like her tongue is thickened.? She is on oxygen with her airway protected, patient is admitted to the hospital for treatment of acute epiglottit is Discharge Providers Provider Date of admission: 05/03/21 19:06 Discharge Date: 05/10/21 Primary care physician: Rm Love MD Consults: 05/03/21 18:30 Consult to Physician Stat Comment: Consulting Provider: Jorge Aviles Reason for consultation: Epiglottitis, admission Has provider been notified: Yes 05/03/21 21:35 Consult to Tele-anodizing line operator Routine Comment: Consulting Provider: [employer] [employer] Reason for consultation: Wireless Architect services Has provider been notified: Yes 05/03/21 22:09 Consult to Speech Therapy Evaluate & Treat Comment: acute epiglotitis Physician Instructions: Evaluate and treat 05/06/21 13:43 Consult to Home Health Routine Comment: Reason For Exam: Home health services upon DC 05/10/21 08:36 Consult to Physical Therapy Evaluate & Treat Comment: eval for recs prior to discharge Physician Instructions: Evaluate and Treat Discharge provider: Nj Dawson MD Summary Hospital Course Discharge Diagnosis: 1. Dysphagia, likely secondary to acute epiglotitis 2. Acute hypoxemic respiratory failure secondary to aspiration pneumonia 3. Hypertension 4. Low TSH 5. GERD 6. Asthma Hospital Course: Ms. Vazquez presented to the hospital with chest tightnes. Previously she had two weeks of sore throat. CT scan showed thick left aspect of epiglotis concerning for infection. She also had swallowing difficulty and need oxygen and found to have infiltrate consistent with pneumonia. She was started on antibiotics and steroids and improved very slowly. Because of some speech difficulty she had MRI head that ruled out stroke. She had repeat CT of the neck that showed improvement. ENT was consulted who visualized her oropharynx and noted no abnormality. Speech therapy evaluated the patient with modified barium swallow and noted no abnormalities. On day of discharge she had improved nearly to baseline. She had acetylcholine receptor antibody pending. She was discharged with antibiotics. She is referred for outpatient PT and speech therapy. She should follow up with her PCP about her low TSH and her hypertension as well. Exam Vital Signs (past 8 hours): - 05/10/21 09:34 Temperature 98.1 F Pulse Rate 78 Respiratory Rate 18 Blood Pressure 121/56 L Pulse Oximetry 95 Oxygen Delivery Method Nasal Cannula Oxygen Flow Rate 0 Narrative Exam Narrative: General:? no acute distress HEENT:No exudate, tongue not swollen, Lungs:? Clear to auscultation Heart:? Regular rhythm Extremities:? No edema Neurological: Well-oriented, no focal deficits Objective Labs Result Diagrams: 05/08/21 06:10 05/09/21 04:53 Labs: Laboratory Results - last 24 hr 05/08/21 12:02 Total T3 41 L PFSH Medical History Allergic rhinitis Hyperlipidemia SVT (supraventricular tachycardia) Surgical History Status post cholecystectomy Family History Brother Obstructive sleep apnea Brother Shellfish allergy Social History household members: spouse Smoking Status: Never smoker alcohol intake: former Discharge Plan Discharge Plan Patient Disposition: Home Provider Discharge Comment: Ms. Vazquez was admitted with throat tightness. She was found to have an infection, called epiglottitis. She improved with antibiotics and was discharged home with antibiotics. Discharge orders & Medications Prescriptions: New cefuroxime axetil 500 mg tablet 500 mg PO BID Qty: 6 0RF Continued FOLIC ACID/VIT A/VIT B1/VIT (#MULTIVITAMIN) 1 tab PO QDAY Qty: 0 0RF [CALCIUM] 1 cap PO QDAY Qty: 0 0RF [PROBIOTIC FORMULA] 1 - 2 cap PO QDAY Qty: 0 0RF verapamil 80 mg tablet 80 mg PO BID Qty: 60 0RF ibuprofen 200 mg capsule 400 mg PO Q4-6H PRN (Reason: Pain (Scale Score 1-3)) 0RF albuterol sulfate 90 mcg/actuation HFA aerosol inhaler 1 inh inhalation QID PRN (Reason: shortness of breath or wheezing) Qty: 6.7 0RF pantoprazole [Protonix] 20 mg tablet,delayed release (DR/EC) 20 mg PO DAILY 30 Days Qty: 30 0RF fluticasone propionate [Flonase Allergy Relief] 50 mcg/actuation spray,suspension 1 spray intranasal BID PRN (Reason: nasal congestion) Qty: 16 0RF Rx Instructions: administer into each nostril propranolol 10 mg tablet 10 mg PO BID 0RF Label Comments: take 1 tablet by mouth twice a day Follow up/Referrals: Rachelle Lafleur, PT [Physical Therapist] - Rm Love MD [Primary Care Provider] - Diet/Activity/Treatments Diet: Regular Discharge Data Primary Care Provider: Rm Love Quality VTE Deep Vein Thrombosis/Pulmonary Embolism Present on Admission: No
[2021-05-12 15:23] LABS: Acetylcholine Blocking AB 48 % (0-25); Acetylcholine Receptor Bind AB 0.58 nmol/L (0.00-0.24)
== END 2021-05-10 13:12 | disposition home health service (06) | DRG 56 ==
LOC: ED 18:39 → AC 19:10 → ICU 05-04 09:11
PROVIDERS: Internal Medicine; Nurse Practitioner Family; Student in an Organized Health Care Education/Training Program; Admitting Provider Internal Medicine; Emergency Provider Emergency Medicine; Family Provider Physician Assistant; PCP Family Medicine; Referring Provider Emergency Medicine; Visit Provider Internal Medicine
DX: G70.00 Myasthenia gravis without (acute) exacerbation (principal); J96.01 Acute respiratory failure with hypoxia; J69.0 Pneumonitis due to inhalation of food and vomit; J05.10 Acute epiglottitis without obstruction; I47.1 Supraventricular tachycardia; J45.21 Mild intermittent asthma with (acute) exacerbation; R13.10 Dysphagia, unspecified; R47.1 Dysarthria and anarthria; I10 Essential (primary) hypertension; K21.9 Gastro-esophageal reflux disease without esophagitis; J45.909 Unspecified asthma, uncomplicated; F41.9 Anxiety disorder, unspecified; R74.01 Elevation of levels of liver transaminase levels; R94.6 Abnormal results of thyroid function studies; Z20.822 Contact with and (suspected) exposure to COVID-19; J06.9 Acute upper respiratory infection, unspecified
CPT/HCPCS: 36415; 70491; 70551; 71045; 71046; 74230; 80048; 80053; 80076; 80202; 82550; 82962; 83519; 83735; 84145; 84439; 84443; 84480; 85025; 85610; 85651; 85730; 86140; 87040; 87045; 87635; 87797; 87899; 92507; 92522; 92526; 92611; 93005; 94640; 94760; 94762; 96365; 96368; 96375; 97162; 99283; 99284; 99285; C9803; C9113; J0696; J1100; J1650; J2060; J2930; J7613; Q9967

== ENCOUNTER → 2021-05-13 08:24 | Outpatient (CLI) | payer MEDICARE, OTHER, SELFPAY ==
[2021-05-03 21:50] VITALS: BMI 23.9
== END ==
PROVIDERS: PCP Family Medicine; Visit Provider Nurse Practitioner Critical Care Medicine
DX: S31.809A Unspecified open wound of unspecified buttock, initial encounter (principal)
CPT/HCPCS: 87070; 87205; 87252

== ENCOUNTER → 2021-05-24 14:36 | Outpatient (CLI) | payer MEDICARE, OTHER, SELFPAY ==
[2021-05-03 21:50] VITALS: BMI 23.9
[2021-05-24 15:03] LABS: Add Manual Diff / Slide Review NO; Basophils Absolute Auto 100 /uL (0-100); Basophils Percent Auto 0.9 % (0-2); Eosinophils Absolute Auto 400 /uL (0-450); Hemoglobin 14.6 g/dL (12.0-16.0); Lymphocytes Absolute Auto 2800 /uL (1100-4500); Lymphocytes Percent Auto 24.7 % (25-40); Mean Corpuscular Hemoglobin 30.2 PG (26-34); Mean Corpuscular Volume 88.8 fL (80-100); Monocytes Absolute Auto 800 /uL (0-900); Neutrophils Absolute Auto 7100 /uL (1500-7000); Neutrophils Percent Auto 63.4 % (50-75); Platelet Count 262 X10^3/uL (150-400); Red Blood Cell Count 4.84 X10^6/uL (4.0-5.2); Red Cell Distribution Width 16.1 % (11.6-14.8); White Blood Cell Count 11.1 X10^3/uL (4.5-11.0)
[2021-05-24 15:22] LABS: Alanine Aminotransferase 31 IU/L (<35); Albumin 4.1 g/dL (3.5-5.0); Albumin Globulin Ratio 1.4 (1.0-2.8); Alkaline Phosphatase 45 U/L (38-126); Aspartate Aminotransferase 27 IU/L (14-36); BUN Creatinine Ratio 23.1 (6-22); Bilirubin Total 0.8 mg/dL (0.2-1.3); Blood Urea Nitrogen 18 mg/dL (7-17); C-Reactive Protein Quant < 0.5 mg/dL (<1.0); Calcium 9.5 mg/dL (8.4-10.2); Carbon Dioxide 34 mmol/L (22-32); Chloride 99 mmol/L (98-107); Estimated Glomerular Filt Rate > 60 mL/min (>60); Globulin 2.9 g/dL (1.7-4.1); Glucose 100 mg/dL (80-110); HEMOLYSIS < 15 (0-50); Potassium 3.9 mmol/L (3.4-5.1); Sodium 141 mmol/L (137-145)
[2021-05-24 15:49] LABS: TSH w/ Reflex to FT4 2.87 uIU/mL (0.47-4.68)
== END ==
PROVIDERS: PCP Family Medicine; Referring Provider Family Medicine; Visit Provider Family Medicine
DX: I47.1 Supraventricular tachycardia (principal); R74.8 Abnormal levels of other serum enzymes; J05.10 Acute epiglottitis without obstruction
CPT/HCPCS: 36415; 80053; 84443; 85025; 86140

== ENCOUNTER → 2021-07-28 14:55 | Outpatient (CLI) | payer MEDICARE, OTHER, SELFPAY ==
[2021-05-03 21:50] VITALS: BMI 23.9
--- NOTE | 2021-07-28 15:04 | DI.RAD.S_ITS ---
PROCEDURE: XR CHEST 2V INDICATIONS: asthma, h/o MG TECHNIQUE: 2 views of the chest were acquired. COMPARISON: [facility], CR, XR CHEST 2V, 05/02/2021, 17:06. FINDINGS: Surgical changes and devices: Cholecystectomy clips. Lungs and pleura: Lungs are clear. No pleural effusions or pneumothorax. Lungs are hyperinflated suggesting COPD. Mediastinum: Mediastinal contours are normal. Heart size is normal. Bones and chest wall: No suspicious bony abnormalities. Soft tissues appear unremarkable. IMPRESSION: No acute cardiopulmonary disease process. Dictated by: Nakia Munoz MD, PhD on 07/28/2021 at 17:02 Approved by: Nakia Munoz MD, PhD on 07/28/2021 at 17:04
[2021-07-28 16:33] LABS: Add Manual Diff / Slide Review NO; Basophils Absolute Auto 100 /uL (0-100); Basophils Percent Auto 1.3 % (0-2); Eosinophils Absolute Auto 600 /uL (0-450); Eosinophils Percent Auto 8.9 % (2-4); Hematocrit 38.5 % (36-46); Hemoglobin 12.9 g/dL (12.0-16.0); Lymphocytes Absolute Auto 2100 /uL (1100-4500); Lymphocytes Percent Auto 30.2 % (25-40); Mean Corpuscular HGB Conc 33.6 % (30-36); Mean Corpuscular Hemoglobin 30.2 PG (26-34); Mean Corpuscular Volume 89.9 fL (80-100); Monocytes Absolute Auto 600 /uL (0-900); Monocytes Percent Auto 8.1 % (3-14); Neutrophils Absolute Auto 3600 /uL (1500-7000); Neutrophils Percent Auto 51.5 % (50-75); Platelet Count 221 X10^3/uL (150-400); Red Blood Cell Count 4.28 X10^6/uL (4.0-5.2); Red Cell Distribution Width 14.8 % (11.6-14.8)
[2021-07-28 17:33] LABS: Alanine Aminotransferase 30 IU/L (<35); Albumin 4.2 g/dL (3.5-5.0); Albumin Globulin Ratio 1.3 (1.0-2.8); Alkaline Phosphatase 48 U/L (38-126); Aspartate Aminotransferase 39 IU/L (14-36); BUN Creatinine Ratio 20.7 (6-22); Bilirubin Total 0.5 mg/dL (0.2-1.3); Blood Urea Nitrogen 12 mg/dL (7-17); Calcium 9.1 mg/dL (8.4-10.2); Carbon Dioxide 30 mmol/L (22-32); Chloride 107 mmol/L (98-107); Estimated Glomerular Filt Rate > 60 mL/min (>60); Globulin 3.3 g/dL (1.7-4.1); Glucose 94 mg/dL (80-110); HEMOLYSIS < 15 (0-50); Sodium 140 mmol/L (137-145); Total Protein 7.5 g/dL (6.3-8.2)
[2021-07-28 17:40] LABS: NT-proBNP (BNP-Adult 18+) 87 pg/mL (<450)
[2021-08-02 11:46] LABS: Acetylcholine Blocking AB 45 % (0-25)
== END ==
PROVIDERS: PCP Family Medicine; Referring Provider Pediatrics; Visit Provider Pediatrics
DX: G70.00 Myasthenia gravis without (acute) exacerbation (principal); J45.909 Unspecified asthma, uncomplicated; I10 Essential (primary) hypertension
CPT/HCPCS: 36415; 71046; 80053; 83519; 83880; 84443; 85025

== ENCOUNTER → 2022-03-13 14:32 | Outpatient (CLI) | payer MEDICARE, OTHER, SELFPAY ==
[2021-09-19 11:50] VITALS: BMI 23.9
--- NOTE | 2022-03-13 | DI.MG.S_ITS ---
BILATERAL DIGITAL SCREENING MAMMOGRAM 3D/2D WITH CAD: 03/13/2022 CLINICAL: Routine screening. Family history of breast cancer. Comparison is made to exams dated: 03/02/2021 mammogram, 05/26/2015 mammogram, and 12/03/2009 mammogram - [facility]. There are scattered areas of fibroglandular density in both breasts (category b / 25%-50% glandular tissue). Current study was also evaluated with a Computer Aided Detection (CAD) system. No significant masses, calcifications, or other findings are seen in either breast. There has been no significant interval change. IMPRESSION: NEGATIVE There is no mammographic evidence of malignancy. A 1 year screening mammogram is recommended. Based on the Tyrer Cuzick model (a risk assessment model) the patient's lifetime risk is 6.5% and her 10 year risk is 0.0%. According to the ACR, ACS, and NCCN guidelines, an annual breast MRI exam along with mammogram is recommended if the patient's lifetime risk is 20% or greater. This exam was interpreted at Station ID: [id number]. NOTE: For mammograms, a report in lay terms will be sent to the patient. Approximately 15% of breast malignancies will not be visualized mammographically. In the management of a palpable breast mass, a negative mammogram must not discourage biopsy of a clinically suspicious lesion. Electronically Signed By: Janneth leung/sb:03/13/2022 16:04:53 letter sent: Normal Exam ACR BI-RADS Category 1: Negative [id number]
== END ==
PROVIDERS: PCP Family Medicine; Referring Provider Family Medicine; Visit Provider Family Medicine
DX: Z12.31 Encounter for screening mammogram for malignant neoplasm of breast (principal); Z80.3 Family history of malignant neoplasm of breast
CPT/HCPCS: 77063; 77067

== ENCOUNTER 2022-06-04 16:51 | Emergency (ER) | payer MEDICARE, OTHER, SELFPAY ==
[2021-09-19 11:50] VITALS: BMI 23.9
[2022-06-04] VITALS (13 sets, daily range): BP systolic 152–185; BP diastolic 66–84; PULSE 78–103; RESP 16–45; TEMP 37.1; O2SAT 94–99
[2022-06-04] MEDS: SODIUM CHLORIDE 0.9% 1,000 ML 1000 ML IV (16:59)
--- NOTE | 2022-06-04 17:04 | ED_ITS ---
HPI - General Adult <Leon Llanos DO - Last Filed: 06/05/22 07:06> General Chief complaint: Weakness Stated complaint: htn, weak, diarrhea / dehydration Time Seen by Provider: 06/04/22 16:52 Source: patient and EMS Mode of arrival: EMS Limitations: no limitations History of Present Illness HPI narrative: Patient is a 81-year-old female. Does have history of myasthenia gravis which was diagnosed in April/May of 2021. She does see with neurology at [facility] and [place]. She states she is currently on 60 mg of pyridostigmine every 4 hours. Three days ago she stated that she was drinking and eating small amounts without any issues. Two days ago she stated that she started to have some weakness in her neck muscles and had some problems holding up her head. Today/this morning it progressed to the point where she was having problems swallowing and speaking. She could not take her medications today. She states she has had quite a bit of diarrhea over the past couple days but she knows that her medicines could potentially do this. She was concerned about dehydration. She denies chest pain. Related Data Home Medications Medication Instructions Recorded Confirmed FOLIC ACID/VIT A/VIT B1/VIT 1 tab PO QDAY ##0 08/15/10 11/04/21 (#MULTIVITAMIN) [CALCIUM] 1 cap PO QDAY ##0 10/20/15 11/04/21 [PROBIOTIC FORMULA] 1 - 2 cap PO QDAY ##0 10/20/15 11/04/21 ibuprofen 200 mg capsule 400 mg PO Q4-6H PRN Pain (Scale 06/12/18 11/04/21 Score 1-3) pyridostigmine bromide 60 mg tablet 60 mg PO TID 06/08/21 11/04/21 verapamil 80 mg tablet 40 mg PO BID 07/28/21 11/04/21 Previous Rx's Medication Instructions Recorded beclomethasone dipropionate 80 1 inh inhalation Q12H #10.6 grams 02/28/22 mcg/actuation HFA breath activated aerosol (Qvar RediHaler) albuterol sulfate 90 mcg/actuation 1 inh inhalation QID PRN shortness 06/02/22 aerosol inhaler of breath or wheezing #6.7 grams fluticasone propionate 50 1 spray intranasal BID PRN nasal 06/02/22 mcg/actuation nasal congestion #16 grams spray,suspension (Flonase Allergy Relief) Allergies Allergy/AdvReac Type Severity Reaction Status Date / Time pantoprazole Allergy Severe Swelling Verified 06/04/22 17:16 of Lip/Tongue/Throat Review of Systems <Leon Llanos DO - Last Filed: 06/05/22 07:06> Review of Systems ROS Unobtainable: All systems reviewed & are unremarkable except as noted in HPI and below Patient History <Leon Llnaos DO - Last Filed: 06/05/22 07:06> Medical History Allergic rhinitis Hyperlipidemia Labile diastolic hypertension Myasthenia SVT (supraventricular tachycardia) Surgical History Status post cholecystectomy Family History Brother Obstructive sleep apnea Brother Shellfish allergy Social History household members: spouse Smoking Status: Never smoker alcohol intake: former Smoking Status: Never smoker alcohol intake frequency: holidays/special occasions only Substance Use Type: does not use Exam <Leon Llanos DO - Last Filed: 06/05/22 07:06> Initial Vital Signs Initial Vital Signs: Vital Signs Temperature 98.7 F 06/04/22 16:54 Pulse Rate 98 H 06/04/22 16:54 Respiratory Rate 16 06/04/22 16:54 Blood Pressure 185/84 H 06/04/22 16:54 Pulse Oximetry 99 06/04/22 16:54 Oxygen Delivery Method Room Air 06/04/22 16:54 Const General: cooperative, comfortable and No ill appearing HENMT Head: normal to inspection and normocephalic HENMT Other: Patient does have a muffled voice Eyes Other: No ptosis Resp Effort & Inspection: normal respiratory effort Auscultation: clear to auscultation bilaterally Cardio Rate: regular rate Rhythm: regular rhythm GI Inspection: normal to inspection Palpation: soft, No firm and No tender Skin General: no rashes or lesions noted Neuro General: patient alert, patient awake, patient oriented x3 and moves all extremi ties Cognition: normal cognition Speech: abnormal speech Extrem General: normal to inspection <Kenyetta Yip MD - Last Filed: 06/05/22 05:09> Initial Vital Signs Initial Vital Signs: Vital Signs Temperature 98.7 F 06/04/22 16:54 Pulse Rate 98 H 06/04/22 16:54 Respiratory Rate 16 06/04/22 16:54 Blood Pressure 185/84 H 06/04/22 16:54 Pulse Oximetry 99 06/04/22 16:54 Oxygen Delivery Method Room Air 06/04/22 16:54 Course <Leon Llanos DO - Last Filed: 06/05/22 07:06> Orders Ordered: Discontinued Medications Sodium Chloride (Normal Saline 0.9%) 1,000 mls @ 1,000 mls/hr IV BOLUS ONE Stop: 06/04/22 17:51 Last Infusion: 06/04/22 18:26 Dose: 0 mls/hr Documented By: Admin: 06/04/22 16:59 Dose: 1,000 mls/hr Documented By: ALEJANDRO Immune Globulin 25 gm/ (Miscellaneous) 250 mls @ 0 mls/hr IV NOW ONE Stop: 06/04/22 19:47 Last Infusion: 06/04/22 21:13 Dose: 36 mls/hr Documented By: Infusion: 06/04/22 20:50 Dose: 36 mls/hr Documented By: Admin: 06/04/22 20:03 Dose: 18 mls/hr Documented By: ALEJANDRO Lorazepam (Lorazepam 2 Mg/Ml Inj) 0.5 mg IV NOW ONE Stop: 06/04/22 19:50 Last Admin: 06/04/22 20:03 Dose: 0.5 mg Documented By: ALEJANDRO Ondansetron HCl (Ondansetron 4 Mg/2 Ml Inj) 4 mg IV NOW ONE Stop: 06/04/22 19:14 Last Admin: 06/04/22 19:24 Dose: 4 mg Documented By: ALEJANDRO Pyridostigmine [place] (Pyridostigmine [place] 10 Mg/2 Ml Ampul) 2 mg IV NOW ONE Stop: 06/04/22 17:02 Last Admin: 06/04/22 17:12 Dose: 2 mg Documented By: NITA Vital Signs Vital signs: Vital Signs - 8 hr 06/04/22 16:54 06/04/22 16:54 06/04/22 16:57 Temperature 98.7 F Pulse Rate 98 H 103 H 101 H Respiratory Rate 16 Blood Pressure 185/84 H Pulse Oximetry 99 96 96 Oxygen Delivery Method Room Air Room Air Room Air 06/04/22 16:57 06/04/22 17:00 06/04/22 17:00 Temperature Pulse Rate 97 H Respiratory Rate Blood Pressure 185/84 H 177/72 H Pulse Oximetry 95 Oxygen Delivery Method 06/04/22 17:30 06/04/22 17:30 06/04/22 18:00 Temperature Pulse Rate 78 Respiratory Rate 23 Blood Pressure 154/66 H 161/67 H Pulse Oximetry 98 Oxygen Delivery Method Room Air 06/04/22 18:00 06/04/22 18:30 06/04/22 18:30 Temperature Pulse Rate 79 84 Respiratory Rate 27 H 35 H Blood Pressure 180/76 H Pulse Oximetry 98 97 Oxygen Delivery Method Room Air 06/04/22 19:00 06/04/22 19:00 06/04/22 19:10 Temperature Pulse Rate 82 Respiratory Rate 32 H Blood Pressure 152/67 H 168/72 H Pulse Oximetry 96 Oxygen Delivery Method 06/04/22 19:10 06/04/22 19:30 06/04/22 19:30 Temperature Pulse Rate 81 80 Respiratory Rate 45 H 40 H Blood Pressure 154/68 H Pulse Oximetry 97 95 Oxygen Delivery Method 06/04/22 20:00 06/04/22 20:00 Temperature Pulse Rate 91 H Respiratory Rate 34 H Blood Pressure 161/74 H Pulse Oximetry 96 Oxygen Delivery Method <Kenyetta Yip MD - Last Filed: 06/05/22 05:09> Orders Ordered: Discontinued Medications Sodium Chloride (Normal Saline 0.9%) 1,000 mls @ 1,000 mls/hr IV BOLUS ONE Stop: 06/04/22 17:51 Last Infusion: 06/04/22 18:26 Dose: 0 mls/hr Documented By: Admin: 06/04/22 16:59 Dose: 1,000 mls/hr Documented By: ALEJANDRO Immune Globulin 25 gm/ (Miscellaneous) 250 mls @ 0 mls/hr IV NOW ONE Stop: 06/04/22 19:47 Last Infusion: 06/04/22 21:13 Dose: 36 mls/hr Documented By: Infusion: 06/04/22 20:50 Dose: 36 mls/hr Documented By: Admin: 06/04/22 20:03 Dose: 18 mls/hr Documented By: ALEJANDRO Lorazepam (Lorazepam 2 Mg/Ml Inj) 0.5 mg IV NOW ONE Stop: 06/04/22 19:50 Last Admin: 06/04/22 20:03 Dose: 0.5 mg Documented By: ALEJANDRO Ondansetron HCl (Ondansetron 4 Mg/2 Ml Inj) 4 mg IV NOW ONE Stop: 06/04/22 19:14 Last Admin: 06/04/22 19:24 Dose: 4 mg Documented By: ALEJANDRO Pyridostigmine [place] (Pyridostigmine [place] 10 Mg/2 Ml Ampul) 2 mg IV NOW ONE Stop: 06/04/22 17:02 Last Admin: 06/04/22 17:12 Dose: 2 mg Documented By: NITA Vital Signs Vital signs: Vital Signs - 8 hr 06/04/22 16:54 06/04/22 16:54 06/04/22 16:57 Temperature 98.7 F Pulse Rate 98 H 103 H 101 H Respiratory Rate 16 Blood Pressure 185/84 H Pulse Oximetry 99 96 96 Oxygen Delivery Method Room Air Room Air Room Air 06/04/22 16:57 06/04/22 17:00 06/04/22 17:00 Temperature Pulse Rate 97 H Respiratory Rate Blood Pressure 185/84 H 177/72 H Pulse Oximetry 95 Oxygen Delivery Method 06/04/22 17:30 06/04/22 17:30 06/04/22 18:00 Temperature Pulse Rate 78 Respiratory Rate 23 Blood Pressure 154/66 H 161/67 H Pulse Oximetry 98 Oxygen Delivery Method Room Air 06/04/22 18:00 06/04/22 18:30 06/04/22 18:30 Temperature Pulse Rate 79 84 Respiratory Rate 27 H 35 H Blood Pressure 180/76 H Pulse Oximetry 98 97 Oxygen Delivery Method Room Air 06/04/22 19:00 06/04/22 19:00 06/04/22 19:10 Temperature Pulse Rate 82 Respiratory Rate 32 H Blood Pressure 152/67 H 168/72 H Pulse Oximetry 96 Oxygen Delivery Method 06/04/22 19:10 06/04/22 19:30 06/04/22 19:30 Temperature Pulse Rate 81 80 Respiratory Rate 45 H 40 H Blood Pressure 154/68 H Pulse Oximetry 97 95 Oxygen Delivery Method 06/04/22 20:00 06/04/22 20:00 Temperature Pulse Rate 91 H Respiratory Rate 34 H Blood Pressure 161/74 H Pulse Oximetry 96 Oxygen Delivery Method Medical Decision Making <Leon Llanos DO - Last Filed: 06/05/22 07:06> Lab Data Lab results reviewed: Yes I reviewed the patient's lab results. 06/04/22 17:04 06/04/22 17:04 Labs: Lab Results 06/04/22 06/04/22 06/04/22 Range/Units 17:04 17:04 20:10 WBC 9.3 (4.5-11.0) X10^3/uL RBC 4.93 (4.0-5.2) X10^6/uL Hgb 15.2 (12.0-16.0) g/dL Hct 44.1 (36-46) % MCV 89.4 (80-100) fL MCH 30.8 (26-34) PG MCHC 34.4 (30-36) % RDW 14.4 (11.6-14.8) % Plt Count 275 (150-400) X10^3/uL Neut % (Auto) 63.3 (50-75) % Lymph % (Auto) 25.4 (25-40) % [place] % (Auto) 7.9 (3-14) % Eos % (Auto) 2.4 (2-4) % Baso % (Auto) 1.0 (0-2) % Neut # (Auto) 5900 (0767-4128) /uL Lymph # (Auto) 2400 (9417-0710) /uL [place] # (Auto) 700 (0-900) /uL Eos # (Auto) 200 (0-450) /uL Baso # (Auto) 100 (0-100) /uL Sodium 141 (137-145) mmol/L Potassium 3.9 (3.4-5.1) mmol/L Chloride 109 H (98-107) mmol/L Carbon Dioxide 27 (22-32) mmol/L BUN 10 (7-17) mg/dL Creatinine 0.61 (0.52-1.04) mg/dL Estimated GFR > 60 (>60) mL/min BUN/Creatinine Ratio 16.4 (6-22) Glucose 121 H (80-110) mg/dL Calcium 9.8 (8.4-10.2) mg/dL Total Bilirubin 1.3 (0.2-1.3) mg/dL AST 42 H (14-36) IU/L ALT 33 (<35) IU/L Alkaline Phosphatase 62 (38-126) U/L Total Protein 8.6 H (6.3-8.2) g/dL Albumin 4.9 (3.5-5.0) g/dL Globulin 3.7 (1.7-4.1) g/dL Albumin/Globulin Ratio 1.3 (1.0-2.8) Lipase 177 (23-300) U/L SARS-CoV-2 (PCR) Negative (Negative) MDM Narrative Medical decision making narrative: Patient was not in any respiratory distress but did have a muffled voice and s tated that she was having problems swallowing. No ptosis noted but she does report some pretty severe muscle weakness and actually was using a part of an [place] collar to try to help hold her head up. Labs were drawn which were relatively unremarkable. Not hypoxic. Not tachycardic. Patient was given 2 g of IV pyridostigmine. She stated that for short period of time her symptoms seem to have completely resolved although it was fairly short-lived now her presenting symptoms have returned. I did discuss the case with with neurology at the [facility]. We discussed further treatment here in the emergency department and he stated that starting the patient on IVIG would not be unreasonable. He also stated that I would not be unreasonable to transfer her to the ICU at his facility where social services aide, respiratory therapy and Neurology is available. I did discuss the case with Dr. Whyte with ICU who accepts the patient in transfer. I did discuss the need for transfer with the patient. They expressed understanding and agreement. Care turned over to Dr. Yip to continue to observe until disposition. <Kenyetta Yip MD - Last Filed: 06/05/22 05:09> Lab Data Labs: Lab Results 06/04/22 06/04/22 06/04/22 Range/Units 17:04 17:04 20:10 WBC 9.3 (4.5-11.0) X10^3/uL RBC 4.93 (4.0-5.2) X10^6/uL Hgb 15.2 (12.0-16.0) g/dL Hct 44.1 (36-46) % MCV 89.4 (80-100) fL MCH 30.8 (26-34) PG MCHC 34.4 (30-36) % RDW 14.4 (11.6-14.8) % Plt Count 275 (150-400) X10^3/uL Neut % (Auto) 63.3 (50-75) % Lymph % (Auto) 25.4 (25-40) % [place] % (Auto) 7.9 (3-14) % Eos % (Auto) 2.4 (2-4) % Baso % (Auto) 1.0 (0-2) % Neut # (Auto) 5900 (7959-4705) /uL Lymph # (Auto) 2400 (9558-3128) /uL [place] # (Auto) 700 (0-900) /uL Eos # (Auto) 200 (0-450) /uL Baso # (Auto) 100 (0-100) /uL Sodium 141 (137-145) mmol/L Potassium 3.9 (3.4-5.1) mmol/L Chloride 109 H (98-107) mmol/L Carbon Dioxide 27 (22-32) mmol/L BUN 10 (7-17) mg/dL Creatinine 0.61 (0.52-1.04) mg/dL Estimated GFR > 60 (>60) mL/min BUN/Creatinine Ratio 16.4 (6-22) Glucose 121 H (80-110) mg/dL Calcium 9.8 (8.4-10.2) mg/dL Total Bilirubin 1.3 (0.2-1.3) mg/dL AST 42 H (14-36) IU/L ALT 33 (<35) IU/L Alkaline Phosphatase 62 (38-126) U/L Total Protein 8.6 H (6.3-8.2) g/dL Albumin 4.9 (3.5-5.0) g/dL Globulin 3.7 (1.7-4.1) g/dL Albumin/Globulin Ratio 1.3 (1.0-2.8) Lipase 177 (23-300) U/L SARS-CoV-2 (PCR) Negative (Negative) MDM Narrative Medical decision making narrative: Patient was not in any respiratory distress but did have a muffled voice and stated that she was having problems swallowing. No ptosis noted but she does report some pretty severe muscle weakness and actually was using a part of an [place] collar to try to help hold her head up. Labs were drawn which were relatively unremarkable. Not hypoxic. Not tachycardic. Patient was given 2 g of IV pyridostigmine. She stated that for short period of time her symptoms seem to have completely resolved although it was fairly short-lived now her presenting symptoms have returned. I did discuss the case with with neurology at the [facility]. We discussed further treatment here in the emergency department and he stated that starting the patient on IVIG would not be unreasonable. He also stated that I would not be unreasonable to transfer her to the ICU at his facility where social services aide, respiratory therapy and Neurology is available. I did discuss the case with Dr. Whyte with ICU who accepts the patient in transfer. I did discuss the need for transfer with the patient. They expressed understanding and agreement. Care turned over to Dr. Yip to continue to observe until disposition. 815pm working on transport to ICU in [place]. Current ground transport earliest time is midnight and that crew does not have advanced air way capacity. Given concerns with breathing, work of breathing and ICU admission [employer] is contacted for more expedient transport and transport staff. Discharge Plan Departure Patient Disposition: [facility] Clinical Impression: Myasthenia gravis in crisis Prescriptions: No Action FOLIC ACID/VIT A/VIT B1/VIT (#MULTIVITAMIN) 1 tab PO QDAY Qty: 0 [CALCIUM] 1 cap PO QDAY Qty: 0 [PROBIOTIC FORMULA] 1 - 2 cap PO QDAY Qty: 0 Qvar RediHaler 80 mcg/actuation HFA aerosol breath activated 1 inh inhalation Q12H Qty: 10.6 3RF fluticasone propionate [Flonase Allergy Relief] 50 mcg/actuation spray,suspension 1 spray intranasal BID PRN (Reason: nasal congestion) Qty: 16 0RF Rx Instructions: administer into each nostril albuterol sulfate 90 mcg/actuation HFA aerosol inhaler 1 inh inhalation QID PRN (Reason: shortness of breath or wheezing) Qty: 6.7 0RF verapamil 80 mg tablet 40 mg PO BID ibuprofen 200 mg capsule 400 mg PO Q4-6H PRN (Reason: Pain (Scale Score 1-3)) pyridostigmine bromide 60 mg tablet 60 mg PO TID Patient Comments: take 1/2 tablet by mouth three times a day for 7 days take 1 tablet three times a day Referrals: Rm Love MD [Primary Care Provider] -
[2022-06-04 17:10] LABS: Add Manual Diff / Slide Review NO; Basophils Absolute Auto 100 /uL (0-100); Eosinophils Absolute Auto 200 /uL (0-450); Eosinophils Percent Auto 2.4 % (2-4); Hematocrit 44.1 % (36-46); Hemoglobin 15.2 g/dL (12.0-16.0); Lymphocytes Absolute Auto 2400 /uL (1100-4500); Lymphocytes Percent Auto 25.4 % (25-40); Mean Corpuscular HGB Conc 34.4 % (30-36); Mean Corpuscular Hemoglobin 30.8 PG (26-34); Mean Corpuscular Volume 89.4 fL (80-100); Monocytes Absolute Auto 700 /uL (0-900); Monocytes Percent Auto 7.9 % (3-14); Neutrophils Absolute Auto 5900 /uL (1500-7000); Neutrophils Percent Auto 63.3 % (50-75); Platelet Count 275 X10^3/uL (150-400); Red Blood Cell Count 4.93 X10^6/uL (4.0-5.2); Red Cell Distribution Width 14.4 % (11.6-14.8); White Blood Cell Count 9.3 X10^3/uL (4.5-11.0)
[2022-06-04] MEDS: PYRIDOSTIGMINE BROMIDE 2 MG IV (17:12)
[2022-06-04 17:20] LABS: Alanine Aminotransferase 33 IU/L (<35); Albumin 4.9 g/dL (3.5-5.0); Albumin Globulin Ratio 1.3 (1.0-2.8); Alkaline Phosphatase 62 U/L (38-126); Aspartate Aminotransferase 42 IU/L (14-36); BUN Creatinine Ratio 16.4 (6-22); Bilirubin Total 1.3 mg/dL (0.2-1.3); Blood Urea Nitrogen 10 mg/dL (7-17); Calcium 9.8 mg/dL (8.4-10.2); Carbon Dioxide 27 mmol/L (22-32); Chloride 109 mmol/L (98-107); Estimated Glomerular Filt Rate > 60 mL/min (>60); Globulin 3.7 g/dL (1.7-4.1); Glucose 121 mg/dL (80-110); HEMOLYSIS 44 (0-50); Lipase 177 U/L (23-300); Potassium 3.9 mmol/L (3.4-5.1); Sodium 141 mmol/L (137-145); Total Protein 8.6 g/dL (6.3-8.2)
--- NOTE | 2022-06-04 17:20 | PC.NURSE ---
Pt reports diarrhea, difficulty swallowing, SOB and difficultly hold head up for past two days. Pt reporting not being able to tolerate fluids due to difficultly swallowing. Pt is repositioned and pillows used to help support her arm/upper body. Pt reports being able to hold her head up easier after administration of medication per MAR. Call light within reach. Encouraged to use for needs.
--- NOTE | 2022-06-04 18:26 | PC.NURSE ---
Pt reports fall about 3 weeks ago with left upper leg/hip pain. Pt reports seeing her chiropractor for care regarding this issue. Provider aware.
--- NOTE | 2022-06-04 18:39 | PC.NURSE ---
Provider aware of patients complaint of worsening work of breathing. Pt oxygen saturation at 98%. RR of 30. Call light within reach.
--- NOTE | 2022-06-04 19:12 | PC.NURSE ---
Patient family in [place] reporting patient feels as if she is going to pass out. Dr Llanos and this RN presented to bedside. Patient VSS. Dr Llanos updating patient. Lungs clear and equal bilaterally
[2022-06-04] MEDS: ONDANSETRON 4 MG/2 ML INJ IV (19:24)
--- NOTE | 2022-06-04 19:27 | PC.NURSE ---
Addendum entered by Anya Chatterjee R.N. 06/04/22 20:14: Pharmacist Eugenia verified order, dose and rate in person with this RN once medication was hung. Original Note: [facility] called regarding immune globulin (Ivig) order. Per [facility] will need pharmacist to come in. Coordinator aware of need for pharmacist to come in and called.
--- NOTE | 2022-06-04 19:43 | DI.RAD.S_ITS ---
PROCEDURE: XR CHEST 1V INDICATIONS: SOB TECHNIQUE: One view of the chest was acquired. COMPARISON: [facility], CR, XR CHEST 2V, 07/28/2021, 15:08. FINDINGS: Surgical changes and devices: None. Lungs and pleura: There are confluent left basilar opacities consistent with consolidation. There is a small left pleural effusion. No pneumothorax. Mediastinum: Mediastinal contours appear normal. Heart size is normal. Bones and chest wall: No suspicious bony lesions. Overlying soft tissues appear unremarkable. IMPRESSION: 1. Left basilar consolidation is nonspecific but suggestive of pneumonia. 2. Probable small left parapneumonic effusion. Dictated by: Aries Granados M.D. on 06/04/2022 at 20:04 Approved by: Aries Granados M.D. on 06/04/2022 at 20:05
[2022-06-04] MEDS: LORazepam 2 MG/ML INJ 0.5 MG IV (20:03)
[2022-06-04] MEDS: ISOOSMOTIC VEHICLE IV (20:03)
[2022-06-04] MEDS: IMMUNE GLOBULIN IV (20:03)
[2022-06-04 20:27] LABS: COVID19 -Nasal RAPID Negative (Negative)
== END 2022-06-04 20:15 | disposition short-term general hospital (02) ==
PROVIDERS: Emergency Provider Emergency Medicine; PCP Family Medicine
DX: G70.01 Myasthenia gravis with (acute) exacerbation (principal); R06.02 Shortness of breath; Z20.822 Contact with and (suspected) exposure to COVID-19
CPT/HCPCS: 36415; 71045; 80053; 83690; 85025; 87635; 96361; 96365; 96375; 99284; C9803; J1561; J2060; J2405; J3490

== ENCOUNTER → 2022-10-18 | Outpatient (ROUT) | payer MEDICARE, OTHER, SELFPAY ==
[2021-09-19 11:50] VITALS: BMI 23.9
== END ==
PROVIDERS: PCP Family Medicine; Visit Provider Physician Assistant Medical
DX: Z01.812 Encounter for preprocedural laboratory examination (principal)
CPT/HCPCS: 85610

== ENCOUNTER → 2022-11-21 14:48 | Outpatient (CLI) | payer MEDICARE, OTHER, SELFPAY ==
[2021-09-19 11:50] VITALS: BMI 23.9
[2022-11-21 15:25] LABS: Add Manual Diff / Slide Review NO; Basophils Absolute Auto 100 /uL (0-100); Basophils Percent Auto 0.8 % (0-2); Eosinophils Absolute Auto 0 /uL (0-450); Eosinophils Percent Auto 0.2 % (2-4); Hematocrit 34.3 % (36-46); Hemoglobin 11.5 g/dL (12.0-16.0); Lymphocytes Absolute Auto 800 /uL (1100-4500); Lymphocytes Percent Auto 10.2 % (25-40); Mean Corpuscular HGB Conc 33.6 % (30-36); Mean Corpuscular Volume 101.4 fL (80-100); Monocytes Absolute Auto 500 /uL (0-900); Monocytes Percent Auto 6.2 % (3-14); Neutrophils Absolute Auto 6200 /uL (1500-7000); Neutrophils Percent Auto 82.6 % (50-75); Platelet Count 318 X10^3/uL (150-400); Red Blood Cell Count 3.38 X10^6/uL (4.0-5.2); Red Cell Distribution Width 17.7 % (11.6-14.8); White Blood Cell Count 7.5 X10^3/uL (4.5-11.0)
[2022-11-21 15:48] LABS: HEMOLYSIS < 15 (0-50); Iron 30 ug/dL (37-170)
[2022-11-21 15:55] LABS: Alanine Aminotransferase 37 IU/L (<35); Albumin 3.5 g/dL (3.5-5.0); Albumin Globulin Ratio 1.6 (1.0-2.8); Alkaline Phosphatase 46 U/L (38-126); Aspartate Aminotransferase 44 IU/L (14-36); BUN Creatinine Ratio 32.8 (6-22); Bilirubin Total 0.4 mg/dL (0.2-1.3); Blood Urea Nitrogen 19 mg/dL (7-17); Calcium 9.5 mg/dL (8.4-10.2); Carbon Dioxide 29 mmol/L (22-32); Chloride 101 mmol/L (98-107); Estimated Glomerular Filt Rate > 60 mL/min (>60); Globulin 2.2 g/dL (1.7-4.1); Glucose 135 mg/dL (80-110); HEMOLYSIS < 15 (0-50); Potassium 5.3 mmol/L (3.4-5.1); Sodium 137 mmol/L (137-145); Total Protein 5.7 g/dL (6.3-8.2)
[2022-11-21 16:00] LABS: Percent Iron Saturation 9 % (15-50); Total Iron Binding Capacity 338 ug/dL (265-497); Transferrin 252 mg/dL (206-381)
[2022-11-21 16:36] LABS: Thyroid Stimulating Hormone 5.09 uIU/mL (0.47-4.68)
[2022-11-21 17:12] LABS: Vitamin B12 907 pg/mL (239-931)
== END ==
PROVIDERS: PCP Family Medicine; Referring Provider Internal Medicine; Visit Provider Internal Medicine
DX: D50.9 Iron deficiency anemia, unspecified (principal); I48.0 Paroxysmal atrial fibrillation; G70.00 Myasthenia gravis without (acute) exacerbation; E78.5 Hyperlipidemia, unspecified; E46 Unspecified protein-calorie malnutrition
CPT/HCPCS: 36415; 80053; 82607; 82746; 83540; 83550; 84439; 84443; 85025

== ENCOUNTER → 2022-11-29 08:43 | Outpatient (CLI) | payer MEDICARE, OTHER, SELFPAY ==
[2021-09-19 11:50] VITALS: BMI 23.9
--- NOTE | 2022-11-29 09:00 | DI.RAD.S_ITS ---
PROCEDURE: FL BARIUM SWALLOW W SPEECH INDICATIONS: dysphagia COMPARISON: TECHNIQUE: Examination was conducted in conjunction with speech pathology per standard protocol. In the lateral projection, filming was performed of the patient swallowing. AP projection filming may also be performed with patient swallowing. COMPARISON: [facility], , [place] BARIUM SWALLOW W SPEECH, 05/09/2021, 13:39. FINDINGS: Function: No laryngotracheal penetration or aspiration. No pathologic vallecular pooling. Morphology: No cricopharyngeal bar is identified. No cervical esophageal webs. No Zenker's diverticulum. No strictures. IMPRESSION: No evidence of aspiration or penetration. Please see speech pathology report for complete findings. Dictated by: Mehdi Mcdonald M.D. on 11/29/2022 at 13:31 Approved by: Mehdi Mcdonald M.D. on 11/29/2022 at 13:33
--- NOTE | 2022-11-29 12:47 | ST.SWALLOW ---
Visit Care Team Role Provider Type Rm Love MD Primary Care Provider Physician Specialty: Family Practice Address: [address] [place] [address], [id number] Email: [email or web address] Edi Matamoros MD Attending Provider Physician Referring Provider Specialty: Pulmonology Address: [address] [place] [address] [address], [place], [address] Email: ST Modified Barium Swallow Study [employer] Modified Barium Swallow Study Start: 11/29/22 10:14 Freq: Status: Active Protocol: Document 11/29/22 10:25 LNK (Rec: 11/29/22 12:45 [id number]) Modified Barium Swallow Study Total Time Visit Start Time 09:00 Visit Stop Time 10:15 Total Visit Minutes [address] Matamoros, Pulmonology; PCP is Dr. Love Reason for Referral dysphagia Setting Setting Outpatient Care Patient Information Identification Type Name,Date of Patient History Pt was seen for a Modified Barium Swallow Study at the referral of her tufter operator, Dr Matamoros. Pt's PCP is Dr Love. Pt had a previous MBSS on 05/09/21 in 2021, which was reviewed. At that time, pt was admitted to acute care at with c/o a muffled voice that seemed to be progressive, a sensation of her throat and tongue and difficulty swallowing. Pt had MBSS (05/09/21) indicating swallowing WFL with oropharyngeal muscle weakness . Pt has since been diagnosed with Myasthenia Gravis (MG). Currently, according to the pt report and records reviewed, the pt had a Myasthenia Gravis crisis (06/01/22) and was hospitalized initially at [facility] in [place] and then at [facility] term care facility. Pt was intubated and had NG tube feedings while in hospital and at [place]. On 09/08/22, pt had PEG tube placed. Pt is currently seen for MBSS to determine safety of PO intake. Pt scheduled to get trach removed today (11/29/22) . Subjective Observations Pt was seated in the fluoroscopy chair with directions and instructions described. Pt reported that she has not been taking any foods/liquids PO since the start of her MG crisis in May. Pt also reported that her speech is still not back to baseline and that she needs to speak slowly and pronounce each syllable in multisyllabic words. Patient Positioning Position View Lat-A/P Imaging Lateral View Textures Administered Trials Presented Thin Liquid via Spoon (IDDSI 0 ),Mildly Thick Liquid via Spoon (IDDSI 2),Mildly Thick Liquid via Cup (IDDSI 2), Moderately Thick Liquid via Spoon (IDDSI 3),Puree (IDDSI 4 ),Minced & Moist (IDDSI 5) Barium Tablet Yes The IDDSI Framework Protocol: IDDSI.1 Oral Impairment Source: The Modified Barium Swallow Impairment Profile (MBSImP??) Lip Closure No labial escape Tongue Control During Bolus Hold Cohesive bolus between tongue to palatal seal Bolus Preparation/Mastication Disorganized chewing/mashing with solid pieces of bolus unchewed Bolus Transport/Lingual Motion Repetitive/disorganized tongue motion Oral Residue Residue collection on oral structures Location Palate,Tongue Initiation of Pharyngeal Swallow Bolus head at pyriforms Additional Oral Impairment Observations OME indicated labial and lingual weakness in ROM, coordination and strength. Pt reported difficulty with closing lips, puffing cheeks and rapid alternative movements of the oral structures. Initiating lateral tongue movement was slow and inaccurate. Oral Phase of Swallow: prolonged mastication was noted with reduced lingual coordination and strength during chewing. Swallow initiation was delayed with reduced coordination. Pharyngeal Impairment Source: The Modified Barium Swallow Impairment Profile (MBSImP??) Soft Palate Elevation No bolus between soft palate & pharyngeal wall Laryngeal Elevation Min.sup.move. thyroid cart. w/ min.approx.arytenoids to epiglot.petiole Anterior Hyoid Excursion Partial anterior movement Epiglottic Movement Complete inversion Laryngeal Vestibular Closure Complete; no air/contrast in laryngeal vestibule Pharyngeal Stripping Wave Present - diminished Pharyngoesophageal Segment Opening Minimal distension/minimal duration; marked obstruction of flow Tongue Base Retraction Wide column of contrast/air betwn tongue base & post. pharyngeal wall Pharyngeal Residue Collection of residue within/ on pharyngeal structures Location Diffuse (>3 areas) Additional Pharyngeal Impairment Tongue base weakness Observations negatively impacted hyolaryngeal elevation and opening of the PES. Reduced stripping of the posterior wall and reduced hyolaryngeal elevation resulted in poor bolus control through the pharynx to the PES. Reduced extension and duration of the PES with poor bolus control resulted in the pt needing several (4+) swallows in order to clear a bolus through the pharynx. Pharyngel pooling was diffuse following all trials. Epiglottic inversion was adequate to seal the laryngeal vestibule; however the epiglottic tip was consistently curled against the posterior pharyngeal wall due to poor hyolaryngeal elevation. This may pose an aspiration risk with large bolus sizes. Overall the pt presented with a moderately impaired pharyngeal phase. Pt's muscular strength was significantly reduced resulting in poor bolus control to the PES, reduced opening of the PES and diffuse pharyngeal pooling. Use of a chin tuck swallow strategy was noted to be helpful in bolus control. Flash penetration of contrast into the larynx observed x1. No aspiration noted. A/P View The IDDSI Framework Protocol: IDDSI.1 A/P View Observations Esophageal Clearance Upright Position Esophageal retention w/ retrograde flow thru pharyngoesoph segment Esophageal Function Slowed Clearing,Stasis Additional A-P Observations When initially turned to the AP position, the pt's esophagus had contrast retention throughout the esophagus. Reverse perastalsis was noted. The contents of the esophagus cleared with swallows of water. Pt was unable to swallow the barium tablet. Clinical Impressions Dysphagia Type Oral,Pharyngeal Findings Please review oral, pharyngeal and esophageal phase summaries above for details The pt presented with ongoing oropharyngeal dysphagia characterized by oral/ pharyngeal motor weakness and dyscoordination. Pt was able to tolerate all trials with single small spoonsful. Each bolus requires several swallows in order for it to clear the pharynx. Progressive therapeutic feeding program along with oropharyngeal exercises to strengthen the muscles needed for safe swallowing is strongly recommended. Pt self-reported that she feels she has recovered ~50% from her MG crisis. She demonstrates overall weakness which extends to oral and pharyngeal structures. Prognosis for pt to eventually stop artificial nutrition and return to PO intake is good. Pt is motivated and understands the precautions described. As pt has not had PO intake for 6 months, it is prudent to introduce PO intake safely as tolerated. Pt agreed with the plan as described for her. Rehabilitation Potential Excellent Patient Appropriate for Therapy Yes Recommendations Diet Comments NPO status with therapeutic exercisess/feeding recommended Aspiration Precautions Recommended Precautions Frequent Rest Periods,Small Bites/Sips Additional Precautions Pt required 4+ swallows to clear all bolus trials from pharynx Treatment Plan Therapy Recommendations Outpatient Speech Therapy,Oral Motor Exercises,Base of Tongue Exercises Additional Strategies Recommended PO therapeutic feeding with [employer] with oral,lingual and pharyngeal exercises Short Term Goals 1) Pt education re: anatomy, physiology of normal swallow will be provided to the pt. Review of MBSS with the pt will be completed. 2) Oropharyngeal exercises to increase strength and coordination of structures for mastication and safe swallow. 3) Pt will be evaluated for [employer] therapy program to increase strength and coordination of specific muscles needed for safe swallow. 4) Pt will safely tolerate progressive therapeutic feeding trials without s/sx aspiration. 5) Pt's speech sound production will be assessed re :dysarthria and additional development of POC. [employer] Goals Pt will be able to safely tolerate a least restrictive diet without s/sx aspiration bythe end of the year. Placement Recommendation After Discharge Home
== END ==
PROVIDERS: PCP Family Medicine; Referring Provider Internal Medicine; Visit Provider Internal Medicine
DX: Z43.0 Encounter for attention to tracheostomy (principal); J96.11 Chronic respiratory failure with hypoxia; G70.00 Myasthenia gravis without (acute) exacerbation; R13.12 Dysphagia, oropharyngeal phase
CPT/HCPCS: 74230; 92611; 99214

== ENCOUNTER → 2022-12-06 09:47 | Outpatient (CLI) | payer MEDICARE, OTHER, SELFPAY ==
[2022-11-29 10:45] VITALS: BMI 23.9
== END ==
PROVIDERS: Family Provider Family Medicine; PCP Family Medicine; Referring Provider Internal Medicine; Visit Provider Internal Medicine
DX: G70.00 Myasthenia gravis without (acute) exacerbation (principal); G70.9 Myoneural disorder, unspecified; J96.11 Chronic respiratory failure with hypoxia; Z43.0 Encounter for attention to tracheostomy
CPT/HCPCS: 94618

== ENCOUNTER 2022-12-13 08:02 | Emergency (ER) | payer MEDICARE, OTHER, SELFPAY ==
[2022-11-29 10:45] VITALS: BMI 23.9
[2022-12-13] VITALS (82 sets, daily range): BP systolic 93–149; BP diastolic 47–79; PULSE 64–145; RESP 11–54; TEMP 37–37.4; O2SAT 84–99; BMI 24.1
--- NOTE | 2022-12-13 08:10 | ED_ITS ---
HPI - General Adult General Chief complaint: Arrhythmia/Palpitations Stated complaint: high HR Time Seen by Provider: 12/13/22 08:06 Source: patient and EMS Mode of arrival: EMS Limitations: no limitations History of Present Illness HPI narrative: Patient is an 82-year-old female. She has a history of myasthenia gravis. Also has a history of atrial fibrillation. Is on amiodarone and metoprolol. She is also on apixaban. Two weeks ago she had a trach removed. This was placed many weeks ago after she would a myasthenia crisis. She also has a G-tube in place. For the past several days she has had episodes of tachycardia. No chest pain. She is also had subjective fevers and generally not feeling very well. No chest pain. She does think it is somewhat worse for her breathing today compared to the past couple days. No abdominal pain. No nausea or vomiting. No change in bowel habits or urinary symptoms. No skin rashes. No extremity weakness. Related Data Home Medications Medication Instructions Recorded Confirmed acetaminophen 325 mg capsule 650 mg PO Q6H PRN 10/30/22 11/29/22 albuterol sulfate 2.5 mg/3 mL 2.5 mg inhalation Q2H PRN 10/30/22 11/29/22 (0.083 %) solution for nebulization budesonide 0.25 mg/2 mL suspension 0.25 mg inhalation BID 10/30/22 11/29/22 for nebulization famotidine 20 mg tablet 20 mg PO DAILY 10/30/22 11/29/22 ferrous fumarate 325 mg (106 mg 325 mg PO DAILY 10/30/22 11/29/22 iron) tablet ipratropium bromide 0.02 % 2.5 ml inhalation Q1H PRN 10/30/22 11/29/22 solution for inhalation loratadine 10 mg tablet 10 mg PO DAILY 10/30/22 11/29/22 simethicone 125 mg capsule (Gas-X 250 mg PO BID PRN 11/07/22 11/29/22 Extra Strength) Previous Rx's Medication Instructions Recorded Tracheostomy supplies #1 ea 11/07/22 amiodarone 200 mg tablet 200 mg PO DAILY #90 tabs 11/21/22 apixaban 2.5 mg tablet 2.5 mg PO BID #180 tabs 11/21/22 azathioprine 100 mg tablet 150 mg (1.5 x 100 mg) PO DAILY 11/21/22 #135 tabs metoprolol tartrate 25 mg tablet 12.5 mg (1/2 x 25 mg) PO BID #90 11/21/22 tabs prednisone 10 mg tablet 10 mg PO DAILY #90 tabs 11/21/22 sulfamethoxazole 800 0.5 tab PO DAILY #45 tabs 11/21/22 mg-trimethoprim 160 mg tablet Discontinue All Trach supplies #1 ea 12/12/22 Allergies Allergy/AdvReac Type Severity Reaction Status Date / Time pantoprazole Allergy Severe Swelling Verified 12/13/22 09:33 of Lip/Tongue/Throat Review of Systems Review of Systems ROS Unobtainable: All systems reviewed & are unremarkable except as noted in HPI and below Patient History Medical History Ischemic colitis Iron deficiency anemia Paroxysmal atrial fibrillation Myasthenia Labile diastolic hypertension Dysphagia SVT (supraventricular tachycardia) Allergic rhinitis Hyperlipidemia Asthma Osteoarthritis of cervical spine (08/15/10) Surgical History S/P percutaneous endoscopic gastrostomy (PEG) tube placement (~06/2022) Status post tracheostomy (~06/2022) Status post cholecystectomy Family History Brother Obstructive sleep apnea Brother Shellfish allergy Social History household members: spouse Smoking Status: Never smoker alcohol intake: former Smoking Status: Never smoker alcohol intake frequency: holidays/special occasions only Substance Use Type: does not use Exam Initial Vital Signs Initial Vital Signs: Vital Signs Temperature 99.0 F 12/13/22 08:05 Pulse Rate 144 H 12/13/22 08:05 Respiratory Rate 18 12/13/22 08:05 Blood Pressure 149/79 H 12/13/22 08:05 Pulse Oximetry 94 12/13/22 08:05 Oxygen Delivery Method Room Air 12/13/22 08:05 HENMT Head: normal to inspection and normocephalic Neck Other: Bandage over anterior neck Resp Effort & Inspection: normal respiratory effort Auscultation: clear to auscultation bilaterally Cardio Rate: tachycardic Rhythm: regular rhythm GI Inspection: normal to inspection Palpation: soft and No tender Other: G-tube in place from left upper quadrant appears well Skin General: no rashes or lesions noted Neuro General: patient alert, patient awake, patient oriented x3 and moves all extremities Speech: speech normal Extrem General: capillary refill normal Procedures Cardioversion Consent Signed: Yes Indication: Atrial flutter Stability: Stable Number of attempts (shocks): 1 Joules used: 120 Cardiac rhythm post-cardioversion: Sinus rhythm Procedural Sedation Consent signed: Yes Time out performed: Yes Indication: cardioversion ASA Class: II Mallampati Airway Classification: Class II Preparation: vehicle monitor technician applied, pulse oximeter, capnometry used, supplemental O2 applied, suction/airway equipment at bedside and IV secured IV Propofol dose (mg): 40 Intraservice time/total sedation time (min): 15 ED Sedation Level: Moderate (Concious) Patient Tolerated Procedure: Well Complications: hypoxia Interventions: Airway repositioned and Oxygen applied Course Orders Ordered: ED Orders 12/13/22 08:20 XR chest 1V Stat EKG-12 Lead Stat 12/13/22 08:29 Complete Blood Count AUTO DIFF Stat Comprehensive Metabolic Panel Stat Covid-19 + FLU A/B + RSV - PCR Stat Lipase Stat Magnesium Stat NT-proBNP (BNP-Adult 18+) Stat PTT Partial Thromboplastin Aung Stat Prothrombin Time INR Stat Troponin & CK Cardiac Panel Stat 12/13/22 11:07 EKG-12 Lead Stat 12/13/22 11:14 EKG-12 Lead Routine 12/13/22 16:10 EKG-12 Lead Stat DILTIAZEM (Diltiazem 125 Mg/125 Ml-D5w) 125 mg in 125 mls @ 5 mls/hr IV TITRATE [facility]; Protocol Last Titration: 12/13/22 16:16 Dose: 0 mg/hr, 0 mls/hr Documented By: Titration: 12/13/22 14:35 Dose: 0 mg/hr, 0 mls/hr Documented By: Titration: 12/13/22 14:21 Dose: 15 mg/hr, 15 mls/hr Documented By: Titration: 12/13/22 13:41 Dose: 10 mg/hr, 10 mls/hr Documented By: Admin: 12/13/22 12:44 Dose: 5 mg/hr, 5 mls/hr Documented By: BEN Sodium Chloride (Normal Saline 0.9%) 1,000 mls @ 100 mls/hr IV CONT BENJAMIN Last Admin: 12/13/22 12:45 Dose: 100 mls/hr Documented By: BEN Amiodarone HCl/Dextrose (Nexterone) 150 mg in 100 mls @ 200 mls/hr IV NOW [facility] Last Infusion: 12/13/22 15:22 Dose: Infused Documented By: Admin: 12/13/22 14:41 Dose: 200 mls/hr Documented By: BEN Discontinued Medications Amiodarone HCl (Amiodarone 150 Mg/3 Ml Vial) 150 mg IV NOW ONE Stop: 12/13/22 14:26 Last Admin: 12/13/22 14:35 Dose: Not Given Documented By: BEN Diltiazem HCl (Diltiazem 5 Mg/Ml Sdv) 10 mg IV NOW ONE Stop: 12/13/22 12:05 Last Admin: 12/13/22 12:19 Dose: 10 mg Documented By: BEN Sodium Chloride (Normal Saline 0.9%) 1,000 mls @ 500 mls/hr IV BOLUS ONE Stop: 12/13/22 12:46 Last Infusion: 12/13/22 11:56 Dose: Infused Documented By: Admin: 12/13/22 10:50 Dose: 500 mls/hr Documented By: BEN Sodium Chloride (Normal Saline 0.9%) 1,000 mls @ 1,000 mls/hr IV BOLUS ONE Stop: 12/13/22 11:48 Last Infusion: 12/13/22 12:45 Dose: Infused Documented By: Admin: 12/13/22 11:55 Dose: 1,000 mls/hr Documented By: WILL Metoprolol Tartrate (Metoprolol Ir 25 Mg Tablet) 25 mg PO NOW ONE Stop: 12/13/22 08:22 Last Admin: 12/13/22 08:35 Dose: 25 mg Documented By: BEN Propofol (Propofol 200 Mg/20 Ml Vial) 100 mg IV NOW ONE Stop: 12/13/22 10:25 Last Admin: 12/13/22 10:44 Dose: 40 mg Documented By: BEN Propofol (Propofol 200 Mg/20 Ml Vial) 100 mg IV NOW ONE Stop: 12/13/22 15:04 Last Admin: 12/13/22 15:25 Dose: 30 mg Documented By: BEN Vital Signs Vital signs: Vital Signs - 8 hr 12/13/22 09:00 12/13/22 09:00 12/13/22 09:30 Temperature Pulse Rate 144 H 142 H Respiratory Rate 31 H 24 Blood Pressure 130/62 Pulse Oximetry 95 95 Oxygen Delivery Method Oxygen Flow Rate 12/13/22 09:30 12/13/22 10:00 12/13/22 10:00 Temperature Pulse Rate 138 H Respiratory Rate 36 H Blood Pressure 123/68 124/72 Pulse Oximetry 96 Oxygen Delivery Method Oxygen Flow Rate 12/13/22 10:44 12/13/22 10:59 12/13/22 11:02 Temperature 99.0 F Pulse Rate 138 H 139 H 64 Respiratory Rate 18 16 30 H Blood Pressure 114/57 L 104/57 L Pulse Oximetry 98 96 84 L Oxygen Delivery Method Oxygen Flow Rate 4 12/13/22 11:03 12/13/22 11:06 12/13/22 11:09 Temperature 98.6 F 98.6 F Pulse Rate 84 84 Respiratory Rate 14 14 Blood Pressure 96/47 L 96/53 L Pulse Oximetry 98 95 Oxygen Delivery Method Oxygen Flow Rate 6 12/13/22 11:10 12/13/22 11:15 12/13/22 11:15 Temperature Pulse Rate 72 Respiratory Rate 27 H Blood Pressure 96/53 L 96/55 L Pulse Oximetry 95 Oxygen Delivery Method Oxygen Flow Rate 12/13/22 11:20 12/13/22 11:20 12/13/22 11:25 Temperature Pulse Rate 73 Respiratory Rate 28 H Blood Pressure 93/51 L 102/57 L Pulse Oximetry 95 Oxygen Delivery Method Oxygen Flow Rate 12/13/22 11:25 12/13/22 11:30 12/13/22 11:31 Temperature Pulse Rate 97 H 95 H 97 H Respiratory Rate 42 H 32 H 54 H Blood Pressure Pulse Oximetry 98 97 Oxygen Delivery Method Oxygen Flow Rate 12/13/22 11:31 12/13/22 11:35 12/13/22 11:35 Temperature Pulse Rate 98 H Respiratory Rate 32 H Blood Pressure 101/74 96/54 L Pulse Oximetry 98 Oxygen Delivery Method Oxygen Flow Rate 12/13/22 11:40 12/13/22 11:42 12/13/22 11:42 Temperature Pulse Rate 98 H 97 H Respiratory Rate 51 H 36 H Blood Pressure 107/53 L Pulse Oximetry 95 98 Oxygen Delivery Method Oxygen Flow Rate 12/13/22 11:45 12/13/22 11:45 12/13/22 11:50 Temperature Pulse Rate 97 H Respiratory Rate 31 H Blood Pressure 107/54 L 106/60 Pulse Oximetry 98 Oxygen Delivery Method Oxygen Flow Rate 12/13/22 11:50 12/13/22 11:55 12/13/22 11:55 Temperature Pulse Rate 135 H 135 H Respiratory Rate 24 31 H Blood Pressure 108/58 L Pulse Oximetry 99 98 Oxygen Delivery Method Oxygen Flow Rate 12/13/22 12:00 12/13/22 12:00 12/13/22 12:05 Temperature Pulse Rate 135 H 135 H Respiratory Rate 23 Blood Pressure 115/58 L Pulse Oximetry 99 98 Oxygen Delivery Method Oxygen Flow Rate 12/13/22 12:05 12/13/22 12:10 12/13/22 12:10 Temperature Pulse Rate 136 H Respiratory Rate Blood Pressure 110/58 L 116/57 L Pulse Oximetry 99 Oxygen Delivery Method Room Air Oxygen Flow Rate 12/13/22 12:15 12/13/22 12:19 12/13/22 12:20 Temperature Pulse Rate 135 H 133 H 137 H Respiratory Rate 25 H Blood Pressure 114/67 Pulse Oximetry 98 99 Oxygen Delivery Method Oxygen Flow Rate 12/13/22 12:21 12/13/22 12:21 12/13/22 12:25 Temperature Pulse Rate 134 H 139 H Respiratory Rate Blood Pressure 114/67 Pulse Oximetry 99 99 Oxygen Delivery Method Oxygen Flow Rate 12/13/22 12:30 12/13/22 12:30 12/13/22 12:35 Temperature Pulse Rate 138 H 137 H Respiratory Rate 24 29 H Blood Pressure 105/59 L Pulse Oximetry 97 96 Oxygen Delivery Method Oxygen Flow Rate 12/13/22 12:40 12/13/22 12:45 12/13/22 12:50 Temperature Pulse Rate 136 H 137 H 138 H Respiratory Rate 23 Blood Pressure Pulse Oximetry 98 96 99 Oxygen Delivery Method Oxygen Flow Rate 12/13/22 12:55 12/13/22 13:00 12/13/22 13:00 Temperature Pulse Rate 138 H 137 H Respiratory Rate 28 H 25 H Blood Pressure 104/63 Pulse Oximetry 96 95 Oxygen Delivery Method Room Air Oxygen Flow Rate 12/13/22 13:05 12/13/22 13:18 12/13/22 13:20 Temperature Pulse Rate 138 H 138 H 138 H Respiratory Rate 27 H Blood Pressure Pulse Oximetry 95 97 Oxygen Delivery Method Oxygen Flow Rate 12/13/22 13:25 12/13/22 13:30 12/13/22 13:34 Temperature Pulse Rate 138 H 138 H 88 Respiratory Rate 22 16 Blood Pressure Pulse Oximetry 96 97 Oxygen Delivery Method Room Air Oxygen Flow Rate 12/13/22 13:35 12/13/22 13:40 12/13/22 13:42 Temperature Pulse Rate 140 H 140 H Respiratory Rate 25 H 25 H Blood Pressure 106/62 Pulse Oximetry 94 93 Oxygen Delivery Method Oxygen Flow Rate 12/13/22 13:42 12/13/22 13:45 12/13/22 13:50 Temperature Pulse Rate 140 H 140 H 140 H Respiratory Rate 24 24 24 Blood Pressure Pulse Oximetry 95 92 93 Oxygen Delivery Method Oxygen Flow Rate 12/13/22 13:55 12/13/22 14:00 12/13/22 14:00 Temperature Pulse Rate 140 H 140 H Respiratory Rate 24 22 Blood Pressure 107/63 Pulse Oximetry 93 97 Oxygen Delivery Method Oxygen Flow Rate 12/13/22 14:05 12/13/22 14:10 12/13/22 14:15 Temperature Pulse Rate 140 H 141 H 140 H Respiratory Rate 45 H 26 H 27 H Blood Pressure Pulse Oximetry 93 93 93 Oxygen Delivery Method Oxygen Flow Rate 12/13/22 14:20 12/13/22 14:20 12/13/22 14:25 Temperature Pulse Rate 141 H 141 H Respiratory Rate 39 H 26 H Blood Pressure 109/60 Pulse Oximetry 95 94 Oxygen Delivery Method Oxygen Flow Rate 12/13/22 14:30 12/13/22 14:35 12/13/22 14:40 Temperature Pulse Rate 141 H 141 H 141 H Respiratory Rate 23 24 22 Blood Pressure Pulse Oximetry 94 95 95 Oxygen Delivery Method Oxygen Flow Rate 12/13/22 14:40 12/13/22 14:45 12/13/22 14:50 Temperature Pulse Rate 141 H 141 H Respiratory Rate 23 15 Blood Pressure 107/62 Pulse Oximetry 96 95 Oxygen Delivery Method Oxygen Flow Rate 12/13/22 14:55 12/13/22 15:00 12/13/22 15:00 Temperature Pulse Rate 141 H 138 H Respiratory Rate 24 18 Blood Pressure 99/65 Pulse Oximetry 95 95 Oxygen Delivery Method Oxygen Flow Rate 12/13/22 15:05 12/13/22 15:10 12/13/22 15:15 Temperature Pulse Rate 138 H 135 H 135 H Respiratory Rate 23 21 18 Blood Pressure Pulse Oximetry 95 96 96 Oxygen Delivery Method Oxygen Flow Rate 12/13/22 15:20 12/13/22 15:20 12/13/22 15:25 Temperature Pulse Rate 134 H 134 H Respiratory Rate 32 H 38 H Blood Pressure 110/62 Pulse Oximetry 96 97 Oxygen Delivery Method Oxygen Flow Rate 12/13/22 15:27 12/13/22 15:30 12/13/22 15:35 Temperature 98.7 F Pulse Rate 134 H 135 H 135 H Respiratory Rate 16 24 23 Blood Pressure 107/64 Pulse Oximetry 97 97 97 Oxygen Delivery Method Oxygen Flow Rate 12/13/22 15:40 12/13/22 15:40 12/13/22 15:45 Temperature Pulse Rate 135 H 136 H Respiratory Rate 11 L 18 Blood Pressure 107/64 Pulse Oximetry 97 96 Oxygen Delivery Method Oxygen Flow Rate 12/13/22 15:50 12/13/22 15:54 12/13/22 15:55 Temperature Pulse Rate 137 H 77 67 Respiratory Rate 25 H 14 16 Blood Pressure 102/62 Pulse Oximetry 96 99 Oxygen Delivery Method Oxygen Flow Rate 3 12/13/22 15:55 12/13/22 15:55 12/13/22 16:00 Temperature 99.3 F Pulse Rate 135 H 66 Respiratory Rate 37 H 14 Blood Pressure 102/62 102/62 Pulse Oximetry 97 98 Oxygen Delivery Method Oxygen Flow Rate 12/13/22 16:00 12/13/22 16:00 12/13/22 16:05 Temperature Pulse Rate 66 70 Respiratory Rate 34 H 27 H Blood Pressure 94/51 L Pulse Oximetry 97 98 Oxygen Delivery Method Oxygen Flow Rate 12/13/22 16:05 12/13/22 16:10 12/13/22 16:10 Temperature Pulse Rate 69 Respiratory Rate 21 Blood Pressure 94/54 L 97/55 L Pulse Oximetry 97 Oxygen Delivery Method Oxygen Flow Rate 12/13/22 16:15 12/13/22 16:15 12/13/22 16:20 Temperature Pulse Rate 69 78 Respiratory Rate 23 20 Blood Pressure 111/60 Pulse Oximetry 98 99 Oxygen Delivery Method Oxygen Flow Rate 12/13/22 16:22 12/13/22 16:22 Temperature Pulse Rate 77 76 Respiratory Rate 18 16 Blood Pressure 129/58 L Pulse Oximetry 98 99 Oxygen Delivery Method Oxygen Flow Rate Medical Decision Making Lab Data Lab results reviewed: Yes I reviewed the patient's lab results. 12/13/22 08:29 12/13/22 08:29 Labs: Lab Results 12/13/22 Range/Units 08:29 WBC 10.0 (4.5-11.0) X10^3/uL RBC 3.37 L (4.0-5.2) X10^6/uL Hgb 11.2 L (12.0-16.0) g/dL Hct 33.3 L (36-46) % MCV 98.7 (80-100) fL MCH 33.3 (26-34) PG MCHC 33.7 (30-36) % RDW 16.7 H (11.6-14.8) % Plt Count 330 (150-400) X10^3/uL Neut % (Auto) 88.3 H (50-75) % Lymph % (Auto) 3.1 L (25-40) % Daniels % (Auto) 7.6 (3-14) % Eos % (Auto) 0.1 L (2-4) % Baso % (Auto) 0.9 (0-2) % Neut # (Auto) 8800 H (5680-7060) /uL Lymph # (Auto) 300 L (2090-2750) /uL Daniels # (Auto) 800 (0-900) /uL Eos # (Auto) 0 (0-450) /uL Baso # (Auto) 100 (0-100) /uL PT 20.1 H (10.1-12.7) SECONDS INR 1.7 H (0.9-1.3) APTT 36 (26-36) SECONDS Sodium 136 L (137-145) mmol/L Potassium 4.2 (3.4-5.1) mmol/L Chloride 101 (98-107) mmol/L Carbon Dioxide 28 (22-32) mmol/L BUN 20 H (7-17) mg/dL Creatinine 0.66 (0.52-1.04) mg/dL Estimated GFR > 60 (>60) mL/min BUN/Creatinine Ratio 30.3 H (6-22) Glucose 136 H (80-110) mg/dL Calcium 8.9 (8.4-10.2) mg/dL Magnesium 2.1 (1.6-2.3) mg/dL Total Bilirubin 0.6 (0.2-1.3) mg/dL AST 25 (14-36) IU/L ALT 23 (<35) IU/L Alkaline Phosphatase 45 (38-126) U/L Total Creatine Kinase 37 (30-135) U/L Troponin I < 0.012 (0.01-0.034) ng/mL NT-Pro-B Natriuret Pep 1760 H (<450) pg/mL Total Protein 6.4 (6.3-8.2) g/dL Albumin 3.4 L (3.5-5.0) g/dL Globulin 3.0 (1.7-4.1) g/dL Albumin/Globulin Ratio 1.1 (1.0-2.8) Lipase 53 (23-300) U/L SARS-CoV-2 (PCR) Negative (Negative) Influenza A (RT-PCR) Flu a negative (NEGATIVE) Influenza B (RT-PCR) Flu b negative (NEGATIVE) RSV (PCR) Negative (Negative) Point of Care Testing Test Results Negative Urine Dip Bedside Urine Glucose Negative Bedside Urine Bilirubin - Negative Bedside Urine Ketone - Negative Urine Specific Ethel 1.01 Bedside Urine Occult Blood - Negative Bedside Urine pH 7.0 Bedside Urine Protein - Negative Bedside Urine Urobilinogen - Negative Bedside Urine Nitrite - Negative Bedside Urine Leukocytes +/- 15 Esterase Point of care testing: Point of Care Testing Test Results Negative Urine Dip Bedside Urine Glucose Negative Bedside Urine Bilirubin - Negative Bedside Urine Ketone - Negative Urine Specific Ethel 1.01 Bedside Urine Occult Blood - Negative Bedside Urine pH 7.0 Bedside Urine Protein - Negative Bedside Urine Urobilinogen - Negative Bedside Urine Nitrite - Negative Bedside Urine Leukocytes +/- 15 Esterase Imaging Data Chest x-ray: Radiologist's Impression: PROCEDURE: XR CHEST 1V INDICATIONS: SOB and chest pain TECHNIQUE: One view of the chest was acquired. COMPARISON: [facility], CR, XR CHEST 1V, 06/04/2022, 19:42. FINDINGS: Surgical changes and devices: None. Lungs and pleura: Mild left effusion. Mediastinum: Mediastinal contours appear normal. Heart size is mildly enlarged. Bones and chest wall: No suspicious bony lesions. Overlying soft tissues appear unremarkable. IMPRESSION: Mild left effusion. Underlying areas of pneumonia and/or atelectasis cannot be excluded. ECG Data Interpretation: Atrial flutter Ventricular rate 144 normal axis Normal QRS Nonspecific ST T wave changes Post cardioversion Sinus rhythm Ventricular rate 99 Normal QRS QTC [address] T wave changes A flutter Ventricular rate 123 Normal QRS Normal QTC No ST T wave changes Post 2nd cardioversion EKG Sinus rhythm Ventricular rate is 74 Sinus arrhythmia Normal QRS Normal QTC No ST T wave changes MDM Narrative Medical decision making narrative: Patient does have a history of atrial fibrillation. She is on anticoagulation. She is on amiodarone in the morning and metoprolol in the morning and at night. She stated that she did take her medications this morning. She is in atrial flutter here in the ER. We discussed rate control versus rhythm control. After this discussion the patient opted for sedation and cardioversion. We sedated and cardioverted the patient without issue. She was in sinus rhythm for approximately 30-45 minutes afterwards when she went back into atrial flutter. She was then started on a Cardizem drip. There was no change in her heart rate. I did discuss the case with Dr. Jin on-call for Cardiology. He recommended stopping the Cardizem. Giving her 150 mg bolus of amiodarone and then attempting cardioversion again. I did discuss this with the patient. She was in agreement. She was given the amiodarone. She was once again sedated. This time with 30 mg of propofol. She tolerated the procedure well. She was in sinus rhythm post cardioversion. She remained in sinus rhythm afterwards. She is an appointment with Cardiology in approximately 10 days from now. Will have her keep this appointment. No indication for admission in the hospital. She was given return precautions. She expressed understanding and agreement. Discharge Plan Departure Patient Disposition: Home Clinical Impression: Atrial flutter Instructions: DI for Atrial Flutter Activity Restrictions/Additional Instructions: Recommend that you continue to take all of your medications as directed and keep all of your scheduled medical appointments. Contact your primary doctor for a follow-up. Return to the emergency department for new or worsening symptoms. Prescriptions: No Action albuterol sulfate 2.5 mg /3 mL (0.083 %) solution for nebulization 2.5 mg inhalation Q2H PRN ipratropium bromide 0.02 % solution 2.5 ml inhalation Q1H PRN acetaminophen 325 mg capsule 650 mg PO Q6H PRN budesonide 0.25 mg/2 mL suspension for nebulization 0.25 mg inhalation BID ferrous fumarate 325 mg (106 mg iron) tablet 325 mg PO DAILY famotidine 20 mg tablet 20 mg PO DAILY loratadine 10 mg tablet 10 mg PO DAILY amiodarone 200 mg tablet 200 mg PO DAILY Qty: 90 1RF apixaban 2.5 mg tablet 2.5 mg PO BID Qty: 180 3RF azathioprine 100 mg tablet 150 mg PO DAILY Qty: 135 3RF prednisone 10 mg tablet 10 mg PO DAILY Qty: 90 1RF sulfamethoxazole-trimethoprim 800-160 mg tablet 0.5 tab PO DAILY Qty: 45 1RF metoprolol tartrate 25 mg tablet 12.5 mg PO BID Qty: 90 3RF simethicone [Gas-X Extra Strength] 125 mg capsule 250 mg PO BID PRN (DME) Tracheostomy supplies See Rx Instructions .Route .MEDSUPPLY Qty: 1 0RF Rx Instructions: Shiley #4 uncuffed with backup tracheostomy inner cannulas for Shiley #4 uncuffed tracheosotmy ties for Shiley #4 uncuffed tracheostomy cleaning kits tracheostomy cap (DME) Discontinue All Trach supplies See Rx Instructions .Route .MEDSUPPLY Qty: 1 0RF Rx Instructions: Please discontinue all Oxygen,suction, trach aerosol as well as trach supplies Referrals: Rm Love MD [Primary Care Provider] - Stand Alone Forms: Patient Portal/API
--- NOTE | 2022-12-13 08:20 | DI.RAD.S_ITS ---
PROCEDURE: XR CHEST 1V INDICATIONS: SOB and chest pain TECHNIQUE: One view of the chest was acquired. COMPARISON: [facility], CR, XR CHEST 1V, 06/04/2022, 19:42. FINDINGS: Surgical changes and devices: None. Lungs and pleura: Mild left effusion. Mediastinum: Mediastinal contours appear normal. Heart size is mildly enlarged. Bones and chest wall: No suspicious bony lesions. Overlying soft tissues appear unremarkable. IMPRESSION: Mild left effusion. Underlying areas of pneumonia and/or atelectasis cannot be excluded. Dictated by: Daisy Cazares M.D. on 12/13/2022 at 9:31 Approved by: Daisy Cazares M.D. on 12/13/2022 at 9:33
[2022-12-13] MEDS: METOPROLOL IR 25 MG TABLET PO (08:35)
[2022-12-13 08:40] LABS: Add Manual Diff / Slide Review NO; Basophils Absolute Auto 100 /uL (0-100); Basophils Percent Auto 0.9 % (0-2); Eosinophils Absolute Auto 0 /uL (0-450); Eosinophils Percent Auto 0.1 % (2-4); Hematocrit 33.3 % (36-46); Hemoglobin 11.2 g/dL (12.0-16.0); Lymphocytes Absolute Auto 300 /uL (1100-4500); Lymphocytes Percent Auto 3.1 % (25-40); Mean Corpuscular HGB Conc 33.7 % (30-36); Mean Corpuscular Hemoglobin 33.3 PG (26-34); Mean Corpuscular Volume 98.7 fL (80-100); Monocytes Absolute Auto 800 /uL (0-900); Monocytes Percent Auto 7.6 % (3-14); Neutrophils Absolute Auto 8800 /uL (1500-7000); Neutrophils Percent Auto 88.3 % (50-75); Platelet Count 330 X10^3/uL (150-400); Red Blood Cell Count 3.37 X10^6/uL (4.0-5.2); Red Cell Distribution Width 16.7 % (11.6-14.8)
[2022-12-13 08:47] LABS: INR 1.7 (0.9-1.3); Prothrombin Time 20.1 SECONDS (10.1-12.7)
[2022-12-13 08:49] LABS: PTT Partial Thromboplastin Tim 36 SECONDS (26-36)
[2022-12-13 08:50] LABS: Chloride 101 mmol/L (98-107); HEMOLYSIS < 15 (0-50)
[2022-12-13 08:52] LABS: Alanine Aminotransferase 23 IU/L (<35); Albumin 3.4 g/dL (3.5-5.0); Albumin Globulin Ratio 1.1 (1.0-2.8); Alkaline Phosphatase 45 U/L (38-126); Aspartate Aminotransferase 25 IU/L (14-36); BUN Creatinine Ratio 30.3 (6-22); Bilirubin Total 0.6 mg/dL (0.2-1.3); Blood Urea Nitrogen 20 mg/dL (7-17); Calcium 8.9 mg/dL (8.4-10.2); Carbon Dioxide 28 mmol/L (22-32); Creatine Kinase 37 U/L (30-135); Estimated Glomerular Filt Rate > 60 mL/min (>60); Glucose 136 mg/dL (80-110); Lipase 53 U/L (23-300); Magnesium 2.1 mg/dL (1.6-2.3); Potassium 4.2 mmol/L (3.4-5.1); Sodium 136 mmol/L (137-145); Total Protein 6.4 g/dL (6.3-8.2)
[2022-12-13 09:03] LABS: NT-proBNP (BNP-Adult 18+) 1760 pg/mL (<450); Troponin I < 0.012 ng/mL (0.01-0.034)
[2022-12-13 09:34] LABS: Influenza A - CEPHEID Flu A NEGATIVE (NEGATIVE); Influenza B - CEPHEID Flu B NEGATIVE (NEGATIVE); Respiratory Syncytial Virus Negative (Negative)
[2022-12-13 09:37] LABS: COVID-19 CEPHEID 4-PLEX PCR Negative (Negative)
[2022-12-13] MEDS: propofoL 200 MG/20 ML VIAL 100 MG IV ×2 (10:44→15:25)
[2022-12-13] MEDS: SODIUM CHLORIDE 0.9% 1,000 ML 500 ML IV (10:50)
[2022-12-13] MEDS: SODIUM CHLORIDE 0.9% 1,000 ML 1000 ML IV (11:55)
[2022-12-13] MEDS: dilTIAZem 5 MG/ML SDV 10 MG IV (12:19)
[2022-12-13] MEDS: DILTIAZEM 125 MG/125 ML PIGGYBACK IV (12:44)
[2022-12-13] MEDS: SODIUM CHLORIDE 0.9% 1,000 ML 100 ML IV (12:45)
--- NOTE | 2022-12-13 12:53 | PC.NURSE ---
patient is resting comfortably.
[2022-12-13] MEDS: AMIODARONE 150 MG/100 ML PIGGYBACK 200 MG IV (14:41)
== END 2022-12-13 16:51 | disposition home or self-care (01) ==
PROVIDERS: Emergency Provider Emergency Medicine; Family Provider Family Medicine; PCP Family Medicine
DX: I48.92 Unspecified atrial flutter (principal); Z79.01 Long term (current) use of anticoagulants; R07.9 Chest pain, unspecified; R06.02 Shortness of breath; Z20.822 Contact with and (suspected) exposure to COVID-19
CPT/HCPCS: 0241U; 36415; 71045; 80053; 81003; 82550; 83690; 83735; 83880; 84484; 85025; 85610; 85730; 92960; 93005; 96361; 96365; 96366; 96368; 96375; 99152; 99285; J0282; J2704

== ENCOUNTER 2022-12-15 05:09 | Emergency (ER) | payer MEDICARE, OTHER, SELFPAY ==
[2022-11-29 10:45] VITALS: BMI 23.9
[2022-12-15] VITALS (52 sets, daily range): BP systolic 97–165; BP diastolic 53–101; PULSE 70–147; RESP 12–38; TEMP 37.2; O2SAT 81–100; BMI 23.8
--- NOTE | 2022-12-15 05:07 | ED.GENADULT ---
HPI - General Adult <Kenyetta Yip MD - Last Filed: 12/16/22 02:12> General Chief complaint: Arrhythmia/Palpitations Stated complaint: rapid heartrate Time Seen by Provider: 12/15/22 05:09 History of Present Illness HPI narrative: 82-year-old woman with a history of myasthenia gravis crisis with almost 5 month stay in a long-term care facility recovering nicely. Recently had a tracheostomy removed approximately 2 weeks ago. She still has her PEG tube in place and has not been able to make it to many of her swallow retraining visits. She continues to have all of her nutrition through her PEG tube. She has a history of atrial fibrillation and is on amiodarone as well as metoprolol and anticoagulated on apixaban. She states that many of her medications including her azathioprine cause anxiety and when she gets anxious she gets short of breath which creates a continuous cycle. She was in the emergency department 2 days ago with 2-1 atrial flutter. She was cardioverted and reverted back to atrial flutter within approximately 25 minutes. She was loaded with an additional dose of amiodarone and cardioversion was repeated with success. She has done well in the ensuing 48 hours until this morning when she got up to have a bowel movement. She noted that she was slightly dyspneic with heart rate was 140. She describes no recent fevers, chills, cough, nausea, vomiting, abdominal pain, diarrhea, constipation. She is not complaining of chest pain. She states that she has been taking all of her medications. She has an appointment with Cardiology in about a week. Related Data Home Medications Medication Instructions Recorded Confirmed acetaminophen 325 mg capsule 650 mg PO Q6H PRN 10/30/22 11/29/22 albuterol sulfate 2.5 mg/3 mL 2.5 mg inhalation Q2H PRN 10/30/22 11/29/22 (0.083 %) solution for nebulization budesonide 0.25 mg/2 mL suspension 0.25 mg inhalation BID 10/30/22 11/29/22 for nebulization famotidine 20 mg tablet 20 mg PO DAILY 10/30/22 11/29/22 ferrous fumarate 325 mg (106 mg 325 mg PO DAILY 10/30/22 11/29/22 iron) tablet ipratropium bromide 0.02 % 2.5 ml inhalation Q1H PRN 10/30/22 11/29/22 solution for inhalation loratadine 10 mg tablet 10 mg PO DAILY 10/30/22 11/29/22 simethicone 125 mg capsule (Gas-X 250 mg PO BID PRN 11/07/22 11/29/22 Extra Strength) Previous Rx's Medication Instructions Recorded Tracheostomy supplies #1 ea 11/07/22 amiodarone 200 mg tablet 200 mg PO DAILY #90 tabs 11/21/22 apixaban 2.5 mg tablet 2.5 mg PO BID #180 tabs 11/21/22 azathioprine 100 mg tablet 150 mg (1.5 x 100 mg) PO DAILY 11/21/22 #135 tabs metoprolol tartrate 25 mg tablet 12.5 mg (1/2 x 25 mg) PO BID #90 11/21/22 tabs prednisone 10 mg tablet 10 mg PO DAILY #90 tabs 11/21/22 sulfamethoxazole 800 0.5 tab PO DAILY #45 tabs 11/21/22 mg-trimethoprim 160 mg tablet Discontinue All Trach supplies #1 ea 12/12/22 amiodarone 400 mg tablet 400 mg PO BID #60 tabs 12/15/22 prazosin 1 mg capsule (Minipress) 1 mg PO BEDTIME #14 caps 12/15/22 Allergies Allergy/AdvReac Type Severity Reaction Status Date / Time pantoprazole Allergy Severe Swelling Verified 12/13/22 09:33 of Lip/Tongue/Throat Review of Systems <Kenyetta Yip MD - Last Filed: 12/16/22 02:12> Review of Systems Narrative: Pertinent positive and negative findings as per HPI Patient History <Kenyetta Yip MD - Last Filed: 12/16/22 02:12> Medical History Ischemic colitis Iron deficiency anemia Paroxysmal atrial fibrillation Myasthenia Labile diastolic hypertension Dysphagia SVT (supraventricular tachycardia) Allergic rhinitis Hyperlipidemia Asthma Osteoarthritis of cervical spine (08/15/10) Surgical History S/P percutaneous endoscopic gastrostomy (PEG) tube placement (~06/2022) Status post tracheostomy (~06/2022) Status post cholecystectomy Family History Brother Obstructive sleep apnea Brother Shellfish allergy Social History household members: spouse Smoking Status: Never smoker alcohol intake: former Exam <Kenyetta Yip MD - Last Filed: 12/16/22 02:12> Narrative Exam Narrative: General: Healthy appearing, in no acute distress. Able to give a complete and coherent history. Well-nourished well-developed HEENT: Moist mucous membranes, normal sclera with reactive pupils, Neck: No JVD, supple, healing tracheostomy site covered with a dressing Respiratory: Lungs are clear to auscultation, no wheezing no rales no rhonchi. Full and symmetrical air movement Cardiac: Regular but rapid with no murmurs no bruits Abdomen: Soft, nontender, good bowel tones, no flank pain Skin: Warm and dry, no rashes Neurologic: Grossly neurologically intact with no obvious asymmetries or abnormalities Extremities: No trauma, well perfused Psych: Cooperative, appropriate insight and affect Initial Vital Signs Initial Vital Signs: Vital Signs Temperature 99 F 12/15/22 05:07 Pulse Rate 147 H 12/15/22 05:07 Respiratory Rate 18 12/15/22 05:07 Blood Pressure 148/101 H 12/15/22 05:07 Pulse Oximetry 100 12/15/22 05:07 Oxygen Delivery Method Room Air 12/15/22 05:07 <Tiffanie Stephens MD - Last Filed: 12/15/22 13:27> Initial Vital Signs Initial Vital Signs: Vital Signs Temperature 99 F 12/15/22 05:07 Pulse Rate 147 H 12/15/22 05:07 Respiratory Rate 18 12/15/22 05:07 Blood Pressure 148/101 H 12/15/22 05:07 Pulse Oximetry 100 12/15/22 05:07 Oxygen Delivery Method Room Air 12/15/22 05:07 Procedures <Tiffanie Stephens MD - Last Filed: 12/15/22 13:27> Cardioversion Consent Signed: Yes Indication: atrial fibrillation with RVR Stability: Stable Number of attempts (shocks): 2 Joules used: 150 and 200 Cardiac rhythm post-cardioversion: atrial flutter 2:1 block Procedural Sedation Consent signed: Yes Time out performed: Yes Indication: cardioversion ASA Class: III Mallampati Airway Classification: Class II Time of Last PO Intake: 17:30 Preparation: quality assurance monitor chassis applied, pulse oximeter, capnometry used, supplemental O2 applied, suction/airway equipment at bedside and IV secured IV Propofol dose (mg): 50 Intraservice time/total sedation time (min): 10 ED Sedation Level: Moderate (Concious) Patient Tolerated Procedure: Well Complications: Respiratory Depression-Repositioning Required Interventions: Assist by BVM and Oxygen applied Course <Kenyetta Yip MD - Last Filed: 12/16/22 02:12> Orders Ordered: Discontinued Medications Amiodarone HCl (Amiodarone 200 Mg Tablet) 400 mg PO NOW ONE Stop: 12/15/22 08:09 Last Admin: 12/15/22 08:41 Dose: 400 mg Documented By: FRED Furosemide (Furosemide 40 Mg/4 Ml Vial) 20 mg IV NOW ONE Stop: 12/15/22 08:17 Last Admin: 12/15/22 08:41 Dose: 20 mg Documented By: FRED Amiodarone HCl/Dextrose (Nexterone) 150 mg in 100 mls @ 600 mls/hr IV NOW ONE; Protocol Stop: 12/15/22 05:28 Last Infusion: 12/15/22 05:46 Dose: Infused Documented By: Admin: 12/15/22 05:29 Dose: 600 mls/hr Documented By: ALEJANDRO Metoprolol Tartrate (Metoprolol Ir 25 Mg Tablet) 25 mg PO NOW ONE Stop: 12/15/22 05:23 Last Admin: 12/15/22 05:33 Dose: 25 mg Documented By: ALEJANDRO Propofol (Propofol 200 Mg/20 Ml Vial) 100 mg IV NOW ONE Stop: 12/15/22 08:10 Last Admin: 12/15/22 09:10 Dose: 50 mg Documented By: RB Vital Signs Vital signs: Vital Signs - 8 hr 12/15/22 05:30 12/15/22 05:30 12/15/22 06:00 Pulse Rate 142 H 132 H Respiratory Rate 14 36 H Blood Pressure 147/84 H Pulse Oximetry 99 99 Oxygen Delivery Method Oxygen Flow Rate 12/15/22 06:00 12/15/22 06:20 12/15/22 06:20 Pulse Rate 126 H Respiratory Rate 33 H Blood Pressure 152/89 H 165/92 H Pulse Oximetry 92 Oxygen Delivery Method Oxygen Flow Rate 12/15/22 06:24 12/15/22 06:24 12/15/22 06:30 Pulse Rate 127 H 129 H Respiratory Rate 17 16 Blood Pressure 141/83 H Pulse Oximetry 98 97 Oxygen Delivery Method Oxygen Flow Rate 12/15/22 06:30 12/15/22 07:00 12/15/22 07:01 Pulse Rate 131 H 132 H Respiratory Rate 24 25 H Blood Pressure 130/78 Pulse Oximetry 96 95 Oxygen Delivery Method Oxygen Flow Rate 12/15/22 07:01 12/15/22 07:30 12/15/22 07:30 Pulse Rate 133 H Respiratory Rate 28 H Blood Pressure 126/63 125/59 L Pulse Oximetry 95 Oxygen Delivery Method Oxygen Flow Rate 12/15/22 08:00 12/15/22 08:00 12/15/22 08:30 Pulse Rate 137 H 139 H Respiratory Rate 25 H 18 Blood Pressure 134/81 Pulse Oximetry 95 95 Oxygen Delivery Method Oxygen Flow Rate 12/15/22 08:30 12/15/22 09:10 12/15/22 09:15 Pulse Rate 138 H 140 H Respiratory Rate 27 H Blood Pressure 159/79 H 162/80 H Pulse Oximetry 98 100 Oxygen Delivery Method Nasal Cannula Nasal Cannula Oxygen Flow Rate 0 6 12/15/22 09:15 12/15/22 09:20 12/15/22 09:20 Pulse Rate 136 H Respiratory Rate 24 Blood Pressure 118/69 116/73 Pulse Oximetry 96 Oxygen Delivery Method Nasal Cannula Oxygen Flow Rate 6 12/15/22 09:25 12/15/22 09:25 12/15/22 09:30 Pulse Rate 139 H 141 H Respiratory Rate 36 H 26 H Blood Pressure 107/68 Pulse Oximetry 94 97 Oxygen Delivery Method Room Air Room Air Oxygen Flow Rate 12/15/22 09:30 12/15/22 09:35 12/15/22 09:35 Pulse Rate 143 H Respiratory Rate 28 H Blood Pressure 108/56 L 146/81 H Pulse Oximetry 96 Oxygen Delivery Method Room Air Oxygen Flow Rate 12/15/22 09:40 12/15/22 09:40 12/15/22 09:45 Pulse Rate 144 H 146 H Respiratory Rate 26 H 30 H Blood Pressure 121/63 Pulse Oximetry 97 97 Oxygen Delivery Method Room Air Oxygen Flow Rate 12/15/22 09:45 12/15/22 09:50 12/15/22 09:50 Pulse Rate 110 H Respiratory Rate 24 Blood Pressure 123/75 141/63 H Pulse Oximetry 98 Oxygen Delivery Method Oxygen Flow Rate 12/15/22 09:55 12/15/22 09:55 12/15/22 10:00 Pulse Rate 70 Respiratory Rate 23 Blood Pressure 107/58 L 105/53 L Pulse Oximetry 98 Oxygen Delivery Method Oxygen Flow Rate 12/15/22 10:00 12/15/22 10:05 12/15/22 10:05 Pulse Rate 73 94 H Respiratory Rate 34 H 30 H Blood Pressure 113/59 L Pulse Oximetry 97 97 Oxygen Delivery Method Oxygen Flow Rate 12/15/22 10:10 12/15/22 10:15 12/15/22 10:15 Pulse Rate 71 71 Respiratory Rate 38 H 25 H Blood Pressure 117/59 L Pulse Oximetry 97 96 Oxygen Delivery Method Oxygen Flow Rate 12/15/22 10:20 12/15/22 10:25 12/15/22 10:30 Pulse Rate 71 73 79 Respiratory Rate 25 H 26 H 27 H Blood Pressure Pulse Oximetry 96 95 97 Oxygen Delivery Method Oxygen Flow Rate 12/15/22 10:30 12/15/22 10:35 12/15/22 10:40 Pulse Rate 72 72 Respiratory Rate 25 H 22 Blood Pressure 97/55 L Pulse Oximetry 96 94 Oxygen Delivery Method Oxygen Flow Rate 12/15/22 10:45 12/15/22 10:45 12/15/22 10:50 Pulse Rate 73 111 H Respiratory Rate 24 36 H Blood Pressure 113/59 L Pulse Oximetry 95 91 Oxygen Delivery Method Oxygen Flow Rate 12/15/22 10:55 12/15/22 11:00 12/15/22 11:00 Pulse Rate 77 73 Respiratory Rate 35 H 29 H Blood Pressure 113/57 L Pulse Oximetry 98 97 Oxygen Delivery Method Oxygen Flow Rate 12/15/22 11:05 12/15/22 11:10 12/15/22 11:15 Pulse Rate 86 72 73 Respiratory Rate 26 H 26 H 22 Blood Pressure Pulse Oximetry 96 97 96 Oxygen Delivery Method Oxygen Flow Rate 12/15/22 11:15 12/15/22 11:20 12/15/22 11:25 Pulse Rate 102 H 90 Respiratory Rate 22 26 H Blood Pressure 116/56 L Pulse Oximetry 96 97 Oxygen Delivery Method Oxygen Flow Rate 12/15/22 11:30 12/15/22 11:30 12/15/22 11:35 Pulse Rate 73 72 Respiratory Rate 26 H 25 H Blood Pressure 121/59 L Pulse Oximetry 96 96 Oxygen Delivery Method Oxygen Flow Rate 12/15/22 11:40 12/15/22 11:45 12/15/22 11:45 Pulse Rate 74 73 Respiratory Rate 24 25 H Blood Pressure 112/57 L Pulse Oximetry 97 96 Oxygen Delivery Method Oxygen Flow Rate 12/15/22 11:50 12/15/22 11:55 12/15/22 12:00 Pulse Rate 76 75 74 Respiratory Rate 24 27 H 25 H Blood Pressure Pulse Oximetry 96 97 96 Oxygen Delivery Method Oxygen Flow Rate 12/15/22 12:00 12/15/22 12:05 12/15/22 12:10 Pulse Rate 101 H 94 H Respiratory Rate 31 H 28 H Blood Pressure 117/55 L Pulse Oximetry 97 96 Oxygen Delivery Method Oxygen Flow Rate 12/15/22 12:15 12/15/22 12:15 Pulse Rate 104 H Respiratory Rate 26 H Blood Pressure 123/63 Pulse Oximetry 96 Oxygen Delivery Method Oxygen Flow Rate <Tiffanie Stephens MD - Last Filed: 12/15/22 13:27> Orders Ordered: Discontinued Medications Amiodarone HCl (Amiodarone 200 Mg Tablet) 400 mg PO NOW ONE Stop: 12/15/22 08:09 Last Admin: 12/15/22 08:41 Dose: 400 mg Documented By: RB Furosemide (Furosemide 40 Mg/4 Ml Vial) 20 mg IV NOW ONE Stop: 12/15/22 08:17 Last Admin: 12/15/22 08:41 Dose: 20 mg Documented By: RB Amiodarone HCl/Dextrose (Nexterone) 150 mg in 100 mls @ 600 mls/hr IV NOW ONE; Protocol Stop: 12/15/22 05:28 Last Infusion: 12/15/22 05:46 Dose: Infused Documented By: Admin: 12/15/22 05:29 Dose: 600 mls/hr Documented By: ALEJANDRO Metoprolol Tartrate (Metoprolol Ir 25 Mg Tablet) 25 mg PO NOW ONE Stop: 12/15/22 05:23 Last Admin: 12/15/22 05:33 Dose: 25 mg Documented By: SB Propofol (Propofol 200 Mg/20 Ml Vial) 100 mg IV NOW ONE Stop: 12/15/22 08:10 Last Admin: 12/15/22 09:10 Dose: 50 mg Documented By: FRED Vital Signs Vital signs: Vital Signs - 8 hr 12/15/22 05:30 12/15/22 05:30 12/15/22 06:00 Pulse Rate 142 H 132 H Respiratory Rate 14 36 H Blood Pressure 147/84 H Pulse Oximetry 99 99 Oxygen Delivery Method Oxygen Flow Rate 12/15/22 06:00 12/15/22 06:20 12/15/22 06:20 Pulse Rate 126 H Respiratory Rate 33 H Blood Pressure 152/89 H 165/92 H Pulse Oximetry 92 Oxygen Delivery Method Oxygen Flow Rate 12/15/22 06:24 12/15/22 06:24 12/15/22 06:30 Pulse Rate 127 H 129 H Respiratory Rate 17 16 Blood Pressure 141/83 H Pulse Oximetry 98 97 Oxygen Delivery Method Oxygen Flow Rate 12/15/22 06:30 12/15/22 07:00 12/15/22 07:01 Pulse Rate 131 H 132 H Respiratory Rate 24 25 H Blood Pressure 130/78 Pulse Oximetry 96 95 Oxygen Delivery Method Oxygen Flow Rate 12/15/22 07:01 12/15/22 07:30 12/15/22 07:30 Pulse Rate 133 H Respiratory Rate 28 H Blood Pressure 126/63 125/59 L Pulse Oximetry 95 Oxygen Delivery Method Oxygen Flow Rate 12/15/22 08:00 12/15/22 08:00 12/15/22 08:30 Pulse Rate 137 H 139 H Respiratory Rate 25 H 18 Blood Pressure 134/81 Pulse Oximetry 95 95 Oxygen Delivery Method Oxygen Flow Rate 12/15/22 08:30 12/15/22 09:10 12/15/22 09:15 Pulse Rate 138 H 140 H Respiratory Rate 27 H Blood Pressure 159/79 H 162/80 H Pulse Oximetry 98 100 Oxygen Delivery Method Nasal Cannula Nasal Cannula Oxygen Flow Rate 0 6 12/15/22 09:15 12/15/22 09:20 12/15/22 09:20 Pulse Rate 136 H Respiratory Rate 24 Blood Pressure 118/69 116/73 Pulse Oximetry 96 Oxygen Delivery Method Nasal Cannula Oxygen Flow Rate 6 12/15/22 09:25 12/15/22 09:25 12/15/22 09:30 Pulse Rate 139 H 141 H Respiratory Rate 36 H 26 H Blood Pressure 107/68 Pulse Oximetry 94 97 Oxygen Delivery Method Room Air Room Air Oxygen Flow Rate 12/15/22 09:30 12/15/22 09:35 12/15/22 09:35 Pulse Rate 143 H Respiratory Rate 28 H Blood Pressure 108/56 L 146/81 H Pulse Oximetry 96 Oxygen Delivery Method Room Air Oxygen Flow Rate 12/15/22 09:40 12/15/22 09:40 12/15/22 09:45 Pulse Rate 144 H 146 H Respiratory Rate 26 H 30 H Blood Pressure 121/63 Pulse Oximetry 97 97 Oxygen Delivery Method Room Air Oxygen Flow Rate 12/15/22 09:45 12/15/22 09:50 12/15/22 09:50 Pulse Rate 110 H Respiratory Rate 24 Blood Pressure 123/75 141/63 H Pulse Oximetry 98 Oxygen Delivery Method Oxygen Flow Rate 12/15/22 09:55 12/15/22 09:55 12/15/22 10:00 Pulse Rate 70 Respiratory Rate 23 Blood Pressure 107/58 L 105/53 L Pulse Oximetry 98 Oxygen Delivery Method Oxygen Flow Rate 12/15/22 10:00 12/15/22 10:05 12/15/22 10:05 Pulse Rate 73 94 H Respiratory Rate 34 H 30 H Blood Pressure 113/59 L Pulse Oximetry 97 97 Oxygen Delivery Method Oxygen Flow Rate 12/15/22 10:10 12/15/22 10:15 12/15/22 10:15 Pulse Rate 71 71 Respiratory Rate 38 H 25 H Blood Pressure 117/59 L Pulse Oximetry 97 96 Oxygen Delivery Method Oxygen Flow Rate 12/15/22 10:20 12/15/22 10:25 12/15/22 10:30 Pulse Rate 71 73 79 Respiratory Rate 25 H 26 H 27 H Blood Pressure Pulse Oximetry 96 95 97 Oxygen Delivery Method Oxygen Flow Rate 12/15/22 10:30 12/15/22 10:35 12/15/22 10:40 Pulse Rate 72 72 Respiratory Rate 25 H 22 Blood Pressure 97/55 L Pulse Oximetry 96 94 Oxygen Delivery Method Oxygen Flow Rate 12/15/22 10:45 12/15/22 10:45 12/15/22 10:50 Pulse Rate 73 111 H Respiratory Rate 24 36 H Blood Pressure 113/59 L Pulse Oximetry 95 91 Oxygen Delivery Method Oxygen Flow Rate 12/15/22 10:55 12/15/22 11:00 12/15/22 11:00 Pulse Rate 77 73 Respiratory Rate 35 H 29 H Blood Pressure 113/57 L Pulse Oximetry 98 97 Oxygen Delivery Method Oxygen Flow Rate 12/15/22 11:05 12/15/22 11:10 12/15/22 11:15 Pulse Rate 86 72 73 Respiratory Rate 26 H 26 H 22 Blood Pressure Pulse Oximetry 96 97 96 Oxygen Delivery Method Oxygen Flow Rate 12/15/22 11:15 12/15/22 11:20 12/15/22 11:25 Pulse Rate 102 H 90 Respiratory Rate 22 26 H Blood Pressure 116/56 L Pulse Oximetry 96 97 Oxygen Delivery Method Oxygen Flow Rate 12/15/22 11:30 12/15/22 11:30 12/15/22 11:35 Pulse Rate 73 72 Respiratory Rate 26 H 25 H Blood Pressure 121/59 L Pulse Oximetry 96 96 Oxygen Delivery Method Oxygen Flow Rate 12/15/22 11:40 12/15/22 11:45 12/15/22 11:45 Pulse Rate 74 73 Respiratory Rate 24 25 H Blood Pressure 112/57 L Pulse Oximetry 97 96 Oxygen Delivery Method Oxygen Flow Rate 12/15/22 11:50 12/15/22 11:55 12/15/22 12:00 Pulse Rate 76 75 74 Respiratory Rate 24 27 H 25 H Blood Pressure Pulse Oximetry 96 97 96 Oxygen Delivery Method Oxygen Flow Rate 12/15/22 12:00 12/15/22 12:05 12/15/22 12:10 Pulse Rate 101 H 94 H Respiratory Rate 31 H 28 H Blood Pressure 117/55 L Pulse Oximetry 97 96 Oxygen Delivery Method Oxygen Flow Rate 12/15/22 12:15 12/15/22 12:15 Pulse Rate 104 H Respiratory Rate 26 H Blood Pressure 123/63 Pulse Oximetry 96 Oxygen Delivery Method Oxygen Flow Rate Medical Decision Making <Kenyetta Yip MD - Last Filed: 12/16/22 02:12> Lab Data 12/15/22 05:11 12/15/22 05:11 Labs: Lab Results 12/15/22 12/15/22 Range/Units 05:11 06:07 WBC 8.9 (4.5-11.0) X10^3/uL RBC 3.63 L (4.0-5.2) X10^6/uL Hgb 12.0 (12.0-16.0) g/dL Hct 35.8 L (36-46) % MCV 98.8 (80-100) fL MCH 33.0 (26-34) PG MCHC 33.4 (30-36) % RDW 16.5 H (11.6-14.8) % Plt Count 424 H (150-400) X10^3/uL Neut % (Auto) 63.0 D (50-75) % Lymph % (Auto) 24.9 L D (25-40) % Dukes % (Auto) 9.1 (3-14) % Eos % (Auto) 2.2 (2-4) % Baso % (Auto) 0.8 (0-2) % Neut # (Auto) 5600 (1999-5964) /uL Lymph # (Auto) 2200 (8866-7250) /uL Dukes # (Auto) 800 (0-900) /uL Eos # (Auto) 200 (0-450) /uL Baso # (Auto) 100 (0-100) /uL D-Dimer 3541 H (<500) ng/ml Sodium 140 (137-145) mmol/L Potassium 3.9 (3.4-5.1) mmol/L Chloride 102 (98-107) mmol/L Carbon Dioxide 30 (22-32) mmol/L BUN 14 (7-17) mg/dL Creatinine 0.67 (0.52-1.04) mg/dL Estimated GFR > 60 (>60) mL/min BUN/Creatinine Ratio 20.9 (6-22) Glucose 103 (80-110) mg/dL Calcium 9.6 (8.4-10.2) mg/dL Total Bilirubin 0.7 (0.2-1.3) mg/dL AST 26 (14-36) IU/L ALT 24 (<35) IU/L Alkaline Phosphatase 47 (38-126) U/L Troponin I < 0.012 (0.01-0.034) ng/mL NT-Pro-B Natriuret Pep 5240 H (<450) pg/mL Total Protein 7.0 (6.3-8.2) g/dL Albumin 3.8 (3.5-5.0) g/dL Globulin 3.2 (1.7-4.1) g/dL Albumin/Globulin Ratio 1.2 (1.0-2.8) Point of Care Testing Test Results Not applicable Point of care testing: Point of Care Testing Test Results Not applicable MDM Narrative Medical decision making narrative: CC: Rapid heart rate Complicating co-morbidities: Recent extended [facility] facility stay secondary to myasthenia crisis complicated by pneumonia and trach tube placement. The tube was removed 2 weeks ago. She is had recurrent episodes of atrial fibrillation and is currently on amiodarone 200 mg a day and 12.5 mg of metoprolol tartrate b.i.d.. Data collected from: patient, Medical records reviewed: ER notes from December 13 with similar presentation, primary care notes from November 21 and October 30 are reviewed Differential considered: Recurrent atrial flutter, atrial fibrillation, supraventricular tachycardia, sinus tachycardia, acute coronary syndrome, pulmonary embolism Exam documented above, pertinent findings include: 82-year-old woman actually appearing much younger than stated age quite healthy-appearing able to give a complete and coherent history. Her heart rate is at 140, regular. She is no lower extremity edema no crackles no abdominal pain Lab Test results independently reviewed as above. Pertinent findings: CBC is unremarkable with no leukocytosis or significant anemia D-dimer is significantly elevated at 3541 Thyroid levels were appropriate in November of 2022 Independently reviewed EKG atrial flutter the 2-1 block at a rate of 144. Nonspecific ST T wave abnormalities Imaging studies independently reviewed: Chest x-ray shows cardiomegaly with moderate left pleural effusion. Pleural effusion is increased compared to chest x-ray 48 hours ago. Most recent echocardiogram was June of 2022, she was in rapid AFib at that time. Ejection fraction is estimated at 65%. There is a note made of moderate to severe mitral valve insufficiency. There is a question of thrombus or organized effusion that is slightly compressing the RV and RVOT without evidence of tamponade. Consultations: Treatments: IV amiodorone, PO metoprolol Re-evaluations: 06:15 labs as well as elevated D-dimer and pleural effusion reviewed with the patient. The fact that she still remains clinically stable, pain-free will proceed with CT scan of the chest Discussion: 82-year-old woman presents for the 2nd time within 48 hours with recurrent 2-1 atrial flutter. With her most recent ER visit she was eventually cardioverted which was successful for approximately half an hour. She was then loaded with an additional 150 mg of amiodarone and 2nd cardioversion was performed. We will go ahead and load her with amiodarone 150 mg and give her her morning dose metoprolol before we attempt cardioverting her this morning. 48 hours ago using 30 mg of propofol and 120 joules were effective for cardioversion we will begin with those starting points today. Chest x-ray shows progressive left-sided pleural effusion. D-dimer is elevated. Will re-evaluate after CT for pulmonary embolism to see if there is an alternate explanation or underlying cause for her recurrent episodes of atrial flutter as well as her anxiety. Regarding her anxiety, I suspect that there is a significant component of PTSD from her extended hospitalization, depression all contributing to her anxiety. She had questions about using CBD. She may actually do well with a very low dose SSRI to treat the post hospitalization depression/anxiety/PTSD. I am not sure that BuSpar will be all that effective for her and benzodiazepines are going to be relatively contraindicated with her list of medications as well as her age and active metabolites seen with longer acting benzodiazepines. <Tiffanie Stephens MD - Last Filed: 12/15/22 13:27> Lab Data Labs: Lab Results 12/15/22 12/15/22 Range/Units 05:11 06:07 WBC 8.9 (4.5-11.0) X10^3/uL RBC 3.63 L (4.0-5.2) X10^6/uL Hgb 12.0 (12.0-16.0) g/dL Hct 35.8 L (36-46) % MCV 98.8 (80-100) fL MCH 33.0 (26-34) PG MCHC 33.4 (30-36) % RDW 16.5 H (11.6-14.8) % Plt Count 424 H (150-400) X10^3/uL Neut % (Auto) 63.0 D (50-75) % Lymph % (Auto) 24.9 L D (25-40) % Dukes % (Auto) 9.1 (3-14) % Eos % (Auto) 2.2 (2-4) % Baso % (Auto) 0.8 (0-2) % Neut # (Auto) 5600 (3799-5139) /uL Lymph # (Auto) 2200 (7594-4382) /uL Dukes # (Auto) 800 (0-900) /uL Eos # (Auto) 200 (0-450) /uL Baso # (Auto) 100 (0-100) /uL D-Dimer 3541 H (<500) ng/ml Sodium 140 (137-145) mmol/L Potassium 3.9 (3.4-5.1) mmol/L Chloride 102 (98-107) mmol/L Carbon Dioxide 30 (22-32) mmol/L BUN 14 (7-17) mg/dL Creatinine 0.67 (0.52-1.04) mg/dL Estimated GFR > 60 (>60) mL/min BUN/Creatinine Ratio 20.9 (6-22) Glucose 103 (80-110) mg/dL Calcium 9.6 (8.4-10.2) mg/dL Total Bilirubin 0.7 (0.2-1.3) mg/dL AST 26 (14-36) IU/L ALT 24 (<35) IU/L Alkaline Phosphatase 47 (38-126) U/L Troponin I < 0.012 (0.01-0.034) ng/mL NT-Pro-B Natriuret Pep 5240 H (<450) pg/mL Total Protein 7.0 (6.3-8.2) g/dL Albumin 3.8 (3.5-5.0) g/dL Globulin 3.2 (1.7-4.1) g/dL Albumin/Globulin Ratio 1.2 (1.0-2.8) Point of Care Testing Test Results Not applicable Point of care testing: Point of Care Testing Test Results Not applicable MDM Narrative Medical decision making narrative: CC: Rapid heart rate Complicating co-morbidities: Recent extended [facility] stay secondary to myasthenia crisis complicated by pneumonia and trach tube placement. The tube was removed 2 weeks ago. She is had recurrent episodes of atrial fibrillation and is currently on amiodarone 200 mg a day and 12.5 mg of metoprolol tartrate b.i.d.. Data collected from: patient, Medical records reviewed: ER notes from December 13 with similar presentation, primary care notes from November 21 and October 30 are reviewed Differential considered: Recurrent atrial flutter, atrial fibrillation, supraventricular tachycardia, sinus tachycardia, acute coronary syndrome, pulmonary embolism Exam documented above, pertinent findings include: 82-year-old woman actually appearing much younger than stated age quite healthy-appearing able to give a complete and coherent history. Her heart rate is at 140, regular. She is no lower extremity edema no crackles no abdominal pain Lab Test results independently reviewed as above. Pertinent findings: CBC is unremarkable with no leukocytosis or significant anemia D-dimer is significantly elevated at 3541 Thyroid levels were appropriate in November of 2022 Independently reviewed EKG atrial flutter the 2-1 block at a rate of 144. Nonspecific ST T wave abnormalities Imaging studies independently reviewed: Chest x-ray shows cardiomegaly with moderate left pleural effusion. Pleural effusion is increased compared to chest x-ray 48 hours ago. Most recent echocardiogram was June of 2022, she was in rapid AFib at that time. Ejection fraction is estimated at 65%. There is a note made of moderate to severe mitral valve insufficiency. There is a question of thrombus or organized effusion that is slightly compressing the RV and RVOT without evidence of tamponade. Consultations: Treatments: IV amiodorone, PO metoprolol Re-evaluations: 06:15 labs as well as elevated D-dimer and pleural effusion reviewed with the patient. The fact that she still remains clinically stable, pain-free will proceed with CT scan of the chest Discussion: 82-year-old woman presents for the 2nd time within 48 hours with recurrent 2-1 atrial flutter. With her most recent ER visit she was eventually cardioverted which was successful for approximately half an hour. She was then loaded with an additional 150 mg of amiodarone and 2nd cardioversion was performed. We will go ahead and load her with amiodarone 150 mg and give her her morning dose metoprolol before we attempt cardioverting her this morning. 48 hours ago using 30 mg of propofol and 120 joules were effective for cardioversion we will begin with those starting points today. Chest x-ray shows progressive left-sided pleural effusion. D-dimer is elevated. Will re-evaluate after CT for pulmonary embolism to see if there is an alternate explanation or underlying cause for her recurrent episodes of atrial flutter as well as her anxiety. Regarding her anxiety, I suspect that there is a significant component of PTSD from her extended hospitalization, depression all contributing to her anxiety. She had questions about using CBD. She may actually do well with a very low dose SSRI to treat the post hospitalization depression/anxiety/PTSD. I am not sure that BuSpar will be all that effective for her and benzodiazepines are going to be relatively contraindicated with her list of medications as well as her age and active metabolites seen with longer acting benzodiazepines. Dr. Stephens ([id number]) -care of patient is signed out to me by Dr. Yip. Patient remains in atrial fibrillation with RVR, however resting comfortably, vital signs stable, denies chest pain or shortness of breath. Laboratory work is reviewed. Magnesium 2.1 on 12/13/2022. CT angio of the chest shows no pulmonary embolism, mildly increased pleural effusion from prior. Superimposed consolidation not excluded, however in the presence of normal labs and no respiratory symptoms this is likely compressive due to pleural effusion. Discussed patient's case with Dr. Pace of cardiology. Agreed with bolus of amiodarone, recommended electrical cardioversion, increase in amiodarone to 400 mg b.i.d. for 1 week and OJSE follow up with Cardiology. Patient consented to conscious sedation and electric cardioversion. Cardioversion was attempted x2 synchronized at 1:50 a.m. joules and 200 joules, however patient immediately went back into atrial fibrillation with RVR. After the attempted cardioversion while waiting for call back from cardiology the patient converted to 70bpm, sinus rhythm. She remained in sinus rhythm for several hours with no change back to flutter with 2-1 block. Discussed case again with Dr. Pace, who recommended keepin original plan of 400mg BID amiodarone and cardiology follow up. ED return precautions discussed at bedside. Patient expressed understanding of the plan and is in agreement at this time. All questions answered at the time of discharge. Patient requested medication for anxiety at home - due to history of myasthenia gravis options are limited. Review of literature shows that prazosin is an option that does not seem to lead to crisis. Short course sent to pharmacy. Critical Care Time <Tiffanie Stephens MD - Last Filed: 12/15/22 13:27> Critical Care Time Critical Care Time: Yes Total Critical Care Time: 59 Attestation: Atrial flutter 2-1 block requiring cardioversion, discussions with cardiology. Discharge Plan Departure Patient Disposition: Home Clinical Impression: Atrial flutter with rapid ventricular response, Myasthenia, Anxiety, Pleural effusion Activity Restrictions/Additional Instructions: INCREASE AMIODARONE TO 400 MG TWICE DAILY. KEEP YOUR FOLLOW-UP APPOINTMENT WITH CARDIOLOGY. IF YOU NOTICE YOUR HEART RATE INCREASING DESPITE YOUR MEDICATIONS PLEASE RETURN TO THE EMERGENCY DEPARTMENT FOR EVALUATION. Prescriptions: New amiodarone 400 mg tablet 400 mg PO BID Qty: 60 0RF prazosin [Minipress] 1 mg capsule 1 mg PO BEDTIME Qty: 14 0RF No Action albuterol sulfate 2.5 mg /3 mL (0.083 %) solution for nebulization 2.5 mg inhalation Q2H PRN ipratropium bromide 0.02 % solution 2.5 ml inhalation Q1H PRN acetaminophen 325 mg capsule 650 mg PO Q6H PRN budesonide 0.25 mg/2 mL suspension for nebulization 0.25 mg inhalation BID ferrous fumarate 325 mg (106 mg iron) tablet 325 mg PO DAILY famotidine 20 mg tablet 20 mg PO DAILY loratadine 10 mg tablet 10 mg PO DAILY amiodarone 200 mg tablet 200 mg PO DAILY Qty: 90 1RF apixaban 2.5 mg tablet 2.5 mg PO BID Qty: 180 3RF azathioprine 100 mg tablet 150 mg PO DAILY Qty: 135 3RF prednisone 10 mg tablet 10 mg PO DAILY Qty: 90 1RF sulfamethoxazole-trimethoprim 800-160 mg tablet 0.5 tab PO DAILY Qty: 45 1RF metoprolol tartrate 25 mg tablet 12.5 mg PO BID Qty: 90 3RF simethicone [Gas-X Extra Strength] 125 mg capsule 250 mg PO BID PRN (DME) Tracheostomy supplies See Rx Instructions .Route .MEDSUPPLY Qty: 1 0RF Rx Instructions: Shiley #4 uncuffed with backup tracheostomy inner cannulas for Shiley #4 uncuffed tracheosotmy ties for Shiley #4 uncuffed tracheostomy cleaning kits tracheostomy cap (DME) Discontinue All Trach supplies See Rx Instructions .Route .MEDSUPPLY Qty: 1 0RF Rx Instructions: Please discontinue all Oxygen,suction, trach aerosol as well as trach supplies Referrals: Rm Love MD [Primary Care Provider] - Stand Alone Forms: Patient Portal/API
--- NOTE | 2022-12-15 05:20 | DI.RAD.S_ITS ---
PROCEDURE: XR CHEST 1V INDICATIONS: dyspnea TECHNIQUE: One view of the chest was acquired. COMPARISON: [facility], CT, CT ANGIO CHEST PE PROTOCOL, 12/15/2022, 6:04. [facility], CR, XR CHEST 1V, 12/13/2022, 8:43. [facility], CR, XR CHEST 1V, 06/04/2022, 19:42. FINDINGS: Surgical changes and devices: None. Lungs and pleura: Small to moderate left pleural effusion appears mildly increased when compared to the radiographs from 12/13/2022. There is associated left basilar atelectasis or consolidation. The right lung is clear. No pneumothorax. Mediastinum: Mediastinal contours appear normal. Heart size is normal. Bones and chest wall: No suspicious bony lesions. Overlying soft tissues appear unremarkable. IMPRESSION: Small to moderate left pleural effusion has mildly increased when compared to 12/13/2022. There is no significant discrepancy when compared to the overnight preliminary report. Approved by: Trevon Quesada M.D. on 12/15/2022 at 8:14
[2022-12-15] MEDS: AMIODARONE 150 MG/100 ML PIGGYBACK 600 MG IV (05:29)
[2022-12-15] MEDS: METOPROLOL IR 25 MG TABLET PO (05:33)
[2022-12-15 05:41] LABS: Add Manual Diff / Slide Review NO; Basophils Absolute Auto 100 /uL (0-100); Basophils Percent Auto 0.8 % (0-2); Eosinophils Absolute Auto 200 /uL (0-450); Eosinophils Percent Auto 2.2 % (2-4); Hematocrit 35.8 % (36-46); Lymphocytes Absolute Auto 2200 /uL (1100-4500); Lymphocytes Percent Auto 24.9 % (25-40); Mean Corpuscular HGB Conc 33.4 % (30-36); Mean Corpuscular Volume 98.8 fL (80-100); Monocytes Absolute Auto 800 /uL (0-900); Monocytes Percent Auto 9.1 % (3-14); Neutrophils Absolute Auto 5600 /uL (1500-7000); Platelet Count 424 X10^3/uL (150-400); Red Blood Cell Count 3.63 X10^6/uL (4.0-5.2); Red Cell Distribution Width 16.5 % (11.6-14.8); White Blood Cell Count 8.9 X10^3/uL (4.5-11.0)
[2022-12-15 05:49] LABS: D Dimer 3541 ng/ml (<500)
[2022-12-15 05:50] LABS: Alanine Aminotransferase 24 IU/L (<35); Albumin 3.8 g/dL (3.5-5.0); Albumin Globulin Ratio 1.2 (1.0-2.8); Alkaline Phosphatase 47 U/L (38-126); Aspartate Aminotransferase 26 IU/L (14-36); BUN Creatinine Ratio 20.9 (6-22); Bilirubin Total 0.7 mg/dL (0.2-1.3); Blood Urea Nitrogen 14 mg/dL (7-17); Calcium 9.6 mg/dL (8.4-10.2); Carbon Dioxide 30 mmol/L (22-32); Chloride 102 mmol/L (98-107); Estimated Glomerular Filt Rate > 60 mL/min (>60); Globulin 3.2 g/dL (1.7-4.1); Glucose 103 mg/dL (80-110); HEMOLYSIS < 15 (0-50); Potassium 3.9 mmol/L (3.4-5.1); Sodium 140 mmol/L (137-145)
--- NOTE | 2022-12-15 05:56 | DI.CT.S_ITS ---
PROCEDURE: CT ANGIO CHEST PE PROTOCOL INDICATIONS: elevated d dimer, recurrent a flutter, increased pleural eff TECHNIQUE: After the administration of intravenous contrast, 2 mm thick sections acquired from the pulmonary apices to the posterior costophrenic angles. 3-dimensional maximum intensity projection (MIP) coronal and sagittal reformats were then acquired through the thorax. For radiation dose reduction, the following was used: automated exposure control, adjustment of mA and/or kV according to patient size. COMPARISON: [facility], CR, XR CHEST 1V, 06/04/2022, 19:42. [facility], CR, XR CHEST 1V, 12/13/2022, 8:43. [facility], CR, XR CHEST 1V, 12/15/2022, 5:22. FINDINGS: Image quality: Excellent. Pulmonary arteries: Pulmonary arteries are normal in size, and demonstrate no intraluminal filling defects to suggest central pulmonary embolism. Lungs and pleura: Small to moderate left pleural effusion with atelectasis of the adjacent lung base versus possibly consolidation. Small right pleural effusion is also present. Scattered benign calcified granulomas are present. The lungs are otherwise clear. Central and peripheral airways are patent. Mediastinum: Heart size is normal. There is a small/moderate pericardial effusion. No mediastinal or hilar adenopathy. Thoracic aorta is normal in caliber and enhancement. Esophagus is normal in caliber, without hiatal hernia. Bones and chest wall: No suspicious bony lesions. Ribs and thoracic spine appear intact throughout. Small calcified left thyroid nodule is noted. Possible enlarged parathyroid gland versus exophytic thyroid nodule or hyperdense lymph nodes along the inferior margin of the right thyroid. No axillary or supraclavicular adenopathy. Abdomen: Mild reflux of contrast material into the hepatic veins. Visualized upper abdominal solid organs appear normal in the early arterial phase of enhancement. IMPRESSION: 1. No acute pulmonary embolus. 2. Small to moderate left and small right pleural effusions with atelectasis of the lung bases. Superimposed small consolidation at the left lung base is not entirely excluded. 3. Small to moderate pericardial effusion. There is no significant discrepancy when compared to the overnight preliminary report. Approved by: Trevon Quesada M.D. on 12/15/2022 at 8:20
[2022-12-15 06:01] LABS: Troponin I < 0.012 ng/mL (0.01-0.034)
[2022-12-15 06:37] LABS: NT-proBNP (BNP-Adult 18+) 5240 pg/mL (<450)
[2022-12-15] MEDS: AMIODARONE 200 MG TABLET 400 MG PO (08:41)
[2022-12-15] MEDS: FUROSEMIDE 40 MG/4 ML VIAL 20 MG IV (08:41)
[2022-12-15] MEDS: propofoL 200 MG/20 ML VIAL 100 MG IV (09:10)
--- NOTE | 2022-12-15 10:59 | PC.NURSE ---
Patient blood pressure has decreased and respirations increased. This RN checked on patient and patient is snoring and eyes are closed. Patient breathing is steady and without apnea. Patient skin is pink, warm and dry. Patient cap refill remains <2 seconds.
== END 2022-12-15 12:25 | disposition home or self-care (01) ==
PROVIDERS: Emergency Medicine; Emergency Provider Emergency Medicine; Family Provider Family Medicine; PCP Family Medicine
DX: I48.92 Unspecified atrial flutter (principal); Z79.01 Long term (current) use of anticoagulants; G70.9 Myoneural disorder, unspecified; F41.9 Anxiety disorder, unspecified; J90 Pleural effusion, not elsewhere classified; Z93.1 Gastrostomy status
CPT/HCPCS: 36415; 71045; 71275; 80053; 83880; 84484; 85025; 85379; 92960; 93005; 96365; 96375; 99152; 99285; 99291; J0282; J1940; J2704; Q9967

== ENCOUNTER → 2022-12-22 17:31 | Outpatient (CLI) | payer MEDICARE, OTHER, SELFPAY ==
[2022-11-29 10:45] VITALS: BMI 23.9
[2022-12-22 18:46] LABS: Body Fluid Red Blood Cells 2386 /uL; Body Fluid Tot Nucleated Cells 435 /uL
[2022-12-22 18:58] LABS: Body Fluid Color YELLOW
[2022-12-22 18:59] LABS: Body Fluid Appearance HAZY; Body Fluid Clotted? NO CLOTS PRESENT
[2022-12-22 19:04] LABS: Mononuclear WBC Body Fluid 89 %; Polynuclear WBC Body Fluid 11 %
[2022-12-26 08:36] LABS: Labcorp Glucose, Body Fluid 151 mg/dL (.); Labcorp LDH, Body Fluid 251 IU/L (.); Labcorp Total Prot, Body Fluid 3.6 g/dL (.)
== END ==
PROVIDERS: Family Provider Family Medicine; PCP Family Medicine; Visit Provider Internal Medicine
DX: J90 Pleural effusion, not elsewhere classified (principal); I48.92 Unspecified atrial flutter; Z43.0 Encounter for attention to tracheostomy
CPT/HCPCS: 32555; 82945; 83615; 84157; 87070; 87075; 87205; 89051; 99215

== ENCOUNTER 2022-12-26 15:54 | Emergency (ER) | payer MEDICARE, OTHER, SELFPAY ==
[2022-11-29 10:45] VITALS: BMI 23.9
[2022-12-26] VITALS (56 sets, daily range): BP systolic 96–136; BP diastolic 52–74; PULSE 118–146; RESP 13–29; TEMP 36.6; O2SAT 91–99; BMI 24.1
--- NOTE | 2022-12-26 16:02 | DI.RAD.S_ITS ---
PROCEDURE: XR CHEST 1V INDICATIONS: Arrhythmia TECHNIQUE: One view of the chest was acquired. COMPARISON: [facility], CR, XR CHEST 1V, 12/15/2022, 5:22. [facility], CR, XR CHEST 1V, 12/13/2022, 8:43. FINDINGS: Surgical changes and devices: Cholecystectomy clips. Lungs and pleura: Small left pleural effusion, decreased compared to 12/15/2022. Underlying mild left lung opacity. Mediastinum: Mild cardiomegaly. Bones and chest wall: Degenerative changes. IMPRESSION: Small left pleural effusion and underlying opacity, slightly decreased compared to 12/15/2022. Consider future imaging surveillance to assess for resolution. Dictated by: Robert Servin M.D. on 12/26/2022 at 16:47 Approved by: Robert Servin M.D. on 12/26/2022 at 16:48
--- NOTE | 2022-12-26 16:05 | ED.ARRPALP ---
HPI - Arrhythmia/Palpitations <Tiffanie Plaza, - Last Filed: 12/27/22 17:46> General Chief Complaint: Arrhythmia/Palpitations Stated Complaint: A-flutter Time Seen by Provider: 12/26/22 16:02 Source: patient, EMS, RN notes reviewed and old records reviewed Mode of arrival: EMS Limitations: no limitations History of Present Illness HPI narrative: 82-year-old female with history of myasthenia gravis crisis with 5 month longstanding long-term facility with recent tracheostomy removal peg tube still in place patient presents with recurrent dysrhythmia anticoagulated on apixaban. Patient states she has a history of arrhythmia had cardioversion on the only lasted several hours return had a 2nd cardioversion and then was seen again several days later and had a 3rd at that time with adjustments of her medications to amiodarone 400 mg. Patient states she is felt fatigued but does not have any chest pain or shortness of breath. No fevers or chills. No nausea or vomiting. No diaphoresis. She denies any other new GI or urinary symptoms. No new swelling in her extremities. But states she feels similar with her fatigue when she is tachycardic. She states she no longer feels when her heart rate is fast. Patient states she has been in touch with her agricultural produce sorter they are discussing ablation but not until March. She has been taking her medication she is anticoagulated with apixaban. Allergic to pantoprazole. No tobacco, occasional alcohol, no recreational drugs. Primary care is Dr. Love. Dr. Matamoros is her medical case worker. Patient also notes she would a recent thoracentesis in the past 1-[address] 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 Related Data Home Medications Medication Instructions Recorded Confirmed acetaminophen 325 mg capsule 650 mg PO Q6H PRN 10/30/22 12/18/22 albuterol sulfate 2.5 mg/3 mL 2.5 mg inhalation Q2H PRN 10/30/22 12/18/22 (0.083 %) solution for nebulization budesonide 0.25 mg/2 mL suspension 0.25 mg inhalation BID 10/30/22 12/18/22 for nebulization famotidine 20 mg tablet 20 mg PO DAILY 10/30/22 12/18/22 ferrous fumarate 325 mg (106 mg 325 mg PO DAILY 10/30/22 12/18/22 iron) tablet ipratropium bromide 0.02 % 2.5 ml inhalation Q1H PRN 10/30/22 12/18/22 solution for inhalation loratadine 10 mg tablet 10 mg PO DAILY 10/30/22 12/18/22 simethicone 125 mg capsule (Gas-X 250 mg PO BID PRN 11/07/22 12/18/22 Extra Strength) Previous Rx's Medication Instructions Recorded Tracheostomy supplies #1 ea 11/07/22 apixaban 2.5 mg tablet 2.5 mg PO BID #180 tabs 11/21/22 azathioprine 100 mg tablet 150 mg (1.5 x 100 mg) PO DAILY 11/21/22 #135 tabs metoprolol tartrate 25 mg tablet 12.5 mg (1/2 x 25 mg) PO BID #90 11/21/22 tabs prednisone 10 mg tablet 10 mg PO DAILY #90 tabs 11/21/22 sulfamethoxazole 800 0.5 tab PO DAILY #45 tabs 11/21/22 mg-trimethoprim 160 mg tablet Discontinue All Trach supplies #1 ea 12/12/22 amiodarone 400 mg tablet 400 mg PO BID #60 tabs 12/15/22 prazosin 1 mg capsule (Minipress) 1 mg PO BEDTIME #14 caps 12/15/22 furosemide 20 mg tablet 20 mg PO DAILY #10 tabs 12/18/22 ondansetron 4 mg disintegrating 4 mg PO BID PRN nausea and 12/26/22 tablet vomiting #30 tabs Allergies Allergy/AdvReac Type Severity Reaction Status Date / Time pantoprazole Allergy Severe Swelling Verified 12/22/22 09:55 of Lip/Tongue/Throat Review of Systems <Tiffanie Plaza DO - Last Filed: 12/27/22 17:46> Review of Systems ROS Unobtainable: All systems reviewed & are unremarkable except as noted in HPI and below Patient History <Tiffanie Plaza DO - Last Filed: 12/27/22 17:46> Medical History Ischemic colitis Iron deficiency anemia Paroxysmal atrial fibrillation Myasthenia Labile diastolic hypertension Dysphagia SVT (supraventricular tachycardia) Allergic rhinitis Hyperlipidemia Asthma Osteoarthritis of cervical spine (08/15/10) Surgical History S/P percutaneous endoscopic gastrostomy (PEG) tube placement (~06/2022) Status post tracheostomy (~06/2022) Status post cholecystectomy Family History Brother Obstructive sleep apnea Brother Shellfish allergy Social History household members: spouse Smoking Status: Never smoker alcohol intake: former Smoking Status: Never smoker alcohol intake frequency: holidays/special occasions only Substance Use Type: does not use Exam <Tiffaine Plaza DO - Last Filed: 12/27/22 17:46> Narrative Exam Narrative: GENERAL: Alert and oriented x three, elderly female in mild distress. HEENT: Head normocephalic, atraumatic, EOMI, pupils reactive, xanthelasma bilateral upper eyelids. Face symmetric, moist mucous membranes NECK: Supple, full range of motion, patient has a Band-Aid over her stoma site. CARDIOVASCULAR: Tachycardic but Regular rate and rhythm without murmurs, rubs or gallops. No JVD. No swelling bilateral lower extremities. RESPIRATORY: Breath sounds equal bilaterally, no wheezes rales or rhonchi. No tachypnea or accessory muscle use. ABDOMEN: Soft, nontender. Normoactive bowel sounds all 4 quadrants. No guarding or rebound, rigidity, no mass : No CVA tenderness EXTREMITIES: Normal range of motion, no clubbing or edema. Neurovascularly intact. 2 +pulses upper and lower extremities. NEUROLOGICAL: Cranial nerves II through XII grossly intact. Moving all extremities SKIN: Warm, dry, no petechiae, no rashes or lesions. Initial Vital Signs Initial Vital Signs: Vital Signs Pulse Rate 135 H 12/26/22 16:01 Respiratory Rate 20 12/26/22 16:01 Pulse Oximetry 97 12/26/22 16:01 <Kenyetta Yip MD - Last Filed: 12/27/22 05:38> Initial Vital Signs Initial Vital Signs: Vital Signs Pulse Rate 135 H 12/26/22 16:01 Respiratory Rate 20 12/26/22 16:01 Pulse Oximetry 97 12/26/22 16:01 Procedures <Kenyetta Yip MD - Last Filed: 12/27/22 05:38> Cardioversion Time of Cardioversion: 22:50 (12/26/22) Consent Signed: Yes Indication: Recurrent atrial flutter Stability: Stable Number of attempts (shocks): 1 Joules used: 200 Cardiac rhythm post-cardioversion: Sinus rhythm for 3 minutes then converted back to atrial flutter Procedural Sedation Time of procedure: 22:50 (12/26/22) Consent signed: Yes Time out performed: Yes Indication: cardioversion ASA Class: II Mallampati Airway Classification: Class II Preparation: environmental monitoring specialist applied, pulse oximeter, capnometry used, supplemental O2 applied, suction/airway equipment at bedside and IV secured IV Propofol dose (mg): 30 Intraservice time/total sedation time (min): 7 ED Sedation Level: Moderate (Concious) Patient Tolerated Procedure: Well Complications: none Course <Tiffanie Plaza DO - Last Filed: 12/27/22 17:46> Orders Ordered: Discontinued Medications Amiodarone HCl (Amiodarone 200 Mg Tablet) 400 mg PO NOW ONE Stop: 12/26/22 19:14 Last Admin: 12/26/22 19:46 Dose: 400 mg Documented By: LOGAN Sodium Chloride (Normal Saline 0.9%) 1,000 mls @ 1,000 mls/hr IV BOLUS ONE Stop: 12/26/22 17:01 Last Infusion: 12/26/22 18:02 Dose: Infused Documented By: Admin: 12/26/22 16:28 Dose: 1,000 mls/hr Documented By: LAURA Amiodarone HCl/Dextrose (Nexterone) 150 mg in 100 mls @ 600 mls/hr IV NOW ONE; Protocol Stop: 12/26/22 18:53 Last Infusion: 12/26/22 19:28 Dose: Infused Documented By: Admin: 12/26/22 19:03 Dose: 300 mls/hr Documented By: LAURA Lorazepam (Lorazepam 2 Mg/Ml Inj) 0.5 mg IV NOW ONE Stop: 12/26/22 19:01 Last Admin: 12/26/22 19:03 Dose: 0.5 mg Documented By: LAURA Ondansetron HCl (Ondansetron 4 Mg/2 Ml Inj) 4 mg IV NOW ONE Stop: 12/26/22 18:58 Last Admin: 12/26/22 19:00 Dose: Not Given Documented By: BALTAZAR Propofol (Propofol 200 Mg/20 Ml Vial) 30 mg 0.5 mg/kg (30 mg) IV NOW ONE Stop: 12/26/22 22:04 Last Admin: 12/26/22 22:50 Dose: 30 mg Documented By: LOGAN Vital Signs Vital signs: Vital Signs - 8 hr 12/26/22 21:40 12/26/22 21:40 12/26/22 22:00 Pulse Rate 121 H Respiratory Rate 21 Blood Pressure 108/52 L 112/62 Pulse Oximetry 94 Oxygen Delivery Method Room Air 12/26/22 22:00 12/26/22 22:20 12/26/22 22:20 Pulse Rate 128 H 136 H Respiratory Rate 21 23 Blood Pressure 115/59 L Pulse Oximetry 93 95 Oxygen Delivery Method Room Air 12/26/22 22:30 12/26/22 22:41 12/26/22 22:41 Pulse Rate 132 H 142 H Respiratory Rate 23 25 H Blood Pressure 135/63 Pulse Oximetry 94 95 Oxygen Delivery Method Room Air Room Air 12/26/22 22:45 12/26/22 22:50 12/26/22 22:50 Pulse Rate 127 H 129 H Respiratory Rate 21 24 Blood Pressure 130/59 L Pulse Oximetry 96 98 Oxygen Delivery Method Room Air Room Air 12/26/22 22:55 12/26/22 22:56 12/26/22 22:56 Pulse Rate 131 H 129 H Respiratory Rate 28 H 28 H Blood Pressure 130/58 L Pulse Oximetry 91 94 Oxygen Delivery Method Room Air Room Air 12/26/22 23:00 12/26/22 23:01 12/26/22 23:01 Pulse Rate 121 H 120 H Respiratory Rate 27 H 26 H Blood Pressure 97/52 L Pulse Oximetry 95 94 Oxygen Delivery Method Room Air Room Air 12/26/22 23:05 12/26/22 23:05 12/26/22 23:10 Pulse Rate 134 H 137 H Respiratory Rate 16 16 Blood Pressure 96/53 L Pulse Oximetry 95 99 Oxygen Delivery Method Room Air Room Air 12/26/22 23:11 12/26/22 23:11 12/26/22 23:15 Pulse Rate 134 H Respiratory Rate 18 Blood Pressure 108/58 L 120/59 L Pulse Oximetry Oxygen Delivery Method 12/26/22 23:15 12/26/22 23:20 12/26/22 23:20 Pulse Rate 131 H 134 H Respiratory Rate 17 21 Blood Pressure 119/74 Pulse Oximetry 97 96 Oxygen Delivery Method Room Air Room Air 12/26/22 23:25 12/26/22 23:25 12/26/22 23:40 Pulse Rate 119 H 121 H Respiratory Rate 18 18 Blood Pressure 115/66 Pulse Oximetry 99 97 Oxygen Delivery Method Room Air Room Air 12/26/22 23:40 12/27/22 00:00 12/27/22 00:00 Pulse Rate 134 H Respiratory Rate 22 Blood Pressure 122/62 105/56 L Pulse Oximetry 96 Oxygen Delivery Method Room Air 12/27/22 00:20 12/27/22 00:20 12/27/22 00:40 Pulse Rate 125 H 134 H Respiratory Rate 21 23 Blood Pressure 93/54 L Pulse Oximetry 98 95 Oxygen Delivery Method Room Air Room Air 12/27/22 00:40 12/27/22 01:00 12/27/22 01:00 Pulse Rate 122 H Respiratory Rate 24 Blood Pressure 120/74 120/59 L Pulse Oximetry 94 Oxygen Delivery Method Room Air 12/27/22 01:20 12/27/22 01:20 12/27/22 01:40 Pulse Rate 125 H Respiratory Rate 21 Blood Pressure 128/63 136/76 Pulse Oximetry 95 Oxygen Delivery Method Room Air 12/27/22 01:40 12/27/22 02:00 12/27/22 02:00 Pulse Rate 133 H 125 H Respiratory Rate 21 24 Blood Pressure 132/68 Pulse Oximetry 96 94 Oxygen Delivery Method Room Air Room Air 12/27/22 02:20 12/27/22 02:21 12/27/22 02:21 Pulse Rate 136 H 131 H Respiratory Rate 22 22 Blood Pressure 111/58 L Pulse Oximetry 95 95 Oxygen Delivery Method Room Air Room Air 12/27/22 02:40 12/27/22 02:40 12/27/22 03:00 Pulse Rate 132 H Respiratory Rate 22 Blood Pressure 94/66 105/60 Pulse Oximetry 96 Oxygen Delivery Method Room Air 12/27/22 03:00 12/27/22 03:20 12/27/22 03:20 Pulse Rate 130 H 130 H Respiratory Rate 21 22 Blood Pressure 131/82 Pulse Oximetry 92 95 Oxygen Delivery Method Room Air 12/27/22 03:40 12/27/22 03:40 12/27/22 04:00 Pulse Rate 135 H Respiratory Rate 22 Blood Pressure 114/54 L 122/65 Pulse Oximetry 94 Oxygen Delivery Method 12/27/22 04:00 12/27/22 04:20 12/27/22 04:23 Pulse Rate 130 H 131 H Respiratory Rate 24 25 H Blood Pressure 129/83 Pulse Oximetry 97 97 Oxygen Delivery Method Room Air Room Air 12/27/22 04:23 12/27/22 04:40 12/27/22 04:40 Pulse Rate 128 H 127 H Respiratory Rate 22 24 Blood Pressure 118/56 L Pulse Oximetry 97 95 Oxygen Delivery Method Room Air Room Air 12/27/22 05:00 12/27/22 05:00 Pulse Rate 138 H Respiratory Rate 23 Blood Pressure 115/72 Pulse Oximetry 95 Oxygen Delivery Method Room Air <Kenyetta Yip MD - Last Filed: 12/27/22 05:38> Orders Ordered: Discontinued Medications Amiodarone HCl (Amiodarone 200 Mg Tablet) 400 mg PO NOW ONE Stop: 12/26/22 19:14 Last Admin: 12/26/22 19:46 Dose: 400 mg Documented By: LOGAN Sodium Chloride (Normal Saline 0.9%) 1,000 mls @ 1,000 mls/hr IV BOLUS ONE Stop: 12/26/22 17:01 Last Infusion: 12/26/22 18:02 Dose: Infused Documented By: Admin: 12/26/22 16:28 Dose: 1,000 mls/hr Documented By: LAURA Amiodarone HCl/Dextrose (Nexterone) 150 mg in 100 mls @ 600 mls/hr IV NOW ONE; Protocol Stop: 12/26/22 18:53 Last Infusion: 12/26/22 19:28 Dose: Infused Documented By: Admin: 12/26/22 19:03 Dose: 300 mls/hr Documented By: LAURA Lorazepam (Lorazepam 2 Mg/Ml Inj) 0.5 mg IV NOW ONE Stop: 12/26/22 19:01 Last Admin: 12/26/22 19:03 Dose: 0.5 mg Documented By: LAURA Ondansetron HCl (Ondansetron 4 Mg/2 Ml Inj) 4 mg IV NOW ONE Stop: 12/26/22 18:58 Last Admin: 12/26/22 19:00 Dose: Not Given Documented By: BALTAZAR Propofol (Propofol 200 Mg/20 Ml Vial) 30 mg 0.5 mg/kg (30 mg) IV NOW ONE Stop: 12/26/22 22:04 Last Admin: 12/26/22 22:50 Dose: 30 mg Documented By: LOGAN Vital Signs Vital signs: Vital Signs - 8 hr 12/26/22 21:40 12/26/22 21:40 12/26/22 22:00 Pulse Rate 121 H Respiratory Rate 21 Blood Pressure 108/52 L 112/62 Pulse Oximetry 94 Oxygen Delivery Method Room Air 12/26/22 22:00 12/26/22 22:20 12/26/22 22:20 Pulse Rate 128 H 136 H Respiratory Rate 21 23 Blood Pressure 115/59 L Pulse Oximetry 93 95 Oxygen Delivery Method Room Air 12/26/22 22:30 12/26/22 22:41 12/26/22 22:41 Pulse Rate 132 H 142 H Respiratory Rate 23 25 H Blood Pressure 135/63 Pulse Oximetry 94 95 Oxygen Delivery Method Room Air Room Air 12/26/22 22:45 12/26/22 22:50 12/26/22 22:50 Pulse Rate 127 H 129 H Respiratory Rate 21 24 Blood Pressure 130/59 L Pulse Oximetry 96 98 Oxygen Delivery Method Room Air Room Air 12/26/22 22:55 12/26/22 22:56 12/26/22 22:56 Pulse Rate 131 H 129 H Respiratory Rate 28 H 28 H Blood Pressure 130/58 L Pulse Oximetry 91 94 Oxygen Delivery Method Room Air Room Air 12/26/22 23:00 12/26/22 23:01 12/26/22 23:01 Pulse Rate 121 H 120 H Respiratory Rate 27 H 26 H Blood Pressure 97/52 L Pulse Oximetry 95 94 Oxygen Delivery Method Room Air Room Air 12/26/22 23:05 12/26/22 23:05 12/26/22 23:10 Pulse Rate 134 H 137 H Respiratory Rate 16 16 Blood Pressure 96/53 L Pulse Oximetry 95 99 Oxygen Delivery Method Room Air Room Air 12/26/22 23:11 12/26/22 23:11 12/26/22 23:15 Pulse Rate 134 H Respiratory Rate 18 Blood Pressure 108/58 L 120/59 L Pulse Oximetry Oxygen Delivery Method 12/26/22 23:15 12/26/22 23:20 12/26/22 23:20 Pulse Rate 131 H 134 H Respiratory Rate 17 21 Blood Pressure 119/74 Pulse Oximetry 97 96 Oxygen Delivery Method Room Air Room Air 12/26/22 23:25 12/26/22 23:25 12/26/22 23:40 Pulse Rate 119 H 121 H Respiratory Rate 18 18 Blood Pressure 115/66 Pulse Oximetry 99 97 Oxygen Delivery Method Room Air Room Air 12/26/22 23:40 12/27/22 00:00 12/27/22 00:00 Pulse Rate 134 H Respiratory Rate 22 Blood Pressure 122/62 105/56 L Pulse Oximetry 96 Oxygen Delivery Method Room Air 12/27/22 00:20 12/27/22 00:20 12/27/22 00:40 Pulse Rate 125 H 134 H Respiratory Rate 21 23 Blood Pressure 93/54 L Pulse Oximetry 98 95 Oxygen Delivery Method Room Air Room Air 12/27/22 00:40 12/27/22 01:00 12/27/22 01:00 Pulse Rate 122 H Respiratory Rate 24 Blood Pressure 120/74 120/59 L Pulse Oximetry 94 Oxygen Delivery Method Room Air 12/27/22 01:20 12/27/22 01:20 12/27/22 01:40 Pulse Rate 125 H Respiratory Rate 21 Blood Pressure 128/63 136/76 Pulse Oximetry 95 Oxygen Delivery Method Room Air 12/27/22 01:40 12/27/22 02:00 12/27/22 02:00 Pulse Rate 133 H 125 H Respiratory Rate 21 24 Blood Pressure 132/68 Pulse Oximetry 96 94 Oxygen Delivery Method Room Air Room Air 12/27/22 02:20 12/27/22 02:21 12/27/22 02:21 Pulse Rate 136 H 131 H Respiratory Rate 22 22 Blood Pressure 111/58 L Pulse Oximetry 95 95 Oxygen Delivery Method Room Air Room Air 12/27/22 02:40 12/27/22 02:40 12/27/22 03:00 Pulse Rate 132 H Respiratory Rate 22 Blood Pressure 94/66 105/60 Pulse Oximetry 96 Oxygen Delivery Method Room Air 12/27/22 03:00 12/27/22 03:20 12/27/22 03:20 Pulse Rate 130 H 130 H Respiratory Rate 21 22 Blood Pressure 131/82 Pulse Oximetry 92 95 Oxygen Delivery Method Room Air 12/27/22 03:40 12/27/22 03:40 12/27/22 04:00 Pulse Rate 135 H Respiratory Rate 22 Blood Pressure 114/54 L 122/65 Pulse Oximetry 94 Oxygen Delivery Method 12/27/22 04:00 12/27/22 04:20 12/27/22 04:23 Pulse Rate 130 H 131 H Respiratory Rate 24 25 H Blood Pressure 129/83 Pulse Oximetry 97 97 Oxygen Delivery Method Room Air Room Air 12/27/22 04:23 12/27/22 04:40 12/27/22 04:40 Pulse Rate 128 H 127 H Respiratory Rate 22 24 Blood Pressure 118/56 L Pulse Oximetry 97 95 Oxygen Delivery Method Room Air Room Air 12/27/22 05:00 12/27/22 05:00 Pulse Rate 138 H Respiratory Rate 23 Blood Pressure 115/72 Pulse Oximetry 95 Oxygen Delivery Method Room Air MDM - Arrhythmia/Palpitations <Tiffanie Plaza, DO - Last Filed: 12/27/22 17:46> Lab Data 12/26/22 15:58 12/26/22 15:58 Labs: Lab Results 12/26/22 12/26/22 Range/Units 15:58 18:35 WBC 11.6 H (4.5-11.0) X10^3/uL RBC 3.62 L (4.0-5.2) X10^6/uL Hgb 11.7 L (12.0-16.0) g/dL Hct 35.0 L (36-46) % MCV 96.6 (80-100) fL MCH 32.3 (26-34) PG MCHC 33.4 (30-36) % RDW 16.3 H (11.6-14.8) % Plt Count 598 H (150-400) X10^3/uL Neut % (Auto) 86.1 H (50-75) % Lymph % (Auto) 7.0 L (25-40) % [place] % (Auto) 6.3 (3-14) % Eos % (Auto) 0.1 L (2-4) % Baso % (Auto) 0.5 (0-2) % Neut # (Auto) 70121 H (5708-1885) /uL Lymph # (Auto) 800 L (2557-6137) /uL [place] # (Auto) 700 (0-900) /uL Eos # (Auto) 0 (0-450) /uL Baso # (Auto) 100 (0-100) /uL PT 18.3 H (9.4-12.5) SECONDS INR 1.6 H (0.9-1.3) APTT 37 H (25.1-36.5) SECONDS Sodium 136 L (137-145) mmol/L Potassium 4.5 (3.4-5.1) mmol/L Chloride 99 (98-107) mmol/L Carbon Dioxide 30 (22-32) mmol/L BUN 15 (7-17) mg/dL Creatinine 0.68 (0.52-1.04) mg/dL Estimated GFR > 60 (>60) mL/min BUN/Creatinine Ratio 22.1 H (6-22) Glucose 162 H (80-110) mg/dL Calcium 9.6 (8.4-10.2) mg/dL Magnesium 2.2 (1.6-2.3) mg/dL Total Bilirubin 0.5 (0.2-1.3) mg/dL AST 24 (14-36) IU/L ALT 18 (<35) IU/L Alkaline Phosphatase 44 (38-126) U/L Total Creatine Kinase 23 L (30-135) U/L Troponin I < 0.012 < 0.012 (0.01-0.034) ng/mL NT-Pro-B Natriuret Pep 1380 H (<450) pg/mL Total Protein 7.1 (6.3-8.2) g/dL Albumin 3.7 (3.5-5.0) g/dL Globulin 3.4 (1.7-4.1) g/dL Albumin/Globulin Ratio 1.1 (1.0-2.8) Lipase 54 (23-300) U/L Point of Care Testing Test Results Not applicable Urine Dip Bedside Urine Glucose Negative Bedside Urine Bilirubin - Negative Bedside Urine Ketone - Negative Urine Specific [place] 1.005 Bedside Urine Occult Blood - Negative Bedside Urine pH 6.0 Bedside Urine Protein - Negative Bedside Urine Urobilinogen - Negative Bedside Urine Nitrite - Negative Bedside Urine Leukocytes - Negative Esterase Imaging Data Chest x-ray: Radiologist's Impresson: Close Chest X-Ray (Signed) Robert Servin - 12/26/22 Chest CTA (Signed) Trevon Quesada - 12/15/22 Chest X-Ray (Signed) Trevon Quesada - 12/15/22 Chest X-Ray (Signed) Daisy Cazares - 12/13/22 PFT Result 12/06/22 Modified Barium Swallow (Signed) Mehdi Mcdonald - 11/29/22 Chest X-Ray (Signed) GranadosAries - 06/04/22 Mammogram Screening (Signed) Janneth Davey - 03/13/22 Chest X-Ray (Signed) Nakia Munoz - 07/28/21 Modified Barium Swallow (Signed) Nakia Munoz - 05/09/21 Brain MRI (Signed) Kishor Abdullahi - 05/07/[address] (Signed) Kishor Abdullahi - 05/07/21 Chest X-Ray (Signed) Chelle Cui - 05/05/21 Telemetry Strips 05/03/21 Telemetry Strips 05/03/[address] (Signed) Sancho La - 05/03/21 Chest X-Ray (Signed) Jevon Zapata - 05/02/21 Shoulder X-Ray (Signed) Jose Stapleton - 03/03/21 Hip X-Ray (Signed) Juaquin Sargent - 03/03/21 Mammogram Screening (Signed) Trevon Quesada - 03/02/21 Bone Densitometry (Signed) Nakia Munoz - 03/01/21 DEXA Result 03/01/21 Knee X-Ray (Signed) Jeyson Mehta - 06/12/18 Launch?Image [address] [address] XRay Report Signed Patient: Beena Vazquez MR#: [id number] : 1940 Acct:[id number] Age/Sex: 82 / F Date of Service: 12/26/22 Loc: ED Accession Number: [id number] Procedure: XR chest 1V Ordering Provider: Tiffanie Plaza D.O. PROCEDURE: XR CHEST 1V INDICATIONS: Arrhythmia TECHNIQUE: One view of the chest was acquired. COMPARISON: [facility], CR, XR CHEST 1V, 12/15/2022, 5:22. [facility], CR, XR CHEST 1V, 12/13/2022, 8:43. FINDINGS: Surgical changes and devices: Cholecystectomy clips. Lungs and pleura: Small left pleural effusion, decreased compared to 12/15/2022. Underlying mild left lung opacity. Mediastinum: Mild cardiomegaly. Bones and chest wall: Degenerative changes. IMPRESSION: Small left pleural effusion and underlying opacity, slightly decreased compared to 12/15/2022. Consider future imaging surveillance to assess for resolution. Dictated by: Robert Servin M.D. on 12/26/2022 at 16:47 Approved by: Robert Servin M.D. on 12/26/2022 at 16:48 ECG Data Attestation: I personally reviewed and interpreted this ECG as follows: Prior ECG tracings: available for review Interpretation: Atrial flutter 2-1 block rate of 138 QRS is 76 QTC 239. No acute ST elevation noted. Patient has prior from 12/15/2022 which appears similar. MDM Narrative Medical decision making narrative: 82-year-old female with history of atrial flutter, multiple medical issues including myasthenia who had a major crisis in May and ended up long-term facility with the intubation with trach, PEG. Tracheostomy has since been removed. Peg is still in place. Patient has had repeat visits this is her 4th in the last 2 weeks for atrial flutter and had cardioversions times 3 1st 2 were successful for only a few hours the 2nd for about a week. She also has had a recent thoracentesis pulmonology. Patient appears overall stable, she is tachycardic in the 130s plan for labs, chest x-ray EKG and we will consult with Cardiology to see if medical versus electrocardioversion would be appropriate next steps or the other external factors increasing her frequency of atrial flutter. Case was discussed with Dr. Tillman. Patient is anemic but appears close to baseline mild white count, platelets slightly elevated. Patient is anticoagulated appropriately. Sodium is 136 potassium 4 5 with a Mag of 2.2 no significant renal changes LFTs negative BNP is 13 80 improved from last visit when it was 5240. Patient's troponins are negative x2. Patient does appear to be in atrial flutter tachycardic. She is currently on 400 mg p.o. amiodarone they recommended loading patient with 150 mg amiodarone IV. Discussed cardioversion although they note is unlikely to be successful. If unsuccessful would recommend transfer for further definitive treatment as atrial flutter is unlikely to be easily rate controlled. Patient signed out to Dr. Yip for potential cardioversion patient is being loaded with amiodarone currently. Dr. Yip, care is assumed, patient is independently evaluated, labs and notes reviewed: Patient has been loaded with 150 mg of IV amiodarone and given her 400 mg of oral amiodarone. With 3-4 hours of observation she remains in atrial flutter. Cares again reviewed with Cardiology, she spoke with Dr. Plaza prior to transfer of care to [facility]. With her visit on December 13 she was cardioverted and converted back to atrial flutter shortly thereafter, she was given oral metoprolol and amiodarone, with successful cardioversion after that. She returns on December 16 , recognizing that amiodarone load was required with a previous cardioversion she was given amiodarone and with 2 attempts at cardioversion she did not convert she was eventually admitted to the hospitalist service and was continued amiodarone dosing spontaneously converted. She returns today, IV and oral amiodarone given and cardioversion is attempted. Cardioversion: With the amiodarone IV and oral preload and 200 joule synchronized cardioversion she did cardiovert to sinus rhythm. After about 3 minutes she converted back to atrial flutter. At this point will continue with the plan as outlined with Dr. Keller and plan for transfer to [facility]. Calls were placed requesting bed 410am bed is now available at [facility]. Have spoken with the hospitalist, Dr. Goode who accepts transfer. <Kenyetta Yip MD - Last Filed: 12/27/22 05:38> Lab Data Labs: Lab Results 12/26/22 12/26/22 Range/Units 15:58 18:35 WBC 11.6 H (4.5-11.0) X10^3/uL RBC 3.62 L (4.0-5.2) X10^6/uL Hgb 11.7 L (12.0-16.0) g/dL Hct 35.0 L (36-46) % MCV 96.6 (80-100) fL MCH 32.3 (26-34) PG MCHC 33.4 (30-36) % RDW 16.3 H (11.6-14.8) % Plt Count 598 H (150-400) X10^3/uL Neut % (Auto) 86.1 H (50-75) % Lymph % (Auto) 7.0 L (25-40) % [place] % (Auto) 6.3 (3-14) % Eos % (Auto) 0.1 L (2-4) % Baso % (Auto) 0.5 (0-2) % Neut # (Auto) 78541 H (0216-7409) /uL Lymph # (Auto) 800 L (0810-8115) /uL [place] # (Auto) 700 (0-900) /uL Eos # (Auto) 0 (0-450) /uL Baso # (Auto) 100 (0-100) /uL PT 18.3 H (9.4-12.5) SECONDS INR 1.6 H (0.9-1.3) APTT 37 H (25.1-36.5) SECONDS Sodium 136 L (137-145) mmol/L Potassium 4.5 (3.4-5.1) mmol/L Chloride 99 (98-107) mmol/L Carbon Dioxide 30 (22-32) mmol/L BUN 15 (7-17) mg/dL Creatinine 0.68 (0.52-1.04) mg/dL Estimated GFR > 60 (>60) mL/min BUN/Creatinine Ratio 22.1 H (6-22) Glucose 162 H (80-110) mg/dL Calcium 9.6 (8.4-10.2) mg/dL Magnesium 2.2 (1.6-2.3) mg/dL Total Bilirubin 0.5 (0.2-1.3) mg/dL AST 24 (14-36) IU/L ALT 18 (<35) IU/L Alkaline Phosphatase 44 (38-126) U/L Total Creatine Kinase 23 L (30-135) U/L Troponin I < 0.012 < 0.012 (0.01-0.034) ng/mL NT-Pro-B Natriuret Pep 1380 H (<450) pg/mL Total Protein 7.1 (6.3-8.2) g/dL Albumin 3.7 (3.5-5.0) g/dL Globulin 3.4 (1.7-4.1) g/dL Albumin/Globulin Ratio 1.1 (1.0-2.8) Lipase 54 (23-300) U/L Point of Care Testing Test Results Not applicable Urine Dip Bedside Urine Glucose Negative Bedside Urine Bilirubin - Negative Bedside Urine Ketone - Negative Urine Specific Buhl 1.005 Bedside Urine Occult Blood - Negative Bedside Urine pH 6.0 Bedside Urine Protein - Negative Bedside Urine Urobilinogen - Negative Bedside Urine Nitrite - Negative Bedside Urine Leukocytes - Negative Esterase MDM Narrative Medical decision making narrative: 82-year-old female with history of atrial flutter, multiple medical issues including myasthenia who had a major crisis in May and ended up long-term facility with the intubation with trach, PEG. Tracheostomy has since been removed. Peg is still in place. Patient has had repeat visits this is her 4th in the last 2 weeks for atrial flutter and had cardioversions times 3 1st 2 were successful for only a few hours the 2nd for about a week. She also has had a recent thoracentesis pulmonology. Patient appears overall stable, she is tachycardic in the 130s plan for labs, chest x-ray EKG and we will consult with Cardiology to see if medical versus electrocardioversion would be appropriate next steps or the other external factors increasing her frequency of atrial flutter. Dr. Yip, care is assumed, patient is independently evaluated, labs and notes reviewed: Patient has been loaded with 150 mg of IV amiodarone and given her 400 mg of oral amiodarone. With 3-4 hours of observation she remains in atrial flutter. Cares again reviewed with Cardiology, she spoke with Dr. Plaza prior to transfer of care to [place]. With her visit on December 13 she was cardioverted and converted back to atrial flutter shortly thereafter, she was given oral metoprolol and amiodarone, with successful cardioversion after that.. She returns on December 16 , recognizing that amiodarone load was required with a previous cardioversion she was given amiodarone and with 2 attempts at cardioversion she did not convert she was eventually admitted to the hospitalist service and was continued amiodarone dosing spontaneously converted. She returns today, IV and oral amiodarone given and cardioversion is attempted. Cardioversion: With the amiodarone IV and oral preload and 200 joule synchronized cardioversion she did cardiovert to sinus rhythm. After about 3 minutes she converted back to atrial flutter. At this point will continue with the plan as outlined with Dr. Keller and plan for transfer to [facility]. Calls were placed requesting bed 410am bed is now available at [facility]. Have spoken with the hospitalist, Dr. Goode who accepts transfer. Critical Care Time <Kenyetta Yip MD - Last Filed: 12/27/22 05:38> Critical Care Time Critical Care Time: Yes Total Critical Care Time: 33 Attestation: Critical care time is separate from other billable procedures. There is a high probability of a significant, sudden or life-threatening deterioration that requires my full and direct attention, intervention and personal management. This critical care time includes consultation with family and other consulting doctors, review of records, and interpretation of data from labs, EKGs and imaging as well as managements of cardiac arrhythmias with parenteral antiarrhythmic Discharge Plan Departure Patient Disposition: [facility] Clinical Impression: Atrial flutter with rapid ventricular response Prescriptions: No Action ondansetron 4 mg tablet,disintegrating 4 mg PO BID PRN (Reason: nausea and vomiting) Qty: 30 0RF furosemide 20 mg tablet 20 mg PO DAILY Qty: 10 0RF albuterol sulfate 2.5 mg /3 mL (0.083 %) solution for nebulization 2.5 mg inhalation Q2H PRN ipratropium bromide 0.02 % solution 2.5 ml inhalation Q1H PRN acetaminophen 325 mg capsule 650 mg PO Q6H PRN budesonide 0.25 mg/2 mL suspension for nebulization 0.25 mg inhalation BID ferrous fumarate 325 mg (106 mg iron) tablet 325 mg PO DAILY famotidine 20 mg tablet 20 mg PO DAILY loratadine 10 mg tablet 10 mg PO DAILY apixaban 2.5 mg tablet 2.5 mg PO BID Qty: 180 3RF azathioprine 100 mg tablet 150 mg PO DAILY Qty: 135 3RF prednisone 10 mg tablet 10 mg PO DAILY Qty: 90 1RF sulfamethoxazole-trimethoprim 800-160 mg tablet 0.5 tab PO DAILY Qty: 45 1RF metoprolol tartrate 25 mg tablet 12.5 mg PO BID Qty: 90 3RF amiodarone 400 mg tablet 400 mg PO BID Qty: 60 0RF prazosin [Minipress] 1 mg capsule 1 mg PO BEDTIME Qty: 14 0RF simethicone [Gas-X Extra Strength] 125 mg capsule 250 mg PO BID PRN (DME) Tracheostomy supplies See Rx Instructions .Route .MEDSUPPLY Qty: 1 0RF Rx Instructions: Shiley #4 uncuffed with backup tracheostomy inner cannulas for Shiley #4 uncuffed tracheosotmy ties for Shiley #4 uncuffed tracheostomy cleaning kits tracheostomy cap (DME) Discontinue All Trach supplies See Rx Instructions .Route .MEDSUPPLY Qty: 1 0RF Rx Instructions: Please discontinue all Oxygen,suction, trach aerosol as well as trach supplies Referrals: Rm Love MD [Primary Care Provider] -
--- NOTE | 2022-12-26 16:17 | PC.NURSE ---
Pt woke up at 0300 today because she was feeling heart palpitations and like she was having a fast heart rate and nausea. Pt has hx of afib and aflutter and was recently seen in the emergency dept where cardioversion was done and unsuccessful. Pt denies cp and sob. Pt scheduled to have ablation on sunday with [facility]. pt has hx of intubation due to respiratory failure. pt a&ox4. perianesthesia manager intact. dr borjas at bedside at the time of triage.
[2022-12-26 16:25] LABS: INR 1.6 (0.9-1.3); Prothrombin Time 18.3 SECONDS (9.4-12.5)
[2022-12-26 16:26] LABS: Add Manual Diff / Slide Review NO; Basophils Absolute Auto 100 /uL (0-100); Basophils Percent Auto 0.5 % (0-2); Eosinophils Absolute Auto 0 /uL (0-450); Eosinophils Percent Auto 0.1 % (2-4); Hemoglobin 11.7 g/dL (12.0-16.0); Lymphocytes Absolute Auto 800 /uL (1100-4500); Mean Corpuscular HGB Conc 33.4 % (30-36); Mean Corpuscular Hemoglobin 32.3 PG (26-34); Mean Corpuscular Volume 96.6 fL (80-100); Monocytes Absolute Auto 700 /uL (0-900); Monocytes Percent Auto 6.3 % (3-14); Neutrophils Absolute Auto 10000 /uL (1500-7000); Neutrophils Percent Auto 86.1 % (50-75); Platelet Count 598 X10^3/uL (150-400); Red Blood Cell Count 3.62 X10^6/uL (4.0-5.2); Red Cell Distribution Width 16.3 % (11.6-14.8); White Blood Cell Count 11.6 X10^3/uL (4.5-11.0)
[2022-12-26 16:28] LABS: PTT Partial Thromboplastin Tim 37 SECONDS (25.1-36.5)
[2022-12-26] MEDS: SODIUM CHLORIDE 0.9% 1,000 ML 1000 ML IV (16:28)
[2022-12-26 16:32] LABS: Magnesium 2.2 mg/dL (1.6-2.3)
[2022-12-26 16:33] LABS: Alanine Aminotransferase 18 IU/L (<35); Albumin 3.7 g/dL (3.5-5.0); Albumin Globulin Ratio 1.1 (1.0-2.8); Alkaline Phosphatase 44 U/L (38-126); Aspartate Aminotransferase 24 IU/L (14-36); BUN Creatinine Ratio 22.1 (6-22); Bilirubin Total 0.5 mg/dL (0.2-1.3); Blood Urea Nitrogen 15 mg/dL (7-17); Calcium 9.6 mg/dL (8.4-10.2); Carbon Dioxide 30 mmol/L (22-32); Chloride 99 mmol/L (98-107); Creatine Kinase 23 U/L (30-135); Estimated Glomerular Filt Rate > 60 mL/min (>60); Globulin 3.4 g/dL (1.7-4.1); Glucose 162 mg/dL (80-110); HEMOLYSIS < 15 (0-50); Lipase 54 U/L (23-300); Potassium 4.5 mmol/L (3.4-5.1); Sodium 136 mmol/L (137-145); Total Protein 7.1 g/dL (6.3-8.2)
[2022-12-26 16:44] LABS: Troponin I < 0.012 ng/mL (0.01-0.034)
[2022-12-26 16:56] LABS: NT-proBNP (BNP-Adult 18+) 1380 pg/mL (<450)
[2022-12-26] MEDS: AMIODARONE 150 MG/100 ML PIGGYBACK 300 MG IV (19:03)
[2022-12-26] MEDS: LORazepam 2 MG/ML INJ 0.5 MG IV (19:03)
[2022-12-26 19:12] LABS: Troponin I < 0.012 ng/mL (0.01-0.034)
[2022-12-26] MEDS: AMIODARONE 200 MG TABLET 400 MG PO (19:46)
[2022-12-26] MEDS: propofoL 200 MG/20 ML VIAL 30 MG IV (22:50)
--- NOTE | 2022-12-26 23:37 | PC.NURSE ---
BLOCKER HAND note: Attempting to transfer patient. Called [facility] at 0054, spoke to Allie. Asked for patient facesheet w/ a blurb of information. Faxed over. [phone] called again and spoke to Allie. She said currently their cardiac monitors are down. They're getting them fixed as we spoke. Hopefully patient can be transferred in the morning.
[2022-12-27] VITALS (18 sets, daily range): BP systolic 93–136; BP diastolic 54–83; PULSE 122–138; RESP 21–25; O2SAT 92–98
--- NOTE | 2022-12-27 05:54 | PC.NURSE ---
Called and gave report to Ivanna PATEL at Patient left the facility at 0530 with [facility]. Report also given to Wagner PATEL.
== END 2022-12-27 05:30 | disposition short-term general hospital (02) ==
PROVIDERS: Emergency Medicine; Emergency Provider Emergency Medicine; Family Provider Family Medicine; PCP Family Medicine
DX: I48.92 Unspecified atrial flutter (principal); Z79.01 Long term (current) use of anticoagulants
CPT/HCPCS: 36415; 71045; 80053; 81003; 82550; 83690; 83735; 83880; 84484; 85025; 85610; 85730; 92960; 93005; 93010; 96365; 96374; 99285; 99291; J0282; J2060; J2704

== ENCOUNTER → 2023-01-17 13:37 | Outpatient (CLI) | payer MEDICARE, OTHER, SELFPAY ==
[2023-01-17 10:08] VITALS: BMI 23.9
[2023-01-17 15:04] LABS: Body Fluid Tot Nucleated Cells 384 /uL
[2023-01-17 15:06] LABS: Body Fluid Red Blood Cells < 1000 /uL
[2023-01-17 15:07] LABS: Body Fluid Appearance HAZY; Body Fluid Clotted? NO CLOTS PRESENT; Body Fluid Color YELLOW
[2023-01-17 15:21] LABS: Mononuclear WBC Body Fluid 87 %; Polynuclear WBC Body Fluid 13 %
== END ==
PROVIDERS: Family Provider Family Medicine; PCP Family Medicine; Visit Provider Internal Medicine
DX: J90 Pleural effusion, not elsewhere classified (principal); Z43.0 Encounter for attention to tracheostomy; I48.92 Unspecified atrial flutter
CPT/HCPCS: 32555; 76604; 89051; 99215

== ENCOUNTER → 2023-02-02 13:55 | Outpatient (CLI) | payer MEDICARE, OTHER, SELFPAY ==
[2023-01-17 10:08] VITALS: BMI 23.9
[2023-02-02 14:23] LABS: Add Manual Diff / Slide Review NO; Basophils Absolute Auto 100 /uL (0-100); Basophils Percent Auto 0.9 % (0-2); Eosinophils Absolute Auto 0 /uL (0-450); Eosinophils Percent Auto 0.3 % (2-4); Hematocrit 38.7 % (36-46); Hemoglobin 12.6 g/dL (12.0-16.0); Lymphocytes Absolute Auto 400 /uL (1100-4500); Lymphocytes Percent Auto 5.5 % (25-40); Mean Corpuscular HGB Conc 32.6 % (30-36); Mean Corpuscular Hemoglobin 30.9 PG (26-34); Monocytes Absolute Auto 300 /uL (0-900); Monocytes Percent Auto 4.6 % (3-14); Neutrophils Absolute Auto 5800 /uL (1500-7000); Neutrophils Percent Auto 88.7 % (50-75); Platelet Count 307 X10^3/uL (150-400); Red Blood Cell Count 4.07 X10^6/uL (4.0-5.2); White Blood Cell Count 6.5 X10^3/uL (4.5-11.0)
== END ==
PROVIDERS: Family Provider Family Medicine; PCP Family Medicine; Referring Provider Internal Medicine Cardiovascular Disease; Visit Provider Internal Medicine Cardiovascular Disease
DX: I47.10 Supraventricular tachycardia, unspecified (principal)
CPT/HCPCS: 85025

== ENCOUNTER → 2023-03-22 09:58 | Outpatient (CLI) | payer MEDICARE, OTHER, SELFPAY ==
[2023-01-17 10:08] VITALS: BMI 23.9
[2023-03-22 11:31] LABS: BUN Creatinine Ratio 19.7 (6-22); Blood Urea Nitrogen 13 mg/dL (7-17); Calcium 8.7 mg/dL (8.4-10.2); Carbon Dioxide 29 mmol/L (22-32); Chloride 103 mmol/L (98-107); Estimated Glomerular Filt Rate > 60 mL/min (>60); Glucose 98 mg/dL (80-110); HEMOLYSIS 21 (0-50); Potassium 3.7 mmol/L (3.4-5.1); Sodium 140 mmol/L (137-145)
== END ==
PROVIDERS: Family Provider Family Medicine; PCP Family Medicine; Referring Provider Internal Medicine Cardiovascular Disease; Visit Provider Internal Medicine Cardiovascular Disease
DX: I47.10 Supraventricular tachycardia, unspecified (principal)
CPT/HCPCS: 36415; 80048

== ENCOUNTER → 2023-04-06 09:45 | Outpatient (CLI) | payer MEDICARE, OTHER, SELFPAY ==
[2023-01-17 10:08] VITALS: BMI 23.9
[2023-04-06 11:37] LABS: Alanine Aminotransferase 68 IU/L (<35); Albumin 3.2 g/dL (3.5-5.0); Albumin Globulin Ratio 1.3 (1.0-2.8); Alkaline Phosphatase 41 U/L (38-126); Aspartate Aminotransferase 70 IU/L (14-36); BUN Creatinine Ratio 13.9 (6-22); Bilirubin Total 1.2 mg/dL (0.2-1.3); Blood Urea Nitrogen 11 mg/dL (7-17); Calcium 8.7 mg/dL (8.4-10.2); Carbon Dioxide 29 mmol/L (22-32); Chloride 108 mmol/L (98-107); Estimated Glomerular Filt Rate > 60 mL/min (>60); Globulin 2.5 g/dL (1.7-4.1); Glucose 106 mg/dL (80-110); HEMOLYSIS < 15 (0-50); Sodium 140 mmol/L (137-145); Total Protein 5.7 g/dL (6.3-8.2)
[2023-04-06 11:51] LABS: Free T4, Direct Thyroxine 0.77 ng/dL (0.78-2.19)
[2023-04-06 12:04] LABS: Thyroid Stimulating Hormone 91.8 uIU/mL (0.47-4.68)
== END ==
PROVIDERS: Family Provider Family Medicine; PCP Family Medicine; Referring Provider Internal Medicine Cardiovascular Disease; Visit Provider Internal Medicine Cardiovascular Disease
DX: I48.3 Typical atrial flutter (principal)
CPT/HCPCS: 36415; 80053; 84439; 84443

== ENCOUNTER → 2023-05-22 09:50 | Outpatient (CLI) | payer MEDICARE, OTHER, SELFPAY ==
[2023-01-17 10:08] VITALS: BMI 23.9
[2023-05-22 11:55] LABS: Add Manual Diff / Slide Review NO; Basophils Absolute Auto 0 /uL (0-100); Eosinophils Absolute Auto 100 /uL (0-450); Eosinophils Percent Auto 3.6 % (2-4); Hematocrit 33.2 % (36-46); Hemoglobin 11.4 g/dL (12.0-16.0); Lymphocytes Absolute Auto 1100 /uL (1100-4500); Mean Corpuscular HGB Conc 34.5 % (30-36); Mean Corpuscular Hemoglobin 33.9 PG (26-34); Mean Corpuscular Volume 98.2 fL (80-100); Monocytes Absolute Auto 300 /uL (0-900); Monocytes Percent Auto 8.4 % (3-14); Neutrophils Absolute Auto 2300 /uL (1500-7000); Platelet Count 229 X10^3/uL (150-400); Red Blood Cell Count 3.38 X10^6/uL (4.0-5.2); Red Cell Distribution Width 21.1 % (11.6-14.8); White Blood Cell Count 3.9 X10^3/uL (4.5-11.0)
[2023-05-22 12:12] LABS: Alanine Aminotransferase 105 IU/L (<35); Albumin 3.6 g/dL (3.5-5.0); Albumin Globulin Ratio 1.4 (1.0-2.8); Alkaline Phosphatase 41 U/L (38-126); Anisocytosis 1+; Aspartate Aminotransferase 94 IU/L (14-36); BUN Creatinine Ratio 15.3 (6-22); Bilirubin Total 1.6 mg/dL (0.2-1.3); Blood Urea Nitrogen 11 mg/dL (7-17); Carbon Dioxide 33 mmol/L (22-32); Chloride 105 mmol/L (98-107); Estimated Glomerular Filt Rate > 60 mL/min (>60); Globulin 2.5 g/dL (1.7-4.1); Glucose 93 mg/dL (80-110); HEMOLYSIS < 15 (0-50); Poikilocytosis 1+; Potassium 4.3 mmol/L (3.4-5.1); Rouleaux 1+; Sodium 139 mmol/L (137-145); Total Protein 6.1 g/dL (6.3-8.2)
[2023-05-22 13:40] LABS: Free T4, Direct Thyroxine 0.69 ng/dL (0.78-2.19)
== END ==
PROVIDERS: Family Provider Family Medicine; PCP Family Medicine; Referring Provider Family Medicine; Visit Provider Family Medicine
DX: I48.0 Paroxysmal atrial fibrillation (principal); I47.10 Supraventricular tachycardia, unspecified; I10 Essential (primary) hypertension; R74.8 Abnormal levels of other serum enzymes; R13.10 Dysphagia, unspecified
CPT/HCPCS: 36415; 80053; 84439; 84443; 85025

== ENCOUNTER → 2023-05-23 15:21 | Outpatient (CLI) | payer MEDICARE, OTHER, SELFPAY ==
[2023-01-17 10:08] VITALS: BMI 23.9
[2023-05-23 16:01] LABS: Add Manual Diff / Slide Review NO; Basophils Absolute Auto 100 /uL (0-100); Basophils Percent Auto 1.1 % (0-2); Eosinophils Absolute Auto 200 /uL (0-450); Eosinophils Percent Auto 3.9 % (2-4); Hematocrit 35.1 % (36-46); Hemoglobin 11.8 g/dL (12.0-16.0); Lymphocytes Absolute Auto 1700 /uL (1100-4500); Lymphocytes Percent Auto 35.6 % (25-40); Mean Corpuscular HGB Conc 33.8 % (30-36); Mean Corpuscular Hemoglobin 33.4 PG (26-34); Mean Corpuscular Volume 98.9 fL (80-100); Monocytes Absolute Auto 400 /uL (0-900); Monocytes Percent Auto 7.5 % (3-14); Neutrophils Absolute Auto 2400 /uL (1500-7000); Neutrophils Percent Auto 51.9 % (50-75); Platelet Count 248 X10^3/uL (150-400); Red Blood Cell Count 3.54 X10^6/uL (4.0-5.2); Red Cell Distribution Width 21.4 % (11.6-14.8); White Blood Cell Count 4.7 X10^3/uL (4.5-11.0)
[2023-05-23 16:16] LABS: Acanthocytes 1+; Anisocytosis 1+; Schistocytes 1+; Tear Drop Cells 1+
[2023-05-23 16:18] LABS: Macrocytosis 1+; Microcytosis 1+
[2023-05-23 16:25] LABS: Alanine Aminotransferase 109 IU/L (<35); Albumin 4.1 g/dL (3.5-5.0); Albumin Globulin Ratio 1.5 (1.0-2.8); Alkaline Phosphatase 46 U/L (38-126); Aspartate Aminotransferase 103 IU/L (14-36); BUN Creatinine Ratio 17.6 (6-22); Bilirubin Total 1.1 mg/dL (0.2-1.3); Blood Urea Nitrogen 12 mg/dL (7-17); Calcium 9.1 mg/dL (8.4-10.2); Carbon Dioxide 31 mmol/L (22-32); Chloride 105 mmol/L (98-107); Estimated Glomerular Filt Rate > 60 mL/min (>60); Globulin 2.7 g/dL (1.7-4.1); Glucose 97 mg/dL (80-110); HEMOLYSIS < 15 (0-50); Potassium 3.8 mmol/L (3.4-5.1); Sodium 142 mmol/L (137-145); Total Protein 6.8 g/dL (6.3-8.2)
[2023-05-23 17:00] LABS: Ferritin 166 ng/mL (11-264)
[2023-05-24 06:11] LABS: HBsAg Screen Negative (Negative); Hepatitis A Antibody IgM Negative (Negative); Hepatitis B Core Antibody IgM Negative (Negative); Hepatitis C Antibody Non Reactive (Non Reactive)
[2023-05-24 18:43] LABS: Hep C Virus Ab w/Reflex Quant NEGATIVE s/c (NEGATIVE)
[2023-05-28 16:57] LABS: ANA Screen, IFA Negative (.)
[2023-05-29 16:20] LABS: Smooth Muscle Antibody 9 Units (0-19)
== END ==
PROVIDERS: Family Provider Family Medicine; PCP Family Medicine; Referring Provider Family Medicine; Visit Provider Family Medicine
DX: I10 Essential (primary) hypertension (principal); R74.8 Abnormal levels of other serum enzymes
CPT/HCPCS: 36415; 80053; 80074; 82728; 85025; 86015; 86038; 86803

== ENCOUNTER → 2023-05-29 06:50 | Outpatient (CLI) | payer MEDICARE, OTHER, SELFPAY ==
[2023-01-17 10:08] VITALS: BMI 23.9
--- NOTE | 2023-05-29 06:51 | DI.US.S_ITS ---
PROCEDURE: US ABDOMEN LIMITED INDICATIONS: Elevated liver enzymes TECHNIQUE: Real-time scanning was performed of the abdominal and retroperitoneal organs, with image documentation. COMPARISON: None. FINDINGS: Liver: Liver is normal in size and homogeneous in echotexture. Liver parenchyma is mildly diffusely echogenic. No sonographic evidence of a solid mass. Main portal vein is patent with hepatopedal flow. Gallbladder: Cholecystectomy. Biliary ducts: Intrahepatic bile ducts are non-dilated. Extrahepatic bile duct caliber measures 3.9 mm. Normal is 6-7 mm or less in diameter, or 10 mm or less post-cholecystectomy. Pancreas: Visualized portions of the pancreas are sonographically normal. IMPRESSION: 1. Liver parenchyma is mildly diffusely echogenic which may be seen in the setting of parenchymal disease such as steatosis. 2. Normal gallbladder. Dictated by: Tania Martinez M.D. on 05/29/2023 at 10:57 Approved by: Tania Martinez M.D. on 05/29/2023 at 11:06
[2023-05-29 07:54] LABS: Alanine Aminotransferase 85 IU/L (<35); Albumin 3.8 g/dL (3.5-5.0); Albumin Globulin Ratio 1.4 (1.0-2.8); Alkaline Phosphatase 41 U/L (38-126); Aspartate Aminotransferase 77 IU/L (14-36); BUN Creatinine Ratio 15.4 (6-22); Bilirubin Total 1.6 mg/dL (0.2-1.3); Blood Urea Nitrogen 10 mg/dL (7-17); Calcium 9.1 mg/dL (8.4-10.2); Carbon Dioxide 32 mmol/L (22-32); Chloride 108 mmol/L (98-107); Estimated Glomerular Filt Rate > 60 mL/min (>60); Globulin 2.7 g/dL (1.7-4.1); Glucose 97 mg/dL (80-110); HEMOLYSIS < 15 (0-50); Potassium 4.1 mmol/L (3.4-5.1); Sodium 142 mmol/L (137-145); Total Protein 6.5 g/dL (6.3-8.2)
[2023-05-29 19:38] LABS: Free T4, Direct Thyroxine 1.06 ng/dL (0.78-2.19)
== END ==
PROVIDERS: Family Provider Family Medicine; PCP Family Medicine; Referring Provider Family Medicine; Visit Provider Family Medicine
DX: I10 Essential (primary) hypertension (principal); R74.8 Abnormal levels of other serum enzymes; T46.2X1A Poisoning by other antidysrhythmic drugs, accidental (unintentional), initial encounter; E03.2 Hypothyroidism due to medicaments and other exogenous substances
CPT/HCPCS: 36415; 76705; 80053; 84439; 84443

== ENCOUNTER → 2023-05-31 10:58 | Outpatient (CLI) | payer MEDICARE, OTHER, SELFPAY ==
[2023-01-17 10:08] VITALS: BMI 23.9
--- NOTE | 2023-05-31 10:59 | DI.CT.S_ITS ---
PROCEDURE: CT SOFT TISSUE NECK W CON INDICATIONS: Increased stridor s/p trach TECHNIQUE: After the administration of intravenous contrast, 3.0 mm axial sections acquired from the sella to the aortic arch. Additional oblique axial 3.0 mm sections acquired through the pharynx. 3 mm thick coronal and sagittal reformats were generated. For radiation dose reduction, the following was used: automated exposure control. COMPARISON: None. FINDINGS: Image quality: Degraded by beam hardening artifact related to metallic dental hardware. Lymph nodes: No enlarged lymph nodes seen throughout the neck. Vessels: Visualized vasculature appears patent. Neck spaces: Prominence of the lingual tonsils, left greater than right. The nasopharynx, and pharynx demonstrate no mucosal lesions. The vocal cords, false vocal cords, pyriform sinuses, epiglottis, vallecula, and tongue base all appear normal. Extramucosal spaces appear unremarkable. Glands: The parotid and submandibular glands appear normal. Thyroid gland contains multiple nodules. Largest nodule measures 2.3 by 1.8 centimeters in localizes to the right lobe. Miscellaneous: Visualized brain and orbits appear normal. Lung apices appear clear. Superficial soft tissues appear normal. Bones: No suspicious bony lesions. Spine degenerative disc disease and facet arthropathy. Visualized sinuses and mastoids appear unremarkable. IMPRESSION: Prominence of the lingual tonsils, left greater than right which could be related to hyperplasia, inflammation or neoplastic process. No lymphadenopathy based on size criteria. Thyroid nodules with largest nodule measuring 2.3 x 1.8 centimeters. Recommend nonemergent thyroid ultrasound based on criteria outlined below. Nodules on CT, MR, or extra-thyroidal US (ie., carotid study): * Pts < 35 years old: recommend dedicated thyroid US if nodule is 1 cm or larger, without suspicious imaging features. * Pts 35 years old or more: recommend dedicated thyroid US if nodule is 1.5 cm or larger, without suspicious imaging features. * Suspicious imaging features include: invasion of local tissues by thyroid nodule, suspicious lymph nodes (calcifications, cystic components, increased enhancement). Also ipsilateral nodes >1.5 cm short axis diameter for jugulodigastric nodes, and >1 cm for other regions. Dictated by: Nakia Munoz MD, PhD on 05/31/2023 at 11:51 Approved by: Nakia Munoz MD, PhD on 05/31/2023 at 11:56
== END ==
PROVIDERS: Family Provider Family Medicine; PCP Family Medicine; Referring Provider Family Medicine; Visit Provider Family Medicine
DX: R06.1 Stridor (principal); E04.2 Nontoxic multinodular goiter
CPT/HCPCS: 70491; Q9967

== ENCOUNTER 2023-06-05 10:30 | Outpatient (RCR) | payer MEDICARE, OTHER, SELFPAY ==
[2023-01-17 10:08] VITALS: BMI 23.9
--- NOTE | 2023-02-26 14:56 | PT.OIE ---
Current Diagnoses Muscle weakness (generalized) (02/26/23) Other symptoms and signs involving the musculoskeletal system (02/26/23) Past Medical History (Last Reviewed 12/26/22 @ 16:07 by Tiffanie Plaza DO) Allergic rhinitis Asthma Dysphagia Hyperlipidemia Iron deficiency anemia Ischemic colitis Labile diastolic hypertension Myasthenia Osteoarthritis of cervical spine (08/15/10) Paroxysmal atrial fibrillation SVT (supraventricular tachycardia) Past Surgical History (Last Reviewed 12/26/22 @ 16:07 by Tiffanie Plaza DO) S/P percutaneous endoscopic gastrostomy (PEG) tube placement (~06/2022) Status post cholecystectomy Status post tracheostomy (~06/2022) Visit Care Team Role Provider Type Rm Love MD Attending Provider Physician Family Provider Primary Care Provider Referring Provider Specialty: Family Practice Address: [address] [place] [address] Email: [email or web address] Physical Therapy Initial Evaluation PT-OP-A Visit Information Start: 02/25/23 09:01 Freq: Status: Active Protocol: Document 02/26/23 13:45 MB (Rec: 02/26/23 14:01 MB [id number]) Out-Patient Physical Therapy Visit Information Visit Information Visit Type Initial Evaluation Visit Note Medicare 02/14 before progress note Visit Start Time 13:45 Visit Stop Time 14:30 Total Visit Minutes 45 Visit Number 1 Number of SECURITY SUPPORT ANALYST Visits 0 Evaluation Information Evaluation Date 02/26/23 Precautions Precautions Pt recently had cardiac ablation for flutter on , keep an eye on BP and HR PT-OP-B Current Condition Start: 02/25/23 09:01 Freq: Status: Active Protocol: Document 02/26/23 13:45 MB (Rec: 02/26/23 14:01 MB [id number]) Current Condition History of Current Condition Onset Date May-Oct 2022 hospitalization for respiratory failure d/t MG Current Complaints Overall weakness History of Current Condition Pt was hospitalized for respiratory failure d/t MG and she has ongoing reports of leg weakness and trouble getting up from standing. Pt had cardiac ablation for flutter 02/17/23 and she is still having BP issues. Pt gets out of breath walking to the mailbox and talking can even increase her BP. Cardiac rehab said she does not qualify for cardiac rehab. She finished with HH services for herself. She had HH nsg and PLAN COORDINATOR. She did not have HHPT . She was intubated during hospitalization and got a PEG tube. She has just started eating. Pt lives at home with her , Apolinar, who has had many falls and is not doing well. A home caregiver helps her some. Her is refusing to use the cane or walker. There is a flight of steps at home. Caregiver drove her to PT and helps with errands, a few meals a week and cleaning. Pt is [employer] [place] and does not wear hearing aides to PT. Treatment Goals Patient/Caregiver Goals To get legs stronger PT-OP-C Subjective Start: 02/25/23 09:01 Freq: Status: Active Protocol: Document 02/26/23 13:45 MB (Rec: 02/26/23 14:01 MB [id number]) OP-PT Subjective Patient Comments Patient Comments See above Patient Questionnaires Lower Extremity Functional Scale LEFS Score 49/80 PT-OP-G Mobility & Gait Start: 02/25/23 09:01 Freq: Status: Active Protocol: Document 02/26/23 13:45 MB (Rec: 02/26/23 14:56 MB [id number]) OP Gait Assessment Comments Gait Comments Pt gait trains slowly and she has increased GRAY with exertion and requires three standing rest breaks against the wall with 6 minutes of gait training, little to no arm movement PT-OP-K Range of Motion Start: 02/25/23 09:01 Freq: Status: Active Protocol: Document 02/26/23 13:45 MB (Rec: 02/26/23 14:56 MB [id number]) Hip Goniometric Range of Motion Hip ROM Limitations Comments B hip ROM normal Knee Goniometric Range of Motion Knee ROM Limitations Comments B knee ROM normal Ankle and Foot Goniometric Range of Motion Ankle and Foot ROM Limitations Comments B ankle ROM normal PT-OP-M Strength Start: 02/25/23 09:01 Freq: Status: Active Protocol: Document 02/26/23 13:45 MB (Rec: 02/26/23 14:56 MB [id number]) Hip Strength Hip Manual Muscle Testing Left Flexion (L2) 4+ Good+ Abduction 4 Good Right Flexion (L2) 5 Normal Abduction 4 Good Knee Strength Knee Manual Muscle Testing Left Flexion (S2) 4+ Good+ Extension (L3) 5 Normal Right Flexion (S2) 5 Normal Extension (L3) 5 Normal Ankle/Foot Strength Ankle and Foot Manual Muscle Testing Bilateral Dorsiflexion (L4) 5 Normal PT-OP-Q Treatments Start: 02/25/23 09:01 Freq: Status: Active Protocol: Document 02/26/23 13:45 MB (Rec: 02/26/23 14:56 MB [id number]) Therapeutic Exercises Sitting Exercises 30 sec STS Comments 15 reps in 30 sec, 2/4 Dyspnea Scale afterwards Therapeutic Activity Therapeutic Activity Orthostatic assessment Comments BP and HR LUE in supine: 176/ 77, 69; standing 160/72, 66; standing 1' 152/76, 66 Gait Training Gait Activity 6MWT Comments Pt requires three standing rest breaks during assessment and presents with GRAY. BP and HR LUE in sitting before testing is 157/63, 67 and in supine after testing is 176/77 , 69. Pt gait trains 1039 feet in 6 minutes Self-Care/Home Management Treatment Education Patient Education Fall Risk,Safety Other Education Pt reports that her con't to require assistance for transfers and gait and that he does not agree to use AD. PT ed pt that she must be careful assisting him after her own medical issues and current weakness from MG and cardiac ablations. Spoke with pt and PLAN COORDINATOR about pt's current outpatient PLAN COORDINATOR schedule and managing her OPPT schedule and her 's OPPT schedule and her many doctors appointments. Decision is likely PT 1-2x/wk until PLAN COORDINATOR is 1x/wk. PT-OP-T Assessment and Plan Start: 02/25/23 09:01 Freq: Status: Active Protocol: Document 02/26/23 13:45 MB (Rec: 02/26/23 14:56 MB [id number]) Physical Therapy Assessment Rehab Potential Rehabilitation Potential Fair Evaluation Complexity Number of Personal Factors/Comorbidities 1-2 Number of Body Systems Impaired 3 Clinical Presentation at Evaluation Evolving Impairments Impairments Activity Tolerance,Balance, Functional Activities, Functional Mobility,Gait, Strength Goals 4 Impairment Lack of HEP Design Printing Machine Setter Goal (LTG) Pt will perform progressive HEP including breathing, activity modification training , balance and strengthening exercises with I to improve safety and overall functional I. LTG Duration 8 weeks 3 Impairment Evidence for imbalance Design Printing Machine Setter Goal (LTG) Pt will perform WNLs on a standardized balance test to decrease fall risk. LTG Duration 8 weeks 2 Impairment 1039 feet in 6 minutes Design Printing Machine Setter Goal (LTG) Pt will gait train at least 1300 feet in 6 minutes to reflect improved functional endurance for safe community ambulation. LTG Duration 8 weeks 1 Impairment LEF score 49/80 Design Printing Machine Setter Goal (LTG) Pt will present with an improved LEF score to at least 60/80 to reflect improved function and balance. LTG Duration 8 weeks Assessment Summary Assessment Pt is an 82 y/o female presenting with many medical issues including 5 month hospitalization last year d/t respiratory failure from MG. Pt was intubated. She has a PEG tube and is just now starting to eat. She had HHnsg and speech before transitioning to outpatient. She con't with outpatient speech therapy and is now starting PT for the first time . She had a cardiac ablation and states her BP still increases. This PT has worked with pt's in the past and he has had multiple falls and injuries post-stroke and pt states he con't to be non- compliant with ADs at home and she helps him with tranferring and gait. They have a paid caregiver that also assists. PT is concerned about pt's overall ability and safety in caring for herself and . She will benefit from PT to improve strength and balance. Pt states that she was denied cardiac rehab d /t her medical dxs. Physical Therapy Plan Frequency and Duration Frequency of Treatment 1-2x/week Duration of treatment (weeks) 8 Plan of Care Start Date 02/26/23 Plan of Care End Date 04/30/23 Therapeutic Interventions Therapeutic Interventions Balance Training,Canalithic Repositioning,Coordination Training,Gait Training,Home Exercise Program,Joint Mobilizations,Neuromuscular Re -education,Patient/Caregiver Education,Self-Care/Home Management,Soft Tissue Mobilization,Therapeutic Activities,Therapeutic Exercises Modalities Cold Pack/Ice Massage,Hot Packs Next Visit Focus/Plan Next Note Type Treatment Note Next Visit Plan Consider FGA for balance testing Progress light cardio and monitor vitals Progressive core, balance and LE strengthening exercises
--- NOTE | 2023-02-26 14:56 | PT.OPPOC ---
Physical, Occupational & Speech Therapy At [facility] Current Diagnoses Muscle weakness (generalized) (02/26/23) Other symptoms and signs involving the musculoskeletal system (02/26/23) Visit Care Team Role Provider Type Rm Love MD Attending Provider Physician Family Provider Primary Care Provider Referring Provider Specialty: Family Practice Address: [address] [place] [address], [facility] Email: [email or web address] Plan Of Care PT-OP-T Assessment and Plan Start: 02/25/23 09:01 Freq: Status: Active Protocol: Document 02/26/23 13:45 MB (Rec: 02/26/23 14:56 MB [id number]) Physical Therapy Assessment Rehab Potential Rehabilitation Potential Fair Evaluation Complexity Number of Personal Factors/Comorbidities 1-2 Number of Body Systems Impaired 3 Clinical Presentation at Evaluation Evolving Impairments Impairments Activity Tolerance,Balance, Functional Activities, Functional Mobility,Gait, Strength Goals 4 Impairment Lack of HEP Dependency Program Director Goal (LTG) Pt will perform progressive HEP including breathing, activity modification training , balance and strengthening exercises with I to improve safety and overall functional I. LTG Duration 8 weeks 3 Impairment Evidence for imbalance Dependency Program Director Goal (LTG) Pt will perform WNLs on a standardized balance test to decrease fall risk. LTG Duration 8 weeks 2 Impairment 1039 feet in 6 minutes Dependency Program Director Goal (LTG) Pt will gait train at least 1300 feet in 6 minutes to reflect improved functional endurance for safe community ambulation. LTG Duration 8 weeks 1 Impairment LEF score 49/80 Dependency Program Director Goal (LTG) Pt will present with an improved LEF score to at least 60/80 to reflect improved function and balance. LTG Duration 8 weeks Assessment Summary Assessment Pt is an 82 y/o female presenting with many medical issues including 5 month hospitalization last year d/t respiratory failure from MG. Pt was intubated. She has a PEG tube and is just now starting to eat. She had HHnsg and speech before transitioning to outpatient. She con't with outpatient speech therapy and is now starting PT for the first time . She had a cardiac ablation and states her BP still increases. This PT has worked with pt's in the past and he has had multiple falls and injuries post-stroke and pt states he con't to be non- compliant with ADs at home and she helps him with tranferring and gait. They have a paid caregiver that also assists. PT is concerned about pt's overall ability and safety in caring for herself and . She will benefit from PT to improve strength and balance. Pt states that she was denied cardiac rehab d /t her medical dxs. Physical Therapy Plan Frequency and Duration Frequency of Treatment 1-2x/week Duration of treatment (weeks) 8 Plan of Care Start Date 02/26/23 Plan of Care End Date 04/30/23 Therapeutic Interventions Therapeutic Interventions Balance Training,Canalithic Repositioning,Coordination Training,Gait Training,Home Exercise Program,Joint Mobilizations,Neuromuscular Re -education,Patient/Caregiver Education,Self-Care/Home Management,Soft Tissue Mobilization,Therapeutic Activities,Therapeutic Exercises Modalities Cold Pack/Ice Massage,Hot Packs Next Visit Focus/Plan Next Note Type Treatment Note Next Visit Plan Consider FGA for balance testing Progress light cardio and monitor vitals Progressive core, balance and LE strengthening exercises Plan of Care Dates Plan of Care Start Date 02/26/23 Plan of Care End Date 04/30/23 Electronically Signed by: Shannon Dolan PT 02/26/23 [id number] If you are in agreement with this Plan of Care, please return a signed and dated copy. I have reviewed this Plan of Care and certify that the skilled therapy services above are required to meet the patient?s needs. Physician Signature Date Printed Name and Credentials Clinical Instructor Signature Printed Name and Credentials
--- NOTE | 2023-02-28 14:51 | PT.OTN ---
Current Diagnoses Muscle weakness (generalized) (02/28/23) Other symptoms and signs involving the musculoskeletal system (02/28/23) Physical Therapy Treatment Note PT-OP-A Visit Information Start: 02/25/23 09:01 Freq: Status: Active Protocol: Document 02/28/23 13:56 MB (Rec: 02/28/23 14:50 MB [id number]) Out-Patient Physical Therapy Visit Information Visit Information Visit Type Treatment Note Visit Note Medicare 03/17 before progress note Visit Start Time 13:56 Visit Stop Time 14:41 Visit Number 2 Number of DONOR SERVICES TEAM LEADER Visits 0 Evaluation Information Evaluation Date 02/26/23 Precautions Precautions Pt recently had cardiac ablation for flutter on , keep an eye on BP and HR PT-OP-B Current Condition Start: 02/25/23 09:01 Freq: Status: Active Protocol: Document 02/26/23 13:45 MB (Rec: 02/26/23 14:01 MB [id number]) Current Condition History of Current Condition Onset Date May-Oct 2022 hospitalization for respiratory failure d/t MG Current Complaints Overall weakness History of Current Condition Pt was hospitalized for respiratory failure d/t MG and she has ongoing reports of leg weakness and trouble getting up from standing. Pt had cardiac ablation for flutter 02/17/23 and she is still having BP issues. Pt gets out of breath walking to the mailbox and talking can even increase her BP. Cardiac rehab said she does not qualify for cardiac rehab. She finished with HH services for herself. She had HH nsg and MANAGER INSPECTION. She did not have HHPT . She was intubated during hospitalization and got a PEG tube. She has just started eating. Pt lives at home with her , Apolinar, who has had many falls and is not doing well. A home caregiver helps her some. Her is refusing to use the cane or walker. There is a flight of steps at home. Caregiver drove her to PT and helps with errands, a few meals a week and cleaning. Pt is [place] and does not wear hearing aides to PT. Treatment Goals Patient/Caregiver Goals To get legs stronger PT-OP-C Subjective Start: 02/25/23 09:01 Freq: Status: Active Protocol: Document 02/28/23 13:56 MB (Rec: 02/28/23 14:51 MB [id number]) OP-PT Subjective Patient Comments Patient Comments Pt is late to appointment, she got turned around when changing how she came to clinic. PT-OP-G Mobility & Gait Start: 02/25/23 09:01 Freq: Status: Active Protocol: Document 02/26/23 13:45 MB (Rec: 02/26/23 14:56 MB [id number]) OP Gait Assessment Comments Gait Comments Pt gait trains slowly and she has increased GRAY with exertion and requires three standing rest breaks against the wall with 6 minutes of gait training, little to no arm movement PT-OP-K Range of Motion Start: 02/25/23 09:01 Freq: Status: Active Protocol: Document 02/26/23 13:45 MB (Rec: 02/26/23 14:56 MB [id number]) Hip Goniometric Range of Motion Hip ROM Limitations Comments B hip ROM normal Knee Goniometric Range of Motion Knee ROM Limitations Comments B knee ROM normal Ankle and Foot Goniometric Range of Motion Ankle and Foot ROM Limitations Comments B ankle ROM normal PT-OP-M Strength Start: 02/25/23 09:01 Freq: Status: Active Protocol: Document 02/26/23 13:45 MB (Rec: 02/26/23 14:56 MB [id number]) Hip Strength Hip Manual Muscle Testing Left Flexion (L2) 4+ Good+ Abduction 4 Good Right Flexion (L2) 5 Normal Abduction 4 Good Knee Strength Knee Manual Muscle Testing Left Flexion (S2) 4+ Good+ Extension (L3) 5 Normal Right Flexion (S2) 5 Normal Extension (L3) 5 Normal Ankle/Foot Strength Ankle and Foot Manual Muscle Testing Bilateral Dorsiflexion (L4) 5 Normal PT-OP-Q Treatments Start: 02/25/23 09:01 Freq: Status: Active Protocol: Document 02/28/23 13:56 MB (Rec: 02/28/23 14:50 MB [id number]) Cardio Equipment Recumbent Elliptical (SMITH (formerly [employer])) Duration (Minutes) 10 Resistance 3 Other Working on LE strengthening and cardiac conditioning, vitals in assessment Neuro Re-Education Treatment Balance Activities FGA tasks after canalith repositioning maneuver Comments Gait with head turns is better after canalith repositioning maneuver FGA Comments FGA score is 12/30 with LOB with horizontal head turns to the left and most other trouble with gait with narrow base of support, gait with eyes close, gait backwards, change in gait speed and steps (missed step and caught self, used rail) Canalithic Repositioning BPPV Treatment Other Comments B Tonalea-Hallpike and Roll Test, treated for right side posterior canal PT-OP-T Assessment and Plan Start: 02/25/23 09:01 Freq: Status: Active Protocol: Document 02/28/23 13:56 MB (Rec: 02/28/23 14:50 MB [id number]) Physical Therapy Assessment Rehab Potential Rehabilitation Potential Fair Evaluation Complexity Number of Personal Factors/Comorbidities 1-2 Number of Body Systems Impaired 3 Clinical Presentation at Evaluation Evolving Impairments Impairments Activity Tolerance,Balance, Functional Activities, Functional Mobility,Gait, Strength Goals 4 Impairment Lack of HEP Inner Diameter Grinder Tool Goal (LTG) Pt will perform progressive HEP including breathing, activity modification training , balance and strengthening exercises with I to improve safety and overall functional I. LTG Duration 8 weeks 3 Impairment Evidence for imbalance Inner Diameter Grinder Tool Goal (LTG) Pt will perform WNLs on a standardized balance test to decrease fall risk. LTG Duration 8 weeks 2 Impairment 1039 feet in 6 minutes Group Home Goal (LTG) Pt will gait train at least 1300 feet in 6 minutes to reflect improved functional endurance for safe community ambulation. LTG Duration 8 weeks 1 Impairment LEF score 49/80 Inner Diameter Grinder Tool Goal (LTG) Pt will present with an improved LEF score to at least 60/80 to reflect improved function and balance. LTG Duration 8 weeks Assessment Summary Assessment BP and HR in LUE before NuStep 135/63, 67. MARSHA scale 8 after 1 min on NuStep. Pt is able to talk when using NuStep . MARSHA scale 14 after 10 minutes of work. BP and HR LUE after 10' Nustep level 3 155/ 66, 73. Pt requires rest breaks with activity d/t MG. Pt with reports of vertigo with horizontal head turns and LOB and checked pt for BPPV. She was symptomatic with right Tonalea-Hallpike and no nystagmus seen. Left roll test with mild geotropic nystagmus. No nystagmus or symptoms with right roll test so treated for right posterior canal to see if head turns better with gait after treatment and pt does have no LOB after maneuver. Con't PT for balance and strengthening, consider a VOR exercise in the future if needed. BP and HR in LUE after treatment is 131/58, 68. Physical Therapy Plan Frequency and Duration Frequency of Treatment 1-2x/week Duration of treatment (weeks) 8 Plan of Care Start Date 02/26/23 Plan of Care End Date 04/30/23 Therapeutic Interventions Therapeutic Interventions Balance Training,Canalithic Repositioning,Coordination Training,Gait Training,Home Exercise Program,Joint Mobilizations,Neuromuscular Re -education,Patient/Caregiver Education,Self-Care/Home Management,Soft Tissue Mobilization,Therapeutic Activities,Therapeutic Exercises Modalities Cold Pack/Ice Massage,Hot Packs Next Visit Focus/Plan Next Note Type Treatment Note Next Visit Plan Progress light cardio and monitor vitals Progressive core, balance and LE strengthening exercises Consider FGA task exercise, consider VOR exercise
--- NOTE | 2023-03-06 10:32 | PT.OTN ---
Current Diagnoses Muscle weakness (generalized) (03/06/23) Other symptoms and signs involving the musculoskeletal system (03/06/23) Physical Therapy Treatment Note PT-OP-A Visit Information Start: 02/25/23 09:01 Freq: Status: Active Protocol: Document 03/06/23 09:48 MB (Rec: 03/06/23 10:28 MB [id number]) Out-Patient Physical Therapy Visit Information Visit Information Visit Type Treatment Note Visit Note Medicare 04/14 before progress note Visit Start Time 09:48 Visit Stop Time 10:30 Visit Number 43 Number of DRY PLASTERER Visits 0 Precautions Precautions Pt recently had cardiac ablation for flutter on , keep an eye on BP and HR PT-OP-B Current Condition Start: 02/25/23 09:01 Freq: Status: Active Protocol: Document 02/26/23 13:45 MB (Rec: 02/26/23 14:01 MB [id number]) Current Condition History of Current Condition Onset Date May-Oct 2022 hospitalization for respiratory failure d/t MG Current Complaints Overall weakness History of Current Condition Pt was hospitalized for respiratory failure d/t MG and she has ongoing reports of leg weakness and trouble getting up from standing. Pt had cardiac ablation for flutter 02/17/23 and she is still having BP issues. Pt gets out of breath walking to the mailbox and talking can even increase her BP. Cardiac rehab said she does not qualify for cardiac rehab. She finished with HH services for herself. 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 She did not have HHPT . She was intubated during hospitalization and got a PEG tube. She has just started eating. Pt lives at home with her , Apolinar, who has had many falls and is not doing well. A home caregiver helps her some. Her is refusing to use the cane or walker. There is a flight of steps at home. Caregiver drove her to PT and helps with errands, a few meals a week and cleaning. Pt is [place] and does not wear hearing aides to PT. Treatment Goals Patient/Caregiver Goals To get legs stronger PT-OP-C Subjective Start: 02/25/23 09:01 Freq: Status: Active Protocol: Document 03/06/23 09:48 MB (Rec: 03/06/23 10:28 MB [id number]) OP-PT Subjective Patient Comments Patient Comments Pt states that she is tired and still a little bit imbalanced. PT-OP-G Mobility & Gait Start: 02/25/23 09:01 Freq: Status: Active Protocol: Document 02/26/23 13:45 MB (Rec: 02/26/23 14:56 MB [id number]) OP Gait Assessment Comments Gait Comments Pt gait trains slowly and she has increased GRAY with exertion and requires three standing rest breaks against the wall with 6 minutes of gait training, little to no arm movement PT-OP-K Range of Motion Start: 02/25/23 09:01 Freq: Status: Active Protocol: Document 02/26/23 13:45 MB (Rec: 02/26/23 14:56 MB [id number]) Hip Goniometric Range of Motion Hip ROM Limitations Comments B hip ROM normal Knee Goniometric Range of Motion Knee ROM Limitations Comments B knee ROM normal Ankle and Foot Goniometric Range of Motion Ankle and Foot ROM Limitations Comments B ankle ROM normal PT-OP-M Strength Start: 02/25/23 09:01 Freq: Status: Active Protocol: Document 02/26/23 13:45 MB (Rec: 02/26/23 14:56 MB [id number]) Hip Strength Hip Manual Muscle Testing Left Flexion (L2) 4+ Good+ Abduction 4 Good Right Flexion (L2) 5 Normal Abduction 4 Good Knee Strength Knee Manual Muscle Testing Left Flexion (S2) 4+ Good+ Extension (L3) 5 Normal Right Flexion (S2) 5 Normal Extension (L3) 5 Normal Ankle/Foot Strength Ankle and Foot Manual Muscle Testing Bilateral Dorsiflexion (L4) 5 Normal PT-OP-Q Treatments Start: 02/25/23 09:01 Freq: Status: Active Protocol: Document 03/06/23 09:48 MB (Rec: 03/06/23 10:28 MB [id number]) Cardio Equipment Recumbent Elliptical ([employer]) Duration (Minutes) 10 Resistance 3 Other BP and HR RUE a: 133/58, 62; p : 154/64, 66 Therapeutic Exercises Sitting Exercises STS Comments 10 reps today Clam with glute squeeze Resistance Level 2 band around knees Reps/Minutes 10 reps Hip flexion/marching Resistance Level 2 band around knees Reps/Minutes 20 alternating reps Knee flexion Sitting Exercise Name Bicycling but resistance Resistance Level 2 teal band around ankles Reps/Minutes 10 alternating reps Comments Cues to keep resistance on the band LAQ Resistance Level 2 teal band around ankles Reps/Minutes 10 alternating reps, pumping ankles Comments Cues to keep resistance on the band Ankle DF and eversion Resistance Level 2 teal band over balls of feet Reps/Minutes 20 Comments 10 reps with cues to keep knees still Self-Care/Home Management Treatment Education Patient Education Fall Risk,Safety Other Education Ongoing encouragement and education about pt asking to use his walker at home to help her cardiac and overall health and balance and to decrease his fall risk as well and she did this and he is starting to use walker. Pt is ongoing checking her BP with activity. PT-OP-T Assessment and Plan Start: 02/25/23 09:01 Freq: Status: Active Protocol: Document 03/06/23 09:48 MB (Rec: 03/06/23 10:28 MB [id number]) Physical Therapy Assessment Rehab Potential Rehabilitation Potential Fair Evaluation Complexity Number of Personal Factors/Comorbidities 1-2 Number of Body Systems Impaired 3 Clinical Presentation at Evaluation Evolving Impairments Impairments Activity Tolerance,Balance, Functional Activities, Functional Mobility,Gait, Strength Goals 4 Impairment Lack of HEP Prison Goal (LTG) Pt will perform progressive HEP including breathing, activity modification training , balance and strengthening exercises with I to improve safety and overall functional I. LTG Duration 8 weeks 3 Impairment Evidence for imbalance Prison Goal (LTG) Pt will perform WNLs on a standardized balance test to decrease fall risk. LTG Duration 8 weeks 2 Impairment 1039 feet in 6 minutes Prison Goal (LTG) Pt will gait train at least 1300 feet in 6 minutes to reflect improved functional endurance for safe community ambulation. LTG Duration 8 weeks 1 Impairment LEF score 49/80 Third Officer Goal (LTG) Pt will present with an improved LEF score to at least 60/80 to reflect improved function and balance. LTG Duration 8 weeks Assessment Summary Assessment Sitting strengthening exercises are started today and are a good start for pt. Will review next treatment and and monitor BP with activity. Physical Therapy Plan Frequency and Duration Frequency of Treatment 1-2x/week Duration of treatment (weeks) 8 Plan of Care Start Date 02/26/23 Plan of Care End Date 04/30/23 Therapeutic Interventions Therapeutic Interventions Balance Training,Canalithic Repositioning,Coordination Training,Gait Training,Home Exercise Program,Joint Mobilizations,Neuromuscular Re -education,Patient/Caregiver Education,Self-Care/Home Management,Soft Tissue Mobilization,Therapeutic Activities,Therapeutic Exercises Modalities Cold Pack/Ice Massage,Hot Packs Next Visit Focus/Plan Next Note Type Treatment Note Next Visit Plan Review her sitting LE theraband exercises and she should bring in handouts. Progress light cardio and monitor vitals Consider FGA task exercise, consider VOR exercise. In the future, progress to standing balance exercises
--- NOTE | 2023-03-08 10:04 | PT.OTN ---
Current Diagnoses Muscle weakness (generalized) (03/08/23) Other symptoms and signs involving the musculoskeletal system (03/08/23) Physical Therapy Treatment Note PT-OP-A Visit Information Start: 02/25/23 09:01 Freq: Status: Active Protocol: Document 03/08/23 08:06 AB (Rec: 03/08/23 10:03 AB [id number]) Out-Patient Physical Therapy Visit Information Visit Information Visit Note Medicare 05/15 before progress note Visit Start Time 09:06 Visit Stop Time 09:50 Visit Number 4 Number of LOAN SERVICING OFFICER Visits 1 Precautions Precautions Pt recently had cardiac ablation for flutter on , keep an eye on BP and HR PT-OP-B Current Condition Start: 02/25/23 09:01 Freq: Status: Active Protocol: Document 02/26/23 13:45 MB (Rec: 02/26/23 14:01 MB [id number]) Current Condition History of Current Condition Onset Date May-Oct 2022 hospitalization for respiratory failure d/t MG Current Complaints Overall weakness History of Current Condition Pt was hospitalized for respiratory failure d/t MG and she has ongoing reports of leg weakness and trouble getting up from standing. Pt had cardiac ablation for flutter 02/17/23 and she is still having BP issues. Pt gets out of breath walking to the mailbox and talking can even increase her BP. Cardiac rehab said she does not qualify for cardiac rehab. She finished with HH services for herself. 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 She did not have HHPT . She was intubated during hospitalization and got a PEG tube. She has just started eating. Pt lives at home with her , Apolinar, who has had many falls and is not doing well. A home caregiver helps her some. Her is refusing to use the cane or walker. There is a flight of steps at home. Caregiver drove her to PT and helps with errands, a few meals a week and cleaning. Pt is [place] and does not wear hearing aides to PT. Treatment Goals Patient/Caregiver Goals To get legs stronger PT-OP-C Subjective Start: 02/25/23 09:01 Freq: Status: Active Protocol: Document 03/08/23 08:06 AB (Rec: 03/08/23 10:03 AB [id number]) OP-PT Subjective Patient Comments Patient Comments Patient reports feeling tired today. Patient reports her BP is getting back to normal, feels she has more energy. Attributes today's feeling of tiredness to not sleeping well . PT-OP-G Mobility & Gait Start: 02/25/23 09:01 Freq: Status: Active Protocol: Document 02/26/23 13:45 MB (Rec: 02/26/23 14:56 MB [id number]) OP Gait Assessment Comments Gait Comments Pt gait trains slowly and she has increased GRAY with exertion and requires three standing rest breaks against the wall with 6 minutes of gait training, little to no arm movement PT-OP-K Range of Motion Start: 02/25/23 09:01 Freq: Status: Active Protocol: Document 02/26/23 13:45 MB (Rec: 02/26/23 14:56 MB [id number]) Hip Goniometric Range of Motion Hip ROM Limitations Comments B hip ROM normal Knee Goniometric Range of Motion Knee ROM Limitations Comments B knee ROM normal Ankle and Foot Goniometric Range of Motion Ankle and Foot ROM Limitations Comments B ankle ROM normal PT-OP-M Strength Start: 02/25/23 09:01 Freq: Status: Active Protocol: Document 02/26/23 13:45 MB (Rec: 02/26/23 14:56 MB [id number]) Hip Strength Hip Manual Muscle Testing Left Flexion (L2) 4+ Good+ Abduction 4 Good Right Flexion (L2) 5 Normal Abduction 4 Good Knee Strength Knee Manual Muscle Testing Left Flexion (S2) 4+ Good+ Extension (L3) 5 Normal Right Flexion (S2) 5 Normal Extension (L3) 5 Normal Ankle/Foot Strength Ankle and Foot Manual Muscle Testing Bilateral Dorsiflexion (L4) 5 Normal PT-OP-Q Treatments Start: 02/25/23 09:01 Freq: Status: Active Protocol: Document 03/08/23 08:06 AB (Rec: 03/08/23 10:03 AB [id number]) Cardio Equipment Upper Body Ergometer (UBE) Duration (Minutes) 5 Height peddler no resistance added Other BP pre 121/61 HR 63 BPM L UE Therapeutic Exercises Sitting Exercises STS Reps/Minutes X10 Comments VC to increase trunk flexion at hips and to decrease knee valgus Clam with glute squeeze Resistance Level 2 and 3 band around knees Reps/Minutes 10 reps X2 Comments X10 lv 2 X10 lv 3 Hip flexion/marching Resistance Level 2/3 band around knees Reps/Minutes 20 alternating reps then X10 level 3 Knee flexion Sitting Exercise Name Bicycling but resistance Resistance Level 3 teal band around ankles Reps/Minutes 10 alternating reps LAQ Resistance Level 2/3 teal band around ankles Reps/Minutes 2X10 alternating reps, pumping ankles Comments X10 lv2 X10 level 3, monitored for pain Ankle DF and eversion Resistance Level 2/3 teal band over balls of feet Reps/Minutes 20 then X 10 with lev 3 light green Comments 10 reps with cues to keep knees still PT-OP-T Assessment and Plan Start: 02/25/23 09:01 Freq: Status: Active Protocol: Document 03/08/23 08:06 AB (Rec: 03/08/23 10:03 AB [id number]) Physical Therapy Assessment Goals 4 Impairment Lack of HEP Commercial Title Examiner Goal (LTG) Pt will perform progressive HEP including breathing, activity modification training , balance and strengthening exercises with I to improve safety and overall functional I. LTG Duration 8 weeks 3 Impairment Evidence for imbalance [facility] Goal (LTG) Pt will perform WNLs on a standardized balance test to decrease fall risk. LTG Duration 8 weeks 2 Impairment 1039 feet in 6 minutes Commercial Title Examiner Goal (LTG) Pt will gait train at least 1300 feet in 6 minutes to reflect improved functional endurance for safe community ambulation. LTG Duration 8 weeks 1 Impairment LEF score 49/80 Commercial Title Examiner Goal (LTG) Pt will present with an improved LEF score to at least 60/80 to reflect improved function and balance. LTG Duration 8 weeks Assessment Summary Assessment Beena Vela reports having no pain end of session, comments feeling like her muscles worked. BP post upper body [id number] HR 57 per minute. Good tolerance to increase in bands for seated exercises, and was able to perform sit to stand with a less quad dominant pattern and decreased right LE valgus post vc. Physical Therapy Plan Frequency and Duration Frequency of Treatment 1-2x/week Duration of treatment (weeks) 8 Plan of Care Start Date 02/26/23 Plan of Care End Date 04/30/23 Next Visit Focus/Plan Next Note Type Treatment Note Next Visit Plan Progress light cardio and monitor vitals increase resistance on arm bike Consider FGA task exercise, consider VOR exercise. In the future, progress to standing balance exercises
--- NOTE | 2023-03-19 14:50 | PT.OTN ---
Current Diagnoses Muscle weakness (generalized) (03/19/23) Other symptoms and signs involving the musculoskeletal system (03/19/23) Physical Therapy Treatment Note PT-OP-A Visit Information Start: 02/25/23 09:01 Freq: Status: Active Protocol: Document 03/19/23 12:47 AB (Rec: 03/19/23 14:30 AB [id number]) Out-Patient Physical Therapy Visit Information Visit Information Visit Note Access Code [email or web address] Visit Start Time 13:02 Visit Stop Time 13:47 Visit Number 5 Number of PRODUCT MARKETING SPECIALIST Visits 2 Evaluation Information Evaluation Date 02/26/23 Precautions Precautions Pt recently had cardiac ablation for flutter on , keep an eye on BP and HR PT-OP-B Current Condition Start: 02/25/23 09:01 Freq: Status: Active Protocol: Document 02/26/23 13:45 MB (Rec: 02/26/23 14:01 MB [id number]) Current Condition History of Current Condition Onset Date May-Oct 2022 hospitalization for respiratory failure d/t MG Current Complaints Overall weakness History of Current Condition Pt was hospitalized for respiratory failure d/t MG and she has ongoing reports of leg weakness and trouble getting up from standing. Pt had cardiac ablation for flutter 02/17/23 and she is still having BP issues. Pt gets out of breath walking to the mailbox and talking can even increase her BP. Cardiac rehab said she does not qualify for cardiac rehab. She finished with HH services for herself. 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 She did not have HHPT . She was intubated during hospitalization and got a PEG tube. She has just started eating. Pt lives at home with her , Apolinar, who has had many falls and is not doing well. A home caregiver helps her some. Her is refusing to use the cane or walker. There is a flight of steps at home. Caregiver drove her to PT and helps with errands, a few meals a week and cleaning. Pt is [place] and does not wear hearing aides to PT. Treatment Goals Patient/Caregiver Goals To get legs stronger PT-OP-C Subjective Start: 02/25/23 09:01 Freq: Status: Active Protocol: Document 03/19/23 12:47 AB (Rec: 03/19/23 14:30 AB [id number]) OP-PT Subjective Patient Comments Patient Comments Patient reports she is better. Patient reports her blood pressure is better when she exercises. Patient reports she is tired today. Patient attributes to not napping and resting thee past 2 days. PT-OP-G Mobility & Gait Start: 02/25/23 09:01 Freq: Status: Active Protocol: Document 02/26/23 13:45 MB (Rec: 02/26/23 14:56 MB [id number]) OP Gait Assessment Comments Gait Comments Pt gait trains slowly and she has increased GRAY with exertion and requires three standing rest breaks against the wall with 6 minutes of gait training, little to no arm movement PT-OP-K Range of Motion Start: 02/25/23 09:01 Freq: Status: Active Protocol: Document 02/26/23 13:45 MB (Rec: 02/26/23 14:56 MB [id number]) Hip Goniometric Range of Motion Hip ROM Limitations Comments B hip ROM normal Knee Goniometric Range of Motion Knee ROM Limitations Comments B knee ROM normal Ankle and Foot Goniometric Range of Motion Ankle and Foot ROM Limitations Comments B ankle ROM normal PT-OP-M Strength Start: 02/25/23 09:01 Freq: Status: Active Protocol: Document 02/26/23 13:45 MB (Rec: 02/26/23 14:56 MB [id number]) Hip Strength Hip Manual Muscle Testing Left Flexion (L2) 4+ Good+ Abduction 4 Good Right Flexion (L2) 5 Normal Abduction 4 Good Knee Strength Knee Manual Muscle Testing Left Flexion (S2) 4+ Good+ Extension (L3) 5 Normal Right Flexion (S2) 5 Normal Extension (L3) 5 Normal Ankle/Foot Strength Ankle and Foot Manual Muscle Testing Bilateral Dorsiflexion (L4) 5 Normal PT-OP-Q Treatments Start: 02/25/23 09:01 Freq: Status: Active Protocol: Document 03/19/23 12:47 AB (Rec: 03/19/23 14:30 AB [id number]) Cardio Equipment Upper Body Ergometer (UBE) Duration (Minutes) 5 RPM 60 Seat Position 9 Height 2 Other pre BP 126/60 HR 51 post 155/ 59 HR 58 Therapeutic Exercises Sitting Exercises Clam with glute squeeze Resistance level 3 bnd above knees Reps/Minutes 3X10 LAQ Resistance Level 2/3 teal band around ankles Reps/Minutes 3X10 Standing Exercises eccentric heel raise Standing Exercise Name Ecc HR with UE support Side bilateral Reps/Minutes X10 Comments Verbal cues for tech and to lower heels slowly Therapeutic Activity Therapeutic Activity sit to stand Name sit to stand Reps/Minutes X5 X 3 Comments Verbal cues to increase knee flexion to just past 90 deg and hip hinge with sit to and from stand. Neuro Re-Education Treatment Balance Activities tandem stepping Details hands above parallel bars Reps/Duration 10 feet X 2 Comments CGA with gait belt shuttle Details feet on 4's then stagger stance position Reps/Duration 3 min Comments CGA with gait belt, performed with head turns and visual scanning Other Activities glute med activation Details seate hip abduction with band Reps/Duration X1 one minute Comments teal band, patient ed rationale of one minute hold for activation PT-OP-T Assessment and Plan Start: 02/25/23 09:01 Freq: Status: Active Protocol: Document 03/19/23 12:47 AB (Rec: 03/19/23 14:30 AB [id number]) Physical Therapy Assessment Goals 4 Impairment Lack of HEP Intermediate Goal (LTG) Pt will perform progressive HEP including breathing, activity modification training , balance and strengthening exercises with I to improve safety and overall functional I. LTG Duration 8 weeks 3 Impairment Evidence for imbalance Intermediate Goal (LTG) Pt will perform WNLs on a standardized balance test to decrease fall risk. LTG Duration 8 weeks 2 Impairment 1039 feet in 6 minutes Intermediate Goal (LTG) Pt will gait train at least 1300 feet in 6 minutes to reflect improved functional endurance for safe community ambulation. LTG Duration 8 weeks 1 Impairment LEF score 49/80 Intermediate Goal (LTG) Pt will present with an improved LEF score to at least 60/80 to reflect improved function and balance. LTG Duration 8 weeks Assessment Summary Assessment Beena zhou reports feeling stronger end of session. Post glute med activation SLS right LE 16 seconds left LE 13 seconds, chair exercise alternated with standing exercise due to patient was ill last week and unable to perform HEP, also higher BP post arm bike than previous sessions. Physical Therapy Plan Frequency and Duration Frequency of Treatment 1-2x/week Duration of treatment (weeks) 8 Plan of Care Start Date 02/26/23 Plan of Care End Date 04/30/23 Next Visit Focus/Plan Next Note Type Treatment Note Next Visit Plan Progress light cardio and monitor vitals increase resistance on arm bike Consider FGA task exercise, consider VOR exercise. continue to progress to standing balance exercises
--- NOTE | 2023-03-21 13:25 | PT.OTN ---
Current Diagnoses Muscle weakness (generalized) (03/21/23) Other symptoms and signs involving the musculoskeletal system (03/21/23) Physical Therapy Treatment Note PT-OP-A Visit Information Start: 02/25/23 09:01 Freq: Status: Active Protocol: Document 03/21/23 12:17 NM (Rec: 03/21/23 13:10 NM [id number]) Out-Patient Physical Therapy Visit Information Visit Information Visit Type Treatment Note Visit Note Pt late starting BP 152/71 Visit Start Time 12:20 Visit Stop Time 13:00 Visit Number 6 Evaluation Information Evaluation Date 02/26/23 Precautions Precautions Pt recently had cardiac ablation for flutter on , keep an eye on BP and HR PT-OP-B Current Condition Start: 02/25/23 09:01 Freq: Status: Active Protocol: Document 02/26/23 13:45 MB (Rec: 02/26/23 14:01 MB [id number]) Current Condition History of Current Condition Onset Date May-Oct 2022 hospitalization for respiratory failure d/t MG Current Complaints Overall weakness History of Current Condition Pt was hospitalized for respiratory failure d/t MG and she has ongoing reports of leg weakness and trouble getting up from standing. Pt had cardiac ablation for flutter 02/17/23 and she is still having BP issues. Pt gets out of breath walking to the mailbox and talking can even increase her BP. Cardiac rehab said she does not qualify for cardiac rehab. She finished with HH services for herself. 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 She did not have HHPT . She was intubated during hospitalization and got a PEG tube. She has just started eating. Pt lives at home with her , Apolinar, who has had many falls and is not doing well. A home caregiver helps her some. Her is refusing to use the cane or walker. There is a flight of steps at home. Caregiver drove her to PT and helps with errands, a few meals a week and cleaning. Pt is [place] and does not wear hearing aides to PT. Treatment Goals Patient/Caregiver Goals To get legs stronger PT-OP-C Subjective Start: 02/25/23 09:01 Freq: Status: Active Protocol: Document 03/21/23 12:17 NM (Rec: 03/21/23 13:10 NM [id number]) OP-PT Subjective Patient Comments Patient Comments She had an autoimmune flare up yesterday and was very worn out. She states she is still recuperating . She noticed her BP was higher a few days ago but has gone down PT-OP-G Mobility & Gait Start: 02/25/23 09:01 Freq: Status: Active Protocol: Document 02/26/23 13:45 MB (Rec: 02/26/23 14:56 MB [id number]) OP Gait Assessment Comments Gait Comments Pt gait trains slowly and she has increased GRAY with exertion and requires three standing rest breaks against the wall with 6 minutes of gait training, little to no arm movement PT-OP-K Range of Motion Start: 02/25/23 09:01 Freq: Status: Active Protocol: Document 02/26/23 13:45 MB (Rec: 02/26/23 14:56 MB [id number]) Hip Goniometric Range of Motion Hip ROM Limitations Comments B hip ROM normal Knee Goniometric Range of Motion Knee ROM Limitations Comments B knee ROM normal Ankle and Foot Goniometric Range of Motion Ankle and Foot ROM Limitations Comments B ankle ROM normal PT-OP-M Strength Start: 02/25/23 09:01 Freq: Status: Active Protocol: Document 02/26/23 13:45 MB (Rec: 02/26/23 14:56 MB [id number]) Hip Strength Hip Manual Muscle Testing Left Flexion (L2) 4+ Good+ Abduction 4 Good Right Flexion (L2) 5 Normal Abduction 4 Good Knee Strength Knee Manual Muscle Testing Left Flexion (S2) 4+ Good+ Extension (L3) 5 Normal Right Flexion (S2) 5 Normal Extension (L3) 5 Normal Ankle/Foot Strength Ankle and Foot Manual Muscle Testing Bilateral Dorsiflexion (L4) 5 Normal PT-OP-Q Treatments Start: 02/25/23 09:01 Freq: Status: Active Protocol: Document 03/21/23 12:17 NM (Rec: 03/21/23 13:10 NM [id number]) Therapeutic Exercises Sitting Exercises STS Side bilateral Resistance lvl 2 tb around thighs Equipment Used from mesh chair Reps/Minutes 1x5 w/o band, 1x10 w/ band around thighs Comments cued for foot placement, limit knee valgus Clam with glute squeeze Resistance level 3 bnd above knees Reps/Minutes 3x10 Comments cued for upright trunk posture LAQ Sitting Exercise Name trialed lvl 3 but unable w/o trunk compensations Resistance Level 2 teal band around ankles Reps/Minutes 1x10, 1x5 due to fatigue (HR 64) Comments cued for TKE, external target to PT hand Standing Exercises Step ups Standing Exercise Name 4 step up/down Side bilateral Resistance AROM Equipment Used no hand support on hand rails Reps/Minutes 2x10 ea Comments cued for even pelvis, center weight over midfoot with step; fatiguing Toe raises Standing Exercise Name handrail for BUE support Side bilateral Reps/Minutes 2x10 Comments cued eccentric lowering eccentric heel raise Standing Exercise Name Ecc handrail with BUE support Side bilateral Reps/Minutes 2x10 Comments cue to lower heels slowly Neuro Re-Education Treatment Balance Activities Hurdles Details CGA>close SBA Surface stable Equipment 3 > 5 hurdles Reps/Duration 4 reps ea x10 ft Comments 1. fwd 3 hurdles with same LE stepping, then 5 hurdles with reciprocal pattern. CGA for all, cued to prevent hip rotation and take larger steps with closer approach 2. lateral 5 hurdles with lateral stepping; cued to limit hip and toe rotation, prevent opp hip drop with stepping. Verbal cues to step closer to fred prior to step, the weight shift onto stance LE prior to lifting other foot over and larger step overall. tandem stepping Details hands above parallel bars Reps/Duration 10 feet X 2 Comments CGA with gait belt 1. tandem stepping 2. tandem stance, 2x30; R more difficult than L, CGA to steady FGA Comments 1. gait with head turns, 4x25 ft Pt looking for cones, calling out color at PT instruction; dmeos increased sway, prn stumble and stop gait 2. gait with vertical nods, 4x25 ft Less sway and stumble, but not smooth gait speed 3. change gait speed on command, 4x100 ft Nml gait speed is slow, no LOB with change in speed fast<> slow but increased sway and [place] 4. Pivot, turns, stops, 4x100 ft Nml or fast gait speed per PT instruction, cued to pivot and continue walking or turn and stop randomly. Slow turn and stop, but quick pivot; cued to keep feet under [place] PT-OP-T Assessment and Plan Start: 02/25/23 09:01 Freq: Status: Active Protocol: Document 03/21/23 12:17 NM (Rec: 03/21/23 13:10 NM [id number]) Physical Therapy Assessment Goals 4 Impairment Lack of HEP Manager Books Goal (LTG) Pt will perform progressive HEP including breathing, activity modification training , balance and strengthening exercises with I to improve safety and overall functional I. LTG Duration 8 weeks 3 Impairment Evidence for imbalance [facility] Goal (LTG) Pt will perform WNLs on a standardized balance test to decrease fall risk. LTG Duration 8 weeks 2 Impairment 1039 feet in 6 minutes Manager Books Goal (LTG) Pt will gait train at least 1300 feet in 6 minutes to reflect improved functional endurance for safe community ambulation. LTG Duration 8 weeks 1 Impairment LEF score 49/80 [facility] Goal (LTG) Pt will present with an improved LEF score to at least 60/80 to reflect improved function and balance. LTG Duration 8 weeks Assessment Summary Assessment Pt reports feeling stronger during session and with exercise. Treatment focus on balance with changing speed, [place], and with cognitive dual tasking. Pt reports prn vertigo again with head turns (horizontal>vertical) jayden with combination of movements. Initiated 4 step up for quad and glute strengthening. Verbal and prn tactile cues for form and weight shifting for improved balance, demos trendelenburg pattern with step up and hurdles. Pt would benefit from further BLE strenghtening, gait and balance training in order to decrease fall risk and improve activity tolerance. Physical Therapy Plan Frequency and Duration Frequency of Treatment 1-2x/week Duration of treatment (weeks) 8 Plan of Care Start Date 02/26/23 Plan of Care End Date 04/30/23 Therapeutic Interventions Therapeutic Interventions Balance Training,Canalithic Repositioning,Coordination Training,Gait Training,Home Exercise Program,Joint Mobilizations,Neuromuscular Re -education,Patient/Caregiver Education,Self-Care/Home Management,Soft Tissue Mobilization,Therapeutic Activities,Therapeutic Exercises Modalities Cold Pack/Ice Massage,Hot Packs Next Visit Focus/Plan Next Note Type Treatment Note Next Visit Plan Progress light cardio and monitor vitals increase resistance on arm bike Consider FGA task exercise, consider VOR exercise. continue to progress to standing balance exercises
--- NOTE | 2023-03-28 16:45 | PT.OTN ---
Current Diagnoses Muscle weakness (generalized) (03/28/23) Other symptoms and signs involving the musculoskeletal system (03/28/23) Physical Therapy Treatment Note PT-OP-A Visit Information Start: 02/25/23 09:01 Freq: Status: Active Protocol: Document 03/28/23 16:27 AB (Rec: 03/28/23 16:45 AB [id number]) Out-Patient Physical Therapy Visit Information Visit Information Visit Type Treatment Note Visit Note BP taken pre and post UBE, but note not saved, low to mid 150's systolic pre UBE, lower systolic post UBE. Visit Start Time 14:32 Visit Stop Time 15:14 Visit Number 7 Number of ASSOCIATE PROFESSOR OF VIOLIN Visits 1 Evaluation Information Evaluation Date 02/26/23 Precautions Precautions Pt recently had cardiac ablation for flutter on , keep an eye on BP and HR PT-OP-B Current Condition Start: 02/25/23 09:01 Freq: Status: Active Protocol: Document 02/26/23 13:45 MB (Rec: 02/26/23 14:01 MB [id number]) Current Condition History of Current Condition Onset Date May-Oct 2022 hospitalization for respiratory failure d/t MG Current Complaints Overall weakness History of Current Condition Pt was hospitalized for respiratory failure d/t MG and she has ongoing reports of leg weakness and trouble getting up from standing. Pt had cardiac ablation for flutter 02/17/23 and she is still having BP issues. Pt gets out of breath walking to the mailbox and talking can even increase her BP. Cardiac rehab said she does not qualify for cardiac rehab. She finished with HH services for herself. 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 She did not have HHPT . She was intubated during hospitalization and got a PEG tube. She has just started eating. Pt lives at home with her , Apolinar, who has had many falls and is not doing well. A home caregiver helps her some. Her is refusing to use the cane or walker. There is a flight of steps at home. Caregiver drove her to PT and helps with errands, a few meals a week and cleaning. Pt is [employer] and does not wear hearing aides to PT. Treatment Goals Patient/Caregiver Goals To get legs stronger PT-OP-C Subjective Start: 02/25/23 09:01 Freq: Status: Active Protocol: Document 03/28/23 16:27 AB (Rec: 03/28/23 16:45 AB [id number]) OP-PT Subjective Patient Comments Patient Comments Patient reports feeling stressed, had 5 days without caregiver for spouse and spouse had a fall. Patient reports she was unable to assist spouse from fall and EMT's had to be called. PT-OP-G Mobility & Gait Start: 02/25/23 09:01 Freq: Status: Active Protocol: Document 02/26/23 13:45 MB (Rec: 02/26/23 14:56 MB [id number]) OP Gait Assessment Comments Gait Comments Pt gait trains slowly and she has increased GRAY with exertion and requires three standing rest breaks against the wall with 6 minutes of gait training, little to no arm movement PT-OP-K Range of Motion Start: 02/25/23 09:01 Freq: Status: Active Protocol: Document 02/26/23 13:45 MB (Rec: 02/26/23 14:56 MB [id number]) Hip Goniometric Range of Motion Hip ROM Limitations Comments B hip ROM normal Knee Goniometric Range of Motion Knee ROM Limitations Comments B knee ROM normal Ankle and Foot Goniometric Range of Motion Ankle and Foot ROM Limitations Comments B ankle ROM normal PT-OP-M Strength Start: 02/25/23 09:01 Freq: Status: Active Protocol: Document 02/26/23 13:45 MB (Rec: 02/26/23 14:56 MB [id number]) Hip Strength Hip Manual Muscle Testing Left Flexion (L2) 4+ Good+ Abduction 4 Good Right Flexion (L2) 5 Normal Abduction 4 Good Knee Strength Knee Manual Muscle Testing Left Flexion (S2) 4+ Good+ Extension (L3) 5 Normal Right Flexion (S2) 5 Normal Extension (L3) 5 Normal Ankle/Foot Strength Ankle and Foot Manual Muscle Testing Bilateral Dorsiflexion (L4) 5 Normal PT-OP-Q Treatments Start: 02/25/23 09:01 Freq: Status: Active Protocol: Document 03/28/23 16:27 AB (Rec: 03/28/23 16:45 AB [id number]) Cardio Equipment Upper Body Ergometer (UBE) Duration (Minutes) 6 RPM 60 Seat Position 9 Height 2 Therapeutic Exercises Sitting Exercises STS Side bilateral Resistance holding 1 lb weights, level 3 light green band above knees Equipment Used from mesh chair Reps/Minutes 2X10 Comments monitored for pain Clam with glute squeeze Resistance level 4 band above knees Reps/Minutes 3x10 Standing Exercises single leg heel raise Standing Exercise Name with UE support Side bilateral Reps/Minutes X20 and X10 Comments verbal cues to lower LE's slowly Neuro Re-Education Treatment Balance Activities tandem stepping Details hands above parallel bars Reps/Duration 10 feet X 6 Comments CGA with gait belt 1. tandem stepping shuttle Details feet on 4's then stagger stance position Reps/Duration 3 min Comments CGA with gait belt, performed with head turns and visual scanning FGA Comments Gait looking for 8 cones varying heights, CGA with patient calling out color, no balance reactions noted Other Activities glute med activation Details seate hip abduction with band Reps/Duration X2 one minute Comments blue band and light green band (3 and 4, patient ed rationale of one minute hold for activation Self-Care/Home Management Treatment Activities Self-Care/Home Management Activities light green level 3 band and 1 lb weights in each UE added to HEP, glute med activation ( seated hip abd with band level 3 ) one minute added to HEP, progressed to single leg Heel raise. PT-OP-T Assessment and Plan Start: 02/25/23 09:01 Freq: Status: Active Protocol: Document 03/28/23 16:27 AB (Rec: 03/28/23 16:45 AB [id number]) Physical Therapy Assessment Goals 4 Impairment Lack of HEP Nursing Home Goal (LTG) Pt will perform progressive HEP including breathing, activity modification training , balance and strengthening exercises with I to improve safety and overall functional I. LTG Duration 8 weeks 3 Impairment Evidence for imbalance Nursing Home Goal (LTG) Pt will perform WNLs on a standardized balance test to decrease fall risk. LTG Duration 8 weeks 2 Impairment 1039 feet in 6 minutes Roll Winder Goal (LTG) Pt will gait train at least 1300 feet in 6 minutes to reflect improved functional endurance for safe community ambulation. LTG Duration 8 weeks 1 Impairment LEF score 49/80 Roll Winder Goal (LTG) Pt will present with an improved LEF score to at least 60/80 to reflect improved function and balance. LTG Duration 8 weeks Assessment Summary Assessment Patient progressed to single leg HR, and band and light weight for sit to stand this session. BP was taken, but note not saved, low to mid 150 systolic start of UBE, lower post, like due to patient into session with reports of feeling stressed, and appeared less stressed and focused post UBE. Physical Therapy Plan Frequency and Duration Frequency of Treatment 1-2x/week Duration of treatment (weeks) 8 Plan of Care Start Date 02/26/23 Plan of Care End Date 04/30/23 Next Visit Focus/Plan Next Note Type Treatment Note Next Visit Plan Progress light cardio and monitor vitals increase resistance on arm bike Consider FGA task exercise, consider VOR exercise. continue to progress to standing balance exercises
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
--- NOTE | 2023-04-04 13:44 | PT.OPPOC ---
Physical, Occupational & Speech Therapy At [facility] Current Diagnoses Muscle weakness (generalized) (04/04/23) Other symptoms and signs involving the musculoskeletal system (04/04/23) Visit Care Team Role Provider Type Rm Love MD Attending Provider Physician Family Provider Primary Care Provider Referring Provider Specialty: Family Practice Address: [address] [place] [address], [facility] Email: [email or web address] Plan Of Care PT-OP-T Assessment and Plan Start: 02/25/23 09:01 Freq: Status: Active Protocol: Document 04/04/23 09:03 MB (Rec: 04/04/23 09:45 MB [id number]) Physical Therapy Assessment Goals 4 Impairment Lack of HEP Property Disposal Manager Goal (LTG) Pt will perform progressive HEP including breathing, activity modification training , balance and strengthening exercises with I to improve safety and overall functional I. 04/04/23: Pt is performing heel raises, going side to side, toe to toe, going up and down the stairs at home. LTG Duration 6 weeks 3 Impairment Evidence for imbalance Shelter Goal (LTG) Pt will perform WNLs on a standardized balance test to decrease fall risk. 04/04/23: FGA score is 16/30, indicating increased risk for falling LTG Duration 6 weeks 2 Impairment 1039 feet in 6 minutes Property Disposal Manager Goal (LTG) Pt will gait train at least 1300 feet in 6 minutes to reflect improved functional endurance for safe community ambulation. 04/04/23: Pt gait trains 1550 feet in 6 minutes, exceeds goal LTG Duration Exceeds goal 1 Impairment LEF score 49/80 Shelter Goal (LTG) Pt will present with an improved LEF score to at least 60/80 to reflect improved function and balance. 04/04/23: LEF score is a little worse at 42/80 today and pt c /o hip and buttocks pain after using more resistance at PT last time LTG Duration 6 weeks Assessment Summary Assessment Pt reports increased left hip pain after exercise with PT last week and this affected her LEF score on progress note today. She presents with increased risk of imbalance with FGA testing as well as non-specific nystagmus with left Molino-Hallpike and so treated out for BPPV and will check other canals as needed in the future. Con't HEP review and progression. Pt's 6MWT is much better and she has exceeded her goal since starting PT. She will benefit from ongoing PT to improve balanc and strength. PT will con't to monitor BP when cardiac exercise performed. Physical Therapy Plan Frequency and Duration Frequency of Treatment 1-2x/week Duration of treatment (weeks) 6 Plan of Care Start Date 04/04/23 Plan of Care End Date 06/05/23 Therapeutic Interventions Therapeutic Interventions Balance Training,Canalithic Repositioning,Coordination Training,Gait Training,Home Exercise Program,Joint Mobilizations,Neuromuscular Re -education,Patient/Caregiver Education,Self-Care/Home Management,Soft Tissue Mobilization,Therapeutic Activities,Therapeutic Exercises Modalities Cold Pack/Ice Massage,Hot Packs Next Visit Focus/Plan Next Note Type Treatment Note Next Visit Plan With PT, will check for BPPV Review standing exercises and monitor for hip pain: look at form and adjust, keep and eye on vitals with exercises (BP), review handouts and adjust for program at home. HEP should include strengthening and balance exercises Plan of Care Dates Plan of Care Start Date 04/04/23 Plan of Care End Date 06/05/23 Electronically Signed by: Shannon Dolan, PT 04/04/23 2748 If you are in agreement with this Plan of Care, please return a signed and dated copy. I have reviewed this Plan of Care and certify that the skilled therapy services above are required to meet the patient?s needs. Physician Signature Date Printed Name and Credentials Clinical Instructor Signature Printed Name and Credentials
--- NOTE | 2023-04-18 10:27 | PT.OTN ---
Current Diagnoses Muscle weakness (generalized) (04/18/23) Other symptoms and signs involving the musculoskeletal system (04/18/23) Physical Therapy Treatment Note PT-OP-A Visit Information Start: 02/25/23 09:01 Freq: Status: Active Protocol: Document 04/18/23 09:45 MB (Rec: 04/18/23 10:27 MB [id number]) Out-Patient Physical Therapy Visit Information Visit Information Visit Type Treatment Note Visit Start Time 09:45 Visit Stop Time 10:25 Visit Number 9 Number of MEDICAID BILLING CLERK Visits 0 Precautions Precautions Pt recently had cardiac ablation for flutter on , keep an eye on BP and HR PT-OP-B Current Condition Start: 02/25/23 09:01 Freq: Status: Active Protocol: Document 02/26/23 13:45 MB (Rec: 02/26/23 14:01 MB [id number]) Current Condition History of Current Condition Onset Date May-Oct 2022 hospitalization for respiratory failure d/t MG Current Complaints Overall weakness History of Current Condition Pt was hospitalized for respiratory failure d/t MG and she has ongoing reports of leg weakness and trouble getting up from standing. Pt had cardiac ablation for flutter 02/17/23 and she is still having BP issues. Pt gets out of breath walking to the mailbox and talking can even increase her BP. Cardiac rehab said she does not qualify for cardiac rehab. She finished with HH services for herself. 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 She did not have HHPT . She was intubated during hospitalization and got a PEG tube. She has just started eating. Pt lives at home with her , Apolniar, who has had many falls and is not doing well. A home caregiver helps her some. Her is refusing to use the cane or walker. There is a flight of steps at home. Caregiver drove her to PT and helps with errands, a few meals a week and cleaning. Pt is [place] and does not wear hearing aides to PT. Treatment Goals Patient/Caregiver Goals To get legs stronger PT-OP-C Subjective Start: 02/25/23 09:01 Freq: Status: Active Protocol: Document 04/18/23 09:45 MB (Rec: 04/18/23 10:27 MB [id number]) OP-PT Subjective Patient Comments Patient Comments Pt is much better than the last time she saw PT. She has less dizziness with turning to the right and her hip is completely better. Pt was taken off Amyoderol d/t affecting liver and thyroid. PT-OP-G Mobility & Gait Start: 02/25/23 09:01 Freq: Status: Active Protocol: Document 02/26/23 13:45 MB (Rec: 02/26/23 14:56 MB [id number]) OP Gait Assessment Comments Gait Comments Pt gait trains slowly and she has increased GRAY with exertion and requires three standing rest breaks against the wall with 6 minutes of gait training, little to no arm movement PT-OP-K Range of Motion Start: 02/25/23 09:01 Freq: Status: Active Protocol: Document 02/26/23 13:45 MB (Rec: 02/26/23 14:56 MB [id number]) Hip Goniometric Range of Motion Hip ROM Limitations Comments B hip ROM normal Knee Goniometric Range of Motion Knee ROM Limitations Comments B knee ROM normal Ankle and Foot Goniometric Range of Motion Ankle and Foot ROM Limitations Comments B ankle ROM normal PT-OP-M Strength Start: 02/25/23 09:01 Freq: Status: Active Protocol: Document 02/26/23 13:45 MB (Rec: 02/26/23 14:56 MB [id number]) Hip Strength Hip Manual Muscle Testing Left Flexion (L2) 4+ Good+ Abduction 4 Good Right Flexion (L2) 5 Normal Abduction 4 Good Knee Strength Knee Manual Muscle Testing Left Flexion (S2) 4+ Good+ Extension (L3) 5 Normal Right Flexion (S2) 5 Normal Extension (L3) 5 Normal Ankle/Foot Strength Ankle and Foot Manual Muscle Testing Bilateral Dorsiflexion (L4) 5 Normal PT-OP-Q Treatments Start: 02/25/23 09:01 Freq: Status: Active Protocol: Document 04/18/23 09:45 MB (Rec: 04/18/23 10:27 MB [id number]) Cardio Equipment Recumbent Elliptical ([employer]) Duration (Minutes) 10 Resistance 3 Other See BP before and after in assessment Therapeutic Exercises Sitting Exercises STS Resistance Teal TB Reps/Minutes 2x10 Comments Feet shoulder width, 10 reps in 30 sec, then 11 Clam with glute squeeze Resistance Teal TB Reps/Minutes 20 reps Comments Glute squeeze first Ankle DF and eversion Resistance Dark blue TB Reps/Minutes 30 reps Comments Cues keep knees straight and DF first then eversion Therapeutic Activity Therapeutic Activity Multiple positionings to check for BPPV Comments Pt requires min A for B Roll Test and she has no nystagmus or dizziness; two person assistance for B [place]-Hillpike negative for dizziness and nystagmus: no BPPV today PT-OP-T Assessment and Plan Start: 02/25/23 09:01 Freq: Status: Active Protocol: Document 04/18/23 09:45 MB (Rec: 04/18/23 10:27 MB [id number]) Physical Therapy Assessment Goals 4 Impairment Lack of HEP Data Communications Software Consultant Goal (LTG) Pt will perform progressive HEP including breathing, activity modification training , balance and strengthening exercises with I to improve safety and overall functional I. 04/04/23: Pt is performing heel raises, going side to side, toe to toe, going up and down the stairs at home. LTG Duration 6 weeks 3 Impairment Evidence for imbalance Data Communications Software Consultant Goal (LTG) Pt will perform WNLs on a standardized balance test to decrease fall risk. 04/04/23: FGA score is 16/30, indicating increased risk for falling LTG Duration 6 weeks 1 Impairment LEF score 49/80 Data Communications Software Consultant Goal (LTG) Pt will present with an improved LEF score to at least 60/80 to reflect improved function and balance. 04/04/23: LEF score is a little worse at 42/80 today and pt c /o hip and buttocks pain after using more resistance at PT last time LTG Duration 6 weeks Assessment Summary Assessment BP and HR right UE in sitting before exercise: 143/63, 58; after 10' recumbent stepper level 3 and steps 883: 187/69, 71. MARSHA is 14 with exercise. Pt reports that she is clam with band at home and she likes the toe to heel walking but she has not been performing at home. PT asks her to bring in exercise folder next treatment to review and revise HEP. Pt is hypertensive after exercise today. No BPPV today. Reviewed three sitting HEP exercises. Physical Therapy Plan Frequency and Duration Frequency of Treatment 1-2x/week Duration of treatment (weeks) 6 Plan of Care Start Date 04/04/23 Plan of Care End Date 06/05/23 Therapeutic Interventions Therapeutic Interventions Balance Training,Canalithic Repositioning,Coordination Training,Gait Training,Home Exercise Program,Joint Mobilizations,Neuromuscular Re -education,Patient/Caregiver Education,Self-Care/Home Management,Soft Tissue Mobilization,Therapeutic Activities,Therapeutic Exercises Modalities Cold Pack/Ice Massage,Hot Packs Next Visit Focus/Plan Next Note Type Treatment Note Next Visit Plan Check BP before and after exercise, review her HEP exercises and then add or revise standing balance and strengthening
--- NOTE | 2023-04-25 13:30 | PT-OP ANOTE ---
Pt called in to cancel appointment same day d/t illness per front office.
--- NOTE | 2023-04-30 14:29 | PT.OTN ---
Current Diagnoses Muscle weakness (generalized) (04/30/23) Other symptoms and signs involving the musculoskeletal system (04/30/23) Physical Therapy Treatment Note PT-OP-A Visit Information Start: 02/25/23 09:01 Freq: Status: Active Protocol: Document 04/30/23 13:47 MB (Rec: 04/30/23 14:27 MB [id number]) Out-Patient Physical Therapy Visit Information Visit Information Visit Type Treatment Note Visit Note Need KX modifier Visit Start Time 13:47 Visit Stop Time 14:27 Visit Number 10 Number of CUFF TURNER Visits 0 Precautions Precautions Pt recently had cardiac ablation for flutter on , keep an eye on BP and HR Pt had flare up of left sided and left hip pain with standing LE strengthening exercises in the past, less is more for pt. She has myasthenia gravis and energy conservation is important PT-OP-B Current Condition Start: 02/25/23 09:01 Freq: Status: Active Protocol: Document 02/26/23 13:45 MB (Rec: 02/26/23 14:01 MB [id number]) Current Condition History of Current Condition Onset Date May-Oct 2022 hospitalization for respiratory failure d/t MG Current Complaints Overall weakness History of Current Condition Pt was hospitalized for respiratory failure d/t MG and she has ongoing reports of leg weakness and trouble getting up from standing. Pt had cardiac ablation for flutter 02/17/23 and she is still having BP issues. Pt gets out of breath walking to the mailbox and talking can even increase her BP. Cardiac rehab said she does not qualify for cardiac rehab. She finished with services for herself. 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 She did not have HHPT . She was intubated during hospitalization and got a PEG tube. She has just started eating. Pt lives at home with her , Apolinar, who has had many falls and is not doing well. A home caregiver helps her some. Her is refusing to use the cane or walker. There is a flight of steps at home. Caregiver drove her to PT and helps with errands, a few meals a week and cleaning. Pt is [place] and does not wear hearing aides to PT. Treatment Goals Patient/Caregiver Goals To get legs stronger PT-OP-C Subjective Start: 02/25/23 09:01 Freq: Status: Active Protocol: Document 04/30/23 13:47 MB (Rec: 04/30/23 14:27 MB [id number]) OP-PT Subjective Patient Comments Patient Comments Pt states that she just found out that her 's PT was canceled and she is really upset with this. It will be a process to get him re-approved . Pt states that her dizziness has come back. She states that she has gotten a sore neck with turning to the left. She clarifies that she is not dizzy rolling over. She saw the chiropractor and her left knee and left side feels better. PT-OP-G Mobility & Gait Start: 02/25/23 09:01 Freq: Status: Active Protocol: Document 02/26/23 13:45 MB (Rec: 02/26/23 14:56 MB [id number]) OP Gait Assessment Comments Gait Comments Pt gait trains slowly and she has increased GRAY with exertion and requires three standing rest breaks against the wall with 6 minutes of gait training, little to no arm movement PT-OP-K Range of Motion Start: 02/25/23 09:01 Freq: Status: Active Protocol: Document 02/26/23 13:45 MB (Rec: 02/26/23 14:56 MB [id number]) Hip Goniometric Range of Motion Hip ROM Limitations Comments B hip ROM normal Knee Goniometric Range of Motion Knee ROM Limitations Comments B knee ROM normal Ankle and Foot Goniometric Range of Motion Ankle and Foot ROM Limitations Comments B ankle ROM normal PT-OP-M Strength Start: 02/25/23 09:01 Freq: Status: Active Protocol: Document 02/26/23 13:45 MB (Rec: 02/26/23 14:56 MB [id number]) Hip Strength Hip Manual Muscle Testing Left Flexion (L2) 4+ Good+ Abduction 4 Good Right Flexion (L2) 5 Normal Abduction 4 Good Knee Strength Knee Manual Muscle Testing Left Flexion (S2) 4+ Good+ Extension (L3) 5 Normal Right Flexion (S2) 5 Normal Extension (L3) 5 Normal Ankle/Foot Strength Ankle and Foot Manual Muscle Testing Bilateral Dorsiflexion (L4) 5 Normal PT-OP-Q Treatments Start: 02/25/23 09:01 Freq: Status: Active Protocol: Document 04/30/23 13:47 MB (Rec: 04/30/23 14:27 MB [id number]) Cardio Equipment Recumbent Elliptical (Biodex) Duration (Minutes) 10 Resistance 3 Other See BP before and after exercise in assessment Therapeutic Exercises Other Exercises HEP review Comments Verbal review today as pt forgets her HEP folder Neuro Re-Education Treatment Other Activities Tandem standing for home Comments Pt performs on each foot and cues to perform at counter at home and up to 1 minute in each position 4 stage balance testing Comments Romberg standing: at least 30 sec; partial tandem at least 20 sec and mild sway with both feet in each position; tandem : at least 10 sec with right foot behind and this one is finally more challenging and so added to HEP. Cues to keep legs straight Diaphragm breathing Comments Handout with photo with person lying down and pt performs in sitting today with hands on stomach and cues to breathe in and out of the nose and her BP improves after several minutes of exercise PT-OP-T Assessment and Plan Start: 02/25/23 09:01 Freq: Status: Active Protocol: Document 04/30/23 13:47 MB (Rec: 04/30/23 14:27 MB [id number]) Physical Therapy Assessment Goals 4 Impairment Lack of HEP Inspecting Machine Adjuster Goal (LTG) Pt will perform progressive HEP including breathing, activity modification training , balance and strengthening exercises with I to improve safety and overall functional I. 04/04/23: Pt is performing heel raises, going side to side, toe to toe, going up and down the stairs at home. LTG Duration 6 weeks 3 Impairment Evidence for imbalance Inspecting Machine Adjuster Goal (LTG) Pt will perform WNLs on a standardized balance test to decrease fall risk. 04/04/23: FGA score is 16/30, indicating increased risk for falling LTG Duration 6 weeks 1 Impairment LEF score 49/80 Inspecting Machine Adjuster Goal (LTG) Pt will present with an improved LEF score to at least 60/80 to reflect improved function and balance. 04/04/23: LEF score is a little worse at 42/80 today and pt c /o hip and buttocks pain after using more resistance at PT last time LTG Duration 6 weeks Assessment Summary Assessment BP and HR RUE in sitting before NuStep: 158/69, 65. She reports Susie 14 after exercise. BP after exercise in right arm: 175/75, 76. Pt is hypertensive before exercise and after exercise today. She has been off one heart medication for two weeks d/t liver and thyroid problems. She is still on metroprolol. PT ed pt to call MD office to let them know her BP is high. She thinks stress increases her BP. Pt forgot her HEP folder today. Pt c/o throat being tight after trach being removed. Verbally eviewed her exercises as best as possible per her remembering. BP and HR right UE after diaphragm and nasal breathing several minutes in sittin/71, 60 Physical Therapy Plan Frequency and Duration Frequency of Treatment 1-2x/week Duration of treatment (weeks) 6 Plan of Care Start Date 04/04/23 Plan of Care End Date 06/05/23 Therapeutic Interventions Therapeutic Interventions Balance Training,Canalithic Repositioning,Coordination Training,Gait Training,Home Exercise Program,Joint Mobilizations,Neuromuscular Re -education,Patient/Caregiver Education,Self-Care/Home Management,Soft Tissue Mobilization,Therapeutic Activities,Therapeutic Exercises Modalities Cold Pack/Ice Massage,Hot Packs Next Visit Focus/Plan Next Note Type Treatment Note Next Visit Plan Check BP before and after exercise, review her HEP exercises and then add or revise standing balance and strengthening
--- NOTE | 2023-05-11 16:27 | PT.OTN ---
Current Diagnoses Muscle weakness (generalized) (05/11/23) Other symptoms and signs involving the musculoskeletal system (05/11/23) Physical Therapy Treatment Note PT-OP-A Visit Information Start: 02/25/23 09:01 Freq: Status: Active Protocol: Document 05/11/23 12:08 AB (Rec: 05/11/23 14:32 AB [id number]) Out-Patient Physical Therapy Visit Information Visit Information Visit Type Treatment Note Visit Note Need KX modifier Visit Start Time 13:02 Visit Stop Time 13:45 Visit Number 11 Number of GRAPE CRUSHER Visits 1 Evaluation Information Evaluation Date 02/26/23 Precautions Precautions Pt recently had cardiac ablation for flutter on , keep an eye on BP and HR Pt had flare up of left sided and left hip pain with standing LE strengthening exercises in the past, less is more for pt. She has myasthenia gravis and energy conservation is important PT-OP-B Current Condition Start: 02/25/23 09:01 Freq: Status: Active Protocol: Document 02/26/23 13:45 MB (Rec: 02/26/23 14:01 MB [id number]) Current Condition History of Current Condition Onset Date May-Oct 2022 hospitalization for respiratory failure d/t MG Current Complaints Overall weakness History of Current Condition Pt was hospitalized for respiratory failure d/t MG and she has ongoing reports of leg weakness and trouble getting up from standing. Pt had cardiac ablation for flutter 02/17/23 and she is still having BP issues. Pt gets out of breath walking to the mailbox and talking can even increase her BP. Cardiac rehab said she does not qualify for cardiac rehab. She finished with services for herself. She had HH nsg and EMS DIRECTOR. She did not have HHPT . She was intubated during hospitalization and got a PEG tube. She has just started eating. Pt lives at home with her , Apolinar, who has had many falls and is not doing well. A home caregiver helps her some. Her is refusing to use the cane or walker. There is a flight of steps at home. Caregiver drove her to PT and helps with errands, a few meals a week and cleaning. Pt is [place] and does not wear hearing aides to PT. Treatment Goals Patient/Caregiver Goals To get legs stronger PT-OP-C Subjective Start: 02/25/23 09:01 Freq: Status: Active Protocol: Document 05/11/23 12:08 AB (Rec: 05/11/23 14:32 AB [id number]) OP-PT Subjective Patient Comments Patient Comments Patient reports her balance is better. Beena Vela reports some days are better than others, comments that she is tired today. Patient reports when making the bed the BP risise to over 150 systolic. BP seated left UE 118/65 HR 69 start of session. PT-OP-G Mobility & Gait Start: 02/25/23 09:01 Freq: Status: Active Protocol: Document 02/26/23 13:45 MB (Rec: 02/26/23 14:56 MB [id number]) OP Gait Assessment Comments Gait Comments Pt gait trains slowly and she has increased GRAY with exertion and requires three standing rest breaks against the wall with 6 minutes of gait training, little to no arm movement PT-OP-K Range of Motion Start: 02/25/23 09:01 Freq: Status: Active Protocol: Document 02/26/23 13:45 MB (Rec: 02/26/23 14:56 MB [id number]) Hip Goniometric Range of Motion Hip ROM Limitations Comments B hip ROM normal Knee Goniometric Range of Motion Knee ROM Limitations Comments B knee ROM normal Ankle and Foot Goniometric Range of Motion Ankle and Foot ROM Limitations Comments B ankle ROM normal PT-OP-M Strength Start: 02/25/23 09:01 Freq: Status: Active Protocol: Document 02/26/23 13:45 MB (Rec: 02/26/23 14:56 MB [id number]) Hip Strength Hip Manual Muscle Testing Left Flexion (L2) 4+ Good+ Abduction 4 Good Right Flexion (L2) 5 Normal Abduction 4 Good Knee Strength Knee Manual Muscle Testing Left Flexion (S2) 4+ Good+ Extension (L3) 5 Normal Right Flexion (S2) 5 Normal Extension (L3) 5 Normal Ankle/Foot Strength Ankle and Foot Manual Muscle Testing Bilateral Dorsiflexion (L4) 5 Normal PT-OP-Q Treatments Start: 02/25/23 09:01 Freq: Status: Active Protocol: Document 05/11/23 12:08 AB (Rec: 05/11/23 14:32 AB [id number]) Cardio Equipment Recumbent Elliptical (GoMiles) Duration (Minutes) 7 Resistance 3 Seat Position 8 Other BP post Therapeutic Exercises Sitting Exercises seated hip abduction with band Side bilateral Equipment Used level 3 then level 4 band Reps/Minutes one minute X 2 Comments verbal cues STS Side bilateral Resistance level 4 blue band Reps/Minutes 2X10 Comments 1lb in each UE on second set Ankle DF and eversion Resistance Dark blue TB Reps/Minutes 30 reps Comments Cues keep knees straight and DF first then eversion Standing Exercises single leg heel raise Standing Exercise Name with UE support Side bilateral Reps/Minutes X15 Comments verbal cues to lower LE's slowly Neuro Re-Education Treatment Balance Activities tandem stepping Details hands above parallel bars Reps/Duration 10 feet X 6 Comments CGA with gait belt 1. tandem stepping Self-Care/Home Management Treatment Activities Self-Care/Home Management Activities HEP exercises seated hip abd with band and sit to stand with band progressed to level 4 band PT-OP-T Assessment and Plan Start: 02/25/23 09:01 Freq: Status: Active Protocol: Document 05/11/23 12:08 AB (Rec: 05/11/23 14:32 AB [id number]) Physical Therapy Assessment Goals 4 Impairment Lack of HEP Fdc Goal (LTG) Pt will perform progressive HEP including breathing, activity modification training , balance and strengthening exercises with I to improve safety and overall functional I. 04/04/23: Pt is performing heel raises, going side to side, toe to toe, going up and down the stairs at home. LTG Duration 6 weeks 3 Impairment Evidence for imbalance Squeegeer And Former Goal (LTG) Pt will perform WNLs on a standardized balance test to decrease fall risk. 04/04/23: FGA score is 16/30, indicating increased risk for falling LTG Duration 6 weeks 1 Impairment LEF score 49/80 Fdc Goal (LTG) Pt will present with an improved LEF score to at least 60/80 to reflect improved function and balance. 04/04/23: LEF score is a little worse at 42/80 today and pt c /o hip and buttocks pain after using more resistance at PT last time LTG Duration 6 weeks Assessment Summary Assessment BP post HEP 137/68 HE 69 seated left UE post HEP review with increase to blue resistance band for seated hip abd and sit to stand with band. BP post recumbent elliptical 140/67 HR 72 seated left UE (performed elliptical post HEP review.) No reports of increased pain end of session. Physical Therapy Plan Frequency and Duration Frequency of Treatment 1-2x/week Duration of treatment (weeks) 6 Plan of Care Start Date 04/04/23 Plan of Care End Date 06/05/23 Next Visit Focus/Plan Next Note Type Treatment Note Next Visit Plan BP post recumbent elliptical 140/67 HR 72 seated left UE ( performed elliptical post HEP review.) No reports of increased pain end of session.
--- NOTE | 2023-05-15 10:29 | PT.OTN ---
Current Diagnoses Muscle weakness (generalized) (05/15/23) Other symptoms and signs involving the musculoskeletal system (05/15/23) Physical Therapy Treatment Note PT-OP-A Visit Information Start: 02/25/23 09:01 Freq: Status: Active Protocol: Document 05/15/23 09:49 MB (Rec: 05/15/23 10:29 MB [id number]) Out-Patient Physical Therapy Visit Information Visit Information Visit Type Treatment Note Visit Note Need KX modifier Visit Start Time 09:49 Visit Stop Time 10:29 Visit Number 12 Number of MAIL TELLER Visits 0 Precautions Precautions Pt recently had cardiac ablation for flutter on , keep an eye on BP and HR Pt had flare up of left sided and left hip pain with standing LE strengthening exercises in the past, less is more for pt. She has myasthenia gravis and energy conservation is important PT-OP-B Current Condition Start: 02/25/23 09:01 Freq: Status: Active Protocol: Document 02/26/23 13:45 MB (Rec: 02/26/23 14:01 MB [id number]) Current Condition History of Current Condition Onset Date May-Oct 2022 hospitalization for respiratory failure d/t MG Current Complaints Overall weakness History of Current Condition Pt was hospitalized for respiratory failure d/t MG and she has ongoing reports of leg weakness and trouble getting up from standing. Pt had cardiac ablation for flutter 02/17/23 and she is still having BP issues. Pt gets out of breath walking to the mailbox and talking can even increase her BP. Cardiac rehab said she does not qualify for cardiac rehab. She finished with services for herself. She had nsg and HELIUM ARC WELDER. She did not have HHPT . She was intubated during hospitalization and got a PEG tube. She has just started eating. Pt lives at home with her , Apolinar, who has had many falls and is not doing well. A home caregiver helps her some. Her is refusing to use the cane or walker. There is a flight of steps at home. Caregiver drove her to PT and helps with errands, a few meals a week and cleaning. Pt is [place] and does not wear hearing aides to PT. Treatment Goals Patient/Caregiver Goals To get legs stronger PT-OP-C Subjective Start: 02/25/23 09:01 Freq: Status: Active Protocol: Document 05/15/23 09:49 MB (Rec: 05/15/23 10:29 MB [id number]) OP-PT Subjective Patient Comments Patient Comments Pt had a challenging weekend with her . Pt is doing her exercises at home and she is feeling a little stronger. PT-OP-G Mobility & Gait Start: 02/25/23 09:01 Freq: Status: Active Protocol: Document 02/26/23 13:45 MB (Rec: 02/26/23 14:56 MB [id number]) OP Gait Assessment Comments Gait Comments Pt gait trains slowly and she has increased GRAY with exertion and requires three standing rest breaks against the wall with 6 minutes of gait training, little to no arm movement PT-OP-K Range of Motion Start: 02/25/23 09:01 Freq: Status: Active Protocol: Document 02/26/23 13:45 MB (Rec: 02/26/23 14:56 MB [id number]) Hip Goniometric Range of Motion Hip ROM Limitations Comments B hip ROM normal Knee Goniometric Range of Motion Knee ROM Limitations Comments B knee ROM normal Ankle and Foot Goniometric Range of Motion Ankle and Foot ROM Limitations Comments B ankle ROM normal PT-OP-M Strength Start: 02/25/23 09:01 Freq: Status: Active Protocol: Document 02/26/23 13:45 MB (Rec: 02/26/23 14:56 MB [id number]) Hip Strength Hip Manual Muscle Testing Left Flexion (L2) 4+ Good+ Abduction 4 Good Right Flexion (L2) 5 Normal Abduction 4 Good Knee Strength Knee Manual Muscle Testing Left Flexion (S2) 4+ Good+ Extension (L3) 5 Normal Right Flexion (S2) 5 Normal Extension (L3) 5 Normal Ankle/Foot Strength Ankle and Foot Manual Muscle Testing Bilateral Dorsiflexion (L4) 5 Normal PT-OP-Q Treatments Start: 02/25/23 09:01 Freq: Status: Active Protocol: Document 05/15/23 09:49 MB (Rec: 05/15/23 10:29 MB [id number]) Cardio Equipment Recumbent Elliptical ([place]) Duration (Minutes) 10 Resistance 3 Other RUE BP & HR 168/79, 71 before; 160/69, 71 Therapeutic Exercises Sitting Exercises STS Side bilateral Resistance Level 4 band Reps/Minutes 10 reps Ankle DF and eversion Resistance Level 4 band Reps/Minutes 10 Standing Exercises Shoulder ER Side bilateral Resistance [place] green TB Reps/Minutes 10 Comments Tummy tight, elbow at side, pull out Scapular retraction with arms straight row Side bilateral Resistance [place] green TB Reps/Minutes 15 Comments Tummy tight, focus on form Neuro Re-Education Treatment Movement Re-Education Movement Re-education Activities Diaphragm breathing with nasal breathing inhale and exhale and cues for belly to inflate as inhale and deflate as exhale to improve BP. See assessment notes for reading after Other Activities SLS Comments At ballet bar, 10 sec on right and 5 sec on the left Tandem standing for home Comments Standing at ballet bar and pt is able to perform at least 1' each side and she states this is challenging at home PT-OP-T Assessment and Plan Start: 02/25/23 09:01 Freq: Status: Active Protocol: Document 05/15/23 09:49 MB (Rec: 05/15/23 10:29 MB [id number]) Physical Therapy Assessment Goals 4 Impairment Lack of HEP Intermediate Goal (LTG) Pt will perform progressive HEP including breathing, activity modification training , balance and strengthening exercises with I to improve safety and overall functional I. 04/04/23: Pt is performing heel raises, going side to side, toe to toe, going up and down the stairs at home. LTG Duration 6 weeks 3 Impairment Evidence for imbalance Scourer Goal (LTG) Pt will perform WNLs on a standardized balance test to decrease fall risk. 04/04/23: FGA score is 16/30, indicating increased risk for falling LTG Duration 6 weeks 1 Impairment LEF score 49/80 Scourer Goal (LTG) Pt will present with an improved LEF score to at least 60/80 to reflect improved function and balance. 04/04/23: LEF score is a little worse at 42/80 today and pt c /o hip and buttocks pain after using more resistance at PT last time LTG Duration 6 weeks Assessment Summary Assessment Postural/UE exercises added today. BP is high today before and after recumbent stepper. After sitting rest break, drinking water and diaphragm breathing, BP and HR are: 129/ 73, 68: normal BP and HR when performing diaphragm breathing to improve parasympathetic response. Physical Therapy Plan Frequency and Duration Frequency of Treatment 1-2x/week Duration of treatment (weeks) 6 Plan of Care Start Date 04/04/23 Plan of Care End Date 06/05/23 Therapeutic Interventions Therapeutic Interventions Balance Training,Canalithic Repositioning,Coordination Training,Gait Training,Home Exercise Program,Joint Mobilizations,Neuromuscular Re -education,Patient/Caregiver Education,Self-Care/Home Management,Soft Tissue Mobilization,Therapeutic Activities,Therapeutic Exercises Modalities Cold Pack/Ice Massage,Hot Packs Next Visit Focus/Plan Next Note Type Treatment Note Next Visit Plan Check BP before and after exercise, review her HEP exercises and then add or revise standing balance and strengthening: consider multifidi punches with band at side and lateral slide out with foot for balance and core , could consider side stepping holding band for balance and hips, as well as band high pull down with scap retraction and triceps pull
--- NOTE | 2023-06-05 11:14 | PT.OTN ---
Current Diagnoses Muscle weakness (generalized) (06/05/23) Other symptoms and signs involving the musculoskeletal system (06/05/23) Physical Therapy Treatment Note PT-OP-A Visit Information Start: 02/25/23 09:01 Freq: Status: Active Protocol: Document 06/05/23 10:35 MB (Rec: 06/05/23 11:10 MB [id number]) Out-Patient Physical Therapy Visit Information Visit Information Visit Type Discharge Summary Visit Start Time 10:35 Visit Stop Time 11:15 Visit Number 13 Number of MULTIM[employer] PROGRAMMER Visits 0 PT-OP-B Current Condition Start: 02/25/23 09:01 Freq: Status: Active Protocol: Document 02/26/23 13:45 MB (Rec: 02/26/23 14:01 MB [id number]) Current Condition History of Current Condition Onset Date May-Oct 2022 hospitalization for respiratory failure d/t MG Current Complaints Overall weakness History of Current Condition Pt was hospitalized for respiratory failure d/t MG and she has ongoing reports of leg weakness and trouble getting up from standing. Pt had cardiac ablation for flutter 02/17/23 and she is still having BP issues. Pt gets out of breath walking to the mailbox and talking can even increase her BP. Cardiac rehab said she does not qualify for cardiac rehab. She finished with HH services for herself. She had HH nsg and [facility] [employer]. She did not have HHPT . She was intubated during hospitalization and got a PEG tube. She has just started eating. Pt lives at home with her , Apolinar, who has had many falls and is not doing well. A home caregiver helps her some. Her is refusing to use the cane or walker. There is a flight of steps at home. Caregiver drove her to PT and helps with errands, a few meals a week and cleaning. Pt is RAMPART and does not wear hearing aides to PT. Treatment Goals Patient/Caregiver Goals To get legs stronger PT-OP-C Subjective Start: 02/25/23 09:01 Freq: Status: Active Protocol: Document 06/05/23 10:35 MB (Rec: 06/05/23 11:10 MB [id number]) OP-PT Subjective Patient Comments Patient Comments Pt reports she has a PACHECO. They have had some setbacks. Pt states that her CAREN . Her liver and thyroid have had issues. She was on amarodone for her heart in the hospital and then had con't on it. They are doing some urgent work- ups as the numbers are high. PT-OP-G Mobility & Gait Start: 02/25/23 09:01 Freq: Status: Active Protocol: Document 02/26/23 13:45 MB (Rec: 02/26/23 14:56 MB [id number]) OP Gait Assessment Comments Gait Comments Pt gait trains slowly and she has increased GRAY with exertion and requires three standing rest breaks against the wall with 6 minutes of gait training, little to no arm movement PT-OP-K Range of Motion Start: 02/25/23 09:01 Freq: Status: Active Protocol: Document 02/26/23 13:45 MB (Rec: 02/26/23 14:56 MB [id number]) Hip Goniometric Range of Motion Hip ROM Limitations Comments B hip ROM normal Knee Goniometric Range of Motion Knee ROM Limitations Comments B knee ROM normal Ankle and Foot Goniometric Range of Motion Ankle and Foot ROM Limitations Comments B ankle ROM normal PT-OP-M Strength Start: 02/25/23 09:01 Freq: Status: Active Protocol: Document 02/26/23 13:45 MB (Rec: 02/26/23 14:56 MB [id number]) Hip Strength Hip Manual Muscle Testing Left Flexion (L2) 4+ Good+ Abduction 4 Good Right Flexion (L2) 5 Normal Abduction 4 Good Knee Strength Knee Manual Muscle Testing Left Flexion (S2) 4+ Good+ Extension (L3) 5 Normal Right Flexion (S2) 5 Normal Extension (L3) 5 Normal Ankle/Foot Strength Ankle and Foot Manual Muscle Testing Bilateral Dorsiflexion (L4) 5 Normal PT-OP-Q Treatments Start: 02/25/23 09:01 Freq: Status: Active Protocol: Document 06/05/23 10:35 MB (Rec: 06/05/23 11:10 MB [id number]) Therapeutic Exercises Other Exercises HEP review Comments See goals for comment, reviewed today in preparation for d/c Manual Therapy Treatment Other Other Manual Treatments Manual work today to help with posture and pain for ongoing improvement with gait and balance: Grade II-III mobs thoracic spine, SCM, upper traps mobs, suboccipital release. Neuro Re-Education Treatment Balance Activities FGA Comments FGA score is 25/30, which is much improved and normal gait PT-OP-T Assessment and Plan Start: 02/25/23 09:01 Freq: Status: Active Protocol: Document 06/05/23 10:35 MB (Rec: 06/05/23 11:10 MB [id number]) Physical Therapy Assessment Goals 4 Impairment Lack of HEP Fdc Goal (LTG) Pt will perform progressive HEP including breathing, activity modification training , balance and strengthening exercises with I to improve safety and overall functional I. 04/04/23: Pt is performing heel raises, going side to side, toe to toe, going up and down the stairs at home. 06/05/23: Pt has been working on diaphragm breathing when she checks her BP and her BP has been at a nice level, she has been tired d/t medical issues and not doing other exercises as much. Other exercises include band resistance exercises for LEs in sitting, standing balance and STS exercises. LTG Duration Met 3 Impairment Evidence for imbalance Fdc Goal (LTG) Pt will perform WNLs on a standardized balance test to decrease fall risk. 04/04/23: FGA score is 16/30, indicating increased risk for falling 06/05/23: FGA score is 25/30, which is normal LTG Duration Met 1 Impairment LEF score 49/80 Fdc Goal (LTG) Pt will present with an improved LEF score to at least 60/80 to reflect improved function and balance. 04/04/23: LEF score is a little worse at 42/80 today and pt c /o hip and buttocks pain after using more resistance at PT last time 06/05/23: LEF score is 56/80 LTG Duration Partially met Assessment Summary Assessment Pt has met or progressed towards all PT goals and is ready for d/c. Her balance is much better. Pt is very pleased that her BPPV was cleared with treatment.
== END 2023-06-05 14:08 | disposition home or self-care (01) ==
LOC: PHYS 10:30
PROVIDERS: Family Provider Family Medicine; PCP Family Medicine; Referring Provider Family Medicine; Visit Provider Family Medicine
DX: R29.898 Other symptoms and signs involving the musculoskeletal system (principal); M62.81 Muscle weakness (generalized)
CPT/HCPCS: 95992; 97110; 97112; 97116; 97140; 97161; 97530; 97535

== ENCOUNTER → 2023-06-12 09:14 | Outpatient (CLI) | payer MEDICARE, OTHER, SELFPAY ==
[2023-01-17 10:08] VITALS: BMI 23.9
--- NOTE | 2023-06-12 09:15 | DI.US.S_ITS ---
PROCEDURE: US THYROID INDICATIONS: Thyroid nodules TECHNIQUE: Real-time scanning was performed of the thyroid gland, with image documentation. COMPARISON: Merged With [facility], CT, CT SOFT TISSUE NECK W CON, 05/07/2021, 11:56. Merged With [facility], CT, CT SOFT TISSUE NECK W CON, 05/03/2021, 17:59. Merged With [facility], CT, CT SOFT TISSUE NECK W CON, 05/31/2023, 11:05. FINDINGS: Thyroid: Right lobe measures 4.8 x 1.6 x 2.0 cm. Left lobe measures 4.0 x 1.4 x 1.9 cm. Isthmus is 0 point cm thick. Echotexture is heterogeneous. Nodule number: 1 Location: Right mid Size: 1.5 x 1.1 x 1.1 cm. Composition: Solid Echogenicity: Isoechoic Shape: wider than tall. Margins: Smooth Echogenic foci: Punctate Total points: 6 ACR TI-RADS category: 4 Nodule number: 2 Location: Left inferior Size: 0.4 x 0.4 cm. Composition: Solid Echogenicity: Hyperechoic Shape: wider than tall. Margins: Smoott Echogenic foci: Macrocalcification Total points: 4 ACR TI-RADS category: 4 IMPRESSION: 1. 2 moderately suspicious thyroid nodules. Nodule 1 in the right thyroid lobe meets criteria for fine-needle aspiration biopsy. Recommend continue ultrasound follow-up for nodule 2. ACR TI-RADS definitions and recommendations: TI-RADS 1 (benign): 0 points. FNA not needed. TI-RADS 2 (not suspicious): 2 points. FNA not needed. TI-RADS 3 (mildly suspicious): 3 points. * FNA if 2.5 cm or larger, follow up if 1.5 cm or larger (at 1, 3, and 5 years). TI-RADS 4 (moderately suspicious): 4-6 points. * FNA if 1.5 cm or larger, follow up if 1 cm or larger (at 1, 2, 3, and 5 years). TI-RADS 5 (highly suspicious): 7 points or more. * FNA if 1 cm or larger, follow up if 0.5 cm or larger (every year for 5 years). Dictated by: Sherice Rey M.D. on 06/12/2023 at 13:30 Approved by: Sherice Rey M.D. on 06/12/2023 at 13:36
== END ==
PROVIDERS: Family Provider Family Medicine; PCP Family Medicine; Referring Provider Family Medicine; Visit Provider Family Medicine
DX: R93.89 Abnormal findings on diagnostic imaging of other specified body structures (principal); E04.2 Nontoxic multinodular goiter
CPT/HCPCS: 76536

== ENCOUNTER → 2023-06-21 13:50 | Outpatient (CLI) | payer MEDICARE, OTHER, SELFPAY ==
[2023-01-17 10:08] VITALS: BMI 23.9
--- NOTE | 2023-06-21 13:52 | DI.CT.S_ITS ---
PROCEDURE: CT ABDOMEN WO CON INDICATIONS: Persistent abdominal pain w/nausea; PEG tube since 08/27 TECHNIQUE: After the administration of oral contrast, 5 mm thick sections acquired from the diaphragms to the iliac crests. 5 mm coronal and sagittal reformats were then performed. For radiation dose reduction, the following was used: automated exposure control, adjustment of mA and/or kV according to patient size. COMPARISON: None. FINDINGS: Image quality: Diagnostic Lower chest: Unremarkable. Scattered scarring and atelectasis. There is trace pericardial thickening versus fluid. Possible small hiatal hernia Liver: Solid organs are not well assessed in the absence of intravenous contrast. There is suspected hepatic steatosis Gallbladder and biliary system: Gallbladder is absent. Biliary system is nondilated Pancreas: No ductal dilation Spleen: Nonenlarged Adrenals: No discrete nodules Kidneys: No contour deforming solid or hydronephrosis. Vessels and lymph nodes: No abdominal aortic aneurysm. No pathologic lymph nodes by size criteria Bowel and peritoneum: A percutaneous gastrostomy appears to terminate in the stomach lumen. No evidence of small bowel obstruction. Partially seen moderate fecal loading. Body wall: Unremarkable. Mild fat stranding is seen surrounding the percutaneous gastrostomy. Bones: No acute or suspicious osseous finding. IMPRESSION: Percutaneous gastrostomy appears to terminate in the gastric lumen. No evidence of small bowel obstruction. Limited noncontrast CT. Other findings above. Dictated by: Robert Servin M.D. on 06/21/2023 at 14:25 Approved by: Robert Servin M.D. on 06/21/2023 at 14:28
== END ==
PROVIDERS: Family Provider Family Medicine; PCP Family Medicine; Referring Provider Physician Assistant; Visit Provider Physician Assistant
DX: R10.9 Unspecified abdominal pain (principal); R11.0 Nausea; Z93.1 Gastrostomy status; Z90.49 Acquired absence of other specified parts of digestive tract
CPT/HCPCS: 74150

== ENCOUNTER → 2023-06-28 11:32 | Outpatient (CLI) | payer MEDICARE, OTHER, SELFPAY ==
[2023-01-17 10:08] VITALS: BMI 23.9
[2023-06-28 12:52] LABS: Add Manual Diff / Slide Review NO; Basophils Absolute Auto 100 /uL (0-100); Basophils Percent Auto 1.3 % (0-2); Eosinophils Absolute Auto 200 /uL (0-450); Eosinophils Percent Auto 4.7 % (2-4); Hematocrit 32.8 % (36-46); Hemoglobin 11.1 g/dL (12.0-16.0); Lymphocytes Absolute Auto 900 /uL (1100-4500); Lymphocytes Percent Auto 19.3 % (25-40); Mean Corpuscular HGB Conc 33.7 % (30-36); Mean Corpuscular Hemoglobin 34.9 PG (26-34); Mean Corpuscular Volume 103.4 fL (80-100); Monocytes Absolute Auto 400 /uL (0-900); Monocytes Percent Auto 8.6 % (3-14); Neutrophils Absolute Auto 3200 /uL (1500-7000); Neutrophils Percent Auto 66.1 % (50-75); Platelet Count 327 X10^3/uL (150-400); Red Blood Cell Count 3.17 X10^6/uL (4.0-5.2); Red Cell Distribution Width 18.6 % (11.6-14.8); White Blood Cell Count 4.8 X10^3/uL (4.5-11.0)
[2023-06-28 13:19] LABS: Alanine Aminotransferase 38 IU/L (<35); Albumin 3.4 g/dL (3.5-5.0); Albumin Globulin Ratio 1.3 (1.0-2.8); Alkaline Phosphatase 57 U/L (38-126); Aspartate Aminotransferase 47 IU/L (14-36); BUN Creatinine Ratio 13.5 (6-22); Bilirubin Total 1.7 mg/dL (0.2-1.3); Blood Urea Nitrogen 10 mg/dL (7-17); Calcium 8.6 mg/dL (8.4-10.2); Carbon Dioxide 31 mmol/L (22-32); Chloride 104 mmol/L (98-107); Estimated Glomerular Filt Rate > 60 mL/min (>60); Globulin 2.7 g/dL (1.7-4.1); Glucose 102 mg/dL (80-110); HEMOLYSIS < 15 (0-50); Potassium 4.3 mmol/L (3.4-5.1); Sodium 139 mmol/L (137-145); Total Protein 6.1 g/dL (6.3-8.2)
[2023-06-28 13:50] LABS: TSH w/ Reflex to FT4 4.79 uIU/mL (0.47-4.68)
[2023-06-28 14:14] LABS: Free T4, Direct Thyroxine 2.02 ng/dL (0.78-2.19)
== END ==
PROVIDERS: Family Provider Family Medicine; PCP Family Medicine; Referring Provider Family Medicine; Visit Provider Family Medicine
DX: E04.1 Nontoxic single thyroid nodule (principal); I10 Essential (primary) hypertension; Z93.1 Gastrostomy status; R11.0 Nausea; R10.9 Unspecified abdominal pain; E03.9 Hypothyroidism, unspecified
CPT/HCPCS: 36415; 80053; 84439; 84443; 85025

== ENCOUNTER → 2023-06-29 08:19 | Outpatient (CLI) | payer MEDICARE, OTHER, SELFPAY ==
[2023-01-17 10:08] VITALS: BMI 23.9
--- NOTE | 2023-06-29 | PATH_ITS ---
Note [facility] Accession Number: [id number] TESTS RESULT FLAG UNITS REF RANGE LAB Clinician Provided Cytology Information No. of containers..01 Other (Miscellaneous) No. of containers..00 Previously Prepared Cytology Slide Source: RIGHT THYROID NODULE 1 DIAGNOSIS: RIGHT THYROID NODULE 1 ATYPIA OF UNDETERMINED SIGNIFICANCE. BETHESDA CATEGORY III. ATYPIA OF UNDETERMINED SIGNIFIANCE - NUCLEAR ATYPIA. COMMENT: The aspirate is adequate with good cellularity. It is composed of a mixture of macrofollicles and microfollicles, with presence of colloid and some hemosiderin-laden macrophages. Most of the cells demonstrate nuclear changes within normal limits; however, scattered are large hyperchromatic nuclei with irregular membranes; this atypia is of unclear clinical significance. Pathologist ICD10: 01 R89.6 Signed out by: Aga Pace MD, Pathologist NPI- [id number] Performed by: Raz Burton, Health Promotion Educator ([facility]) Gross description: 01 30 CC, PINK, CLEAR RECIEVED: IN CYTOLYT WITH 5 ALCOHOL FIXED AND 5 QUICK STAINED SLIDES ALSO 1 RNA VIAL WILL ON 01-23-2025.VO /VDU 07/03/2023 1109 Local FLAG LEGEND: L-Low Normal,H-High Normal,LL-Alert Low,HH-Alert High <-Panic Low,>-Panic High,A-Abnormal,AA-Critical Abnormal Performed at: 01 [facility] [address], [place] [address] Aries Dean MD, Performed at: [address] [place] [address], [place], [place] [id number] MD Aries Dean MD Phone: [phone]
--- NOTE | 2023-06-29 08:20 | DI.US.S_ITS ---
PROCEDURE: US FINE NEEDLE ASPIRATION INDICATIONS: Nodule 1 in the right thyroid lobe meets criteria for FNA TECHNIQUE: The indications, alternatives, benefits, risks, and complications of the procedure were explained to the patient. Written informed consent was obtained and placed in the chart. Real-time sonography was utilized to choose the site for percutaneous lymph node sampling. The skin was prepped and draped in the usual sterile fashion. 1% lidocaine was infiltrated down to the site of interest. Serial hypodermic needles were then advanced into the site of interest under direct sonographic visualization, and serial needle aspirates were obtained. The needles were then withdrawn; a bandage was applied to the procedure site. COMPARISON: [facility], , US THYROID, 06/12/2023, 9:33. FINDINGS: Sample site(s): Right mid nodule 1 Needle: 25 gauge. Number of passes: 5. Medications: 1% lidocaine for local anaesthesia. Complications: None. IMPRESSION: Successful ultrasound-guided right mid nodule 1 lymph node fine needle aspiration, with cytology results pending. Dictated by: Robert Servin M.D. on 06/29/2023 at 13:06 Approved by: Robert Servin M.D. on 06/29/2023 at 13:07
== END ==
LOC: US 08:19
PROVIDERS: Family Provider Family Medicine; PCP Family Medicine; Referring Provider Family Medicine; Visit Provider Family Medicine
DX: E04.1 Nontoxic single thyroid nodule (principal)
CPT/HCPCS: 10005

== ENCOUNTER → 2023-07-23 13:08 | Outpatient (CLI) | payer MEDICARE, OTHER, SELFPAY ==
[2023-01-17 10:08] VITALS: BMI 23.9
[2023-07-23 13:50] LABS: Add Manual Diff / Slide Review NO; Basophils Absolute Auto 0 /uL (0-100); Basophils Percent Auto 0.9 % (0-2); Eosinophils Absolute Auto 100 /uL (0-450); Eosinophils Percent Auto 4.1 % (2-4); Hematocrit 32.2 % (36-46); Lymphocytes Absolute Auto 1100 /uL (1100-4500); Lymphocytes Percent Auto 28.9 % (25-40); Mean Corpuscular HGB Conc 34.1 % (30-36); Mean Corpuscular Hemoglobin 35.5 PG (26-34); Mean Corpuscular Volume 104.2 fL (80-100); Monocytes Absolute Auto 300 /uL (0-900); Monocytes Percent Auto 7.9 % (3-14); Neutrophils Absolute Auto 2100 /uL (1500-7000); Neutrophils Percent Auto 58.2 % (50-75); Platelet Count 261 X10^3/uL (150-400); Red Blood Cell Count 3.09 X10^6/uL (4.0-5.2); Red Cell Distribution Width 17.9 % (11.6-14.8); White Blood Cell Count 3.6 X10^3/uL (4.5-11.0)
== END ==
PROVIDERS: Family Provider Family Medicine; PCP Family Medicine; Referring Provider Internal Medicine; Visit Provider Internal Medicine
DX: G70.00 Myasthenia gravis without (acute) exacerbation (principal)
CPT/HCPCS: 36415; 85025

== ENCOUNTER → 2023-08-29 13:53 | Outpatient (CLI) | payer MEDICARE, OTHER, SELFPAY ==
[2023-01-17 10:08] VITALS: BMI 23.9
--- NOTE | 2023-08-29 13:54 | DI.RAD.S_ITS ---
PROCEDURE: FL BARIUM SWALLOW INDICATIONS: DYSPHAGIA COMPARISON: [facility], , FL BARIUM SWALLOW W SPEECH, 11/29/2022, 9:23. FINDINGS: Function: No abnormality seen in the swallowing mechanism. There is no reflux into the nasopharynx or aspiration into the tracheobronchial system. Esophagus shows normal peristalsis. No obstruction or ulcerations are demonstrated. No mass lesions are noted. There is a small sliding hiatal hernia with gastro esophageal reflux noted. Morphology: Air-contrast images demonstrate normal mucosal morphology. Single contrast views show no esophageal strictures, extrinsic mass effects, or diverticula. Limited images of the stomach demonstrate normal appearance. IMPRESSION: Mild gastroesophageal reflux. Dictated by: Cory Sheehan M.D. on 08/29/2023 at 17:16 Approved by: Cory Sheehan M.D. on 08/29/2023 at 17:18
== END ==
PROVIDERS: Family Provider Family Medicine; PCP Family Medicine; Referring Provider Student in an Organized Health Care Education/Training Program; Visit Provider Student in an Organized Health Care Education/Training Program
DX: K44.9 Diaphragmatic hernia without obstruction or gangrene (principal); K21.9 Gastro-esophageal reflux disease without esophagitis; R13.10 Dysphagia, unspecified
CPT/HCPCS: 74220

== ENCOUNTER 2023-09-05 13:07 | Emergency (ER) | payer MEDICARE, OTHER, SELFPAY ==
[2023-01-17 10:08] VITALS: BMI 23.9
[2023-09-05 13:23] VITALS: BP 129/58; PULSE 73; RESP 16; TEMP 37; O2SAT 97; BMI 22.6
--- NOTE | 2023-09-05 13:29 | DI.CT.S_ITS ---
PROCEDURE: CT CERVICAL SPINE WO CON INDICATIONS: fall/hit head on on Sunday TECHNIQUE: Noncontrast 3 mm thick sections acquired from the skull base to the T4 level. Sagittal and coronal reformats were then constructed. For radiation dose reduction, the following was used: automated exposure control, adjustment of mA and/or kV according to patient size. COMPARISON: [facility], CT, CT HEAD/BRAIN WO CON, 09/05/2023, 13:40. [facility], CT, CT SOFT TISSUE NECK W CON, 05/31/2023, 11:05. FINDINGS: Image quality: Excellent. Bones: No fractures or dislocations. Visualized superior ribs are intact. There is at least moderate disc space narrowing seen at C3-C4, C4-C5, and C5-C6. Post erected endplate osteophytes are seen, which are worst at C5-C6. Milder degenerative changes are seen elsewhere. Soft tissues: Prevertebral soft tissues are normal in thickness. No paravertebral hematomas. No apical pneumothoraces. IMPRESSION: No displaced fracture or traumatic subluxation. Cervical spine degenerative changes are seen, which are worst at C5-C6. Dictated by: Sancho La M.D. on 09/05/2023 at 13:23 Approved by: Sancho La M.D. on 09/05/2023 at 13:24
--- NOTE | 2023-09-05 13:29 | DI.CT.S_ITS ---
PROCEDURE: CT HEAD/BRAIN WO CON INDICATIONS: fall/hit head on on Sunday TECHNIQUE: Noncontrast 4.5 mm thick angled axial sections acquired from the foramen magnum to the vertex, with coronal and sagittal reformats. For radiation dose reduction, the following was used: automated exposure control, adjustment of mA and/or kV according to patient size. COMPARISON: [facility], CT, CT CERVICAL SPINE WO CON, 09/05/2023, 13:40. [facility], MR, MR HEAD/BRAIN WO CON, 05/07/2021, 14:36. FINDINGS: Image quality: Mild streak artifact can be seen through the skull base. This examination is limited by involuntary motion artifact. CSF spaces: Basal cisterns are patent. No extra-axial fluid collections. The ventricles are symmetric in size and shape. Brain: No intracranial bleeds or masses. There is cerebral volume loss for age, with resultant ventricular and sulcal prominence. There are periventricular and deep white matter chronic small vessel ischemic changes. There is intracranial internal carotid artery atherosclerosis. Skull and face: Calvarium and visualized facial bones appear intact, without suspicious lesions. Sinuses: Visualized sinuses and mastoids are clear. IMPRESSION: No acute intracranial hemorrhage is seen. No acute intracranial pathology. Dictated by: Sancho La M.D. on 09/05/2023 at 13:19 Approved by: Sancho La M.D. on 09/05/2023 at 13:22
[2023-09-05 14:30] VITALS: BP 127/58; PULSE 68; RESP 18; O2SAT 99
--- NOTE | 2023-09-05 17:15 | ED_ITS ---
HPI - Head Injury General Chief complaint: Trauma Stated complaint: Hit top of head on railing, blood thinners Time Seen by Provider: 09/05/23 17:12 Source: patient Mode of arrival: Ambulatory History of Present Illness HPI Narrative: Patient was trying to retrieve her cat near her porch steps. The cat took off and patient move to catch the PET however she bumped her head against the railing of the stairs. No loss of consciousness. No nausea or vomiting no vision changes. Patient is on Eliquis for atrial fibrillation. Patient denies any pain at this time. Hit the top of her head. No fall to the ground. Denies any other injuries. Related Data Home Medications Medication Instructions Recorded Confirmed acetaminophen 325 mg capsule 650 mg PO Q6H PRN 10/30/22 08/02/23 simethicone 125 mg capsule (Gas-X 250 mg PO BID PRN 11/07/22 08/02/23 Extra Strength) albuterol sulfate 2.5 mg/3 mL 2.5 mg inhalation Q2H PRN 06/20/23 08/02/23 (0.083 %) solution for nebulization budesonide 0.25 mg/2 mL suspension 0.25 mg inhalation BID PRN 06/20/23 08/02/23 for nebulization Previous Rx's Medication Instructions Recorded apixaban 2.5 mg tablet 2.5 mg PO BID #180 tabs 11/21/22 azathioprine 100 mg tablet 150 mg (1.5 x 100 mg) PO DAILY 11/21/22 #135 tabs metoprolol tartrate 25 mg tablet 12.5 mg (1/2 x 25 mg) PO BID #90 01/15/23 tabs triamcinolone acetonide 0.1 % 1 applic topical BID #80 grams 04/16/23 topical cream ondansetron 4 mg disintegrating See Rx Instructions PO Q6H PRN 06/28/23 tablet nausea and vomiting #60 tabs levothyroxine 75 mcg tablet 75 mcg PO DAILY #90 tabs 07/10/23 Allergies Allergy/AdvReac Type Severity Reaction Status Date / Time pantoprazole Allergy Severe Swelling Verified 09/05/23 13:32 of Lip/Tongue/Throat Review of Systems Review of Systems Narrative: GENERAL: negative chills, fatigue, malaise, fever, sweats. HEENT: negative sinus pain, ear pain, sore throat RESPIRATORY: negative dyspnea, cough CARDIOVASCULAR: negative chest pain, palpitations GASTROINTESTINAL: negative nausea, vomiting, abdominal pain : negative dysuria, frequency, hematuria MUSCULOSKELETAL: Positive muscle or bony pain SKIN: negative rash, skin lesions NEUROLOGIC: negative weakness, numbness, headache slurred speech patient droop ROS Unobtainable: All systems reviewed & are unremarkable except as noted in HPI and below Patient History Medical History Tracheostomy care Ischemic colitis Iron deficiency anemia Paroxysmal atrial fibrillation Myasthenia Labile diastolic hypertension Dysphagia SVT (supraventricular tachycardia) Allergic rhinitis Hyperlipidemia Asthma Osteoarthritis of cervical spine (08/15/10) Surgical History S/P percutaneous endoscopic gastrostomy (PEG) tube placement (~06/2022) Status post tracheostomy (~06/2022) Status post cholecystectomy Family History Brother Obstructive sleep apnea Brother Shellfish allergy Social History marital status: household members: spouse lives independently: Yes occupational status: previously employed Smoking Status: Never smoker alcohol intake: former substance use type: does not use Smoking Status: Never smoker alcohol intake frequency: holidays/special occasions only Substance Use Type: does not use Exam Narrative Exam Narrative: GENERAL: in no distress, not toxic not dyspneic HEAD: Normocephalic. Nontender scalp. No crepitus step-off. No skin injury edema ecchymosis abrasion or laceration to the scalp EYES: Pupils equal round ENT: Mucous membranes moist. NECK: Trachea midline. No midline tenderness or step-off. CARDIOVASCULAR: Regular rate and rhythm RESPIRATORY: Clear to auscultation. Breath sounds equal bilaterally. No wheezes, rales, or rhonchi. GASTROINTESTINAL: Abdomen soft, non-tender EXTREMITIES: No gross deformities. BACK: No flank tenderness. NEURO: AOx4. Clear speech no facial droop light touch intact bilateral face and with strong equal element winding machine tender. Fast exam is negative. SKIN: Warm and dry PSYCH: Not anxious, is cooperative Initial Vital Signs Initial Vital Signs: Vital Signs Temperature 98.6 F 09/05/23 13:23 Pulse Rate 73 09/05/23 13:23 Respiratory Rate 16 09/05/23 13:23 Blood Pressure 129/58 L 09/05/23 13:23 Pulse Oximetry 97 09/05/23 13:23 Oxygen Delivery Method Room Air 09/05/23 13:23 Course Orders Ordered: ED Orders 09/05/23 13:29 CT cervical spine wo con Stat CT head/brain wo con Stat Vital Signs Vital signs: Vital Signs - 8 hr 09/05/23 13:23 09/05/23 14:30 Temperature 98.6 F Pulse Rate 73 68 Respiratory Rate 16 18 Blood Pressure 129/58 L 127/58 L Pulse Oximetry 97 99 Oxygen Delivery Method Room Air Room Air MDM - Head Injury Imaging Data CT scan - head: Radiologist's Impression: [address] [address] [address] Scan Report Signed Patient: Beena Vazquez MR#: [id number] : 1940 Acct:[id number] Age/Sex: 83 / F Date of Service: 09/05/23 Loc: ED Accession Number: [id number] Procedure: CT head/brain wo con Ordering Provider: Nav Stephens MD PROCEDURE: CT HEAD/BRAIN WO CON INDICATIONS: fall/hit head on on Sunday TECHNIQUE: Noncontrast 4.5 mm thick angled axial sections acquired from the foramen magnum to the vertex, with coronal and sagittal reformats. For radiation dose reduction, the following was used: automated exposure control, adjustment of mA and/or kV according to patient size. COMPARISON: [facility], CT, CT CERVICAL SPINE WO CON, 09/05/2023, 13:40. [facility], MR, MR HEAD/BRAIN WO CON, 05/07/2021, 14:36. FINDINGS: Image quality: Mild streak artifact can be seen through the skull base. This examination is limited by involuntary motion artifact. CSF spaces: Basal cisterns are patent. No extra-axial fluid collections. The ventricles are symmetric in size and shape. Brain: No intracranial bleeds or masses. There is cerebral volume loss for age, with resultant ventricular and sulcal prominence. There are periventricular and deep white matter chronic small vessel ischemic changes. There is intracranial internal carotid artery atherosclerosis. Skull and face: Calvarium and visualized facial bones appear intact, without suspicious lesions. Sinuses: Visualized sinuses and mastoids are clear. IMPRESSION: No acute intracranial hemorrhage is seen. No acute intracranial pathology. Dictated by: Sancho La M.D. on 09/05/2023 at 13:19 Approved by: Sancho La M.D. on 09/05/2023 at 13:22 CT - cervical spine: Radiologist's Impression: [address] [address] [address] Scan Report Signed Patient: Beena Vazquez MR#: [id number] : 1940 Acct:[id number] Age/Sex: 83 / F Date of Service: 09/05/23 Loc: ED Accession Number: [id number] Procedure: CT cervical spine wo con Ordering Provider: Nav Stephens MD PROCEDURE: CT CERVICAL SPINE WO CON INDICATIONS: fall/hit head on thinner on Sunday TECHNIQUE: Noncontrast 3 mm thick sections acquired from the skull base to the T4 level. Sagittal and coronal reformats were then constructed. For radiation dose reduction, the following was used: automated exposure control, adjustment of mA and/or kV according to patient size. COMPARISON: [facility], CT, CT HEAD/BRAIN WO CON, 09/05/2023, 13:40. [facility], CT, CT SOFT TISSUE NECK W CON, 05/31/2023, 11:05. FINDINGS: Image quality: Excellent. Bones: No fractures or dislocations. Visualized superior ribs are intact. There is at least moderate disc space narrowing seen at C3-C4, C4-C5, and C5-C6. Post erected endplate osteophytes are seen, which are worst at C5-C6. Milder degenerative changes are seen elsewhere. Soft tissues: Prevertebral soft tissues are normal in thickness. No paravertebral hematomas. No apical pneumothoraces. IMPRESSION: No displaced fracture or traumatic subluxation. Cervical spine degenerative changes are seen, which are worst at C5-C6. Dictated by: Sancho La M.D. on 09/05/2023 at 13:23 Approved by: Sancho La M.D. on 09/05/2023 at 13:24 [facility] Narrative Medical decision making narrative: Patient was trying to retrieve her cat near her porch steps. The cat took off and patient move to catch the PET however she bumped her head against the railing of the stairs. No loss of consciousness. No nausea or vomiting no vision changes. Patient is on Eliquis for atrial fibrillation. Patient denies any pain at this time. Hit the top of her head. No fall to the ground. Denies any other injuries. After history and exam CT head CT cervical spine, given mechanism of injury no blood work indicated at this time. [facility] Medical records reviewed: No recent visit for this complaint Differential considered: Includes but not limited to skull fracture intracranial bleed contusion concussion Lab Test results independently reviewed as above. Pertinent findings: None indicated Independently reviewed EKG none indicated Imaging studies independently reviewed: CT head CT cervical spine no acute finding Consultations: None indicated Treatments: None indicated, denies any pain at this time, no nausea Re-evaluations: Reviewed exam and CT findings with patient. They are reassuring. Patient asymptomatic at this time. Desires discharge home. Return precautions reviewed. She desires discharge home Discussion: Appropriate for discharge home exam is reassuring. No neuro deficits. CT imaging reassuring as well. Return precautions reviewed. Pain resolved. No medications indicated at this time. Diagnosis: Scalp contusion Discharge Plan Departure Patient Disposition: Home Clinical Impression: Contusion of head Qualifiers: Encounter type: initial encounter Contusion of head detail: scalp Qualified Code(s): S00.03XA - Contusion of scalp, initial encounter Instructions: DI for Contusion, DI for Closed Head Injury Activity Restrictions/Additional Instructions: Your exam and CT scan imaging are reassuring. You have sustained a contusion to your scalp. You may continue home medications. Return if worse if any questions or concerns. May continue Tylenol for pain. Return if worse if any questions or concerns. See family doctor next week for re-evaluation Prescriptions: No Action levothyroxine 75 mcg tablet 75 mcg PO DAILY Qty: 90 2RF metoprolol tartrate 25 mg tablet 12.5 mg PO BID Qty: 90 3RF triamcinolone acetonide 0.1 % cream 1 applic topical BID Qty: 80 0RF Rx Instructions: apply to rash on lower leg until resolved ondansetron 4 mg tablet,disintegrating See Rx Instructions PO Q6H PRN (Reason: nausea and vomiting) Qty: 60 1RF Rx Instructions: t1-2 tabs every 6 hours as needed for nausea budesonide 0.25 mg/2 mL suspension for nebulization 0.25 mg inhalation BID PRN Rx Instructions: Uses prn for asthma flare ups albuterol sulfate 2.5 mg /3 mL (0.083 %) solution for nebulization 2.5 mg inhalation Q2H PRN Rx Instructions: Use prn asthma flare up acetaminophen 325 mg capsule 650 mg PO Q6H PRN apixaban 2.5 mg tablet 2.5 mg PO BID Qty: 180 3RF azathioprine 100 mg tablet 150 mg PO DAILY Qty: 135 3RF simethicone [Gas-X Extra Strength] 125 mg capsule 250 mg PO BID PRN Referrals: Rm Love MD [Primary Care Provider] - Stand Alone Forms: Patient Portal/API
[2023-09-05 17:21] VITALS: BP 120/60; PULSE 60; RESP 20; TEMP 37; O2SAT 98
== END 2023-09-05 17:22 | disposition home or self-care (01) ==
PROVIDERS: Emergency Provider Emergency Medicine; Family Provider Family Medicine; PCP Family Medicine
DX: S00.03XA Contusion of scalp, initial encounter (principal); W22.8XXA Striking against or struck by other objects, initial encounter; Z79.01 Long term (current) use of anticoagulants
CPT/HCPCS: 70450; 72125; 99283; 99284

== ENCOUNTER → 2023-11-29 16:11 | Outpatient (CLI) | payer MEDICARE, OTHER, SELFPAY ==
[2023-01-17 10:08] VITALS: BMI 23.9
[2023-11-29 17:15] LABS: Add Manual Diff / Slide Review NO; Basophils Absolute Auto 0 /uL (0-100); Basophils Percent Auto 0.8 % (0-2); Eosinophils Absolute Auto 200 /uL (0-450); Eosinophils Percent Auto 3.2 % (2-4); Hematocrit 36.9 % (36-46); Hemoglobin 12.3 g/dL (12.0-16.0); Lymphocytes Absolute Auto 2400 /uL (1100-4500); Lymphocytes Percent Auto 43.7 % (25-40); Mean Corpuscular HGB Conc 33.4 % (30-36); Mean Corpuscular Hemoglobin 33.5 PG (26-34); Mean Corpuscular Volume 100.4 fL (80-100); Monocytes Absolute Auto 500 /uL (0-900); Monocytes Percent Auto 9.4 % (3-14); Neutrophils Absolute Auto 2300 /uL (1500-7000); Neutrophils Percent Auto 42.9 % (50-75); Platelet Count 131 X10^3/uL (150-400); Red Blood Cell Count 3.68 X10^6/uL (4.0-5.2); Red Cell Distribution Width 18.3 % (11.6-14.8); White Blood Cell Count 5.4 X10^3/uL (4.5-11.0)
== END ==
LOC: LAB 16:13
PROVIDERS: Family Provider Family Medicine; PCP Family Medicine; Referring Provider Internal Medicine; Visit Provider Internal Medicine
DX: G70.00 Myasthenia gravis without (acute) exacerbation (principal)
CPT/HCPCS: 36415; 85025

== ENCOUNTER → 2023-12-20 12:01 | Outpatient (CLI) | payer MEDICARE, OTHER, SELFPAY ==
[2023-01-17 10:08] VITALS: BMI 23.9
--- NOTE | 2023-12-20 14:37 | DI.RAD.S_ITS ---
PROCEDURE: XR HAND RT MIN 3V INDICATIONS: HAND PAIN TECHNIQUE: 3 views of the hand(s) acquired. COMPARISON: None. FINDINGS: Bones: No fractures or dislocations. Carpal bones are normally aligned. No suspicious bony lesions. Soft tissues: No suspicious soft tissue calcifications. IMPRESSION: No acute bony abnormality. Mild arthritic changes. Approved by: Kishor Abdullahi M.D. on 12/20/2023 at 18:38
== END ==
PROVIDERS: Family Provider Family Medicine; PCP Family Medicine; Referring Provider Family Medicine; Visit Provider Family Medicine
DX: M79.641 Pain in right hand (principal)
CPT/HCPCS: 73130

== ENCOUNTER → 2023-12-24 13:09 | Outpatient (CLI) | payer MEDICARE, SELFPAY ==
[2023-01-17 10:08] VITALS: BMI 23.9
[2023-12-24 14:15] LABS: Alanine Aminotransferase 59 IU/L (<35); Albumin 3.5 g/dL (3.5-5.0); Albumin Globulin Ratio 1.3 (1.0-2.8); Alkaline Phosphatase 58 U/L (38-126); Aspartate Aminotransferase 77 IU/L (14-36); BUN Creatinine Ratio 18.6 (6-22); Bilirubin Total 1.3 mg/dL (0.2-1.3); Blood Urea Nitrogen 11 mg/dL (7-17); Calcium 9.3 mg/dL (8.4-10.2); Carbon Dioxide 30 mmol/L (22-32); Chloride 105 mmol/L (98-107); Estimated Glomerular Filt Rate > 60 mL/min (>60); Globulin 2.8 g/dL (1.7-4.1); Glucose 125 mg/dL (80-110); HEMOLYSIS < 15 (0-50); Potassium 3.9 mmol/L (3.4-5.1); Sodium 140 mmol/L (137-145); Total Protein 6.3 g/dL (6.3-8.2)
[2023-12-24 14:33] LABS: Free T4, Direct Thyroxine 1.08 ng/dL (0.78-2.19)
[2023-12-24 14:46] LABS: Thyroid Stimulating Hormone 1.73 uIU/mL (0.47-4.68)
== END ==
PROVIDERS: Family Provider Family Medicine; PCP Family Medicine; Referring Provider Student in an Organized Health Care Education/Training Program; Visit Provider Student in an Organized Health Care Education/Training Program
DX: E03.9 Hypothyroidism, unspecified (principal); R29.898 Other symptoms and signs involving the musculoskeletal system; I47.19 Other supraventricular tachycardia
CPT/HCPCS: 36415; 80053; 84439; 84443

== ENCOUNTER → 2024-02-11 12:39 | Outpatient (CLI) | payer MEDICARE, SELFPAY ==
[2023-01-17 10:08] VITALS: BMI 23.9
[2024-02-11 14:21] LABS: Add Manual Diff / Slide Review NO; Basophils Absolute Auto 0 /uL (0-100); Basophils Percent Auto 0.8 % (0-2); Eosinophils Absolute Auto 100 /uL (0-450); Eosinophils Percent Auto 3.3 % (2-4); Hemoglobin 12.3 g/dL (12.0-16.0); Lymphocytes Absolute Auto 900 /uL (1100-4500); Lymphocytes Percent Auto 21.4 % (25-40); Mean Corpuscular HGB Conc 34.3 % (30-36); Mean Corpuscular Hemoglobin 34.6 PG (26-34); Monocytes Absolute Auto 200 /uL (0-900); Monocytes Percent Auto 5.4 % (3-14); Neutrophils Absolute Auto 2800 /uL (1500-7000); Neutrophils Percent Auto 69.1 % (50-75); Platelet Count 136 X10^3/uL (150-400); Red Blood Cell Count 3.57 X10^6/uL (4.0-5.2); Red Cell Distribution Width 19.2 % (11.6-14.8); White Blood Cell Count 4.1 X10^3/uL (4.5-11.0)
[2024-02-11 14:38] LABS: BUN Creatinine Ratio 18.6 (6-22); Blood Urea Nitrogen 11 mg/dL (7-17); Calcium 9.2 mg/dL (8.4-10.2); Carbon Dioxide 31 mmol/L (22-32); Chloride 106 mmol/L (98-107); Estimated Glomerular Filt Rate > 60 mL/min (>60); Glucose 103 mg/dL (80-110); HEMOLYSIS < 15 (0-50); Sodium 141 mmol/L (137-145)
== END ==
PROVIDERS: Family Provider Family Medicine; PCP Family Medicine; Referring Provider Internal Medicine Cardiovascular Disease; Visit Provider Internal Medicine Cardiovascular Disease
DX: I47.19 Other supraventricular tachycardia (principal)
CPT/HCPCS: 36415; 80048; 85025

== ENCOUNTER → 2024-04-10 11:10 | Outpatient (CLI) | payer MEDICARE, SELFPAY ==
[2023-01-17 10:08] VITALS: BMI 23.9
[2024-04-10 11:46] LABS: Add Manual Diff / Slide Review NO; Basophils Absolute Auto 0 /uL (0-100); Basophils Percent Auto 0.9 % (0-2); Eosinophils Absolute Auto 100 /uL (0-450); Eosinophils Percent Auto 4.3 % (2-4); Hematocrit 31.5 % (36-46); Hemoglobin 11.1 g/dL (12.0-16.0); Lymphocytes Absolute Auto 900 /uL (1100-4500); Lymphocytes Percent Auto 34.2 % (25-40); Mean Corpuscular HGB Conc 35.1 % (30-36); Mean Corpuscular Hemoglobin 35.4 PG (26-34); Mean Corpuscular Volume 100.9 fL (80-100); Monocytes Absolute Auto 200 /uL (0-900); Monocytes Percent Auto 6.6 % (3-14); Neutrophils Absolute Auto 1400 /uL (1500-7000); Platelet Count 104 X10^3/uL (150-400); Red Blood Cell Count 3.13 X10^6/uL (4.0-5.2); Red Cell Distribution Width 18.5 % (11.6-14.8); White Blood Cell Count 2.7 X10^3/uL (4.5-11.0)
== END ==
PROVIDERS: Family Provider Family Medicine; PCP Family Medicine; Referring Provider Family Medicine; Visit Provider Internal Medicine
DX: G70.00 Myasthenia gravis without (acute) exacerbation (principal)
CPT/HCPCS: 36415; 85025